=== PATIENT | male | born 1960 | race Caucasian/White ===

== ENCOUNTER 2019-12-14 08:07 | Emergency (ER) | payer MEDICARE, MEDICAID, SELFPAY ==
[2019-12-14] VITALS (9 sets, daily range): BP systolic 169–237; BP diastolic 93–115; PULSE 49–59; RESP 15–19; TEMP 36.3; O2SAT 97–100; BMI 27.1
--- NOTE | 2019-12-14 08:25 | PC.NURSE ---
EKG done at 0815 and shown to ER doctor
--- NOTE | 2019-12-14 08:44 | CT_ITS ---
WS: [id number] CT CHEST TECHNIQUE: Contrast enhanced CT of the chest with coronal and sagittal reformatted images. CLINICAL INFORMATION: dyspnea, exposed to fiberglass COMPARISON: None. DLP: 808.[address] scans at [facility] use at least one of these dose optimization techniques: automat ed exposure control; mA and/or kV adjustment per patient size (includes targeted exams where dose is matched to clinical indication); or iterative reconstruction. FINDINGS: Both lungs. Well aerated. No acute pulmonary infiltrates. Slight subsegmental atelectasis/fibrosis ri ght lower lobe. No focal pneumonia or pleural fluid. Thyroid gland is normal. No mediastinal or hilar lymphadenopathy. Normal caliber thoracic aorta. Prox imal main pulmonary arteries are normal. Adrenal glands are normal. Hypertrophic changes thoracic spi ne. Impression CT/CT chest w con* [id number] IMPRESSION: 1. Both lungs are well aerated. No acute pulmonary infiltrates. 2. Slight subsegmental atelectasis/fibrosis in the right lower lobe. 3. No focal pneumonia or pleural fluid. 4. No mediastinal or hilar lymphadenopathy. 5. No other significant findings.
--- NOTE | 2019-12-14 08:44 | ECG_ITS ---
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
--- NOTE | 2019-12-14 08:44 | XR_ITS ---
WS: [id number] CHEST XRAY TECHNIQUE: Portable chest. CLINICAL INFORMATION: chest pain, exposed to fiberglass COMPARISON: FINDINGS: Heart: Cardiomegaly. Tortuous thoracic aorta. Lungs: Mild chronic erythematous changes. Slight fibrosis right lower lobe. No acute pulmonary infilt rates. Bones: Normal visualized bony structures. XR/XR chest 1V portable [id number] IMPRESSION: No acute chest findings
--- NOTE | 2019-12-14 09:02 | W.ED.CHESTPA ---
HPI - Chest Pain General: Chief Complaint: Chest Pain Stated Complaint: HEADACHE,SOB ,CP Time Seen by Provider: 12/14/19 08:11 History of Present Illness: HPI narrative: This patient is a 58-year-old male who presents today with chest pain and shortness of breath. He also has burning in his eyes. He says that over the past 2 days he has been working in an attic of an 80-year-old house. He thinks he has been exposed to fiberglass. He was wearing a respirator but said it was leaky. He was not wearing any goggles. He started having burning in his eyes yesterday afternoon. He also started having some shortness of breath and chest discomfort late last night and said it kept him awake. He said he is having difficulty getting a deep breath. He denies history of cardiac disease. He knows that he has high blood pressure but has not ever been able to find a blood pressure medicine that did not cause side effects. He does not currently have a primary care doctor. He is a former smoker. He smoked tobacco for a few years but mainly has smoked cannabis. He quit that 2 months ago. He said he has a history of chronic pain in his neck and hips and also has a history of anxiety and insomnia. He said he smoked the marijuana to help with those but it did not really do anything for him. He also has a history of lymphoma that was treated a number of years ago. He is currently in remission he thinks. He does not follow up with anyone and does not have a primary care doctor. He said both parents have in the past few years of cancer as well. MD complaint: chest pain and chest heaviness Pertinent past history: other (Untreated hypertension) Onset (ago): day(s) (1) Timing of current episode: constant Prior episodes: No Onset: during rest Pain location: substernal Pain radiation: none Severity: moderate Quality: tightness and heaviness Relieving factors: nothing Exacerbating factors: inspiration and movement Context: other (Working in the attic of an 80-year-old house with fiberglass insulation) Associated symptoms: Reports dyspnea; Deny abdominal pain, fever(s), nausea or vomiting Treatment prior to arrival: none Review of Systems General: Reports: 10 or more systems reviewed and unremarkable except in HPI and below Const: Reports: malaise; Denies: fever(s), chills or fatigue Eyes: Denies: change in vision ENMT: Denies: odynophagia Card: Reports: chest pain, dyspnea on exertion and orthopnea; Denies: swelling of feet/ankles Resp: Reports: dyspnea and non-productive cough GI: Denies: abdominal pain, nausea or vomiting : Denies: flank pain Musc: Denies: neck pain or back pain Skin/Breast: Denies: rash Neuro: Denies: headache(s), numbness in extremities or weakness in extremities Psych: Reports: anxiety and sleeping less Chau/Lymph: Denies: easy bruising or easy bleeding PFS ED PFSH: Medical History (Updated 12/22/19 @ 00:00 by ) Anxiety Hypertension Lymphoma Physical Exam Const: COMMON NORMALS: patient oriented x3, no limitations and alert GENERAL APPEARANCE: cooperative HENMT: HEAD & SCALP: normal to inspection FACE & SINUS: normal facial exam Eye: GENERAL EYE: appearance normal, both eyes and all related structures Neck/C-Spine: COMMON NORMALS: supple, no meningeal signs and no JVD Chest: COMMONS NORMALS: normal inspection of the chest Resp: COMMON NORMALS: normal respiratory effort, No use of accessory muscles and clear to auscultation bilaterally AUSCULTATION: clear to auscultation bilaterally Cardio: COMMON NORMALS: no JVD, regular rate, regular rhythm and No murmurs present (Cardio) RATE: regular rate RHYTHM: regular rhythm GI: COMMON NORMALS: Normal to inspection, nondistended, normoactive bowel sounds present, Soft to palpation and non-tender INSPECTION: Yes normal to inspection AUSCULTATION: Yes normoactive bowel sounds PALPATION: Yes Soft to palpation Back/Pelvis: COMMON NORMALS: thoracic and lumbar spine normal to inspection Extremity: COMMON NORMALS: normal to inspection Neuro: COMMON NORMALS: patient oriented x3, moves all extremities, no focal motor deficits and no sensory deficits noted SENSORIUM/ORIENTATION: Yes alert MENINGEAL SIGNS: Yes no meningeal signs Psych: COMMON NORMALS: mental status grossly normal and cooperative MOOD & AFFECT: Yes depressed mood and Yes anxious Skin: COMMON NORMALS: no rashes or lesions noted and turgor normal GENERAL SKIN EXAM: no rashes or lesions noted and turgor normal Course ED course: Patient has a negative work-up. He had some exposure to old insulation in his home. Chest x-ray is clear. Labs are clear. We discussed his chronic pain in his neck and I suggest he try some topical Voltaren. We also discussed his elevated blood pressure and I encouraged him to establish with a primary care doctor and get back on blood pressure medications. We discussed the long-term effects of uncontrolled blood pressure. Vital Signs: Vital signs: Vital Signs Temperature 97.3 F L 12/14/19 08:09 Pulse Rate 53 L 12/14/19 12:10 Respiratory Rate 18 12/14/19 12:10 Blood Pressure 169/93 12/14/19 12:10 Pulse Oximetry 99 12/14/19 12:10 MDM - Chest Pain Lab Data: Labs: Lab Results 12/14/19 12/14/19 12/14/19 Range/Units 08:24 08:24 08:24 WBC 4.7 (4.0-10.0) 10^3/ uL RBC 4.33 (4.1-5.3) 10^6/u L Hgb 13.8 (11.7-16.6) g/dL Hct 42.1 (42.0-52.0) % MCV 97.2 H (80-94) fL MCH 31.9 (28.0-34.0) pg MCHC 32.8 (30.0-36.0) g/dL RDW 14.3 (12.1-15.1) % Plt Count 105 L (130-400) 10^3/c mm MPV 10.3 (7.4-10.4) fL Neut % (Auto) 69.7 % Lymph % (Auto) 21.3 % [place] % (Auto) 6.4 % Eos % (Auto) 0.9 % Baso % (Auto) 1.3 % Neut # (Auto) 3.28 (1.8-7.7) 10^3/u L Lymph # (Auto) 1.0 (0.8-4.8) 10^3/u L [place] # (Auto) 0.3 (0.2-0.9) 10^3/u L Eos # (Auto) 0.0 (0.0-0.8) 10^3/u L Baso # (Auto) 0.1 (0.0-0.1) 10^3/u L Nucleated RBC % (a uto) 0 % Nucleated RBCs # 0.0 /100WBC Sodium 140 (136-145) mmol/L Potassium 4.3 (3.5-5.1) mmol/L Chloride 102 (98-107) mmol/L Carbon Dioxide 27 (22-29) mmol/L Anion Gap 15.3 (5-19) BUN 15 (6-20) mg/dL Creatinine 0.9 (0.7-1.2) mg/dL GFR Calculation 87.0 L (90-130) mL/min Glucose 111 (65-115) mg/dL Calculated Osmolal ity 292 (285-295) mOsm/k g Calcium 9.4 (8.5-10.5) mg/dL Total Bilirubin 0.7 (0.15-1.2) mg/dL AST 39 (0-40) U/L ALT 46 H (0-41) U/L Alkaline Phosphata se 89 (40-130) IU/L Troponin T Baselin e 12 (0-15) ng/L Troponin T 120 Min [place] (0-15) ng/L Delta Troponin T (0-10) ABS# NT-Pro-B Natriuret Pep 100 (0-125) pg/mL Total Protein 7.0 (6.6-8.7) g/dL Albumin 4.7 (3.5-5.2) g/dL Globulin 2.3 (1.3-4.6) g/dL Lipase 91 H (13-60) U/L 12/13/ Range/Units 10:53 WBC (4.0-10.0) 10^3/ uL RBC (4.1-5.3) 10^6/u L Hgb (11.7-16.6) g/dL Hct (42.0-52.0) % MCV (80-94) fL MCH (28.0-34.0) pg MCHC (30.0-36.0) g/dL RDW (12.1-15.1) % Plt Count (130-400) 10^3/c mm MPV (7.4-10.4) fL Neut % (Auto) % Lymph % (Auto) % [place] % (Auto) % Eos % (Auto) % Baso % (Auto) % Neut # (Auto) (1.8-7.7) 10^3/u L Lymph # (Auto) (0.8-4.8) 10^3/u L [place] # (Auto) (0.2-0.9) 10^3/u L Eos # (Auto) (0.0-0.8) 10^3/u L Baso # (Auto) (0.0-0.1) 10^3/u L Nucleated RBC % (a uto) % Nucleated RBCs # /100WBC Sodium (136-145) mmol/L Potassium (3.5-5.1) mmol/L Chloride (98-107) mmol/L Carbon Dioxide (22-29) mmol/L Anion Gap (5-19) BUN (6-20) mg/dL Creatinine (0.7-1.2) mg/dL GFR Calculation (90-130) mL/min Glucose (65-115) mg/dL Calculated Osmolal ity (285-295) mOsm/k g Calcium (8.5-10.5) mg/dL Total Bilirubin (0.15-1.2) mg/dL AST (0-40) U/L ALT (0-41) U/L Alkaline Phosphata se (40-130) IU/L Troponin T Baselin e (0-15) ng/L Troponin T 120 Min [place] 12.12 (0-15) ng/L Delta Troponin T 0.12 (0-10) ABS# NT-Pro-B Natriuret Pep (0-125) pg/mL Total Protein (6.6-8.7) g/dL Albumin (3.5-5.2) g/dL Globulin (1.3-4.6) g/dL Lipase (13-60) U/L Discharge Plan Discharge Patient Disposition: Home Clinical Impression: Anxiety, Chest pain, Inhalation injury Hypertension Qualifiers: Hypertension type: unspecified Qualified Code(s): I10 - Essential (primary) hypertension Condition: Stable Prescriptions: New albuterol sulfate 90 mcg/actuation HFA aerosol inhaler 2 inh INHALATION Q4H PRN (Reason: shortness of breath or wheezing) Qty: 18 RF: 0 Voltaren 1 % gel 4 gm TOPICAL TID Qty: 100 RF: 0 Discharge Orders: Discharge Order (Routine); Ordered 12/14/19 Ordered By: Olivia Wolfe Referrals: Madonna Jaeger PA [Family Provider] - Discharge Diet: Usual diet Discharge Activity: Resume usual activity Patient Instructions: Chronic Hypertension (ED) Activity Restrictions/Additional Instructions: Please follow-up with primary care to get established on some blood pressure medications. prison, untreated hypertension is a major risk factor for serious health problems including stroke, heart attack, kidney failure. Use the inhaler as needed for your shortness of breath. Use Voltaren topical cream for your neck and shoulder pain. Return to the ER if new or worsening symptoms. Coding Level of Care Code ED District Extension Service Agent for Chg Fwd Exam Comprehensive
[2019-12-14] MEDS: aspirin 81 mg Chew Tablet 324 MG PO (09:08)
[2019-12-14] MEDS: morphine 4 mg/mL SDV 1 mL IVP (09:08)
[2019-12-14] MEDS: ondansetron 2 mg/ML SDV 2 mL 4 MG IVP (09:09)
[2019-12-14] MEDS: sodium chloride 0.9% 1,000 ML 999 ML IV (09:10)
[2019-12-14 09:13] LABS: Basophils # 0.1 10^3/uL (0.0-0.1); Basophils % 1.3 %; Eosinophils % 0.9 %; Hematocrit 42.1 % (42.0-52.0); Hemoglobin 13.8 g/dL (11.7-16.6); Lymphocytes % 21.3 %; Mean Corpuscular HGB Conc 32.8 g/dL (30.0-36.0); Mean Corpuscular Hemoglobin 31.9 pg (28.0-34.0); Mean Corpuscular Volume 97.2 fL (80-94); Mean Platelet Volume 10.3 fL (7.4-10.4); Monocytes # 0.3 10^3/uL (0.2-0.9); Monocytes % 6.4 %; Neutrophils # 3.28 10^3/uL (1.8-7.7); Neutrophils % 69.7 %; Nucleated Red Blood Cells % 0 %; Platelet Count 105 10^3/cmm (130-400); Red Blood Count 4.33 10^6/uL (4.1-5.3); Red Cell Distribution Width 14.3 % (12.1-15.1); White Blood Count 4.7 10^3/uL (4.0-10.0)
[2019-12-14] MEDS: iohexol 300 mg/mL 100 mL Btl IV (09:13)
[2019-12-14 09:25] LABS: Troponin(5th) Baseline 12 ng/L (0-15)
[2019-12-14 09:33] LABS: Alanine Aminotransferase 46 U/L (0-41); Albumin Level 4.7 g/dL (3.5-5.2); Alkaline Phosphatase 89 IU/L (40-130); Anion Gap 15.3 (5-19); Aspartate Amino Transferase 39 U/L (0-40); Blood Urea Nitrogen 15 mg/dL (6-20); Calcium 9.4 mg/dL (8.5-10.5); Carbon Dioxide 27 mmol/L (22-29); Chloride 102 mmol/L (98-107); Globulin 2.3 g/dL (1.3-4.6); Glucose 111 mg/dL (65-115); Lipase 91 U/L (13-60); NT Pro B Type Natriuretic Pept 100 pg/mL (0-125); Osmolality Calculated 292 mOsm/kg (285-295); Potassium 4.3 mmol/L (3.5-5.1); Sodium 140 mmol/L (136-145); Total Bilirubin 0.7 mg/dL (0.15-1.2)
[2019-12-14] MEDS: nitroglycerin 0.4 mg sublingual Tablet SUBLINGUAL (09:44)
[2019-12-14] MEDS: lidocaine 2% viscous 15 ML, aluminum-mag hydrox-simethicon 30 ML, sucralfate oral liq 1 GM PO (10:19)
[2019-12-14] MEDS: ipratropium-albuterol 3 mL Neb INHALATION (10:24)
[2019-12-14] MEDS: LORazepam 2 mg/mL INJ 1 mL 0.5 MG IVP (10:27)
--- NOTE | 2019-12-14 10:44 | ECG_ITS ---
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
[2019-12-14 11:20] LABS: Troponin 5 2HR 12.12 ng/L (0-15); Troponin 5 2HR Delta 0.12 ABS# (0-10)
[2019-12-14] MEDS: dexamethasone 4 mg/mL INJ 6 MG IVP (12:02)
--- NOTE | 2019-12-15 13:32 | DCPLANNER ---
restaurant floor manager had message to speak with patient about outpatient follow up. restaurant floor manager called patient, unable to speak with patient at this time, and unable to leave a voicemail for patient at this time.
== END 2019-12-14 12:13 | disposition home or self-care (01) ==
PROVIDERS: Emergency Provider Emergency Medicine; Family Provider Physician Assistant
DX: R07.9 Chest pain, unspecified (principal); F41.9 Anxiety disorder, unspecified; I10 Essential (primary) hypertension; T17.900A Unspecified foreign body in respiratory tract, part unspecified causing asphyxiation, initial encounter; X58.XXXA Exposure to other specified factors, initial encounter
CPT/HCPCS: 12345; 71045; 71260; 80053; 83690; 83880; 84484; 85025; 93005; 94640; 96361; 96374; 96375; 99283; 99284; J1100; J2060; J2270; J2405; J7030; Q9967

== ENCOUNTER 2020-08-07 08:38 | Observation (INO) | payer MEDICARE, MEDICAID, SELFPAY ==
[2020-08-07] VITALS (26 sets, daily range): BP systolic 127–242; BP diastolic 72–117; PULSE 40–59; RESP 12–19; TEMP 36.3–36.6; O2SAT 96–100; BMI 27.8
--- NOTE | 2020-08-07 08:47 | XR_ITS ---
WS: [id number] Portable AP upright chest, 08/07/2020 Clinical Data: cp Comparison: Portable chest, 12/14/2019. Findings: No nodules, masses or effusions are seen. The heart is normal. The pulmonary vascularity is not increased. No pneumonia or pneumothorax is seen. Monitor leads are on the chest wall. XR/XR chest 1V portable [id number] Impression: Negative chest.
--- NOTE | 2020-08-07 08:47 | ECG_ITS ---
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 Measurements Intervals [place] Rate: 50 P: 81 [place]: 136 QRS: -18 QRSD: 100 T: 149 QT: 433 QTc: 395 Interpretive Statements SINUS BRADYCARDIA MINIMAL VOLTAGE CRITERIA FOR LVH, CONSIDER NORMAL VARIANT [MEETS CRITERIA IN ONE OF: R(aVL), S(V1), R(V5), R(V5/V6)+S(V1)] POSSIBLE LATERAL MYOCARDIAL INFARCTION [30 ms Q WAVE IN I/aVL/V5/V6], OF INDETERMINATE AGE Compared to ECG 12/14/2019 10:57:16 Myocardial infarct finding now present Electronically Signed On 08-08-2020 7:04:07 CDT by Vickie Anthony M.D. [id number] f
--- NOTE | 2020-08-07 08:47 | CT_ITS ---
WS: [id number] CT HEAD TECHNIQUE: Noncontrast CT of the head obtained from the skullbase to the vertex. CLINICAL INFORMATION: dizzy COMPARISON: None. DLP: 1023.[address] scans at [facility] use at least one of these dose optimization techniques: automat ed exposure control; mA and/or kV adjustment per patient size (includes targeted exams where dose is matched to clinical indication); or iterative reconstruction. FINDINGS: No evidence of intracranial hemorrhage or mass effect. Ventricular system and basal cisterns are dailey nt. Mild parenchymal volume loss. No extra-axial fluid collections. No evidence of mass or mass effec t. Normal neal-white differentiation. Paranasal sinuses and mastoid air cells are well aerated. .Normal visualized soft tissues. CT/CT head wo con* [id number] IMPRESSION: 1. No evidence of intracranial hemorrhage or mass effect. 2. Normal neal-white differentiation. Mild parenchymal volume loss. 3. No acute intracranial findings.
--- NOTE | 2020-08-07 08:50 | ED_ITS ---
Documented by User: Mindy Rivera 08/07/20 13:57 HPI - Chest Pain General: Chief Complaint: Chest Pain Stated Complaint: chest pain, High BP Time Seen by Provider: 08/07/20 08:40 Source: patient Mode of arrival: ambulatory Limitations: no limitations History of Present Illness: HPI narrative: 59 yo male patient presents to ER with c/o chest pain since wednesday patient states this has been intermittent and has had some SOB. Pt denies radiation. Pt states last few days his blood pressure has been in the 240s woke up this am with headache neck pain and dizziness. Pt states he had a stress test a few months ago that was good. pt has history of HTN and took his daily meds today. Pt denies fever, cough abd pain. Associated symptoms: Reports dyspnea; Deny abdominal pain, diaphoresis, fever(s), nausea, palpitations, syncope or vomiting Review of Systems Const: Denies: fever(s), chills, body aches, change in appetite, change in weight, fatigue, malaise or diaphoresis Eyes: Denies: change in vision, blurry vision, blind spots, photophobia, eye discomfort, eye discharge, eye redness, floaters or seeing flashes ENMT: Denies: throat pain, uvular edema, enlarged tonsils, odynophagia, hoarseness, mouth pain, swelling of lips/tongue, oral sores, bleeding gums, dental pain, dry mouth, ear or mastoid pain, ear discharge, change in hearing, tinnitus, disequilibrium, nasal discharge, nasal congestion, post nasal drip or sinus pain Card: Reports: chest pain and lightheadedness; Denies: palpitations, irregular heart rhythm, edema, swelling of feet/ankles, syncope, pre-syncope, dyspnea on exertion, orthopnea, leg pain with exertion or acrocyanosis Resp: Reports: dyspnea; Denies: productive cough, non-productive cough, wheezing, stridor, pain on inspiration, change in phlegm color, hemoptysis or chest congestion GI: Denies: abdominal pain, nausea, vomiting, hematemesis, dysphagia, diarrhea, constipation, GI cramping, change in bowel habits or rectal pain : Denies: flank pain, dysuria, urinary frequency, urinary urgency, urinary hesitancy or hematuria Musc: Denies: neck pain, back pain, extremity pain, extremity swelling, joint pain, joint swelling, joint redness, joint warmth or deformity Skin/Breast: Denies: rash, pruritus, erythema, sores, new lesions, changes in skin color or dry skin Neuro: Reports: headache(s) and dizziness; Denies: numbness in extremities, weakness in extremities, sensory changes, lack of coordination, difficulty walking, frequent falls, vertigo, confusion, behavioral changes, Slurred speech present, difficulty communicating thoughts or seizure-like activity Psych: Denies: anxiety, depression, suicidal ideation or homicidal ideation Endo: Denies: polyuria, polydipsia, tired all the time, cold intolerance, excessive sweating, flushing, hot flashes or heat intolerance Chau/Lymph: Denies: easy bruising, easy bleeding, petechiae, purpura, enlarged lymph nodes or tender lymph nodes All/Imm: Denies: urticaria, throat swelling, tongue swelling, facial swelling, acute wheezing or itchy eyes PFSH ED PFSH: Medical History Anxiety Hypertension Lymphoma Physical Exam Const: COMMON NORMALS: no acute distress, patient oriented x3, healthy appearing, alert and well nourished GENERAL APPEARANCE: cooperative, comfortable, well kempt and well developed; not ill appearing ORIENTATION/CONSCIOUSNESS: Yes awake, Yes oriented to person, Yes oriented to place and Yes oriented to time HENMT: COMMON NORMALS: normocephalic, atraumatic, hearing grossly normal bilaterally, external ears normal, EAC's normal, TM's normal bilaterally, Normal external nose present, Normal nasal mucous membranes and turbinates present and moist oral mucous membranes HEAD & SCALP: normal to inspection, normocephalic and atraumatic FACE & SINUS: normal facial exam, sinuses nontender and face symmetric NOSE: Normal external nose present, Normal nares present, Normal nasal mucous membranes and turbinates present, No nasal discharge present and Abnormal external nose present EXTERNAL EAR: Yes external ears normal and Yes mastoids normal EXTERNAL AUDITORY CANAL: EAC's normal TYMPANIC MEMBRANE: TM's normal bilaterally MOUTH: Normal oral and palatal mucosa present, lip normal, tongue normal and Normal salivary glands and ducts present THROAT: no uvular edema Eye: COMMON NORMALS: Equal, round and reactive pupils present, EOMs intact bilaterally, conjunctivae normal, no scleral icterus and no papilledema GENERAL EYE: appearance normal, both eyes and all related structures EYELID: eyelids normal CONJUNCTIVA: Yes conjunctivae normal SCLERA: sclerae normal CORNEA: Yes corneas normal PUPIL: Yes Equal, round and reactive pupils present DIRECT OPHTHALMOSCOPY: Yes no papilledema Neck/C-Spine: COMMON NORMALS: full ROM, no lymphadenopathy, supple, no meningeal signs, no JVD and Thyroid normal GENERAL: Yes normal visual inspection and Yes trachea midline THYROID: Thyroid normal CERVICAL SPINE: Yes cervical ROM normal Lymph: LYMPHATIC: no lymphadenopathy noted and no lymphedema noted Chest: COMMONS NORMALS: normal inspection of the chest and normal palpation of entire chest wall Resp: COMMON NORMALS: normal respiratory effort, No retractions, No use of accessory muscles and clear to auscultation bilaterally EFFORT & INSPECTION: Yes able to speak in complete sentences and Yes symmetric chest movement AUSCULTATION: clear to auscultation bilaterally Cardio: COMMON NORMALS: no JVD, regular rate and regular rhythm RATE: regular rate RHYTHM: regular rhythm GI: COMMON NORMALS: Normal to inspection, nondistended, normoactive bowel sounds present, Soft to palpation, non-tender, No hepatosplenomegaly present, no masses and no bruits INSPECTION: Yes normal to inspection AUSCULTATION: Yes normoactive bowel sounds PALPATION: Yes Soft to palpation and Yes No hepatosplenomegaly present PERCUSSION: normal to percussion RECTAL EXAM: Yes deferred : COMMON NORMALS: Yes no CVA tenderness BLADDER/KIDNEY EXAM: Yes no CVA tenderness Back/Pelvis: COMMON NORMALS: no CVA tenderness, thoracic and lumbar spine normal to inspection, no thoracic nor lumbar tenderness, thoraco-lumbar ROM normal and straight leg raise negative bilaterally THORACIC SPINE/UPPER BACK: Yes normal to inspection LUMBAR SPINE/LOWER BACK: Yes normal to inspection Extremity: COMMON NORMALS: normal to inspection, full ROM and capillary refill normal GENERAL: Yes normal exam except as noted Neuro: COMMON NORMALS: patient oriented x3, CN's II-XII intact bilaterally, moves all extremities, no focal motor deficits, no sensory deficits noted, deep tendon reflexes 2+ bilaterally and gait normal SENSORIUM/ORIENTATION: Yes alert, Yes oriented to person, Yes oriented to place and Yes oriented to time MENINGEAL SIGNS: Yes no meningeal signs CRANIAL NERVES: Yes CN normal except as noted SPEECH: speech normal GAIT: Yes Normal gait present SENSORY EXAM: Yes extremities MOTOR EXAM: 5/5 motor strength present throughout Psych: COMMON NORMALS: mental status grossly normal, Normal thought process present, cooperative, normal affect, speech normal, activity/motor behavior normal, denies hallucinations, denies homicidal ideation and denies suicidal ideation APPEARANCE: Yes grossly normal and Yes well kempt ATTITUDE: Yes calm ACTIVITY/MOTOR BEHAVIOR: Yes appropriate eye contact SPEECH: Yes normal speech THOUGHT PROCESS: Normal thought process present THOUGHT CONTENT: Yes Normal thought content present ATTENTION/CONCENTRATION: Yes attention grossly intact MEMORY/COGNITION: Yes memory grossly intact INSIGHT: Good insight present (Psych) JUDGEMENT: Good judgement present (Psych) Skin: COMMON NORMALS: no rashes or lesions noted, no wounds, turgor normal, no jaundice, no petechiae and no mottling GENERAL SKIN EXAM: no rashes or lesions noted and turgor normal Course Vital Signs: Vital signs: Vital Signs Temperature 97.9 F 08/07/20 08:43 Pulse Rate 59 L 08/07/20 14:29 Respiratory Rate 18 08/07/20 14:29 Blood Pressure 138/87 08/07/20 14:29 Pulse Oximetry 98 08/07/20 14:29 MDM - Chest Pain MDM Narrative: Medical decision making narrative: Pts EKG does not reveal any st elevation or depression Delta trop is -2. This making cardiac ischemia unlikely. Howver depsite Morphine, patient continues to have intermittent chest pain. Pts blood pressure was in the 240s and was given Hydralazine 20 mg with little improvement pt given Morphine and clonidine with some initial response to this. Blood pressure is annie up to 220s hydralazine 20 mg repeated. Pt is not complaining of chest pain. Will give .5mg if dilaudid. Given patients continued chest pain I will plan on admission at this time. Care transitioned to Dr. Will at this time Age/Sex: 59 / MADM Date: 08/07/20Loc: ERRoom/Bed:Attending Dr: Ordering Provider/Ordering MD: Mindy Rivera NP Date of Service: 08/07/20 Procedure(s): XR chest 1V portable [id number] Accession Number(s): [id number] Report Number: [id number] WS: [id number] Portable AP upright chest, 08/07/2020 Clinical Data: cp Comparison: Portable chest, 12/14/2019. Findings: No nodules, masses or effusions are seen. The heart is normal. The pulmonary vascularity is not increased. No pneumonia or pneumothorax is seen. Monitor leads are on the chest wall. Ordering Provider/Ordering MD: Mindy Rivera NP Date of Service: 08/07/20 Procedure(s): CT head wo con* [id number] Accession Number(s): [id number] Report Number: [id number] WS: [id number] CT HEAD TECHNIQUE: Noncontrast CT of the head obtained from the skullbase to the vertex. CLINICAL INFORMATION: dizzy COMPARISON: None. DLP: 1023.[address] scans at [facility] use at least one of these dose optimization techniques: automated exposure control; mA and/or kV adjustment per patient size (includes targeted exams where dose is matched to clinical indication); or iterative reconstruction. FINDINGS: No evidence of intracranial hemorrhage or mass effect. Ventricular system and basal cisterns are patent. Mild parenchymal volume loss. No extra-axial fluid collections. No evidence of mass or mass effect. Normal neal-white differentiation. Paranasal sinuses and mastoid air cells are well aerated. .Normal visualized soft tissues. CT/CT head wo con* [id number] IMPRESSION: 1. No evidence of intracranial hemorrhage or mass effect. 2. Normal neal-white differentiation. Mild parenchymal volume loss. 3. No acute intracranial findings. Lab Data: Labs: Lab Results 08/07/20 08/07/20 08/07/20 Range/Units 08:57 08:57 08:57 WBC 6.5 (4.0-10.0) 10^3/ uL RBC 4.76 (4.1-5.3) 10^6/u L Hgb 15.5 (11.7-16.6) g/dL Hct 45.5 (42.0-52.0) % MCV 95.6 H (80-94) fL MCH 32.6 (28.0-34.0) pg MCHC 34.1 (30.0-36.0) g/dL RDW 14.6 (12.1-15.1) % Plt Count 87 L (130-400) 10^3/c mm MPV 11.4 H (7.4-10.4) fL Neut % (Auto) 74.8 % Lymph % (Auto) 16.1 % Winston % (Auto) 7.2 % Eos % (Auto) 0.5 % Baso % (Auto) 0.9 % Neut # (Auto) 4.90 (1.8-7.7) 10^3/u L Lymph # (Auto) 1.1 (0.8-4.8) 10^3/u L Winston # (Auto) 0.5 (0.2-0.9) 10^3/u L Eos # (Auto) 0.0 (0.0-0.8) 10^3/u L Baso # (Auto) 0.1 (0.0-0.1) 10^3/u L Nucleated RBC % (a uto) 0 % Nucleated RBCs # 0.0 /100WBC Sodium 138 (136-145) mmol/L Potassium 4.5 (3.5-5.1) mmol/L Chloride 101 (98-107) mmol/L Carbon Dioxide 27 (22-29) mmol/L Anion Gap 14.5 (5-19) BUN 14 (6-20) mg/dL Creatinine 0.9 (0.7-1.2) mg/dL GFR Calculation 86.7 L (90-130) mL/min Glucose 113 (65-115) mg/dL Calculated Osmolal ity 287 (285-295) mOsm/k g Calcium 9.5 (8.5-10.5) mg/dL Total Bilirubin 0.9 (0.15-1.2) mg/dL AST 36 (0-40) U/L ALT 40 (0-41) U/L Alkaline Phosphata se 94 (40-130) IU/L Troponin T Baselin e 14 (0-15) ng/L Troponin T 120 Min [place] (0-15) ng/L Delta Troponin T (0-10) ABS# Total Protein 7.0 (6.6-8.7) g/dL Albumin 4.8 (3.5-5.2) g/dL Globulin 2.2 (1.3-4.6) g/dL SARS-CoV-2 Ag (Rap id) (Negative) 06/30/21 06/30/21 Range/Units 11:09 12:02 WBC (4.0-10.0) 10^3/ uL RBC (4.1-5.3) 10^6/u L Hgb (11.7-16.6) g/dL Hct (42.0-52.0) % MCV (80-94) fL MCH (28.0-34.0) pg MCHC (30.0-36.0) g/dL RDW (12.1-15.1) % Plt Count (130-400) 10^3/c mm MPV (7.4-10.4) fL Neut % (Auto) % Lymph % (Auto) % Winston % (Auto) % Eos % (Auto) % Baso % (Auto) % Neut # (Auto) (1.8-7.7) 10^3/u L Lymph # (Auto) (0.8-4.8) 10^3/u L Winston # (Auto) (0.2-0.9) 10^3/u L Eos # (Auto) (0.0-0.8) 10^3/u L Baso # (Auto) (0.0-0.1) 10^3/u L Nucleated RBC % (a uto) % Nucleated RBCs # /100WBC Sodium (136-145) mmol/L Potassium (3.5-5.1) mmol/L Chloride (98-107) mmol/L Carbon Dioxide (22-29) mmol/L Anion Gap (5-19) BUN (6-20) mg/dL Creatinine (0.7-1.2) mg/dL GFR Calculation (90-130) mL/min Glucose (65-115) mg/dL Calculated Osmolal ity (285-295) mOsm/k g Calcium (8.5-10.5) mg/dL Total Bilirubin (0.15-1.2) mg/dL AST (0-40) U/L ALT (0-41) U/L Alkaline Phosphata se (40-130) IU/L Troponin T Baselin e (0-15) ng/L Troponin T 120 Min [place] 11.37 (0-15) ng/L Delta Troponin T -2.63 L (0-10) ABS# Total Protein (6.6-8.7) g/dL Albumin (3.5-5.2) g/dL Globulin (1.3-4.6) g/dL SARS-CoV-2 Ag (Rap id) Negative (Negative) Discharge Plan Discharge Patient Disposition: Placed in Observation Clinical Impression: Chest pain, Hypertension, Hypertensive urgency Condition: Stable Prescriptions: New clonidine HCl 0.1 mg tablet 0.1 mg PO TID PRN (Reason: hypertensive emergency) Qty: 14 RF: 0 No Action amlodipine 5 mg Tablet 5 mg PO DAILY@0600 RF: 0 ibuprofen 200 mg Tablet 200 - 400 mg PO Q4H PRN (Reason: Pain) RF: 0 Centrum Silver Men 300-600-300 mcg Tablet 1 tab PO DAILY@0600 RF: 0 Discharge Diet: Advance as tolerated Discharge Activity: Increase activity as tolerated Activity Restrictions/Additional Instructions: Please follow up with your PCP for possible Blood pressure medication adjustment as soon as possible Please keep a log of blood pressure readings until seen by PCP If Blood pressure (top number) reaches over 180 please take the medication prescribed If blood pressure does not respond to medication and remains elevated, please return to ER Coding Level of Care Code ED Supplier Development Manager for Chg Fwd Exam Comprehensive Documented by User: Lambert Owen MD 08/07/20 15:10 HPI - Chest Pain General: Chief Complaint: Chest Pain Stated Complaint: chest pain, High BP Time Seen by Provider: 08/07/20 08:40 [facility] ED PFSH: Medical History Anxiety Hypertension Lymphoma Course Vital Signs: Vital signs: Vital Signs Temperature 97.9 F 08/07/20 08:43 Pulse Rate 59 L 08/07/20 14:29 Respiratory Rate 18 08/07/20 14:29 Blood Pressure 138/87 08/07/20 14:29 Pulse Oximetry 98 08/07/20 14:29 MDM - Chest Pain MDM Narrative: Medical decision making narrative: 1400 I assumed care from the midlevel practitioner Jorge Alberto Rivera. Will admit the patient to the hospital due to chest pain.. I discussed case with the hospitalist. We are awaiting to find an available CSU or ICU bed for the patient. 1405: d/w dr. lama hospitalist. pt will need csu or icu bed for admit. no beds available right now. Nursing coremaker supervisor will try to arrange a bed for the patient. 1505: icu overflow bed became available. will put in orders. Lab Data: Labs: Lab Results 08/07/20 08/07/20 08/07/20 Range/Units 08:57 08:57 08:57 WBC 6.5 (4.0-10.0) 10^3/ uL RBC 4.76 (4.1-5.3) 10^6/u L Hgb 15.5 (11.7-16.6) g/dL Hct 45.5 (42.0-52.0) % MCV 95.6 H (80-94) fL MCH 32.6 (28.0-34.0) pg MCHC 34.1 (30.0-36.0) g/dL RDW 14.6 (12.1-15.1) % Plt Count 87 L (130-400) 10^3/c mm MPV 11.4 H (7.4-10.4) fL Neut % (Auto) 74.8 % Lymph % (Auto) 16.1 % Winston % (Auto) 7.2 % Eos % (Auto) 0.5 % Baso % (Auto) 0.9 % Neut # (Auto) 4.90 (1.8-7.7) 10^3/u L Lymph # (Auto) 1.1 (0.8-4.8) 10^3/u L Winston # (Auto) 0.5 (0.2-0.9) 10^3/u L Eos # (Auto) 0.0 (0.0-0.8) 10^3/u L Baso # (Auto) 0.1 (0.0-0.1) 10^3/u L Nucleated RBC % (a uto) 0 % Nucleated RBCs # 0.0 /100WBC Sodium 138 (136-145) mmol/L Potassium 4.5 (3.5-5.1) mmol/L Chloride 101 (98-107) mmol/L Carbon Dioxide 27 (22-29) mmol/L Anion Gap 14.5 (5-19) BUN 14 (6-20) mg/dL Creatinine 0.9 (0.7-1.2) mg/dL GFR Calculation 86.7 L (90-130) mL/min Glucose 113 (65-115) mg/dL Calculated Osmolal ity 287 (285-295) mOsm/k g Calcium 9.5 (8.5-10.5) mg/dL Total Bilirubin 0.9 (0.15-1.2) mg/dL AST 36 (0-40) U/L ALT 40 (0-41) U/L Alkaline Phosphata se 94 (40-130) IU/L Troponin T Baselin e 14 (0-15) ng/L Troponin T 120 Min [place] (0-15) ng/L Delta Troponin T (0-10) ABS# Total Protein 7.0 (6.6-8.7) g/dL Albumin 4.8 (3.5-5.2) g/dL Globulin 2.2 (1.3-4.6) g/dL SARS-CoV-2 Ag (Rap id) (Negative) 08/07/20 08/07/20 Range/Units 11:09 12:02 WBC (4.0-10.0) 10^3/ uL RBC (4.1-5.3) 10^6/u L Hgb (11.7-16.6) g/dL Hct (42.0-52.0) % MCV (80-94) fL MCH (28.0-34.0) pg MCHC (30.0-36.0) g/dL RDW (12.1-15.1) % Plt Count (130-400) 10^3/c mm MPV (7.4-10.4) fL Neut % (Auto) % Lymph % (Auto) % Winston % (Auto) % Eos % (Auto) % Baso % (Auto) % Neut # (Auto) (1.8-7.7) 10^3/u L Lymph # (Auto) (0.8-4.8) 10^3/u L Winston # (Auto) (0.2-0.9) 10^3/u L Eos # (Auto) (0.0-0.8) 10^3/u L Baso # (Auto) (0.0-0.1) 10^3/u L Nucleated RBC % (a uto) % Nucleated RBCs # /100WBC Sodium (136-145) mmol/L Potassium (3.5-5.1) mmol/L Chloride (98-107) mmol/L Carbon Dioxide (22-29) mmol/L Anion Gap (5-19) BUN (6-20) mg/dL Creatinine (0.7-1.2) mg/dL GFR Calculation (90-130) mL/min Glucose (65-115) mg/dL Calculated Osmolal ity (285-295) mOsm/k g Calcium (8.5-10.5) mg/dL Total Bilirubin (0.15-1.2) mg/dL AST (0-40) U/L ALT (0-41) U/L Alkaline Phosphata se (40-130) IU/L Troponin T Baselin e (0-15) ng/L Troponin T 120 Min [place] 11.37 (0-15) ng/L Delta Troponin T -2.63 L (0-10) ABS# Total Protein (6.6-8.7) g/dL Albumin (3.5-5.2) g/dL Globulin (1.3-4.6) g/dL SARS-CoV-2 Ag (Rap id) Negative (Negative) EKG Data^: EKG 1: Attestation: I personally reviewed and interpreted this EKG as follows: EKG interpretation date: 08/07/20 EKG interpretation time: 08:55 Prior EKG tracings: not available for review Interpretation: Sinus bradycardia with heart rate of 50, left axis, LVH, nonspecific ST-T changes, left anterior fascicular block, normal T wave, normal P wave, knee normal GA interval. Impression sinus bradycardia with left anterior fascicular block, LVH EKG 2: Attestation: I personally reviewed and interpreted this EKG as follows: EKG interpretation date: 08/07/20 EKG interpretation time: 11:10 Prior EKG tracings: available for review Interpretation: Sinus bradycardia with a heart rate of 44, unchanged from previous EKG except for rate. Left anterior fascicular block, normal ST segment. Normal T waves. Normal P waves. Normal GA interval. LVH Critical Care Time Critical Care Time: Critical Care Time: Yes Total Critical Care Time: 45 Attestation: IV hydralazine, see orders Discharge Plan Discharge Patient Disposition: Placed in Observation Clinical Impression: Chest pain, Hypertension, Hypertensive urgency Condition: Stable Prescriptions: New clonidine HCl 0.1 mg tablet 0.1 mg PO TID PRN (Reason: hypertensive emergency) Qty: 14 RF: 0 No Action amlodipine 5 mg Tablet 5 mg PO DAILY@0600 RF: 0 ibuprofen 200 mg Tablet 200 - 400 mg PO Q4H PRN (Reason: Pain) RF: 0 Centrum Silver Men 300-600-300 mcg Tablet 1 tab PO DAILY@0600 RF: 0 Discharge Diet: Advance as tolerated Discharge Activity: Increase activity as tolerated Activity Restrictions/Additional Instructions: Please follow up with your PCP for possible Blood pressure medication adjustment as soon as possible Please keep a log of blood pressure readings until seen by PCP If Blood pressure (top number) reaches over 180 please take the medication prescribed If blood pressure does not respond to medication and remains elevated, please return to ER Coding Level of Care Code ED Supplier Development Manager for Aishwarya Fwankita Exam Comprehensive
[2020-08-07] MEDS: hyDRALAzine 20 mg/mL INJ 1 mL 10 MG IVP (09:03)
[2020-08-07 09:14] LABS: Basophils # 0.1 10^3/uL (0.0-0.1); Basophils % 0.9 %; Eosinophils % 0.5 %; Hematocrit 45.5 % (42.0-52.0); Hemoglobin 15.5 g/dL (11.7-16.6); Lymphocytes # 1.1 10^3/uL (0.8-4.8); Lymphocytes % 16.1 %; Mean Corpuscular HGB Conc 34.1 g/dL (30.0-36.0); Mean Corpuscular Hemoglobin 32.6 pg (28.0-34.0); Mean Corpuscular Volume 95.6 fL (80-94); Mean Platelet Volume 11.4 fL (7.4-10.4); Monocytes # 0.5 10^3/uL (0.2-0.9); Monocytes % 7.2 %; Neutrophils % 74.8 %; Nucleated Red Blood Cells % 0 %; Platelet Count 87 10^3/cmm (130-400); Red Blood Count 4.76 10^6/uL (4.1-5.3); Red Cell Distribution Width 14.6 % (12.1-15.1); White Blood Count 6.5 10^3/uL (4.0-10.0)
[2020-08-07 09:46] LABS: Troponin(5th) Baseline 14 ng/L (0-15)
[2020-08-07 09:48] LABS: Alanine Aminotransferase 40 U/L (0-41); Albumin Level 4.8 g/dL (3.5-5.2); Alkaline Phosphatase 94 IU/L (40-130); Anion Gap 14.5 (5-19); Aspartate Amino Transferase 36 U/L (0-40); Blood Urea Nitrogen 14 mg/dL (6-20); Calcium 9.5 mg/dL (8.5-10.5); Carbon Dioxide 27 mmol/L (22-29); Chloride 101 mmol/L (98-107); Globulin 2.2 g/dL (1.3-4.6); Glomerular Filtration Rate 86.7 mL/min (90-130); Glucose 113 mg/dL (65-115); Osmolality Calculated 287 mOsm/kg (285-295); Potassium 4.5 mmol/L (3.5-5.1); Sodium 138 mmol/L (136-145); Total Bilirubin 0.9 mg/dL (0.15-1.2)
[2020-08-07] MEDS: morphine 4 mg/mL SDV 1 mL IVP (10:18)
--- NOTE | 2020-08-07 10:47 | ECG_ITS ---
[facility] Test Date: 2020-08-07 Pat Name: Jeet Isabel Department: Room: Gender: Male Line Driver: : 1960 Requested By: Mindy Rivera Order Number: [id number] Susan MD: Vickie Anthony M.D. Measurements Intervals [place] Rate: 44 P: 41 NM: 145 QRS: 8 QRSD: 99 T: 69 QT: 440 QTc: 378 Interpretive Statements SINUS BRADYCARDIA Compared to ECG 08/07/2020 08:51:55 Myocardial infarct finding no longer present Electronically Signed On 08-08-2020 7:20:34 CDT by Vickie Anthony M.D. [id number]
[2020-08-07 11:32] LABS: Troponin 5 2HR 11.37 ng/L (0-15)
[2020-08-07 11:33] LABS: Troponin 5 2HR Delta -2.63 ABS# (0-10)
[2020-08-07] MEDS: sodium chloride 0.9% 1,000 ML 999 ML IV (11:56)
[2020-08-07] MEDS: cloNIDine 0.1 mg Tablet PO (12:09)
[2020-08-07 12:48] LABS: SARS Covid-2 Antigen Negative (Negative)
[2020-08-07] MEDS: hyDRALAzine 20 mg/mL INJ 1 mL IVP (13:05)
[2020-08-07] MEDS: ondansetron 2 mg/ML SDV 2 mL 4 MG IVP ×2 (14:26→20:59)
[2020-08-07] MEDS: HYDROmorphone 1 mg/mL INJ 1 mL 0.5 MG IVP ×2 (14:26→18:36)
--- NOTE | 2020-08-07 14:47 | ECG_ITS ---
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 Measurements Intervals [place] Rate: 47 P: 34 HI: 136 QRS: 12 QRSD: 99 T: 73 QT: 471 QTc: 418 Interpretive Statements SINUS BRADYCARDIA LEFT VENTRICULAR HYPERTROPHY AND ST-T CHANGE [VOLTAGE CRITERIA PLUS ST/T ABNORMALITY] Compared to ECG 08/07/2020 11:04:31 Left ventricular hypertrophy now present ST (T wave) deviation now present Electronically Signed On 08-08-2020 7:15:15 CDT by Vickie Anthony M.D. [id number]
[2020-08-07 15:16] LABS: Troponin 5 6HR 12.77 ng/L (0-15)
[2020-08-07 15:18] LABS: Troponin 5 6HR Delta -1.23 ng/L (0-12)
--- NOTE | 2020-08-07 16:01 | CTR_ITS ---
PROCEDURE INFORMATION: Exam: CTA Chest With Contrast Exam date and time: 08/07/2020 4:01 PM Age: 59 years old Clinical indication: Sternal or substernal pain; Additional info: Elevated BP, chest pain, ? aortic dissection TECHNIQUE: Imaging protocol: Computed tomographic angiography of the chest with contrast. 3D rendering (Not supervised by radiologist): MIP and/or 3D reconstructed images were created by the technologist. Radiation optimization: All CT scans at this facility use at least one of these dose optimization techniques: automated exposure control; mA and/or kV adjustment per patient size (includes targeted exams where dose is matched to clinical indication); or iterative reconstruction. Contrast material: OMNI 350; Contrast volume: 77 ml; Contrast route: INTRAVENOUS (IV); COMPARISON: CT chest w con* [id number] 12/14/2019 9:07 AM RADIATION DOSE METRICS: Total DLP (mGy-cm): 638.84 FINDINGS: Pulmonary arteries: Normal. No pulmonary emboli. Aorta: 4.3 cm aneurysmal dilatation of the ascending thoracic aorta. No dissection. Lungs: Mild atelectasis in the lung bases. The lungs are otherwise clear. Pleural spaces: Unremarkable. No pneumothorax. No pleural effusion. Heart: Unremarkable. No cardiomegaly. No pericardial effusion. Lymph nodes: Prominent mediastinal and hilar lymph nodes are most likely reactive. Prominent paraceliac lymph nodes are most likely reactive. Spleen: Splenomegaly with calcified granuloma. Kidneys and ureters: Fluid density cyst in the left kidney, Hounsfield units less than 20. No follow-up imaging is recommended. Bones/joints: Unremarkable. No acute fracture. Soft tissues: Unremarkable. CT/CT angio chest PE protcl [id number] IMPRESSION: 1. No evidence for pulmonary embolus or other acute finding. 2. 4.3 cm aneurysmal dilatation of the ascending thoracic aorta. No dissection. 3. Splenomegaly. COMMENTS: Consistent with the [employer]'s Incidental Findings Committee white paper (J Am Jose Radiol 2018): Any incidental renal lesion less than 1 cm or classified as too small to characterize, or any incidental cystic renal lesion characterized as simple-appearing, is likely benign. No follow-up imaging is recommended for these lesions per consensus recommendations based on imaging criteria. Radiation Dose CTDIVOL = (mGy): DLP = 638.84 (mGy-cm)
--- NOTE | 2020-08-07 16:01 | USCV_ITS ---
IsabelJeet Age: 59 Gender: M : 1960 Exam Date: 08/07/2020 16:11 Ordering Phys: Bridger Holly MD Technologist: KYLEE Exam Location: [facility] [place] Indication: HTN BP: 133 / 68 HR: 86 Rhythm: Sinus Technical Quality: Adequate MEASUREMENTS (Male / Female) Normal Values 2D ECHO LV Diastolic Diameter PLAX 4.5 cm 4.2 - 5.9 / 3.9 - 5.3 cm LV Systolic Diameter PLAX 2.8 cm LV Chamber Size 3.8 cm IVS Diastolic Thickness 1.2 cm 0.6 - 1.0 / 0.6 - 0.9 cm IVS Systolic Thickness 1.1 cm LVPW Diastolic Thickness 1.2 cm 0.6 - 1.0 / 0.6 - 0.9 cm LVPW Systolic Thickness 1.2 cm RV Chamber Size 3.1 cm LVOT Diameter 2.0 cm LV Ejection Fraction 2D Teich 68.4 % LV Ejection Fraction MOD 2C 74.4 % LV Ejection Fraction 2C AL 76.0 % LA Diameter 3.5 cm LA Width 2.7 cm LA Height 4.8 cm RA Width 3.1 cm RA Height 4.8 cm Aorta at Sinotubular Diameter 3.2 cm M-MODE LV Diastolic Diameter MM 3.9 cm 4.2 - 5.9 / 3.9 - 5.3 cm LV Systolic Diameter MM 1.8 cm LV Ejection Fraction MM Teich 84.8 % IVS Diastolic Thickness MM 1.4 cm 0.6 - 1.0 / 0.6 - 0.9 cm IVS Systolic Thickness MM 1.6 cm LVPW Diastolic Thickness MM 0.9 cm 0.6 - 1.0 / 0.6 - 0.9 cm LVPW Systolic Thickness MM 1.6 cm Aortic Annulus Diameter 3.7 cm LA Ao Ratio MM 1.1 MV E Point Septal Separation 0.3 cm DOPPLER AV Peak Velocity 204.0 cm/s LVOT Peak Velocity 149.0 cm/s AV Area Cont Eq vti 2.5 cm squared AV Area Cont Eq pk 2.4 cm squared MV Area PHT 5.1 cm squared Mitral E to A Ratio 1.4 MV E' Velocity 93.0 cm/s Mitral E to LV E' Septal Ratio 10.3 TR Peak Velocity 229.9 cm/s TR Peak Gradient 21.1 mmHg TR Mean Velocity 130.2 cm/s TR Mean Gradient 8.0 mmHg TR Velocity Time Integral 46.1 cm TV Peak E Velocity 52.0 cm/s Right Atrial Pressure 3.0 mmHg Pulmonary Artery Systolic Pressu 24.1 mmHg PV Peak Velocity 77.0 cm/s RV Acceleration Time 0.2 s RV Ejection Time 0.3 s RV AcT/ET 0.6 FINDINGS Left Ventricle Normal left ventricular size. LV systolic function is normal with EF of 55-60%. No regional wall motion abnormalities. Mild LVH is seen. Normal diastolic filling pattern. Right Ventricle The right ventricle is normal in size and function. Right Atrium The right atrium is normal in size. Left Atrium The left atrium is normal in size. Mitral Valve Structurally normal mitral valve without significant stenosis or prolapse. There is mild mitral regurgitation. Aortic Valve Structurally normal aortic valve without significant sclerosis or stenosis. There is mild aortic regurgitation. Tricuspid Valve Structurally normal tricuspid valve without significant stenosis or regurgitation. Insufficient TR jet to calculate RVSP Pulmonic Valve Structurally normal pulmonic valve without significant stenosis. There is no pulmonic regurgitation. Pericardium Normal pericardium without effusion. Aorta Normal ascending aorta dimension. CONCLUSIONS LV systolic function is normal with EF of 55-60% Diatsolic function is normal Mild mitral regurgitation Mild aortic regurgitation No comparison studies are available Nader Vaughan MD (Electronically Signed) Final Date: 07 August 2020 18:00 S
[2020-08-07] MEDS: iohexol 350 mg/mL 100 mL Btl IV (16:33)
--- NOTE | 2020-08-07 16:39 | P.HP_ITS ---
Providers/Chief Complaint Chief Complaint: possible High BP History of Present Illness Jeet Isabel is a 59 year old male with past medical history of hypertension, difficult to control blood pressures only on amlodipine, does not follow-up with primary care provider, history of lymphoma present to the ER today with ongoing chest pain. Patient states he has been having chest pain for last couple of weeks on exertion for the last 3 days having chest pain at rest. Chest pain is usually on the left side radiating to shoulders and back without any nausea or vomiting, dizziness, palpitations but associated with difficulty in breathing. He states he has had a stress test many years ago and was reported normal at that time. Has a family history of CAD in his mother, is a non-smoker and said does not consume alcohol. He states usually at home his blood pressures are ranging from 220 systolic to 240 systolic. He states he is never seen his blood pressure lower than 200 systolic. In the ER is found to have a blood pressure 240 systolic and was given 30 mg of IV hydralazine, 0.1 mg of clonidine and morphine along with Dilaudid. Examination patient is comfortably in bed with systolic blood pressure of 138, heart rate 59, satting 98% on room air. Review of Systems General: Reports: 10 or more systems reviewed and unremarkable except in HPI and below Const: Denies: fever(s), chills, body aches, change in appetite, change in weight, malaise, night sweats, diaphoresis, change in sleep pattern, daytime sleepiness or snoring Eyes: Denies: change in vision, blurry vision, photophobia, eye discomfort or eye discharge ENMT: Denies: throat pain, enlarged tonsils, hoarseness, mouth pain, oral sores, dry mouth, tinnitus, nasal congestion or post nasal drip Card: Denies: chest pain, palpitations, irregular heart rhythm, edema, swelling of feet/ankles, lightheadedness, syncope, pre-syncope, dyspnea on exertion, orthopnea, leg pain with exertion or acrocyanosis Resp: Denies: dyspnea, productive cough, non-productive cough, wheezing, stridor, pain on inspiration, change in phlegm color, hemoptysis or chest congestion GI: Denies: abdominal pain, nausea, vomiting, hematemesis, coffee ground emesis, dysphagia, heartburn, diarrhea, constipation, bloating, GI cramping, change in bowel habits, pain on defecation, hematochezia or melena : Denies: flank pain, difficulty urinating, dysuria, urinary frequency, urinary urgency, urinary hesitancy, urinary dribbling, difficulty starting urin ation, change in urine stream, nocturia or hematuria Musc: Denies: neck pain, back pain, extremity pain, joint pain, joint swelling, joint redness, joint stiffness or limited range of motion Neuro: Denies: headache(s), numbness in extremities, weakness in extremities, sensory changes, lack of coordination, difficulty walking, frequent falls, dizziness, vertigo, confusion, Slurred speech present, difficulty communicating thoughts or seizure-like activity Psych: Denies: anxiety, depression, mood swings, panic attacks, hopelessness or irritability Endo: Denies: polyuria, polydipsia, tired all the time, cold intolerance, excessive sweating, flushing or heat intolerance Chau/Lymph: Denies: easy bruising or easy bleeding All/Imm: Denies: tongue swelling, facial swelling or acute wheezing Medications/Allergies Home Medications Medication Instructions Recorded Confirmed Last Taken Type amlodipine 5 mg PO DAILY@0608/07/20 08/07/20 08/07/20 History ibuprofen 200 - 400 mg PO Q4H PRN 08/07/20 08/07/20 08/07/20 History dwnkhibz-oyl-AP-lycopen-lutein 1 tab PO DAILY@0608/07/20 08/07/20 08/06/20 History [Centrum Silver Men] Allergies Allergy/AdvReac Type Severity Reaction Status Date / Time No Known Allergies Allergy Verified 12/14/19 08:13 PFSH Acute PFSH: Medical History Anxiety Hypertension Lymphoma Family History (Updated 08/07/20 @ 16:40 by Bridger Holly MD) Other CAD (coronary artery disease) Cancer Social History (Updated 08/07/20 @ 16:40 by Bridger Holly MD) Smoking and tobacco status: former smoker Alcohol intake: never Substance/Drug Use: never Lives independently: Yes Household members: family Housing: House Vitals/I&O/Wt Last Vital Signs Temp 97.9 F 08/07/20 08:43 Pulse 59 L 08/07/20 14:29 Resp 18 08/07/20 14:29 BP 138/87 08/07/20 14:29 Pulse Ox 98 08/07/20 14:29 08/07/20 08/07/20 08/07/20 06:59 14:59 22:59 Intake Total 1000 / 1000 Balance 1000 / 1000 Weight last 48 hrs Weight 90.718 kg Physical Exam Narrative: EXAM NARRATIVE: General: No acute distress, AO x3, well-nourished HEENT: PERRLA, pupils bilaterally equal and reactive Chest: Normal vesicular breath sounds, no added sounds, equal good air entry bilaterally CVS: S1-S2 regular, no murmurs, no tachycardia, no gallops, no rubs Abdomen: Soft, nontender, no organomegaly, bowel sounds present Neuro: No focal deficits, no facial deformity, AO x3, power 5/5 in all limbs Data : 08/07/20 08:57 08/07/20 08:57 A&P Assessment and plan (1) Chest pain: Status: Acute Qualifiers: Chest pain type: unspecified Qualified Code(s): R07.9 - Chest pain, unspecified (2) Hypertensive urgency: Status: Acute Additional A&P Information 59-year-old man with past medical history of uncontrolled hypertension who does not follow with a primary care provider only on amlodipine presented with ongoing chest pain found to be in hypertensive urgency: Hypertensive urgency: Blood pressure is better controlled for now. Target blood pressure around 170 systolic which would be 25% less than his presenting blood pressure 240 systolic. Start patient on amlodipine 10 mg oral daily, lisinopril 40 mg oral daily. Patient is bradycardic so we will avoid beta-man if needed can start patient on chlorthalidone as well. We will continue to monitor blood pressures. Chest pain: Could be secondary to hypertensive urgency. Cycle troponins. Baby aspirin. Check HbA1c, lipid panel. Stress test tomorrow morning. N.p.o. after midnight. Check CTA to rule out aortic dissection. Echocardiogram to be done. Check iron panel, TSH, urine drug screen, urinalysis. Full code. Cardiac diet, n.p.o. after midnight. Lovenox 40 mg subcu daily. Attestations Medical Necessity Statement*: Patient requires admission for less than 2 midnights under observation for hypertensive urgency, chest pain under evaluation. Time Spent in Patient Care: Greater than 35 minutes (>than 50% of time spent in counselling and/or direct pt care on unit) . Coding Level of Care Code Acute Letter Of Credit Document Examiner for Elisabethg Christopherd Diagnoses Chest pain R07.9 Chest pain type: unspecified Hypertensive urgency I16.0
--- NOTE | 2020-08-07 16:54 | ECG_ITS ---
[facility] Test Date: 2020-08-08 Pat Name: Jeet Isabel Department: Room: ICU10 Gender: Male [employer] Director: : 1960 Requested By: Bridger Holly Order Number: [id number] Susan MD: Yael Hernandez M.D. Interpretive Statements NAME OF STUDY: LEXISCAN SESTAMIBI STRESS TEST INDICATION: Unstable Angina PROCEDURE: At the baseline, the EKG revealed sinus bradycardia with a rate of [address]-T changes. The baseline blood pressure was 150/84 mm Hg with a heart rate of 56 beats/min. Lexiscan was infused over a period of 20 seconds. A total of 0.4 milligrams of Lexiscan was infused. The stress phase was continued for a total of 5 minutes. Heart rate at the end of the stress phase was 83 with a blood pressure 122/91. The EKG at the peak infusion revealed no significant changes. Sestamibi was injected 20 seconds after the Lexiscan infusion. Blood pressure at the end of the recovery phase was 159/81 with a heart rate of 74 per minute. CONCLUSION: 1. No significant EKG changes with the LexiScan infusion 2. No LexiScan induced chest pain or cardiac arrhythmia 3. Normal blood pressure and heart rate response 4. Sestamibi/sestamibi perfusion scan pending; see separate report. Electronically Signed On 08-09-2020 10:50:26 CDT by Yael Hernandez M.D. [id number]
[2020-08-07] MEDS: famotidine 20 mg/2 mL INJ IVP (16:55)
[2020-08-07 17:01] LABS: Thyroid Stimulating Hormone 3.38 uIU/mL (0.27-4.20)
[2020-08-07 17:03] LABS: D Dimer <= 0.27 ug/mIFEU (0-0.59)
[2020-08-07 17:13] LABS: Iron 75 ug/dL (59-158); Percent Saturation 23.9 % (20-50); Total Iron Binding Capacity 313 mcg/dl; Unsaturated Iron Binding 238 ug/dL (112-347)
[2020-08-07 17:36] LABS: NT Pro B Type Natriuretic Pept 154 pg/mL (0-125)
--- NOTE | 2020-08-07 20:21 | PC.NURSE ---
Unable to provide urine at this time.
--- NOTE | 2020-08-07 20:32 | ECG_ITS ---
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 Measurements Intervals [place] Rate: 51 P: 50 [place]: 145 QRS: 44 QRSD: 92 T: 64 QT: 452 QTc: 420 Interpretive Statements SINUS BRADYCARDIA POSSIBLE RIGHT VENTRICULAR CONDUCTION DELAY [RSR (QR) IN V1/V2] MINIMAL ST DEPRESSION [0.025+ mV ST DEPRESSION] Compared to ECG 08/07/2020 15:35:44 Left ventricular hypertrophy no longer present ST (T wave) deviation still present Electronically Signed On 08-08-2020 7:00:09 CDT by Vickie Anthony M.D. [id number]
[2020-08-07] MEDS: HYDROmorphone 1 mg/mL INJ 1 mL IVP (20:59)
[2020-08-07] MEDS: enoxaparin 40 mg/0.4 mL Syringe SUBCUT (23:27)
[2020-08-07] MEDS: morphine 4 mg/mL SDV 1 mL 2 MG IVP (23:27)
[2020-08-08] VITALS (12 sets, daily range): BP systolic 124–165; BP diastolic 67–99; PULSE 41–83; RESP 15–20; TEMP 36.8; O2SAT 96–100
[2020-08-08 02:28] LABS: Bilirubin Urine Neg (Negative); Blood Urine Neg (Negative); Glucose Urine UA Norm (Normal); Ketones Urine Negative (Negative); Leukocyte Esterase Urine Negative (Negative); Nitrate Urine Negative (Negative); Protein Urine Neg (Negative); RBC Urine 0-4 /hpf (0-2); Specific Gravity, Urine 1.005 (1.005-1.030); Squamous Epithelial Cell Urine 0-4 /hpf (0-5); Urine Appearance Clear (CLEAR); Urine Color Yellow (Yellow); Urobilinogen Urine Norm (Negative); WBC Urine 0-4 /hpf (0-5); pH Urine 7 (5-7)
[2020-08-08 02:29] LABS: Bacteria Urine TRACE /hpf
[2020-08-08] MEDS: famotidine 20 mg/2 mL INJ IVP (03:25)
[2020-08-08] MEDS: morphine 4 mg/mL SDV 1 mL 2 MG IVP ×3 (03:26→13:50)
--- NOTE | 2020-08-08 03:56 | PC.NURSE ---
Notified Dr. Martel that patient continues to have 10/10 left chest pain and headache. 1st dose of morphine given upon arrival to unit helped chest pain and headache but dose given 20 minutes ago has not helped chest pain or headache at all. No reports of shortness or breath and no EKG changes noted on cardiac rehab nurse.
[2020-08-08 05:09] LABS: Basophils # 0.1 10^3/uL (0.0-0.1); Basophils % 0.7 %; Eosinophils % 0.2 %; Hematocrit 41.7 % (42.0-52.0); Hemoglobin 13.6 g/dL (11.7-16.6); Lymphocytes # 1.5 10^3/uL (0.8-4.8); Lymphocytes % 18.6 %; Mean Corpuscular HGB Conc 32.6 g/dL (30.0-36.0); Mean Corpuscular Hemoglobin 32.1 pg (28.0-34.0); Mean Corpuscular Volume 98.3 fL (80-94); Mean Platelet Volume 10.9 fL (7.4-10.4); Monocytes # 0.5 10^3/uL (0.2-0.9); Monocytes % 6.6 %; Neutrophils % 73.4 %; Nucleated Red Blood Cells % 0 %; Platelet Count 88 10^3/cmm (130-400); Red Blood Count 4.24 10^6/uL (4.1-5.3); Red Cell Distribution Width 15.4 % (12.1-15.1); White Blood Count 8.2 10^3/uL (4.0-10.0)
[2020-08-08 05:22] LABS: Alanine Aminotransferase 30 U/L (0-41); Albumin Level 4.2 g/dL (3.5-5.2); Alkaline Phosphatase 79 IU/L (40-130); Anion Gap 14.9 (5-19); Aspartate Amino Transferase 26 U/L (0-40); Blood Urea Nitrogen 18 mg/dL (6-20); Calcium 8.8 mg/dL (8.5-10.5); Carbon Dioxide 26 mmol/L (22-29); Chloride 100 mmol/L (98-107); Globulin 2.2 g/dL (1.3-4.6); Glomerular Filtration Rate 76.7 mL/min (90-130); Glucose 102 mg/dL (65-115); Magnesium 1.9 mg/dL (1.7-2.3); Osmolality Calculated 286 mOsm/kg (285-295); Phosphorus 3.8 mg/dL (2.5-4.5); Potassium 3.9 mmol/L (3.5-5.1); Sodium 137 mmol/L (136-145); Total Bilirubin 0.9 mg/dL (0.15-1.2); Total Protein 6.4 g/dL (6.6-8.7)
[2020-08-08 05:27] LABS: Chol HDL Ratio 4.43 mg/dL (1.0-5.00); Cholesterol 124 mg/dL (0-200); HDL Cholesterol 28 mg/dL (60-100); LDL Cholesterol Calculated 72 mg/dL (50-129); Triglycerides 122 mg/dL (0-150); VLDL Cholestrol Calculation 24 mg/dL (0-30)
[2020-08-08] MEDS: amlodipine 10 mg Tablet PO (08:58)
[2020-08-08] MEDS: lisinopril 20 mg Tablet 40 MG PO (08:58)
--- NOTE | 2020-08-08 09:09 | PC.CHAP ---
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 [] Patient/Family/Request visit [] Outpatient visit [] Follow-up visit [] Physician referral [] Code/Alert [x] Routine visit [] Staff referral [] Actively dying [x] Patient sleeping [] Family support [] [] Out of room [] Palliative care [] [] Receiving care in room [] Pre-surgical visit [] Trauma [] Long length of stay [x] ICU visit [] Other: Relational/Emotional Strength [] Patient feels connected with others/family/visitors/staff [] Distress [] Loneliness/isolation [] Abandonment Spirituality of Patient [] Person of Tasneem [] Attends Anabaptist of their Tasneem [] Believes in Prayer [] Reads Bible or Anabaptism materials [] There are Spiritual issues to be addressed Electronic Component Processor Interventions [x] Prayer [] Active listening [] Non-anxious presence [] Spiritual/emotional support [] Crisis/trauma care [] Spiritual counseling [] Bereavement support [] Provided bereavement packet [] Provided Bible/devotional materials [] Provided toy/stuffed animal, coloring book to patient or family member [] Provided Communion [] Anointing/Rupert [] Salvation [x] Completed spiritual assessment [] Other: Impact on Illness or Injury [] Angry [] Fearful [] Anxious [] Often cries [] Exhaustion [] Unable to work [] Unable to attend samaritan [] Unable to walk/stand [] Unable to read [] Unable to drive [] Unable to eat/drink [] Unable to sleep [] Unable to be with family [] Patient intubated [] Other: Summary Time spent with patient
[2020-08-08 11:17] LABS: Estmated Average Glucose 91; Hemoglobin A1C 4.8 % (4.0-6.0)
[2020-08-08] MEDS: regadenoson 0.4 Mg/5 ml Syringe IVP (12:26)
[2020-08-08] MEDS: ondansetron 2 mg/ML SDV 2 mL 4 MG IVP (13:46)
--- NOTE | 2020-08-08 16:17 | PM.DCS ---
Discharge Providers Date of Admission: 08/07/20 15:11 Date of Discharge: August 08, 2020 Attending Provider at Admission: Bridger Holly MD Attending Provider at Discharge: Bridger Holly MD Diagnoses at Discharge Discharge Diagnosis (1) Chest pain: Status: Acute Qualifiers: Chest pain type: unspecified Qualified Code(s): R07.9 - Chest pain, unspecified (2) Hypertensive urgency: Status: Acute Reason for Visit Reason for Visit: possible High BP Hospital Course Hospital Course Jeet Isabel is a 59 year old male with past medical history of hypertension, difficult to control blood pressures only on amlodipine, does not follow-up with primary care provider, history of lymphoma present to the ER today with ongoing chest pain. Patient states he has been having chest pain for last couple of weeks on exertion for the last 3 days having chest pain at rest. Chest pain is usually on the left side radiating to shoulders and back without any nausea or vomiting, dizziness, palpitations but associated with difficulty in breathing. He states he has had a stress test many years ago and was reported normal at that time. Has a family history of CAD in his mother, is a non-smoker and said does not consume alcohol. He states usually at home his blood pressures are ranging from 220 systolic to 240 systolic. He states he is never seen his blood pressure lower than 200 systolic. In the ER is found to have a blood pressure 240 systolic and was given 30 mg of IV hydralazine, 0.1 mg of clonidine and morphine along with Dilaudid. Examination patient is comfortably in bed with systolic blood pressure of 138, heart rate 59, satting 98% on room air. Patient was admitted to the hospital for further monitoring his blood pressure. His antihypertensives were titrated to which he tolerated well. Patient did not have any episodes of chest pain during hospitalization. He underwent Lexiscan stress test which ruled out ischemia. He is been discharged in medically stable condition on amlodipine, lisinopril and aspirin. He is advised to follow-up with new PCP which has been set up through case management. Physical Exam Narrative: EXAM NARRATIVE: General: No acute distress, AO x3, well-nourished HEENT: PERRLA, pupils bilaterally equal and reactive Chest: Normal vesicular breath sounds, no added sounds, equal good air entry bilaterally CVS: S1-S2 regular, no murmurs, no tachycardia, no gallops, no rubs Abdomen: Soft, nontender, no organomegaly, bowel sounds present Neuro: No focal deficits, no facial deformity, AO x3, power 5/5 in all limbs Discharge Data Data Completed and Pending: Completed Studies During Hospitalization Category Date Time Status CT angio chest PE protcl 19883 Urge nt Cat Scan 08/07/20 16:[address] head wo con* 7 [id number] Urgent Cat Scan 08/07/20 08:47 Completed Sestamibi Stress Test Request Routi ne Exams 08/07/20 16:54 Draft XR chest 1V efrain ble [id number] Stat Exams 08/07/20 08:47 Completed NM ko perf SPECT r/s* [id number] Routin e Nuc Med 08/08/20 16:54 Completed CV. echo complete * [id number] Routine Ultrasound 08/07/20 16:01 Completed Pending at discharge Category Date Time Status Drug Screen, Urin e Stat Lab 08/08/20 09:59 Ordered Labs from last 24 hours 08/08/20 08/08/20 08/08/20 04:31 04:31 04:31 WBC 8.2 RBC 4.24 Hgb 13.6 Hct 41.7 L MCV 98.3 H MCH 32.1 MCHC 32.6 RDW 15.4 H Plt Count 88 L MPV 10.9 H Neut % (Auto) 73.4 Lymph % (Auto) 18.6 [place] % (Auto) 6.6 Eos % (Auto) 0.2 Baso % (Auto) 0.7 Neut # (Auto) 6.00 Lymph # (Auto) 1.5 [place] # (Auto) 0.5 Eos # (Auto) 0.0 Baso # (Auto) 0.1 Nucleated RBC % (a uto) 0 Nucleated RBCs # 0.0 D-Dimer Sodium 137 Potassium 3.9 Chloride 100 Carbon Dioxide 26 Anion Gap 14.9 BUN 18 Creatinine 1.0 GFR Calculation 76.7 L Glucose 102 Estimat Average Gl ucose 91 Hemoglobin A1c 4.8 Calculated Osmolal ity 286 Calcium 8.8 Phosphorus 3.8 Magnesium 1.9 Iron TIBC % Saturation Unsat Iron Binding Total Bilirubin 0.9 AST 26 ALT 30 Alkaline Phosphata se 79 NT-Pro-B Natriuret Pep Total Protein 6.4 L Albumin 4.2 Globulin 2.2 Triglycerides Cholesterol LDL Cholesterol, C alc Total VLDL Cholest elizabeth HDL Cholesterol Cholesterol/HDL Ra analy TSH Urine Color Urine Appearance Urine pH Ur Specific Gravit y Urine Protein Urine Glucose (UA) Urine Ketones Urine Blood Urine Nitrate Urine Bilirubin Urine Urobilinogen Ur Leukocyte Jackie ase Urine RBC Urine WBC Ur Squamous Epith Cells Amorphous Sediment Urine Bacteria 08/08/20 08/08/20 08/07/20 04:31 02:00 Unknown WBC RBC Hgb Hct MCV MCH MCHC RDW Plt Count MPV Neut % (Auto) Lymph % (Auto) [place] % (Auto) Eos % (Auto) Baso % (Auto) Neut # (Auto) Lymph # (Auto) [place] # (Auto) Eos # (Auto) Baso # (Auto) Nucleated RBC % (a uto) Nucleated RBCs # D-Dimer Sodium Potassium Chloride Carbon Dioxide Anion Gap BUN Creatinine GFR Calculation Glucose Estimat Average Gl ucose Hemoglobin A1c Calculated Osmolal ity Calcium Phosphorus Magnesium Iron 75 TIBC 313 % Saturation 23.9 Unsat Iron Binding 238 Total Bilirubin AST ALT Alkaline Phosphata se NT-Pro-B Natriuret Pep Total Protein Albumin Globulin Triglycerides 122 Cholesterol 124 LDL Cholesterol, C alc 72 Total VLDL Cholest elizabeth 24 HDL Cholesterol 28 L Cholesterol/HDL Ra analy 4.43 TSH 3.38 Urine Color Yellow Urine Appearance Clear Urine pH 7 Ur Specific Gravit y 1.005 Urine Protein Neg Urine Glucose (UA) Norm Urine Ketones Negative Urine Blood Neg Urine Nitrate Negative Urine Bilirubin Neg Urine Urobilinogen Norm Ur Leukocyte Jackie ase Negative Urine RBC 0-4 H Urine WBC 0-4 H Ur Squamous Epith Cells 0-4 H Amorphous Sediment Not Reportable Urine Bacteria Trace 08/07/20 08/07/20 16:54 16:40 WBC RBC Hgb Hct MCV MCH MCHC RDW Plt Count MPV Neut % (Auto) Lymph % (Auto) [place] % (Auto) Eos % (Auto) Baso % (Auto) Neut # (Auto) Lymph # (Auto) [place] # (Auto) Eos # (Auto) Baso # (Auto) Nucleated RBC % (a uto) Nucleated RBCs # D-Dimer <= 0.27 Sodium Potassium Chloride Carbon Dioxide Anion Gap BUN Creatinine GFR Calculation Glucose Estimat Average Gl ucose Hemoglobin A1c Calculated Osmolal ity Calcium Phosphorus Magnesium Iron TIBC % Saturation Unsat Iron Binding Total Bilirubin AST ALT Alkaline Phosphata se NT-Pro-B Natriuret Pep 154 H Total Protein Albumin Globulin Triglycerides Cholesterol LDL Cholesterol, C alc Total VLDL Cholest elizabeth HDL Cholesterol Cholesterol/HDL Ra analy TSH Urine Color Urine Appearance Urine pH Ur Specific Gravit y Urine Protein Urine Glucose (UA) Urine Ketones Urine Blood Urine Nitrate Urine Bilirubin Urine Urobilinogen Ur Leukocyte Jackie ase Urine RBC Urine WBC Ur Squamous Epith Cells Amorphous Sediment Urine Bacteria Addt'l Data from Hospital Stay: Laboratory Results WBC 8.2 10^3/uL (4.0- 10.0) 08/08/20 04:31 RBC 4.24 10^6/uL (4.1 -5.3) 08/08/20 04:31 Hgb 13.6 g/dL (11.7-1 6.6) 08/08/20 04:31 Hct 41.7 % (42.0-52.0 ) L 08/08/20 04:31 MCV 98.3 fL (80-94) H 08/08/20 04:31 MCH 32.1 pg (28.0-34. 0) 08/08/20 04:31 MCHC 32.6 g/dL (30.0-3 6.0) 08/08/20 04:31 RDW 15.4 % (12.1-15.1 ) H 08/08/20 04:31 Plt Count 88 10^3/cmm (130- 400) L 08/08/20 04:31 MPV 10.9 fL (7.4-10.4 ) H 08/08/20 04:31 Neut % (Auto) 73.4 % 08/08/20 04:31 Lymph % (Auto) 18.6 % 08/08/20 04:31 [place] % (Auto) 6.6 % 08/08/20 04:31 Eos % (Auto) 0.2 % 08/08/20 04:31 Baso % (Auto) 0.7 % 08/08/20 04:31 Neut # (Auto) 6.00 10^3/uL (1.8 -7.7) 08/08/20 04:31 Lymph # (Auto) 1.5 10^3/uL (0.8- 4.8) 08/08/20 04:31 [place] # (Auto) 0.5 10^3/uL (0.2- 0.9) 08/08/20 04:31 Eos # (Auto) 0.0 10^3/uL (0.0- 0.8) 08/08/20 04:31 Baso # (Auto) 0.1 10^3/uL (0.0- 0.1) 08/08/20 04:31 Nucleated RBC % (a uto) 0 % 08/08/20 04:31 Nucleated RBCs # 0.0 /100WBC 08/08/20 04:31 D-Dimer <= 0.27 ug/mIFEU (0-0.59) 08/07/20 16:40 Sodium 137 mmol/L (136-1 45) 08/08/20 04:31 Potassium 3.9 mmol/L (3.5-5 .1) 08/08/20 04:31 Chloride 100 mmol/L (98-10 7) 08/08/20 04:31 Carbon Dioxide 26 mmol/L (22-29) 08/08/20 04:31 Anion Gap 14.9 (5-19) 08/08/20 04:31 BUN 18 mg/dL (6-20) 08/08/20 04:31 Creatinine 1.0 mg/dL (0.7-1. 2) 08/08/20 04:31 GFR Calculation 76.7 mL/min (90-1 30) L 08/08/20 04:31 Glucose 102 mg/dL (65-115 ) 08/08/20 04:31 Estimat Average Gl ucose 91 08/08/20 04:31 Hemoglobin A1c 4.8 % (4.0-6.0) 08/08/20 04:31 Calculated Osmolal ity 286 mOsm/kg (285- 295) 08/08/20 04:31 Calcium 8.8 mg/dL (8.5-10 .5) 08/08/20 04:31 Phosphorus 3.8 mg/dL (2.5-4. 5) 08/08/20 04:31 Magnesium 1.9 mg/dL (1.7-2. 3) 08/08/20 04:31 Iron 75 ug/dL (59-158) 08/07/20 Unknown TIBC 313 mcg/dl 08/07/20 Unknown % Saturation 23.9 % (20-50) 08/07/20 Unknown Unsat Iron Binding 238 ug/dL (112-34 7) 08/07/20 Unknown Total Bilirubin 0.9 mg/dL (0.15-1 .2) 08/08/20 04:31 AST 26 U/L (0-40) 08/08/20 04:31 ALT 30 U/L (0-41) 08/08/20 04:31 Alkaline Phosphata se 79 IU/L (40-130) 08/08/20 04:31 Troponin T Baselin e 14 ng/L (0-15) 08/07/20 08:57 Troponin T 120 Min orin 11.37 ng/L (0-15) 08/07/20 11:09 Delta Troponin T -2.63 ABS# (0-10) L 08/07/20 11:09 Troponin T Hi Sens 6Hr 12.77 ng/L (0-15) 08/07/20 14:46 Troponin T Hi Sens 6Hr Delta -1.23 ng/L (0-12) L 08/07/20 14:46 NT-Pro-B Natriuret Pep 154 pg/mL (0-125) H 08/07/20 16:54 Total Protein 6.4 g/dL (6.6-8.7 ) L 08/08/20 04:31 Albumin 4.2 g/dL (3.5-5.2 ) 08/08/20 04:31 Globulin 2.2 g/dL (1.3-4.6 ) 08/08/20 04:31 Triglycerides 122 mg/dL (0-150) 08/08/20 04:31 Cholesterol 124 mg/dL (0-200) 08/08/20 04:31 LDL Cholesterol, C alc 72 mg/dL (50-129) 08/08/20 04:31 Total VLDL Cholest elizabeth 24 mg/dL (0-30) 08/08/20 04:31 HDL Cholesterol 28 mg/dL (60-100) L 08/08/20 04:31 Cholesterol/HDL Ra analy 4.43 mg/dL (1.0-5 .00) 08/08/20 04:31 TSH 3.38 uIU/mL (0.27 -4.20) 08/07/20 Unknown Urine Color Yellow (Yellow) 08/08/20 02:00 Urine Appearance Clear (CLEAR) 08/08/20 02:00 Urine pH 7 (5-7) 08/08/20 02:00 Ur Specific Gravit y 1.005 (1.005-1.0 30) 08/08/20 02:00 Urine Protein Neg (Negative) 08/08/20 02:00 Urine Glucose (UA) Norm (Normal) 08/08/20 02:00 Urine Ketones Negative (Negati ve) 08/08/20 02:00 Urine Blood Neg (Negative) 08/08/20 02:00 Urine Nitrate Negative (Negati ve) 08/08/20 02:00 Urine Bilirubin Neg (Negative) 08/08/20 02:00 Urine Urobilinogen Norm mg/dL (Negat ester) 08/08/20 02:00 Ur Leukocyte Jackie ase Negative (Negati ve) 08/08/20 02:00 Urine RBC 0-4 /hpf (0-2) H 08/08/20 02:00 Urine WBC 0-4 /hpf (0-5) H 08/08/20 02:00 Ur Squamous Epith Cells 0-4 /hpf (0-5) H 08/08/20 02:00 Amorphous Sediment Not Reportable 08/08/20 02:00 Urine Bacteria Trace /hpf (NONE) 08/08/20 02:00 SARS-CoV-2 Ag (Rap id) Negative (Negati ve) 08/07/20 12:02 Impressions Chest X-Ray 08/07/20 08:47 Impression: Negative chest. Head CT 08/07/20 08:47 IMPRESSION: 1. No evidence of intracranial hemorrhage or mass effect. 2. Normal neal-white differentiation. Mild parenchymal volume loss. 3. No acute intracranial findings. Chest CTA 08/07/20 16:01 IMPRESSION: 1. No evidence for pulmonary embolus or other acute finding. 2. 4.3 cm aneurysmal dilatation of the ascending thoracic aorta. No dissection. 3. Splenomegaly. COMMENTS: Consistent with the [employer]'s Incidental Findings Committee white paper (J Am Jose Radiol 2018): Any incidental renal lesion less than 1 cm or classified as too small to characterize, or any incidental cystic renal lesion characterized as simple-appearing, is likely benign. No follow-up imaging is recommended for these lesions per consensus recommendations based on imaging criteria. Radiation Dose CTDIVOL = (mGy): DLP = 638.84 (mGy-cm) Lexiscan stress test Peg 1 2021. IMPRESSIONS 1. Unremarkable myocardial perfusion imaging. 2. Normal LV ejection fraction of 59%. 3. LV wall motion analysis revealing no gross wall motion normalities. 4. Normal LV volume. No significant coronary ischemia, based on the above findings Vitals: Last Vital Signs Temp 98.2 F 08/08/20 12:00 Pulse 83 08/08/20 12:40 Resp 19 H 08/08/20 13:50 BP 144/88 08/08/20 12:40 Pulse Ox 97 08/08/20 12:00 Discharge Plan Discharge Patient Disposition: Home Condition: Stable Prescriptions: New lisinopril 20 mg Tablet 40 mg PO DAILY 30 Days Qty: 30 RF: 0 amlodipine 10 mg Tablet 10 mg PO DAILY 30 Days Qty: 30 RF: 0 aspirin [Adult Aspirin Regimen] 81 mg tablet,delayed release (DR/EC) 81 mg PO DAILY Qty: 30 RF: 0 Continued ibuprofen 200 mg Tablet 200 - 400 mg PO Q4H PRN (Reason: Pain) RF: 0 Centrum Silver Men 300-600-300 mcg Tablet 1 tab PO DAILY@0600 RF: 0 Discontinued amlodipine 5 mg Tablet 5 mg PO DAILY@0600 RF: 0 Discharge Orders: Discharge Order (Routine); Ordered 08/08/20 Ordered By: Bridger Holly Referrals: [facility] [Staff Physician] - Discharge Diet: Advance as tolerated Discharge Activity: Increase activity as tolerated Patient Instructions: Hypertension, Chest Pain (DC), Hypertensive Crisis (DC), Opioid Safety Activity Restrictions/Additional Instructions: Please follow-up with her primary care provider within next 1 week. Please check your blood pressure twice daily at home and maintain a blood pressure diary to follow-up with a primary care provider. Your antihypertensives were further adjusted at your next visit with a primary care provider. Discharge Attestations Time Spent in Discharge Care*: greater than 30 min Specific Discharge Activities: educating patient, discussing with pcp/other providers, discussing with outpatient case manager/social workers/dc planners, documenting/other paperwork and evaluating patient/reviewing data Status at Discharge: Cognitive status at discharge: cognitively intact, Behavioral status at discharge: cooperative, Functional status at discharge: independent ambulation Overall status at discharge: patient is back to baseline Quality Metrics Clinical Quality Measures During this hospital stay, did patient experience: None Coding Level of Care Code Acute Chg FW DC note Diagnoses Chest pain R07.9 Chest pain type: unspecified Hypertensive urgency I16.0
--- NOTE | 2020-08-08 16:54 | NMCV_ITS ---
NM ko perf SPECT r/s* [id number] Jeet Isabel Age: 59 Gender: M : 1960 Exam Date: 08/08/2020 16:54 Ordering Phys: Bridger Holly MD Technologist: CARLY Chong Exam Location: [facility] Indications: POSSIBLE HIGH BLOOD PRESSURE STRESS TEST Please see separate stress test report in [facility] for full findings IMAGE PROTOCOL Rest/Stress 1 Lexiscan Day Radiopharmaceutical Dose (mCi) Administration Site Administered by Rest: Tc-99m 10.6 IV CARLY Chong Sestamibi Stress:Tc-99m 32.6 IV CARLY Dill Sestamibi Rest: 08-Aug-2020 60 Discovery 630 Stress: 08-Aug-2020 30 Discovery 630 0.4mg Lexiscan. Supine position only as patient was unable to lay prone. SPECT RESULTS Technical Quality: Excellent Raw Data Analysis: Normal Image Corrections: No attenuation or motion correction applied Summed Stress Score: 0 Summed Rest Score: 0 Summed Difference Score: 0 PERFUSION FINDINGS Fairly uniform myocardial tracer uptake. No significant perfusion abnormalities were noted. FUNCTIONAL RESULTS (calculated via Gated SPECT) Stress Image LV EF (%): 59 Stress EDV (mL):184 TID: 0.95 Stress ESV (mL):75 FUNCTIONAL FINDINGS: Segmental wall motion analysis revealing no gross wall motion abnormalities IMPRESSIONS 1. Unremarkable myocardial perfusion imaging. 2. Normal LV ejection fraction of 59%. 3. LV wall motion analysis revealing no gross wall motion normalities. 4. Normal LV volume. No significant coronary ischemia, based on the above findings Dr Yael Hernandez MD [facility] (Electronically Signed) Final Date: 08 August 2020 16:05 S
== END 2020-08-08 16:00 | disposition home or self-care (01) ==
LOC: ER 15:22 → ICU 21:25
PROVIDERS: Registered Nurse; Admitting Provider Student in an Organized Health Care Education/Training Program; Emergency Provider Family Medicine; Visit Provider Student in an Organized Health Care Education/Training Program
DX: R07.9 Chest pain, unspecified (principal); I16.0 Hypertensive urgency; Z82.49 Family history of ischemic heart disease and other diseases of the circulatory system; I10 Essential (primary) hypertension; Z87.891 Personal history of nicotine dependence; R73.03 Prediabetes
CPT/HCPCS: 36415; 70450; 71045; 71275; 78452; 80053; 80061; 81001; 83036; 83540; 83550; 83735; 83880; 84100; 84443; 84484; 85025; 85378; 87426; 93005; 93017; 93306; 94664; 96372; 96374; 96375; 96376; 99291; 99292; A9500; G0378; J0360; J1170; J1650; J2270; J2405; J2785; J3490; J7030; Q9967

== ENCOUNTER → 2020-08-15 09:51 | Outpatient (BNVA) | payer MEDICARE, MEDICAID, SELFPAY | PROVIDERS: Visit Provider Nurse Practitioner Family | DX: I10 Essential (primary) hypertension (principal); I77.819 Aortic ectasia, unspecified site; F41.9 Anxiety disorder, unspecified | CPT/HCPCS: 80053; 80061; 84443; 85025 ==

== ENCOUNTER 2020-09-08 09:02 | Emergency (ER) | payer MEDICARE, MEDICAID, SELFPAY ==
--- NOTE | 2020-09-08 09:07 | XRR_ITS ---
PROCEDURE INFORMATION: Exam: XR Left Knee Exam date and time: 09/08/2020 9:07 AM Age: 59 years old Clinical indication: Pain; Knee; Left TECHNIQUE: Imaging protocol: XR Left knee. Views: 3 views. COMPARISON: No relevant prior studies available. FINDINGS: Bones/joints: A joint effusion is present with fluid in the suprapatellar bursa. No acute bony abnormality. Soft tissues: Normal. XR/XR knee LT 3V* [id number] IMPRESSION: Joint effusion. No acute bony abnormality.
[2020-09-08 09:37] VITALS: BP 174/88; PULSE 53; RESP 18; TEMP 36.2; O2SAT 98; BMI 27.7
--- NOTE | 2020-09-08 09:44 | W.ED.EXTPRO ---
HPI - Extremity Problem General: Chief complaint: Extremity Injury, Lower Stated complaint: LEFT KNEE PAIN Time Seen by Provider: 09/08/20 09:37 Source: patient Mode of arrival: ambulatory Limitations: no limitations History of Present Illness: HPI Narrative: 59-year-old male states that he has got a bad left knee has had chronic issues with states that he had increasing pain and swelling in that knee over the last 2 to 3 days. He does have a joint effusion and states he is having a difficult time walking due to the pain. Denies any fevers. Denies any warmth to touch. Denies any radiation of the pain. He rates his pain a 5 out of 10 currently. It is improved with rest. Associated symptoms: Deny chest pain, fever(s) or rash Review of Systems Const: Denies: fever(s), chills, body aches or change in appetite Eyes: Denies: blurry vision or eye discomfort ENMT: Denies: throat pain or dental pain Card: Denies: chest pain Resp: Denies: dyspnea GI: Denies: abdominal pain, nausea, vomiting or diarrhea : Denies: dysuria Musc: Reports: extremity pain Skin/Breast: Denies: rash Neuro: Denies: headache(s) Psych: Denies: depression Chau/Lymph: Denies: easy bruising All/Imm: Denies: urticaria PFSH ED PFSH: Medical History Anxiety Hypertension Hypertensive urgency Lymphoma Thoracic ascending aortic aneurysm Family History Other CAD (coronary artery disease) Cancer Social History Alcohol intake: never Lives independently: Yes Household members: family Housing: House Physical Exam Const: COMMON NORMALS: no acute distress, patient oriented x3 and healthy appearing HENMT: COMMON NORMALS: normocephalic and atraumatic HEAD & SCALP: normocephalic and atraumatic Eye: COMMON NORMALS: Equal, round and reactive pupils present and EOMs intact bilaterally PUPIL: Yes Equal, round and reactive pupils present Neck/C-Spine: COMMON NORMALS: full ROM and supple Chest: COMMONS NORMALS: normal inspection of the chest and normal palpation of entire chest wall Resp: COMMON NORMALS: normal respiratory effort, No retractions, No use of accessory muscles and clear to auscultation bilaterally AUSCULTATION: clear to auscultation bilaterally Cardio: COMMON NORMALS: regular rate, regular rhythm and No murmurs present (Cardio) RATE: regular rate RHYTHM: regular rhythm GI: COMMON NORMALS: Normal to inspection, nondistended, normoactive bowel sounds present, Soft to palpation, non-tender and no masses PALPATION: Yes Soft to palpation Extremity: NARRATIVE EXTREMITY EXAM: Swelling to left knee with some tenderness no warmth to touch or signs of septic joint Neuro: COMMON NORMALS: patient oriented x3, moves all extremities and no focal motor deficits Psych: COMMON NORMALS: mental status grossly normal, Normal thought process present and cooperative THOUGHT PROCESS: Normal thought process present Skin: COMMON NORMALS: no rashes or lesions noted and no wounds GENERAL SKIN EXAM: no rashes or lesions noted Course Vital Signs: Vital signs: Vital Signs Temperature 97.2 F L 09/08/20 09:37 Pulse Rate 53 L 09/08/20 09:37 Respiratory Rate 18 09/08/20 09:37 Blood Pressure 174/88 09/08/20 09:37 Pulse Oximetry 98 09/08/20 09:37 MDM - Extremity (Nontraumatic) MDM Narrative: Medical decision making narrative: Patient presents here with joint effusion left knee lateral pain likely from chronic arthritis and knee sprain. He has no signs of septic joint. His CRP and white count here are normal. Is no warmth to touch. He is to ice and use Naprosyn follow-up with orthopedics. He is return if worsening. He understands and agrees to plan. Lab Data: Labs: Lab Results 09/08/20 09/08/20 Range/Units 09:53 09:53 WBC 8.3 (4.0-10.0) 10^3/ uL RBC 4.10 (4.1-5.3) 10^6/u L Hgb 13.5 (11.7-16.6) g/dL Hct 39.5 L (42.0-52.0) % MCV 96.3 H (80-94) fL MCH 32.9 (28.0-34.0) pg MCHC 34.2 (30.0-36.0) g/dL RDW 14.6 (12.1-15.1) % Plt Count 83 L (130-400) 10^3/c mm MPV 10.3 (7.4-10.4) fL Neut % (Auto) 77.8 % Lymph % (Auto) 13.7 % [place] % (Auto) 7.0 % Eos % (Auto) 0.5 % Baso % (Auto) 0.6 % Neut # (Auto) 6.46 (1.8-7.7) 10^3/u L Lymph # (Auto) 1.1 (0.8-4.8) 10^3/u L [place] # (Auto) 0.6 (0.2-0.9) 10^3/u L Eos # (Auto) 0.0 (0.0-0.8) 10^3/u L Baso # (Auto) 0.1 (0.0-0.1) 10^3/u L Nucleated RBC % (a uto) 0 % Nucleated RBCs # 0.0 /100WBC C-Reactive Protein 10.8 H (0.0-4.9) mg/L Imaging Data^: Xray Ortho: Attestation: I personally reviewed and interpreted this imaging study as follows: My impression: No acute abnormality to left knee effusion noted Discharge Plan Discharge Patient Disposition: Home Clinical Impression: Effusion of knee joint, left Knee sprain Qualifiers: Encounter type: initial encounter Involved ligament of knee: unspecified ligament Laterality: left Qualified Code(s): S83.92XA - Sprain of unspecified site of left knee, initial encounter Condition: Stable Prescriptions: New hydrocodone-acetaminophen 5-325 mg tablet 1 tab PO Q6H PRN (Reason: pain) Qty: 14 RF: 0 Naprosyn 500 mg tablet 500 mg PO BID PRN (Reason: pain) Qty: 20 RF: 0 No Action furosemide 20 mg tablet 20 mg PO DAILY 30 Days Qty: 30 RF: 0 potassium chloride [Klor-Con M20] 20 mEq tablet,ER particles/crystals 20 meq PO DAILY 30 Days Qty: 30 RF: 0 amlodipine 5 mg tablet 5 mg PO DAILY Qty: 90 RF: 3 lisinopril 40 mg tablet 40 mg PO DAILY 30 Days Qty: 30 RF: 2 ibuprofen 200 mg Tablet 200 - 400 mg PO Q4H PRN (Reason: Pain) RF: 0 Centrum Silver Men 300-600-300 mcg Tablet 1 tab PO DAILY@0600 RF: 0 Adult Aspirin Regimen 81 mg tablet,delayed release (DR/EC) 81 mg PO DAILY Qty: 30 RF: 0 Discharge Orders: Discharge ED (Routine); Ordered 09/08/20 Ordered By: Brenda Ferguson Referrals: Ghassan Rothman MD [Physician] - 1-3 days Discharge Diet: Advance as tolerated Discharge Activity: Resume usual activity Patient Instructions: Knee Effusion (ED), Opioid Safety Coding Level of Care Code ED Parachute Repairer for Chg Fwd Exam Comprehensive
[2020-09-08 10:04] LABS: Basophils # 0.1 10^3/uL (0.0-0.1); Basophils % 0.6 %; Eosinophils % 0.5 %; Hematocrit 39.5 % (42.0-52.0); Hemoglobin 13.5 g/dL (11.7-16.6); Lymphocytes # 1.1 10^3/uL (0.8-4.8); Lymphocytes % 13.7 %; Mean Corpuscular HGB Conc 34.2 g/dL (30.0-36.0); Mean Corpuscular Hemoglobin 32.9 pg (28.0-34.0); Mean Corpuscular Volume 96.3 fL (80-94); Mean Platelet Volume 10.3 fL (7.4-10.4); Monocytes # 0.6 10^3/uL (0.2-0.9); Neutrophils # 6.46 10^3/uL (1.8-7.7); Neutrophils % 77.8 %; Nucleated Red Blood Cells % 0 %; Platelet Count 83 10^3/cmm (130-400); Red Cell Distribution Width 14.6 % (12.1-15.1); White Blood Count 8.3 10^3/uL (4.0-10.0)
[2020-09-08 10:23] LABS: C Reactive Protein 10.8 mg/L (0.0-4.9)
[2020-09-08 10:45] VITALS: BP 142/84; PULSE 52; RESP 14; O2SAT 98
--- NOTE | 2020-09-09 12:54 | DCPLANNER ---
kosher dietary service manager had message to schedule a follow up appointment for patient with ortho for a knee sprain. kosher dietary service manager called the ortho clinic, spoke with Silvia, gave clinic patients information. kosher dietary service manager was told that patients information would be printed and reviewed. Clinic will call patient with appointment information.
--- NOTE | 2020-09-10 12:34 | DCPLANNER ---
Patient has a follow up appointment scheduled for Wednesday, September 11, 2020 at 9:[address] Rothman at [facility]. Clinic will call patient with appointment information.
--- NOTE | 2020-09-26 12:28 | DCPLANNER ---
Patient had follow up appointment scheduled for 09.11.20 with ortho - patient did attend appointment.
== END 2020-09-08 10:46 | disposition home or self-care (01) ==
PROVIDERS: Emergency Provider Emergency Medicine
DX: S83.92XA Sprain of unspecified site of left knee, initial encounter (principal); M25.462 Effusion, left knee; Z79.82 Long term (current) use of aspirin; I10 Essential (primary) hypertension; Z85.72 Personal history of non-Hodgkin lymphomas; X58.XXXA Exposure to other specified factors, initial encounter
CPT/HCPCS: 73562; 85025; 86140; 99283

== ENCOUNTER → 2020-09-11 09:49 | Outpatient (BNVA) | payer MEDICARE, MEDICAID, SELFPAY | PROVIDERS: Referring Provider Emergency Medicine; Visit Provider Orthopaedic Surgery | DX: M25.462 Effusion, left knee (principal); S83.92XA Sprain of unspecified site of left knee, initial encounter; X58.XXXA Exposure to other specified factors, initial encounter | CPT/HCPCS: 80500; 87070; 89051 ==

== ENCOUNTER 2020-11-08 08:58 | Outpatient (CLI) | payer MEDICARE, MEDICAID, SELFPAY ==
--- NOTE | 2020-11-08 09:30 | USCV_ITS ---
Maame Jeet Age: 59 Gender: M : 1960 Exam Date: 11/08/2020 09:20 Ordering Phys: Dario Lea MD (Andy) ([email or web address]) Technologist: Antonina Fox [place] [facility] [place]ication: ENCOUNTER FOR SCREENING OF OTHER CARDIOVASCULAR DISORDERS HISTORY: History of thoracic aortic aneurysm. Diameter (cm) AP x Transverse x Length Velocity (cm/s) Waveform Prox Aorta: 2.96 x 3.13 x 86.30 Mid Aorta: 2.61 x 2.99 x 60.70 Distal Aorta: 1.78 x 1.87 x 112.30 Right Iliac Prox: 1.14 x 1.49 x 100.00 Left Iliac Prox: 1.14 x 1.29 x 124.60 Stent Prox Landing x x Aneurysmal Sac Max x x Lt Lat Sac Dim Rt Lat Sac Dim Stent Dist Landing x x Right Iliac Stent x x Left Iliac Stent x x Right Renal Art Left Renal Art FINDINGS: Comparison: none available. Ectatic abdominal aorta with evidence of atherosclerotic plaque noted. No evidence of abdominal aortic aneurysm. There is evidence of atherosclerotic plaque no significan stenosis in the right common iliac artery. There is evidence of atherosclerotic plaque no significan stenosis in the left common iliac artery. CONCLUSIONS Ectatic abdominal aorta with evidence of atherosclerotic plaque noted. No AAA. Dr. Mckenzie Corona DO (Electronically Signed) Final Date: 08 November 2020 09:30 S
== END 2020-11-08 08:59 | disposition home or self-care (01) ==
LOC: US 09:00
PROVIDERS: PCP Family Medicine; Visit Provider Thoracic Surgery (Cardiothoracic Vascular Surgery)
DX: Z13.6 Encounter for screening for cardiovascular disorders (principal); I77.811 Abdominal aortic ectasia
CPT/HCPCS: 76706

== ENCOUNTER → 2020-11-28 09:25 | Outpatient (BNVA) | payer MEDICARE, MEDICAID, SELFPAY | PROVIDERS: PCP Family Medicine; Visit Provider Family Medicine | DX: I10 Essential (primary) hypertension (principal) | CPT/HCPCS: 80053; 85025 ==

== ENCOUNTER → 2020-11-29 07:15 | Outpatient (BNVA) | payer MEDICARE, MEDICAID, SELFPAY | PROVIDERS: PCP Family Medicine; Visit Provider Family Medicine | DX: R73.9 Hyperglycemia, unspecified (principal) | CPT/HCPCS: 83036 ==

== ENCOUNTER 2020-12-25 07:15 | Emergency (ER) | payer MEDICARE, MEDICAID, SELFPAY ==
[2020-12-25 07:27] VITALS: BP 195/98; PULSE 55; RESP 18; TEMP 36.7; O2SAT 98; BMI 25.1
--- NOTE | 2020-12-25 07:46 | W.ED.EXTPRO ---
Documented by User: WILBER Ramsey 12/25/20 09:20 HPI - Extremity Problem General: Chief complaint: Extremity Problem,Nontraumatic Stated complaint: PINCHED NERVE Time Seen by Provider: 12/25/20 07:18 Source: patient Mode of arrival: ambulatory Limitations: no limitations History of Present Illness: HPI Narrative: Patient is a nice 60-year-old male who presents to ED today with a complaint of right sided neck pain and upper extremity pain as well as numbness and weakness to his right thumb and index digits. Patient tells me he has had discomfort in the neck and upper extremity for years. He did undergo some type of cervical surgical procedure in 2016 but is not sure on the specifics of this. He has also underwent what sounds like an ulnar nerve entrapment release to the right elbow. Patient states over the past 3 days pain has worsened to the point where he is dropping objects secondary to the numbness and weakness in the thumb/index finger. Patient states he does have an appointment with PCP tomorrow but states he could not wait secondary to discomfort. Pain and symptoms seem to worsen with specific movements to the neck. Pain seems to radiate from the right side of his neck into his shoulder/axillary and into lateral aspects of upper arm/forearm and into thumb/index fingers. MD Complaint: extremity pain, joint pain and other (neck pain) Onset (ago): day(s) Pain Consistency: constant Location: right and upper extremity Severity scale (1-10): 10 Quality: burning and sharp Radiation: distal Relieving factors: nothing Associated symptoms: Reports no associated symptoms; Deny chest pain or fever(s) Review of Systems Const: Denies: fever(s), chills, body aches, fatigue or malaise Card: Denies: chest pain Resp: Denies: dyspnea GI: Denies: abdominal pain Musc: Reports: neck pain, extremity pain (R UE), joint pain (R shoulder/elbow) and muscle weakness (thumb/index finger); Denies: back pain, extremity swelling, joint swelling, joint redness, joint warmth or joint stiffness Skin/Breast: Denies: new lesions or changes in skin color Neuro: Reports: weakness in extremities and sensory changes; Denies: headache(s), lack of coordination, difficulty walking, dizziness or seizure-like activity [facility] ED PFSH: Medical History Anxiety Hypertension Hypertensive urgency Lymphoma Thoracic ascending aortic aneurysm Surgical History History of neck surgery Family History Other CAD (coronary artery disease) Cancer Social History Smoking and tobacco status: current every day smoker Alcohol intake: never Lives independently: Yes Household members: family Housing: House Physical Exam Const: COMMON NORMALS: no acute distress, average body habitus, patient oriented x3, no limitations, healthy appearing, alert and well nourished GENERAL APPEARANCE: cooperative ORIENTATION/CONSCIOUSNESS: Yes awake, Yes oriented to person, Yes oriented to place and Yes oriented to time HENMT: COMMON NORMALS: normocephalic and atraumatic HEAD & SCALP: normocephalic and atraumatic Neck/C-Spine: COMMON NORMALS: full ROM and no meningeal signs GENERAL: Yes normal visual inspection and Yes other (previous surgical incision) CERVICAL SPINE: No step off deformity and Yes Paracervical muscle tenderness right OTHER: negative Spurling's Back/Pelvis: COMMON NORMALS: thoracic and lumbar spine normal to inspection, no thoracic nor lumbar tenderness and thoraco-lumbar ROM normal Extremity: COMMON NORMALS: normal to inspection and full ROM (reports pain with shoulder ROM) NARRATIVE EXTREMITY EXAM: R UE with normal brachial/radial pulses and normal cap refill; no swelling noted; extremity equal color/temp when compared to L; he reports decreased sensation to R thumb/index fingers Neuro: COMMON NORMALS: patient oriented x3 SENSORIUM/ORIENTATION: Yes alert, Yes oriented to person, Yes oriented to place and Yes oriented to time MENINGEAL SIGNS: Yes no meningeal signs Skin: COMMON NORMALS: no rashes or lesions noted GENERAL SKIN EXAM: no rashes or lesions noted TRAUMA: no lacerations or abrasions Course Vital Signs: Vital signs: Vital Signs Temperature 98.1 F 12/25/20 07:27 Pulse Rate 55 L 12/25/20 07:27 Respiratory Rate 18 12/25/20 08:55 Blood Pressure 195/98 12/25/20 07:27 Pulse Oximetry 95 12/25/20 08:55 MDM - Extremity (Nontraumatic) MDM Narrative: Medical decision making narrative: Patient states pain is improving with IM meds given here. Distribution of symptoms suspicious for C6 radiculopathy. He states he has a follow up appointment with PCP tomorrow. Recommend he speak to them regarding further evaluation testing with MRI/CT myelogram if indicated. Will treat with muscle relaxers/steroids. States he cannot take Naproxen/Ibuprofen. Return to ED precautions given. Discharge Plan Discharge Patient Disposition: Home Clinical Impression: Cervical radiculopathy at C6 Condition: Stable Prescriptions: New cyclobenzaprine 10 mg tablet 10 mg PO TID Qty: 14 RF: 0 prednisone 10 mg tablet 60 mg PO DAILY 5 Days Qty: 30 RF: 0 No Action lisinopril 20 mg tablet 20 mg PO .po q hs Qty: 30 RF: 0 buspirone 10 mg tablet 10 mg PO TID Qty: 90 RF: 0 amlodipine 10 mg tablet 10 mg PO DAILY Qty: 90 RF: 3 lisinopril 40 mg tablet 40 mg PO DAILY 90 Days Qty: 90 RF: 1 ibuprofen 200 mg Tablet 200 - 400 mg PO Q4H PRN (Reason: Pain) RF: 0 Adult Aspirin Regimen 81 mg tablet,delayed release (DR/EC) 81 mg PO DAILY Qty: 30 RF: 0 Discharge Orders: Discharge ED (Routine); Ordered 12/25/20 Ordered By: Mable Garcia Referrals: Celestina Wolf DO [Primary Care Provider] - Patient Instructions: Cervical Radiculopathy (ED) Activity Restrictions/Additional Instructions: As we discussed please follow-up with your primary care provider Dr. Wolf at your scheduled appointment tomorrow for further evaluation. Coding Level of Care Code ED [employer] Ramp Agent for Chg Fwd Exam Detailed Documented by User: Piero Love DO 12/25/20 15:15 HPI - Extremity Problem General: Chief complaint: Extremity Problem,Nontraumatic Stated complaint: PINCHED NERVE Time Seen by Provider: 12/25/20 07:18 PFSH ED PFSH: Medical History Anxiety Hypertension Hypertensive urgency Lymphoma Thoracic ascending aortic aneurysm Surgical History History of neck surgery Family History Other CAD (coronary artery disease) Cancer Social History Smoking and tobacco status: current every day smoker Alcohol intake: never Lives independently: Yes Household members: family Housing: House Course Vital Signs: Vital signs: Vital Signs Temperature 98.1 F 12/25/20 07:27 Pulse Rate 55 L 12/25/20 07:27 Respiratory Rate 18 12/25/20 08:55 Blood Pressure 195/98 12/25/20 07:27 Pulse Oximetry 95 12/25/20 08:55 MDM - Extremity (Nontraumatic) MDM Narrative: Medical decision making narrative: Chart reviewed and patient discussed with midlevel. Agree with assessment and plan. Discharge Plan Discharge Patient Disposition: Home Clinical Impression: Cervical radiculopathy at C6 Condition: Stable Prescriptions: New cyclobenzaprine 10 mg tablet 10 mg PO TID Qty: 14 RF: 0 prednisone 10 mg tablet 60 mg PO DAILY 5 Days Qty: 30 RF: 0 No Action lisinopril 20 mg tablet 20 mg PO .po q hs Qty: 30 RF: 0 buspirone 10 mg tablet 10 mg PO TID Qty: 90 RF: 0 amlodipine 10 mg tablet 10 mg PO DAILY Qty: 90 RF: 3 lisinopril 40 mg tablet 40 mg PO DAILY 90 Days Qty: 90 RF: 1 ibuprofen 200 mg Tablet 200 - 400 mg PO Q4H PRN (Reason: Pain) RF: 0 Adult Aspirin Regimen 81 mg tablet,delayed release (DR/EC) 81 mg PO DAILY Qty: 30 RF: 0 Discharge Orders: Discharge ED (Routine); Ordered 12/25/20 Ordered By: Mable Garcia Referrals: Celestina Wolf DO [Primary Care Provider] - Patient Instructions: Cervical Radiculopathy (ED) Activity Restrictions/Additional Instructions: As we discussed please follow-up with your primary care provider Dr. Wolf at your scheduled appointment tomorrow for further evaluation. Coding Level of Care Code ED Airport Ramp Agent for Chg Fwd Exam Detailed
[2020-12-25] MEDS: dexamethasone 10 mg/mL INJ 8 MG IM (08:05)
[2020-12-25] MEDS: ketorolac 60 mg/2 mL INJ IM (08:05)
[2020-12-25] MEDS: orphenadrine 30 mg/mL Inj 2 mL 60 MG IM (08:06)
[2020-12-25 08:55] VITALS: RESP 18; O2SAT 95
[2020-12-25] MEDS: morphine 4 mg/mL SDV 1 mL IM (08:55)
== END 2020-12-25 09:49 | disposition home or self-care (01) ==
PROVIDERS: Emergency Provider Physician Assistant; PCP Family Medicine
DX: M54.12 Radiculopathy, cervical region (principal); Z79.82 Long term (current) use of aspirin; I10 Essential (primary) hypertension; Z85.72 Personal history of non-Hodgkin lymphomas; F17.210 Nicotine dependence, cigarettes, uncomplicated
CPT/HCPCS: 96372; 99283; J1100; J1885; J2270; J2360

== ENCOUNTER 2020-12-26 09:19 | Outpatient (CLI) | payer MEDICARE, MEDICAID, SELFPAY ==
--- NOTE | 2020-12-26 09:23 | XR_ITS ---
WS: [id number] CERVICAL SPINE 3 VIEWS HISTORY: chronic neck pain COMPARISON: 09/01/2018 Mild straightening of the normal cervical lordosis. Less than 2 mm retrolisthesis of C4 and C5. Moder ate to advanced degenerative disc space narrowing most significant at C5-6 and C6-7. No fractures. No prevertebral soft tissue edema. There is mild LEFT curvature of the cervical spine and facet joint arthritis. Lateral masses are aligned. The odontoid tip is not visualized. XR/XR cervical spine 3V* [id number] IMPRESSION: 1. Moderate to severe cervical spondylosis. No significant degenerative change s are at C5-6 and C6-7. 2. No fracture.
== END 2020-12-26 09:20 | disposition home or self-care (01) ==
PROVIDERS: PCP Family Medicine; Visit Provider Family Medicine
DX: M47.812 Spondylosis without myelopathy or radiculopathy, cervical region (principal); G89.29 Other chronic pain
CPT/HCPCS: 72040

== ENCOUNTER 2021-01-21 10:11 | Outpatient (RCR) | payer MEDICARE, MEDICAID, SELFPAY | END 2021-02-07 23:59 | disposition home or self-care (01) | LOC: SPT 10:11 | PROVIDERS: PCP Family Medicine; Referring Provider Family Medicine; Visit Provider Family Medicine | DX: M54.12 Radiculopathy, cervical region (principal) | CPT/HCPCS: 97161 ==

== ENCOUNTER 2021-01-21 11:53 | Emergency (ER) | payer MEDICARE, MEDICAID, SELFPAY ==
[2021-01-21 12:31] VITALS: BP 197/105; PULSE 63; RESP 18; TEMP 37; O2SAT 98; BMI 27.1
[2021-01-21 13:37] VITALS: BP 187/101; PULSE 63; RESP 18; O2SAT 98
--- NOTE | 2021-01-21 14:25 | CT_ITS ---
WS: [id number] CT CERVICAL SPINE TECHNIQUE: Noncontrast CT of the cervical spine with coronal and sagittal reformatted images. CLINICAL INFORMATION: severe R neck/shoulder/arm pain COMPARISON: MRI 2019 DLP: 678.[address] scans at [facility] use at least one of these dose optimization techniques: automated e xposure control; mA and/or kV adjustment per patient size (includes targeted exams where dose is matc hed to clinical indication); or iterative reconstruction. FINDINGS: Straightening of the normal cervical lordosis. Moderate spondylitic changes. C2-C3: Normal. C3-C4: Severe left bony foraminal narrowing. Advanced left facet arthropathy. Mild right bony foramin al narrowing. Tiny central protrusion. Mild central canal stenosis. C4-C5: Shallow central disc protrusion with mild central canal stenosis. Moderate right and no signif icant left foraminal narrowing. C5-C6: Disc osteophyte complex with endplate ridging. Severe right and moderate left foraminal narrow ing. Mild central canal stenosis. Moderate facet arthropathy. C6-C7: Disc osteophyte complex endplate ridging. Mild central canal stenosis. Severe right and modera te left bony foraminal narrowing. C7-T1: Disc osteophyte complex with endplate ridging. Mild right and no significant left foraminal na rrowing. Mild central canal stenosis. Lung apices appear well aerated. Visualized posterior nasopharynx: Normal. Prevertebral soft tissues: Normal. CT/CT cervical spin wo con* [id number] IMPRESSION: 1. Straightening of the normal cervical lordosis with moderate spondylitic tosin nges. Spondylitic changes appear slightly progressed compared to 2019. 2. Severe foraminal narrowing left C3-4, right C5-6, and right C6-7. 3. Mild central canal stenosis due to small disc osteophyte protrusions at C4- C6. 4. Findings could be further evaluated with MRI on an elective basis.
--- NOTE | 2021-01-21 14:26 | W.ED.EXTPRO ---
HPI - Extremity Problem General: Chief complaint: Extremity Injury, Upper Stated complaint: CERVICAL RADICULOPATHY/PAIN IN BOTH ARMS Time Seen by Provider: 01/21/21 13:56 Source: patient Mode of arrival: ambulatory Limitations: no limitations History of Present Illness: HPI Narrative: Patient is a 60-year-old male who presents to ED today with a complaint of right upper extremity pain and loss of sensation. Patient was seen here approximately a month ago for similar symptoms. He has been treated with steroids, NSAIDs, muscle relaxers, and pain medications all without relief of symptoms. He did follow-up with his primary care provider following his last ED visit. Physical therapy was set up for patient but states he could not perform any of the exercises the therapist wanted him to secondary to severe pain. Patient states pain begins at the right side of his neck and radiates down his entire arm affecting the radial side of his fingers. He has not noticed strength decreasing but does report numbness. MD Complaint: extremity pain Onset (ago): week(s) Pain Consistency: constant Location: right and upper extremity Severity scale (1-10): >10 Relieving factors: nothing Exacerbating factors: range of motion Associated symptoms: Reports no associated symptoms; Deny chest pain, fever(s) or rash Review of Systems Const: Denies: fever(s), chills, body aches, fatigue or malaise Eyes: Denies: change in vision Card: Denies: chest pain Resp: Denies: dyspnea Musc: Reports: neck pain and extremity pain (R UE); Denies: back pain, extremity swelling, joint swelling, joint redness, joint warmth or joint stiffness Skin/Breast: Denies: rash Neuro: Reports: numbness in extremities (R UE), weakness in extremities (R UE) and sensory changes (R UE); Denies: headache(s) PFS ED PFSH: Medical History Anxiety Hypertension Hypertensive urgency Lymphoma Thoracic ascending aortic aneurysm Surgical History History of neck surgery Family History Other CAD (coronary artery disease) Cancer Social History (Updated 12/26/20 @ 08:11 by Madia Juarez) Smoking and tobacco status: former smoker Alcohol intake: never Lives independently: Yes Household members: family Housing: House Physical Exam Const: COMMON NORMALS: average body habitus, patient oriented x3, no limitations, alert and well nourished GENERAL APPEARANCE: cooperative and in distress (appears uncomfortable secondary to pain) HENMT: COMMON NORMALS: normocephalic and atraumatic HEAD & SCALP: normocephalic and atraumatic Neck/C-Spine: GENERAL: Yes normal visual inspection, No anterior neck swelling, No torticollis and No submandibular swelling CERVICAL SPINE: Yes pain with cervical ROM, No step off deformity, Yes Paracervical muscle tenderness right and No Paracervical spasm Resp: COMMON NORMALS: normal respiratory effort and clear to auscultation bilaterally AUSCULTATION: clear to auscultation bilaterally Cardio: COMMON NORMALS: regular rate and regular rhythm RATE: regular rate RHYTHM: regular rhythm Extremity: OTHER: R UE with normal brachial and radial pulses; cap refills normal Neuro: COMMON NORMALS: patient oriented x3, moves all extremities and no focal motor deficits SENSORIUM/ORIENTATION: Yes alert SENSORY EXAM: Yes other (sensory deficits to R UE when compared to L) MOTOR EXAM: 5/5 motor strength present throughout Skin: COMMON NORMALS: no rashes or lesions noted GENERAL SKIN EXAM: no rashes or lesions noted TRAUMA: no lacerations or abrasions Course Vital Signs: Vital signs: Vital Signs Temperature 98.6 F 01/21/21 12:31 Pulse Rate 63 01/21/21 13:37 Respiratory Rate 18 01/21/21 14:58 Blood Pressure 187/101 01/21/21 13:37 Pulse Oximetry 97 01/21/21 14:58 MDM - Extremity (Nontraumatic) MDM Narrative: Medical decision making narrative: At this time patient has failed conservative outpatient therapies. CT scan does show severe foraminal narrowing at right C5-C7 which would fit clinically with his symptoms. Discussed possibility of pain management-he said primary care also discussed this with him but that it was going to be several months before he could be seen. I think at this time the best course would be to refer to Dr. Loredo for further evaluation and possible treatment plans going forward as patient continues to be in significant discomfort. Return to ED precautions given. Imaging Data^: CT cervical: Radiologist's impression: [id number] [address] [address] Scan Report Signed Patient: Jeet Isabel Unit #: [id number] : 1960 Age/Sex: 60 / M ADM Date: 01/21/21 Loc: ER Room/Bed: Attending Dr: Ordering Provider/Ordering MD: aMble Garcia Date of Service: 01/21/21 Procedure(s): CT cervical spin wo con* [id number] Accession Number(s): [id number] Report Number: [id number] WS: [id number] CT CERVICAL SPINE TECHNIQUE: Noncontrast CT of the cervical spine with coronal and sagittal reformatted images. CLINICAL INFORMATION: severe R neck/shoulder/arm pain COMPARISON: MRI 2019 DLP: 678.[address] scans at [facility] use at least one of these dose optimization techniques: automated exposure control; mA and/or kV adjustment per patient size (includes targeted exams where dose is matched to clinical indication); or iterative reconstruction. FINDINGS: Straightening of the normal cervical lordosis. Moderate spondylitic changes. C2-C3: Normal. C3-C4: Severe left bony foraminal narrowing. Advanced left facet arthropathy. Mild right bony foraminal narrowing. Tiny central protrusion. Mild central canal stenosis. C4-C5: Shallow central disc protrusion with mild central canal stenosis. Moderate right and no significant left foraminal narrowing. C5-C6: Disc osteophyte complex with endplate ridging. Severe right and moderate left foraminal narrowing. Mild central canal stenosis. Moderate facet arthropathy. C6-C7: Disc osteophyte complex endplate ridging. Mild central canal stenosis. Severe right and moderate left bony foraminal narrowing. C7-T1: Disc osteophyte complex with endplate ridging. Mild right and no significant left foraminal narrowing. Mild central canal stenosis. Lung apices appear well aerated. Visualized posterior nasopharynx: Normal. Prevertebral soft tissues: Normal. CT/CT cervical spin wo con* [id number] IMPRESSION: 1. Straightening of the normal cervical lordosis with moderate spondylitic changes. Spondylitic changes appear slightly progressed compared to 2019. 2. Severe foraminal narrowing left C3-4, right C5-6, and right C6-7. 3. Mild central canal stenosis due to small disc osteophyte protrusions at C4-C6. 4. Findings could be further evaluated with MRI on an elective basis. Dictated By: Kirk Jimenez MD Signed By: Kirk Jimenez MD Signed Date/Time: 01/21/211514 DD/ 04 Discharge Plan Discharge Patient Disposition: Home Clinical Impression: Cervical radiculopathy Condition: Stable Prescriptions: New prednisone 10 mg tablet 60 mg PO DAILY 5 Days Qty: 30 RF: 0 methocarbamol 750 mg tablet 750 mg PO QID Qty: 30 RF: 0 hydrocodone-acetaminophen 5-325 mg tablet 1 tab PO Q4H PRN (Reason: pain) Qty: 15 RF: 0 Continued ibuprofen 200 mg Tablet 200 - 400 mg PO Q4H PRN (Reason: Pain) RF: 0 Discontinued gabapentin 300 mg capsule 300 mg PO TID Qty: 90 RF: 0 hydrocodone-acetaminophen 5-325 mg tablet 1 tab PO BID PRN (Reason: pain) 7 Days Qty: 14 RF: 0 cyclobenzaprine 10 mg tablet 10 mg PO TID Qty: 14 RF: 0 No Action lisinopril 20 mg tablet 20 mg PO .po q hs Qty: 90 RF: 0 lisinopril 40 mg tablet 40 mg PO DAILY 90 Days Qty: 90 RF: 1 Adult Aspirin Regimen 81 mg tablet,delayed release (DR/EC) 81 mg PO DAILY Qty: 30 RF: 0 Discharge Orders: Discharge ED (Routine); Ordered 01/21/21 Ordered By: Mable Garcia Referrals: Martin Loredo DO [Physician] - Celestina Wolf DO [Primary Care Provider] - Patient Instructions: Opioid Safety Activity Restrictions/Additional Instructions: [facility] is committed to fighting the nationwide opiate epidemic. We are providing ALL patients with information regarding opiate safety. If you received opiate pain medication during your stay or if you received a prescription for opiate pain medication-please review this handout. If not, you may disregard. Thank you. Coding Level of Care Code ED Towel Cabinet Repairer for Chg Fwd Exam Detailed
[2021-01-21] MEDS: ondansetron 2 mg/ML SDV 2 mL 4 MG IM (14:57)
[2021-01-21 14:58] VITALS: RESP 18; O2SAT 97
[2021-01-21] MEDS: HYDROmorphone 1 mg/mL INJ 1 mL SUBCUT (14:58)
[2021-01-21 15:55] VITALS: BP 179/89; PULSE 55; RESP 18; O2SAT 97
--- NOTE | 2021-01-23 09:50 | DCPLANNER ---
urban renewal manager had message to schedule a follow up appointment for patient with ortho. urban renewal manager called the ortho clinic, spoke with Damaris, gave clinic patients information. urban renewal manager was told that patients information would be printed and reviewed. Clinic will call clinic with appointment information.
--- NOTE | 2021-01-24 07:45 | DCPLANNER ---
Patient has a follow up appointment scheduled for , February 06, 2021 at 10:[address] Loredo at [facility]. Clinic will call patient with appointment information.
--- NOTE | 2021-02-06 15:06 | DCPLANNER ---
Patient had a follow up appointment scheduled with ortho - patient did attend appointment.
== END 2021-01-21 19:38 | disposition home or self-care (01) ==
PROVIDERS: Emergency Provider Physician Assistant; PCP Family Medicine
DX: M54.12 Radiculopathy, cervical region (principal); Z79.82 Long term (current) use of aspirin; I10 Essential (primary) hypertension; Z85.72 Personal history of non-Hodgkin lymphomas; Z87.891 Personal history of nicotine dependence
CPT/HCPCS: 72125; 96372; 97161; 99283; J1170; J2405

== ENCOUNTER → 2021-02-06 10:56 | Outpatient (BNVA) | payer MEDICARE, MEDICAID, SELFPAY | PROVIDERS: PCP Family Medicine; Referring Provider Physician Assistant; Visit Provider Orthopaedic Surgery | DX: M54.9 Dorsalgia, unspecified (principal); M54.2 Cervicalgia; M51.37 Other intervertebral disc degeneration, lumbosacral region; M25.78 Osteophyte, vertebrae; M47.893 Other spondylosis, cervicothoracic region | CPT/HCPCS: 72040; 72110 ==

== ENCOUNTER 2021-02-24 07:52 | Emergency (ER) | payer MEDICARE, MEDICAID, SELFPAY ==
--- NOTE | 2021-02-24 07:57 | XR_ITS ---
WS: [id number] Exam: XR foot RT min 3V* [id number] Date/Time of Exam: 02/24/2021 7:57 AM Reason For Exam: foot pain Findings: The foot was examined in multiple views and reveals no fractures or displacements of bone. No bony a nomalies are noted. The bony elements are in adequate alignment. The joint spaces are smooth and eq uidistant. XR/XR foot RT min 3V* [id number] IMPRESSION: Negative right foot.
--- NOTE | 2021-02-24 07:57 | ED_ITS ---
HPI - Extremity Injury (Lower) General: Chief Complaint: Extremity Problem,Nontraumatic Stated Complaint: R foot hurts severe,pain up to hip, cant stand on Time Seen by Provider: 02/24/21 07:57 History of Present Illness: HPI Narrative: 60-year-old male comes in complaining of right foot pain. He woke up with it yesterday morning. 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 He woke up yesterday morning with severe right lateral ankle pain. States the pain seems to radiate out of his hip around the back of his leg down to the lateral portion of the ankle. He cannot recall any specific i njury. complaint: ankle injury Onset (ago): day(s) (1) Injury: Left: ankle Place: home Relieving factors: nothing Exacerbating factors: weight bearing and palpation Associated symptoms: Deny inability to bear weight, numbness or swelling Other symptoms: none Review of Systems Const: Denies: fever(s), chills, body aches, change in appetite, fatigue or malaise ENMT: Denies: throat pain, ear or mastoid pain, nasal discharge or nasal congestion Card: Denies: chest pain, edema, dyspnea on exertion or orthopnea Resp: Denies: dyspnea, productive cough or non-productive cough GI: Denies: abdominal pain, nausea, vomiting, hematemesis, coffee ground emesis, diarrhea, constipation, bloating, hematochezia or melena : Denies: flank pain, dysuria, urinary frequency or urinary urgency Musc: Reports: extremity pain and joint pain Skin/Breast: Denies: rash or pruritus PFSH ED PFSH: Medical History Anxiety Hypertension Hypertensive urgency Lymphoma Thoracic ascending aortic aneurysm Surgical History History of neck surgery Family History Other CAD (coronary artery disease) Cancer Social History Alcohol intake: never Lives independently: Yes Household members: family Housing: House Physical Exam Const: COMMON NORMALS: no acute distress GENERAL APPEARANCE: cooperative and comfortable ORIENTATION/CONSCIOUSNESS: Yes awake, Yes oriented to person, Yes oriented to place and Yes oriented to time HENMT: COMMON NORMALS: normocephalic, atraumatic and hearing grossly normal bilaterally HEAD & SCALP: normocephalic and atraumatic Neck/C-Spine: COMMON NORMALS: no JVD Resp: COMMON NORMALS: normal respiratory effort, No retractions, No use of accessory muscles and clear to auscultation bilaterally AUSCULTATION: clear to auscultation bilaterally Cardio: COMMON NORMALS: no JVD, regular rate, regular rhythm and No murmurs present (Cardio) RATE: regular rate RHYTHM: regular rhythm Extremity: OTHER: Dorsum plantar flexion strength 5 of 5 into right ankle. Sensation normal. Ecchymosis no deformity no significant swelling of the ankle or foot. Significant discomfort with palpation along the lateral malleolus neurovascularly intact. Straight leg raising is negative deep tendon reflexes the patellar tendon on the right leg are +2/4 Neuro: SENSORIUM/ORIENTATION: Yes oriented to person, Yes oriented to place and Yes oriented to time Skin: COMMON NORMALS: no rashes or lesions noted GENERAL SKIN EXAM: no rashes or lesions noted Course Vital Signs: Vital signs: Vital Signs Temperature 98.4 F 02/24/21 07:59 Pulse Rate 60 02/24/21 07:59 Respiratory Rate 15 02/24/21 07:59 Blood Pressure 185/89 02/24/21 07:59 Pulse Oximetry 98 02/24/21 07:59 MDM - Extremity Injury (Lower) MDM Narrative: Medical decision making narrative: Start Lyrica and a prednisone taper. Use tizanidine rather than methocarbamol gave a short refill on hydrocodone encouraged to follow-up with Dr. Loredo for further pain medicatio n. Set him up for an outpatient MRI lumbar spine and follow-up with Dr. Loredo after that is completed. He is has a outpatient MRI of the neck scheduled already. Discharge Plan Discharge Patient Disposition: Home Clinical Impression: Radicular pain of left lower extremity, Ankle pain, left, Spondylisthesis Condition: Stable Prescriptions: New Lyrica 75 mg capsule 75 mg PO BID Qty: 60 RF: 0 prednisone 20 mg tablet 20 mg PO BID 7 Days Qty: 15 RF: 0 diclofenac sodium 75 mg tablet,delayed release (DR/EC) 75 mg PO Q12H PRN (Reason: pain) Qty: 20 RF: 0 tizanidine 4 mg capsule 4 mg PO Q6H PRN (Reason: muscle spasticity) Qty: 20 RF: 0 hydrocodone-acetaminophen 5-325 mg tablet 1 tab PO Q6H PRN (Reason: pain) Qty: 10 RF: 0 Discontinued hydrocodone-acetaminophen 5-325 mg tablet 1 tab PO Q8H PRN (Reason: pain) 10 Days Qty: 30 RF: 0 diclofenac sodium [Voltaren Arthritis Pain] 1 % gel 4 g topical QID Qty: 100 RF: 0 hydrocodone-acetaminophen 5-325 mg tablet 1 tab PO Q4H PRN (Reason: pain) Qty: 15 RF: 0 No Action lisinopril 40 mg tablet 40 mg PO DAILY 90 Days Qty: 90 RF: 1 ibuprofen 200 mg Tablet 200 - 400 mg PO Q4H PRN (Reason: Pain) RF: 0 Adult Aspirin Regimen 81 mg tablet,delayed release (DR/EC) 81 mg PO DAILY Qty: 30 RF: 0 methocarbamol 750 mg tablet 750 mg PO QID Qty: 30 RF: 0 Discharge Orders: Discharge ED (Routine); Ordered 02/24/21 Ordered By: Piero Love Referrals: Celestina Wolf DO [Primary Care Provider] - Discharge Diet: Usual diet Discharge Activity: Limit activity as instructed Patient Instructions: Opioid Safety Activity Restrictions/Additional Instructions: Case management make arrangements for you to have an MRI of your lumbar spine. After this is completed follow-up with Dr. Loredo. No bending or stooping. Do not lift or carry more than 10 pounds. Return to the ER if you have any difficulty emptying your bladder or have loss of control of your bowels. Coding Level of Care Code ED Residency Director for Chg Fwd Exam Detailed
[2021-02-24 07:59] VITALS: BP 185/89; PULSE 60; RESP 15; TEMP 36.9; O2SAT 98; BMI 27.1
--- NOTE | 2021-02-24 08:35 | XR_ITS ---
WS: [id number] Exam: XR ankle LT min 3V* [id number] Date/Time of Exam: 02/24/2021 8:35 AM Reason For Exam: ankle pain No acute fracture or dislocation. Deformity of the medial malleolus which may be secondary to previou s fracture. No obvious joint effusion. Calcaneal spurs. XR/XR ankle LT min 3V* [id number] IMPRESSION: 1. No acute ankle fracture.
--- NOTE | 2021-02-24 08:46 | PC.NURSE ---
Waiting for MRI and Conductive nerve damage test. Dr Hernandez is the physician
[2021-02-24 09:32] VITALS: BP 160/96; PULSE 65; RESP 19; O2SAT 97
== END 2021-02-24 09:32 | disposition home or self-care (01) ==
PROVIDERS: Emergency Provider Family Medicine; PCP Family Medicine
DX: M25.572 Pain in left ankle and joints of left foot (principal); M54.10 Radiculopathy, site unspecified; M43.10 Spondylolisthesis, site unspecified; Z79.82 Long term (current) use of aspirin; I10 Essential (primary) hypertension; Z85.72 Personal history of non-Hodgkin lymphomas
CPT/HCPCS: 73610; 73630; 99282

== ENCOUNTER → 2021-03-03 08:05 | Outpatient (BNVA) | payer MEDICARE, MEDICAID, SELFPAY | PROVIDERS: PCP Family Medicine; Referring Provider Orthopaedic Surgery; Visit Provider Specialist | DX: M48.02 Spinal stenosis, cervical region (principal) | CPT/HCPCS: 95909; 95910 ==

== ENCOUNTER 2021-03-18 08:56 | Outpatient (CLI) | payer MEDICARE, MEDICAID, SELFPAY ==
--- NOTE | 2021-03-18 09:06 | MR_ITS ---
WS: [id number] MRI CERVICAL SPINE NONCONTRAST AND CONTRAST TECHNIQUE: Sagittal T1, T2 and STIR imaging. Axial T2, gradient, and fiesta imaging. CLINICAL INFORMATION: M54.2 - Cervicalgia COMPARISON: CT January 21, 2021 and MRI October 28, 2018 FINDINGS: Straightening of the normal cervical lordosis. Cord signal is normal. No high-grade central canal ángela rowing. Mild central canal stenosis C4-C6. C2-C3: Normal. C3-C4: Advanced LEFT facet arthropathy. Severe LEFT bony foraminal narrowing. Spinal canal and RIGHT foramen are patent. C4-C5: Disc osteophyte complex with endplate ridging. Mild central canal stenosis. Slight contact of the cervical cord. Mild bilateral bony foraminal narrowing. Mild central canal stenosis. Mild facet a rthropathy. C5-C6: Disc osteophyte complex with endplate ridging. Moderate RIGHT and mild LEFT bony foraminal ángela rowing. Mild central canal stenosis. Slight contact of the cervical cord. Mild facet arthropathy. C6-C7: Disc osteophyte complex with endplate ridging. Mild central canal stenosis. Moderate RIGHT for aminal narrowing. Mild LEFT foraminal narrowing. Mild facet arthropathy. C7-T1: RIGHT pericentral disc osteophyte protrusion with slight contact of the RIGHT ventral cervical cord. Moderate RIGHT and mild LEFT foraminal narrowing. Mild central canal stenosis. Visualized brain stem structures: Normal. Prevertebral soft tissues: Normal. MR/MR cervical spine wo/w [id number] IMPRESSION: 1. Straightening of the normal cervical lordosis. Cord signal is normal. 2. Mild central canal stenosis C4-C5 C5-C6 and C6-C7 with slight contact of th e cervical cord more prominent C6-C7. 3. Shallow RIGHT pericentral disc osteophyte protrusion C7-T1 with mild centra l canal stenosis. 4. Advanced LEFT facet arthropathy C3-C4 with severe LEFT bony foraminal narro wing. 5. Moderate RIGHT C5-C6, RIGHT C6-C7 and RIGHT C7-T1 bony foraminal narrowing.
[2021-03-18] MEDS: gadobenate dimeglumine 20 mL vial IV (11:26)
== END 2021-03-18 08:57 | disposition home or self-care (01) ==
LOC: RAD 09:01
PROVIDERS: PCP Family Medicine; Visit Provider Orthopaedic Surgery
DX: G89.29 Other chronic pain (principal); M48.02 Spinal stenosis, cervical region; M25.78 Osteophyte, vertebrae; M47.812 Spondylosis without myelopathy or radiculopathy, cervical region
CPT/HCPCS: 72156

== ENCOUNTER → 2021-04-30 08:05 | Outpatient (BNVA) | payer MEDICARE, MEDICAID, SELFPAY | PROVIDERS: PCP Family Medicine; Referring Provider Orthopaedic Surgery; Visit Provider Specialist | DX: M54.12 Radiculopathy, cervical region (principal); M48.02 Spinal stenosis, cervical region; Z87.891 Personal history of nicotine dependence | CPT/HCPCS: 95861; 99202 ==

== ENCOUNTER 2021-05-01 12:55 | Outpatient (CLI) | payer MEDICARE, MEDICAID, SELFPAY ==
--- NOTE | 2021-05-01 13:06 | CT_ITS ---
WS: [id number] CT CHEST WITH INTRAVENOUS CONTRAST HISTORY: I71.2 - Thoracic aortic aneurysm, without rupture TECHNIQUE: Contiguous 5 mm axial imaging performed on the thorax. Coronal and sagittal reformats are submitted. All CT scans at [facility] use at least one of these dose optimization techniques: automated exposure control; mA and/or kV adjustment per patient size (includes targeted exams where dose is matched to clinical indication); or iterative reconstruction. CONTRAST: Omnipaque 300; 95 mL IV. DLP: 856.21 mGy.cm COMPARISON: 08/07/2020 Lungs and central airway: Lungs are clear. No pneumonia, nodule or mass. Mild hyperexpansion from emp hysema. Pleura: Normal. No pleural effusion. Heart and pericardium: Normal size heart with no pericardial effusion. Mediastinum and lynne: No mediastinal or hilar adenopathy. Vessels: Very minimal ectasia of the ascending thoracic aorta. Maximum diameter is 3.9 cm. There is a lso mild dilatation of the pulmonary artery 3.1 cm. No significant aneurysm. Mild atherosclerotic judy que. LEFT vertebral artery arises directly from the arch. Chest wall and lower neck: No soft tissue masses. Upper abdomen: Visualized liver is normal. Spleen is enlarged extending over length greater than 14 c m. No adrenal mass. Cyst in the posterior LEFT kidney measures 1.7 cm. There are additional low-atten uation too small to characterize cortical nodules within each kidney. Gallbladder is slightly contrac harvey. Osseous structures: Mild thoracic spondylosis. CT/CT chest w con* [id number] IMPRESSION: 1. No significant thoracic aortic aneurysm is identified. Maximum transverse d iameter of the ascending aorta is 3.9 cm. Normal size descending aorta. 2. Mildly prominent pulmonary artery 3.1 cm. 3. Splenomegaly. Similar to the prior study but incompletely visualized as onl y a portion of the abdomen is included. 4. No pneumonia or nodules.
[2021-05-01] MEDS: iohexol 300 mg/mL 100 mL Btl IV (15:16)
== END 2021-05-01 12:56 | disposition home or self-care (01) ==
PROVIDERS: PCP Family Medicine; Visit Provider Thoracic Surgery (Cardiothoracic Vascular Surgery)
DX: I71.2 Thoracic aortic aneurysm, without rupture (principal); R16.1 Splenomegaly, not elsewhere classified
CPT/HCPCS: 71260

== ENCOUNTER → 2021-05-08 10:05 | Outpatient (BNVA) | payer MEDICARE, MEDICAID, SELFPAY | PROVIDERS: PCP Family Medicine; Visit Provider Thoracic Surgery (Cardiothoracic Vascular Surgery) | DX: I71.2 Thoracic aortic aneurysm, without rupture (principal); F17.200 Nicotine dependence, unspecified, uncomplicated; I10 Essential (primary) hypertension | CPT/HCPCS: 99213 ==

== ENCOUNTER 2021-05-10 09:00 | Emergency (ER) | payer MEDICARE, MEDICAID, SELFPAY ==
[2021-05-10 09:11] VITALS: BP 224/128; PULSE 62; RESP 16; TEMP 36.6; O2SAT 98; BMI 28.7
[2021-05-10 09:14] VITALS: BP 169/101; PULSE 85; RESP 16; O2SAT 98
--- NOTE | 2021-05-10 09:27 | XRR_ITS ---
PROCEDURE INFORMATION: Exam: XR Right Ankle Exam date and time: 05/10/2021 9:38 AM Age: 60 years old Clinical indication: Pain; Ankle; Right; Additional info: Pain, swelling TECHNIQUE: Imaging protocol: XR Right ankle. Views: 3 or more views. COMPARISON: No relevant prior studies available. FINDINGS: Bones/joints: Negative for acute fracture. Small bone spur inferior calcaneus Soft tissues: Diffuse soft tissue edema lateral ankle consistent with sprain XR/XR ankle RT min 3V* [id number] IMPRESSION: 1. No acute bone abnormality. 2. Lateral ankle edema consistent with sprain
--- NOTE | 2021-05-10 09:27 | XRR_ITS ---
PROCEDURE INFORMATION: Exam: XR Left Knee Exam date and time: 05/10/2021 9:41 AM Age: 60 years old Clinical indication: Pain; Knee; Left; Additional info: Pain, swelling TECHNIQUE: Imaging protocol: XR Left knee. Views: 3 views. COMPARISON: No relevant prior studies available. FINDINGS: Bones/joints: Soft tissue effusion suprapatellar bursa Soft tissues: Normal. XR/XR knee LT 3V* [id number] IMPRESSION: No acute findings.
--- NOTE | 2021-05-10 09:27 | W.ED.EXTPRO ---
HPI - Extremity Problem General: Chief complaint: Extremity Injury, Lower Stated complaint: left knee/right ankle injuries Time Seen by Provider: 05/10/21 09:06 Source: patient Mode of arrival: ambulatory Limitations: no limitations History of Present Illness: Patient is a 60-year-old male who presents to ED today with a complaint of left-sided knee pain and swelling and right ankle pain and swelling. Patient states that the left knee has been swollen for several weeks. He states he did see orthopedics/Dr. Rothman who performed an arthrocentesis of the joint. Patient states pain was initially better but feels like the swelling has returned. He has been babying it and thus putting more pressure onto his right lower extremity and now states that his right ankle is swollen. He denies redness or warmth to the joints. No recent infections. No history of gout or septic arthritis. Complaint: joint swelling and joint pain Onset (ago): day(s) Pain Consistency: constant Location: left, right and lower extremity Radiation: none Relieving factors: nothing Exacerbating factors: range of motion, weight bearing and walking Associated symptoms: Reports no associated symptoms; Deny fever(s) Review of Systems Const: Denies: fever(s), chills, body aches, fatigue or malaise Musc: Reports: neck pain (chronic), joint pain (L knee, R ankle) and joint swelling (L knee, R ankle); Denies: extremity pain, extremity swelling, joint redness or joint warmth Neuro: Denies: numbness in extremities or sensory changes PFS ED PFSH: Medical History Anxiety Hypertension Hypertensive urgency Lymphoma Thoracic ascending aortic aneurysm Surgical History History of neck surgery Family History Other CAD (coronary artery disease) Cancer Social History Smoking and tobacco status: current every day smoker (MJ oil) Alcohol intake: never Lives independently: Yes Household members: family Housing: House Physical Exam Const: COMMON NORMALS: no acute distress, patient oriented x3, no limitations, alert and well nourished Extremity: COMMON NORMALS: capillary refill normal, no calf tenderness and no pedal edema GENERAL: Yes normal exam except as noted RIGHT LOWER EXTREMITY: Yes foot & digits (very mild swelling noted to ankle joint; no redness/warmth) Right ankle: Yes ROM (normal) and Yes neurovascular exam (normal) LEFT LOWER EXTREMITY: Yes knee joint (osteoarthritis, knee effusion present; no redness/warmth) Left knee: Yes ROM (slightly limited secondary to effusion), Yes neurovascular exam (normal) and Yes special tests (no joint laxity noted) Neuro: COMMON NORMALS: patient oriented x3 SENSORIUM/ORIENTATION: Yes alert Course Vital Signs: Vital signs: Vital Signs Temperature 97.8 F 05/10/21 09:11 Pulse Rate 85 05/10/21 09:14 Respiratory Rate 16 05/10/21 09:14 Blood Pressure 169/101 05/10/21 09:14 Pulse Oximetry 98 05/10/21 09:14 MDM - Extremity (Nontraumatic) Medical Decision Making XRs negative for fxs/dislocation. Arthritis/bone spurs noted. Fluid aspirate/culture from Dr. Rothman on the knee was negative. I have no concern for gout, septic arthritis, or other emergent process at this time. Recommend he follow up with Dr. Rothman. Will write for Voltaren gel and steroids he may use in the meantime to help with discomfort. Discharge Plan Discharge Patient Disposition: Home Clinical Impression: Knee effusion, left Ankle pain, right Qualifiers: Chronicity: acute Qualified Code(s): M25.571 - Pain in right ankle and joints of right foot Condition: Stable Prescriptions: New Voltaren Arthritis Pain 1 % gel 2 g topical TID Qty: 100 0RF Rx Instructions: apply to knee/ankle up to TID as needed Medrol (Maximo) 4 mg tablets,dose pack See Rx Instructions .ROUTE .COMPLEX Qty: 21 0RF Rx Instructions: orally per package directions No Action lisinopril 40 mg tablet 40 mg PO DAILY 90 Days Qty: 90 1RF tizanidine 4 mg capsule 4 mg PO Q6H PRN (Reason: muscle spasticity) Qty: 20 0RF Rx Instructions: do not exceed 3 doses per 24 hrs Lyrica 75 mg capsule 75 mg PO BID Qty: 60 0RF diclofenac sodium 75 mg tablet,delayed release (DR/EC) 75 mg PO Q12H PRN (Reason: pain) Qty: 20 0RF hydrocodone-acetaminophen 5-325 mg tablet 1 tab PO Q6H PRN (Reason: pain) Qty: 10 0RF Adult Aspirin Regimen 81 mg tablet,delayed release (DR/EC) 81 mg PO DAILY Qty: 30 0RF methocarbamol 750 mg tablet 750 mg PO QID Qty: 30 0RF Discharge Orders: Discharge ED (Routine); Ordered 05/10/21 Ordered By: Mable Garcia Referrals: Celestina Wolf DO [Primary Care Provider] - Coding Level of Care Code ED Lead Sql Developer for Elisabethg Marcos
[2021-05-10] MEDS: ketorolac 60 mg/2 mL INJ IM (10:29)
== END 2021-05-10 10:31 | disposition home or self-care (01) ==
PROVIDERS: Emergency Provider Physician Assistant; PCP Family Medicine
DX: M25.462 Effusion, left knee (principal); M25.571 Pain in right ankle and joints of right foot; F17.290 Nicotine dependence, other tobacco product, uncomplicated
CPT/HCPCS: 73562; 73610; 96372; 99283; J1885

== ENCOUNTER → 2021-05-13 12:52 | Outpatient (BNVA) | payer MEDICARE, MEDICAID, SELFPAY | PROVIDERS: PCP Family Medicine; Visit Provider Orthopaedic Surgery | DX: M25.462 Effusion, left knee (principal); F17.210 Nicotine dependence, cigarettes, uncomplicated | CPT/HCPCS: 36415; 73562; 80053; 85651; 86140; 86160; 86162; 86200; 86235; 86255; 86376; 86431; 99213 ==

== ENCOUNTER → 2021-05-22 09:16 | Outpatient (BNVA) | payer MEDICARE, MEDICAID, SELFPAY | PROVIDERS: PCP Family Medicine; Visit Provider Physician Assistant | DX: M47.22 Other spondylosis with radiculopathy, cervical region (principal); M50.30 Other cervical disc degeneration, unspecified cervical region; Z46.89 Encounter for fitting and adjustment of other specified devices; M48.02 Spinal stenosis, cervical region | CPT/HCPCS: 97760; 99214; 99999; L0174 ==

== ENCOUNTER 2021-05-22 13:46 | Outpatient (CLI) | payer MEDICARE, MEDICAID, SELFPAY | END 2021-05-22 13:47 | disposition home or self-care (01) | LOC: SPT 13:47 | PROVIDERS: PCP Family Medicine; Visit Provider Orthopaedic Surgery | DX: Z46.89 Encounter for fitting and adjustment of other specified devices (principal); M48.02 Spinal stenosis, cervical region | CPT/HCPCS: 97760; 99214; L0174 ==

== ENCOUNTER → 2021-05-26 09:42 | Outpatient (BNVA) | payer MEDICARE, MEDICAID, SELFPAY | PROVIDERS: PCP Family Medicine; Visit Provider Nurse Practitioner Family | DX: I16.9 Hypertensive crisis, unspecified (principal); R07.9 Chest pain, unspecified; M25.472 Effusion, left ankle; D69.6 Thrombocytopenia, unspecified | CPT/HCPCS: 73610; 80053; 84443; 84484; 85025 ==

== ENCOUNTER 2021-06-04 09:44 | Outpatient (CLI) | payer MEDICARE, MEDICAID, SELFPAY ==
[2021-06-04 11:34] LABS: Basophils % 0.3 %; Eosinophils % 0.2 %; Hemoglobin 13.4 g/dL (11.7-16.6); Lymphocytes # 1.4 10^3/uL (0.8-4.8); Lymphocytes % 15.7 %; Mean Corpuscular HGB Conc 32.7 g/dL (30.0-36.0); Mean Corpuscular Hemoglobin 30.9 pg (28.0-34.0); Mean Corpuscular Volume 94.7 fl (80-94); Mean Platelet Volume 11.1 fL (7.4-10.4); Monocytes # 0.5 10^3/uL (0.2-0.9); Monocytes % 5.8 %; Neutrophils # 6.89 10^3/uL (1.8-7.7); Neutrophils % 77.2 %; Nucleated Red Blood Cells % 0 %; Platelet Count 69 10^3/cmm (130-400); Red Blood Count 4.33 10^6/uL (4.1-5.3); Red Cell Distribution Width 14.3 % (12.1-15.1); White Blood Count 8.9 10^3/uL (4.0-10.0)
[2021-06-04 11:37] LABS: Erythrocyte Sedimentation Rate 4 mm/hr (0-10)
[2021-06-04 11:58] LABS: Slide Review Slide Review Perform
[2021-06-04 12:00] LABS: Alanine Aminotransferase 37 U/L (0-41); Albumin Level 4.2 g/dL (3.5-5.2); Alkaline Phosphatase 72 IU/L (40-130); Anion Gap 14.1 (5-19); Aspartate Amino Transferase 27 U/L (0-40); Blood Urea Nitrogen 20 mg/dL (6-20); Calcium 8.7 mg/dL (8.5-10.5); Carbon Dioxide 26 mmol/L (22-29); Chloride 102 mmol/L (98-107); Globulin 2.4 g/dL (1.3-4.6); Glomerular Filtration Rate 86.4 mL/min (90-130); Glucose 98 mg/dL (65-115); Lactate Dehydrogenase 154 U/L (135-225); Osmolality Calculated 289 mOsm/kg (285-295); Potassium 4.1 mmol/L (3.5-5.1); Sodium 138 mmol/L (136-145); Total Bilirubin 0.4 mg/dL (0.15-1.2); Total Protein 6.6 g/dL (6.6-8.7)
[2021-06-04 12:16] LABS: Vitamin B12 397 pg/mL (232-1245)
[2021-06-04 13:47] LABS: LAB Peripheral Smear Sent for Review
[2021-06-04 14:18] LABS: Hepatitis B Core AB, Total Non-Reactive (Nonreactive); Hepatitis B Surface AB 3.5 (11.5-1000); Hepatitis B Surface Antigen Non-Reactive (Nonreactive); Hepatitis C Virus Antibody Reactive (Nonreactive)
--- NOTE | 2021-06-05 11:07 | ONC CON_ITS ---
Dr. Heath New Patient Note Patient: Jeet Isabel Unit #: [id number]: 1960 Dicatated By: Aayush Heath M.D.Date of Visit: Jun 04, 2021 Onc MED New Patient/Consult Referring Physician: Dayan Huff Chief Complaint: Thrombocytopenia. History of Present Illness: This is a 60-year-old man with moderately severe thrombocytopenia. This patient has a history of lymphoma. I do not have those records available, but by his account he underwent treatment with 6 cycles of chemotherapy in 2011. He says he also took pills for 1 year. Thus far there has been no evidence of recurrence. He had a scheduled follow-up visit with Flor Ruiz on 05/26/2021. His CBC at that time showed normal hemoglobin at 14.3 g with hematocrit 44.2%. The red cell indices were borderline high. The white blood cell count was slightly elevated at 10,700 with the differential showing 84% neutrophils, 8% lymphocytes, and 5% monocytes. The platelet count was moderately decreased at 77,000. His comprehensive metabolic profile showed normal renal function with BUN 14 and creatinine 1.0 mg/dL. Bilirubin and liver enzymes were normal. His TSH was normal at 1.42 ???IU/mL. In reviewing his records in [facility], he had significant lymphocytosis in April 2011 with his CBC showing a total white count of 62,000 and an absolute lymphocyte count of 51,500. Hemoglobin was normal at 14.6 g and the platelet count at that time was normal at 161,000. Multiple subsequent blood counts begetting in May 2013 all showed borderline low to mildly or moderately decreased platelet count. Chest CT on 05/01/2021 reported no significant thoracic aortic aneurysm with a maximum transverse diameter of the ascending aorta measuring 3.9 cm and with normal sized ascending aorta. There is a mildly prominent pulmonary artery at 3.1 cm. The spleen was noted to be enlarged, extending over a length of greater than 14 cm. It was also reported on a prior CT angiogram of the chest on 08/07/2020. His main complaint is that he is having severe pain in his neck and shoulders, and he does have evidence of cervical radiculopathy by MRI. He has been seeing Dr. Loredo, and he is scheduled to have more surgery on 02 July. He is also recently developed acute onset of pain and swelling in his left knee and subsequently in his right ankle. He had an aspiration of the left knee joint by Dr. Rothman on 05/13/2021. It did appear to be an inflammatory effusion. He has had limited activity due to the pain. His ECOG score is 2. However, he does report having higher than normal energy. He says that normally he cannot stop moving. His appetite was down, but it is now improving. His weight is stable. He does not have fever or night sweats. He has not had sore mouth or throat. He does not complain of cough, and he has not been having shortness of breath or chest pain. He occasionally has nausea. He has no other GI or complaints. He has occasional headache. He has had dizziness when his blood pressure is high. He has having numbness in his right arm and hand. He has chronic anxiety. He was having easy bruising and he was also bleeding easily from minor cuts, but that did improve somewhat after he stopped taking aspirin. Past Medical History: He has a history of lymphoma. His other medical history includes anxiety, degenerative arthritis, degenerative disease of the spine, and hypertension. Past Surgical History: His surgical/procedural history includes carpal tunnel release bilaterally, excision of benign lesion from the back, nerve transposition on the right elbow, surgery for right groin hematoma, and cervical spine surgery following traumatic injury in 2016. Medications: Aspirin 1 Tablet (of 81 mg) Tablet, enteric coated Oral daily, Diclofenac Sodium 2 g (of 1 %) Gel (jelly) Topical t.i.d., Diclofenac Sodium 1 Tablet (of 75 mg) Tablet, enteric coated Oral q 12 hours PRN, Lisinopril 1 Tablet (of 40 mg) Oral daily, Lyrica 1 Capsule (of 75 mg) Oral b.i.d., Methocarbamol 1 Tablet (of 750 mg) Oral four times a day, methylPREDNISolone Tablet Oral, tiZANidine HCl 1 Tablet (of 4 mg) Oral q 6 hours PRN Allergies: Naproxen Social History: Mr. Isabel is single. He is retired. 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 He has a history of smoking 1 pack of cigarettes daily for about 20 years. He quit sometime in his early 30s. Recently he has been smoking THC oil for medicinal purposes. He currently does not drink alcohol. He had moderate alcohol use when he was younger. Family History: Father in his 70s of intestinal cancer . Mother in her 80s with breast cancer. Review Of Symptoms: Constitutional - He reports having higher than normal energy, but he does have limited activity due to his neck and shoulder pain. His appetite was down, but is now improving. His weight is stable. He has no fever or night sweats. ECOG score is 2, Eyes - No visual symptoms other than he recently got new glasses, ENMT - No hearing loss or tinnitus. No sinus congestion/drainage. No mouth sores. No sore throat or difficulty swallowing, Hematologic/Lymphatic - He had easy bruising and bleeding, but that has improved since he stopped aspirin, Respiratory - No shortness of breath. No cough. No pleuritic pain or hemoptysis, Cardiovascular - No angina pain. No palpitations, Gastrointestinal - He occasionally has nausea. No heartburn or acid reflux. No diarrhea or constipation. No blood in the stool or black stools, Genitourinary (M) - No dysuria or hematuria. No urinary frequency. No urgency or incontinence, Musculoskeletal - He is having severe pain in his neck and shoulders. He had recent pain and swelling in the left knee and in the left ankle, Integumentary - No skin rash or other skin changes, Neurologic - He occasionally has headache. He has had dizziness with high blood pressure. He has numbness in his right arm and hand, Psychiatric - He has chronic anxiety and he has insomnia. Vital Signs: Performed on Jun 04, 2021 10:23: 10, 10, 28.20, 2.12 sq.m, 71 in, 98 %, 49 /min (LOW), 18 /min, 190/85 mm(hg) (HIGH), 97.3 F (LOW), and 202.2 lbs (HIGH). Physical Examination: Constitutional - He looks pretty good generally, Eyes - Sclerae nonicteric. Conjunctivae clear, ENMT - No lesions noted in the oral cavity, Hematologic/Lymphatic - No cervical, clavicular, or axillary adenopathy, Respiratory - Lungs are clear with good air movement bilaterally, Cardiovascular - Heart rhythm is regular. There is no murmur, gallop, or rub noted, Abdomen - Soft. Liver is not enlarged. I am not able to palpate the spleen. There is no abdominal mass or ascites noted and there is no inguinal adenopathy, Extremities - There is slight swelling of the left knee and of the left ankle. There is otherwise no edema, Integumentary - No rashes. No suspicious skin lesions noted, Neurologic - No focal neurologic deficits noted. Problem List: 1. Moderately severe thrombocytopenia. Etiology is uncertain, but it is a fairly longstanding duration. There is CT evidence of enlarged spleen, and it may just be due to hypersplenism. 2. He has undergone treatment for a lymphoproliferative disorder, which also may be a contributing factor. 3. Hypertension. 4. Degenerative arthritis/degenerative disease of the spine. There is associated cervical radiculopathy. 5. Chronic anxiety. Problems Addressed with this Encounter and Plan: Patient with moderately severe thrombocytopenia. Etiology is uncertain, but it does appear to be a fairly longstanding duration, having developed following treatment for a lymphoproliferative disorder in 2011. There [address] evidence of splenomegaly, and a low platelet count may just be due to hypersplenism. At this point he will have additional laboratory studies to include CBC, comprehensive metabolic profile, LDH level, sed rate, B12 level, and a viral hepatitis profile. I will review the blood smear. He will have further evaluation as indicated. In the meantime, I will see if I get records regarding his lymphoproliferative disorder. If he is going to be having cervical spine surgery he may require platelet transfusion prophylactically. Signed By: Aayush Heath M.D. <<Signature on File>>
[2021-06-05 21:28] LABS: HEP C RNA Viral Load Quant 6.84 Log IU/mL (NOT DETECTED)
== END 2021-06-04 09:45 | disposition home or self-care (01) ==
LOC: ONCMED 09:47
PROVIDERS: Internal Medicine Medical Oncology; PCP Family Medicine; Visit Provider Internal Medicine Hematology & Oncology
DX: D69.6 Thrombocytopenia, unspecified (principal); R16.1 Splenomegaly, not elsewhere classified; D69.1 Qualitative platelet defects; I10 Essential (primary) hypertension; Z86.2 Personal history of diseases of the blood and blood-forming organs and certain disorders involving the immune mechanism; Z79.899 Other long term (current) drug therapy
CPT/HCPCS: 80053; 82607; 83615; 85025; 85651; 86705; 86706; 86709; 86803; 87340; 87522; 99205

== ENCOUNTER 2021-06-09 03:40 | Emergency (ER) | payer MEDICARE, MEDICAID, SELFPAY ==
[2021-06-09] VITALS (11 sets, daily range): BP systolic 143–178; BP diastolic 74–96; PULSE 59–80; RESP 17–27; TEMP 36.7; O2SAT 90–97; BMI 27.3
--- NOTE | 2021-06-09 03:49 | ECG_ITS ---
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 Measurements Intervals [place] Rate: 67 P: 67 CT: 129 QRS: 58 QRSD: 100 T: 73 QT: 363 QTc: 384 Interpretive Statements SINUS RHYTHM Compared to ECG 08/07/2020 20:52:12 Sinus bradycardia no longer present ST (T wave) deviation no longer present Electronically Signed On 06-10-2021 22:32:26 CDT by Nader Vaughan M.D. [email or web address] [email or web address] [email or web address]/store/[id number] f
--- NOTE | 2021-06-09 04:03 | ECG_ITS ---
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 Measurements Intervals [place] Rate: 68 P: 65 ID: [id number] QRS: 58 QRSD: 93 T: 75 QT: 362 QTc: 386 Interpretive Statements SINUS RHYTHM Compared to ECG 08/07/2020 20:52:12 Sinus bradycardia no longer present ST (T wave) deviation no longer present Electronically Signed On 06-09-2021 16:30:44 CDT by Chris Bailey M.D. [email or web address] View [id number] f
--- NOTE | 2021-06-09 04:03 | XRR_ITS ---
PROCEDURE INFORMATION: Exam: XR Chest Exam date and time: 06/09/2021 4:16 AM Age: 60 years old Clinical indication: Angina and dyspnea; Patient HX: SOB chest pain TECHNIQUE: Imaging protocol: XR of the chest. Views: 1 view. COMPARISON: CT chest w con* [id number] 05/01/2021 1:36 PM FINDINGS: Lungs: Unremarkable. No consolidation. Pleural spaces: Unremarkable. No pleural effusion. No pneumothorax. Heart/Mediastinum: Unremarkable. No cardiomegaly. Bones/joints: Unremarkable. XR/XR chest 1V portable [id number] IMPRESSION: No acute findings.
--- NOTE | 2021-06-09 04:11 | ED_ITS ---
Documented by User: Sonido Haji DO 06/09/21 06:31 HPI - Chest Pain General: Chief Complaint: Chest Pain Stated Complaint: Sinus Infection Time Seen by Provider: 06/09/21 03:56 Source: patient History of Present Illness: 60-year-old male who says he has been sick for 3 days or so. He has been coughing, feels that he has a sinus infection, has had stomach upset with nausea and some vomiting. He is coughing up yellow phlegm. He notes chest pain that started around midnight. It seems to have worsened at home. He does not have a prior history of coronary disease, or stenting. He states that he has been having fevers/chills. He has a sick son at home as well. MD complaint: chest pain Pertinent past history: other Onset (ago): hour(s) Timing of current episode: constant Onset: during rest Pain location: substernal Pain radiation: none Severity: moderate Quality: tightness and aching Relieving factors: nothing Exacerbating factors: exertion and inspiration Context: recent illness Associated symptoms: Reports abdominal pain (From coughing patient stated), dyspnea, fever(s), nausea and vomiting; Deny leg edema or syncope Review of Systems Const: Reports: fever(s), chills and body aches Eyes: Denies: change in vision ENMT: Reports: throat pain Card: Reports: chest pain; Denies: syncope Resp: Reports: dyspnea and productive cough GI: Reports: abdominal pain (From coughing patient stated), nausea and vomiting Musc: Reports: neck pain (Chronically) Neuro: Reports: headache(s) Psych: Reports: anxiety PFSH ED PFSH: Medical History (Updated 06/09/21 @ 07:30 by Piero Love DO) Anxiety COPD (chronic obstructive pulmonary disease) Hypertension Hypertensive urgency Lymphoma Thoracic ascending aortic aneurysm Surgical History History of neck surgery Family History Other CAD (coronary artery disease) Cancer Social History Smoking and tobacco status: current every day smoker Alcohol intake: never Lives independently: Yes Household members: family Housing: House Physical Exam Const: COMMON NORMALS: average body habitus EXAM LIMITATIONS: behavioral limitations GENERAL APPEARANCE: ill appearing (Mildly) HENMT: COMMON NORMALS: normocephalic, atraumatic and Normal external nose present HEAD & SCALP: normocephalic and atraumatic FACE & SINUS: normal facial exam and face symmetric; no Flattened naso-labial fold present and no edema NOSE: Normal external nose present and Normal nares present MOUTH: Normal oral and palatal mucosa present Eye: COMMON NORMALS: Equal, round and reactive pupils present and EOMs intact bilaterally PUPIL: Yes Equal, round and reactive pupils present Neck/C-Spine: COMMON NORMALS: no meningeal signs GENERAL: Yes normal visual inspection and Yes trachea midline Chest: COMMONS NORMALS: normal inspection of the chest CHEST: Yes Symmetrical chest wall rise Resp: EFFORT & INSPECTION: Yes tachypneic, Yes respiratory distress (Mild) and Yes uses accessory muscles AUSCULTATION: rhonchi Cardio: COMMON NORMALS: regular rate, regular rhythm and Peripheral pulses 2+ throughout RATE: regular rate RHYTHM: regular rhythm PERIPHERAL PULSES: Peripheral pulses 2+ throughout GI: COMMON NORMALS: Normal to inspection, nondistended, normoactive bowel sounds present, Soft to palpation and non-tender PALPATION: Yes Soft to palpation and Yes Tenderness to palpation present (GI) (Diffusely) Extremity: COMMON NORMALS: no pedal edema Neuro: MENINGEAL SIGNS: Yes no meningeal signs Psych: COMMON NORMALS: mental status grossly normal Skin: COMMON NORMALS: no rashes or lesions noted GENERAL SKIN EXAM: no rashes or lesions noted Course Vital Signs: Vital signs: Vital Signs Temperature 98.0 F 06/09/21 03:42 Pulse Rate 59 L 06/09/21 08:37 Respiratory Rate 24 H 06/09/21 08:37 Blood Pressure 178/91 06/09/21 08:37 Pulse Oximetry 96 06/09/21 08:37 MDM - Chest Pain Medical Decision Making Hypoxia without tachycardia appears to have mild bilateral infiltrates. White blood cell count is 12. Swabs for flu and COVID are negative. Sodium is 132. Sugar is 144. D-dimer is 0.61. First troponin is 17. 2 hours pending. EKG shows a sinus rhythm, normal axis, normal intervals, rate of 60. He is covered with Rocephin for now. Lab Data : 06/09/21 04:05 06/09/21 04:05 Radiology Impressions Chest X-Ray 06/09/21 04:03 IMPRESSION: No acute findings. Laboratory Results WBC 12.3 10^3/uL (4.0-10.0) H 06/09/21 04:05 RBC 4.64 10^6/uL (4.1-5.3) 06/09/21 04:05 Hgb 14.7 g/dL (11.7-16.6) 06/09/21 04:05 Hct 43.1 % (42.0-52.0) 06/09/21 04:05 MCV 92.9 fl (80-94) 06/09/21 04:05 MCH 31.7 pg (28.0-34.0) 06/09/21 04:05 MCHC 34.1 g/dL (30.0-36.0) 06/09/21 04:05 RDW 14.6 % (12.1-15.1) 06/09/21 04:05 Plt Count 58 10^3/cmm (130-400) L 06/09/21 04:05 MPV 10.5 fL (7.4-10.4) H 06/09/21 04:05 Neut % (Auto) 81.4 % 06/09/21 04:05 Lymph % (Auto) 8.3 % 06/09/21 04:05 [place] % (Auto) 9.3 % 06/09/21 04:05 Eos % (Auto) 0.1 % 06/09/21 04:05 Baso % (Auto) 0.3 % 06/09/21 04:05 Neut # (Auto) 10.02 10^3/uL (1.8-7.7) H 06/09/21 04:05 Lymph # (Auto) 1.0 10^3/uL (0.8-4.8) 06/09/21 04:05 [place] # (Auto) 1.1 10^3/uL (0.2-0.9) H 06/09/21 04:05 Eos # (Auto) 0.0 10^3/uL (0.0-0.8) 06/09/21 04:05 Baso # (Auto) 0.0 10^3/uL (0.0-0.1) 06/09/21 04:05 Nucleated RBC % (auto) 0 % 06/09/21 04:05 Nucleated RBCs # 0.0 /100WBC 06/09/21 04:05 PT 12.50 SECONDS (12.1-14.9) 06/09/21 04:05 INR 0.91 (0.8-1.2) 06/09/21 04:05 APTT 18.0 SECONDS (23.9-36.7) L 06/09/21 04:05 D-Dimer 0.61 ug/mIFEU (0-0.59) H 06/09/21 04:05 Sodium 132 mmol/L (136-145) L 06/09/21 04:05 Potassium 4.3 mmol/L (3.5-5.1) 06/09/21 04:05 Chloride 93 mmol/L (98-107) L 06/09/21 04:05 Carbon Dioxide 23 mmol/L (22-29) 06/09/21 04:05 Anion Gap 20.3 (5-19) H 06/09/21 04:05 BUN 20 mg/dL (6-20) 06/09/21 04:05 Creatinine 1.1 mg/dL (0.7-1.2) 06/09/21 04:05 GFR Calculation 68.5 mL/min (90-130) L 06/09/21 04:05 Glucose 144 mg/dL (65-115) H 06/09/21 04:05 Calculated Osmolality 279 mOsm/kg (285-295) L 06/09/21 04:05 Calcium 9.2 mg/dL (8.5-10.5) 06/09/21 04:05 Total Bilirubin 1.3 mg/dL (0.15-1.2) H 06/09/21 04:05 AST 36 U/L (0-40) 06/09/21 04:05 ALT 42 U/L (0-41) H 06/09/21 04:05 Alkaline Phosphatase 83 IU/L (40-130) 06/09/21 04:05 Creatine Kinase 154 U/L (39-308) 06/09/21 04:05 Troponin T Baseline 17 ng/L (0-15) H 06/09/21 04:05 Troponin T 120 Minute 16.09 ng/L (0-15) H 06/09/21 06:05 Delta Troponin T -0.91 ABS# (0-10) L 06/09/21 06:05 NT-Pro-B Natriuret Pep 317 pg/mL (0-125) H 06/09/21 04:05 Total Protein 7.1 g/dL (6.6-8.7) 06/09/21 04:05 Albumin 4.7 g/dL (3.5-5.2) 06/09/21 04:05 Globulin 2.4 g/dL (1.3-4.6) 06/09/21 04:05 Lipase 50 U/L (13-60) 06/09/21 04:05 Influenza Type A Ag Negative (Negative) 06/09/21 04:42 Influenza Type B Ag Negative (Negative) 06/09/21 04:42 SARS-CoV-2 Ag (Rapid) Negative (Negative) 06/09/21 04:42 Discharge Plan Discharge Patient Disposition: Home Clinical Impression: COPD exacerbation, Chronic neck pain, Essential hypertension, Spinal stenosis of cervical region, Lung injury due to vaping Condition: Stable Prescriptions: New doxycycline hyclate 100 mg capsule 100 mg PO BID 10 Days Qty: 20 0RF Medrol (Maximo) 4 mg tablets,dose pack See Rx Instructions .ROUTE .COMPLEX Qty: 21 0RF Rx Instructions: orally per package directions albuterol sulfate 90 mcg/actuation HFA aerosol inhaler 2 inh INHALATION Q4H PRN (Reason: shortness of breath or wheezing) Qty: 18 0RF Symbicort 160-4.5 mcg/actuation HFA aerosol inhaler 2 inh inhalation BID Qty: 10.2 0RF Lyrica 75 mg capsule 75 mg PO BID Qty: 60 0RF No Action Lyrica 75 mg capsule 75 mg PO BID Qty: 60 1RF lisinopril 40 mg tablet 40 mg PO DAILY 90 Days Qty: 90 1RF hydrocodone-acetaminophen 5-325 mg tablet 1 tab PO BID PRN (Reason: pain) 15 Days Qty: 30 0RF (DME) Maria A Walters See Rx Instructions .Route .MEDSUPPLY Qty: 1 0RF Rx Instructions: As directed DOS 07/03/2021 clonidine HCl 0.1 mg tablet 0.1 mg PO BID Qty: 60 0RF Rx Instructions: for blood pressure > 180/90 prednisone 10 mg tablets,dose pack See Rx Instructions PO PER PKG DIR Qty: 21 0RF Rx Instructions: PO PER PKG DIR tizanidine 4 mg capsule 4 mg PO Q6H PRN (Reason: muscle spasticity) Qty: 20 0RF Rx Instructions: do not exceed 3 doses per 24 hrs diclofenac sodium 75 mg tablet,delayed release (DR/EC) 75 mg PO Q12H PRN (Reason: pain) Qty: 20 0RF Adult Aspirin Regimen 81 mg tablet,delayed release (DR/EC) 81 mg PO DAILY Qty: 30 0RF methocarbamol 750 mg tablet 750 mg PO QID Qty: 30 0RF Voltaren Arthritis Pain 1 % gel 2 g topical TID Qty: 100 0RF Rx Instructions: apply to knee/ankle up to TID as needed Medrol (Maximo) 4 mg tablets,dose pack See Rx Instructions .ROUTE .COMPLEX Qty: 21 0RF Rx Instructions: orally per package directions Discharge Orders: Discharge ED (Routine); Ordered 06/09/21 Ordered By: Piero Love Other Ambulatory Orders: DME: Oxygen (DAILY) Location: None Selected Ordered By: Piero Love Referrals: Celestina Wolf DO [Primary Care Provider] - Patient Instructions: Opioid Safety Activity Restrictions/Additional Instructions: Start Lyrica 75 mg twice daily for your chronic neck pain. The Symbicort is for your breathing 2 puffs twice a day every day regardless of symptoms. The albuterol is for rescue from symptoms such as wheezing cough or shortness of breath only use as needed. Use oxygen continuously. Case management will call make arrangements for you to follow-up with the working second hand. Recommend avoiding any vaping. Follow-up with Dr. Wolf within the week. Sign Out Sign Out Data: Patient Sign Out occurred on 06/09/21 at 07:01. Patient's care was discussed, and care was transferred from to Piero Love DO. Coding Level of Care Code ED Vacation Planner for Chg Fwd Exam Comprehensive Documented by User: Piero Love DO 06/09/21 09:46 HPI - Chest Pain General: Chief Complaint: Chest Pain Stated Complaint: Sinus Infection Time Seen by Provider: 06/09/21 03:56 PFSH ED PFSH: Medical History (Updated 06/09/21 @ 07:30 by Piero Love DO) Anxiety COPD (chronic obstructive pulmonary disease) Hypertension Hypertensive urgency Lymphoma Thoracic ascending aortic aneurysm Surgical History History of neck surgery Family History Other CAD (coronary artery disease) Cancer Social History Smoking and tobacco status: current every day smoker Alcohol intake: never Lives independently: Yes Household members: family Housing: House Course Vital Signs: Vital signs: Vital Signs Temperature 98.0 F 06/09/21 03:42 Pulse Rate 59 L 06/09/21 08:37 Respiratory Rate 24 H 06/09/21 08:37 Blood Pressure 178/91 06/09/21 08:37 Pulse Oximetry 96 06/09/21 08:37 MDM - Chest Pain Medical Decision Making Hypoxia without tachycardia appears to have mild bilateral infiltrates. White blood cell count is 12. Swabs for flu and COVID are negative. Sodium is 132. Sugar is 144. D-dimer is 0.61. First troponin is 17. 2 hours pending. EKG shows a sinus rhythm, normal axis, normal intervals, rate of 60. He is covered with Rocephin for now. Care assumed at change of shift. Patient remains for the most part bradycardic. He does have increased oxygen requirement he has a history of COPD and recently he has been vaping some CBD oil for the last couple weeks the last several days had increasing shortness of breath is not having any chest pain. Age-adjusted his troponin normalizes and he has no tachycardia. I do not believe he has a PE suspect this is exacerbation of COPD combined with worsening due to his vaping. There is subtle infiltrates on the chest x-ray which is consistent with his increased productive cough. With oxygen supplementation he feels much better we will discharge him home with home O2 at 2 L/min prednisone taper and a 10-day course of doxycycline. In addition we will get him set him up for pulmonary function test referral to pulmonology start him on Symbicort to use 2 puffs twice daily and albuterol to use as needed. Patient to follow-up with his primary care doctor within the week. Medical Records I reviewed the patient's medical records. Lab Data I reviewed the patient's lab results. : 06/09/21 04:05 06/09/21 04:05 Radiology Impressions Chest X-Ray 06/09/21 04:03 IMPRESSION: No acute findings. Laboratory Results WBC 12.3 10^3/uL (4.0-10.0) H 06/09/21 04:05 RBC 4.64 10^6/uL (4.1-5.3) 06/09/21 04:05 Hgb 14.7 g/dL (11.7-16.6) 06/09/21 04:05 Hct 43.1 % (42.0-52.0) 06/09/21 04:05 MCV 92.9 fl (80-94) 06/09/21 04:05 MCH 31.7 pg (28.0-34.0) 06/09/21 04:05 MCHC 34.1 g/dL (30.0-36.0) 06/09/21 04:05 RDW 14.6 % (12.1-15.1) 06/09/21 04:05 Plt Count 58 10^3/cmm (130-400) L 06/09/21 04:05 MPV 10.5 fL (7.4-10.4) H 06/09/21 04:05 Neut % (Auto) 81.4 % 06/09/21 04:05 Lymph % (Auto) 8.3 % 06/09/21 04:05 [place] % (Auto) 9.3 % 06/09/21 04:05 Eos % (Auto) 0.1 % 06/09/21 04:05 Baso % (Auto) 0.3 % 06/09/21 04:05 Neut # (Auto) 10.02 10^3/uL (1.8-7.7) H 06/09/21 04:05 Lymph # (Auto) 1.0 10^3/uL (0.8-4.8) 06/09/21 04:05 [place] # (Auto) 1.1 10^3/uL (0.2-0.9) H 06/09/21 04:05 Eos # (Auto) 0.0 10^3/uL (0.0-0.8) 06/09/21 04:05 Baso # (Auto) 0.0 10^3/uL (0.0-0.1) 06/09/21 04:05 Nucleated RBC % (auto) 0 % 06/09/21 04:05 Nucleated RBCs # 0.0 /100WBC 06/09/21 04:05 PT 12.50 SECONDS (12.1-14.9) 06/09/21 04:05 INR 0.91 (0.8-1.2) 06/09/21 04:05 APTT 18.0 SECONDS (23.9-36.7) L 06/09/21 04:05 D-Dimer 0.61 ug/mIFEU (0-0.59) H 06/09/21 04:05 Sodium 132 mmol/L (136-145) L 06/09/21 04:05 Potassium 4.3 mmol/L (3.5-5.1) 06/09/21 04:05 Chloride 93 mmol/L (98-107) L 06/09/21 04:05 Carbon Dioxide 23 mmol/L (22-29) 06/09/21 04:05 Anion Gap 20.3 (5-19) H 06/09/21 04:05 BUN 20 mg/dL (6-20) 06/09/21 04:05 Creatinine 1.1 mg/dL (0.7-1.2) 06/09/21 04:05 GFR Calculation 68.5 mL/min (90-130) L 06/09/21 04:05 Glucose 144 mg/dL (65-115) H 06/09/21 04:05 Calculated Osmolality 279 mOsm/kg (285-295) L 06/09/21 04:05 Calcium 9.2 mg/dL (8.5-10.5) 06/09/21 04:05 Total Bilirubin 1.3 mg/dL (0.15-1.2) H 06/09/21 04:05 AST 36 U/L (0-40) 06/09/21 04:05 ALT 42 U/L (0-41) H 06/09/21 04:05 Alkaline Phosphatase 83 IU/L (40-130) 06/09/21 04:05 Creatine Kinase 154 U/L (39-308) 06/09/21 04:05 Troponin T Baseline 17 ng/L (0-15) H 06/09/21 04:05 Troponin T 120 Minute 16.09 ng/L (0-15) H 06/09/21 06:05 Delta Troponin T -0.91 ABS# (0-10) L 06/09/21 06:05 NT-Pro-B Natriuret Pep 317 pg/mL (0-125) H 06/09/21 04:05 Total Protein 7.1 g/dL (6.6-8.7) 06/09/21 04:05 Albumin 4.7 g/dL (3.5-5.2) 06/09/21 04:05 Globulin 2.4 g/dL (1.3-4.6) 06/09/21 04:05 Lipase 50 U/L (13-60) 06/09/21 04:05 Influenza Type A Ag Negative (Negative) 06/09/21 04:42 Influenza Type B Ag Negative (Negative) 06/09/21 04:42 SARS-CoV-2 Ag (Rapid) Negative (Negative) 06/09/21 04:42 Discharge Plan Discharge Patient Disposition: Home Clinical Impression: COPD exacerbation, Chronic neck pain, Essential hypertension, Spinal stenosis of cervical region, Lung injury due to vaping Condition: Stable Prescriptions: New doxycycline hyclate 100 mg capsule 100 mg PO BID 10 Days Qty: 20 0RF Medrol (Maximo) 4 mg tablets,dose pack See Rx Instructions .ROUTE .COMPLEX Qty: 21 0RF Rx Instructions: orally per package directions albuterol sulfate 90 mcg/actuation HFA aerosol inhaler 2 inh INHALATION Q4H PRN (Reason: shortness of breath or wheezing) Qty: 18 0RF Symbicort 160-4.5 mcg/actuation HFA aerosol inhaler 2 inh inhalation BID Qty: 10.2 0RF Lyrica 75 mg capsule 75 mg PO BID Qty: 60 0RF No Action Lyrica 75 mg capsule 75 mg PO BID Qty: 60 1RF lisinopril 40 mg tablet 40 mg PO DAILY 90 Days Qty: 90 1RF hydrocodone-acetaminophen 5-325 mg tablet 1 tab PO BID PRN (Reason: pain) 15 Days Qty: 30 0RF (DME) Maria A Walters See Rx Instructions .Route .MEDSUPPLY Qty: 1 0RF Rx Instructions: As directed DOS 07/03/2021 clonidine HCl 0.1 mg tablet 0.1 mg PO BID Qty: 60 0RF Rx Instructions: for blood pressure > 180/90 prednisone 10 mg tablets,dose pack See Rx Instructions PO PER PKG DIR Qty: 21 0RF Rx Instructions: PO PER PKG DIR tizanidine 4 mg capsule 4 mg PO Q6H PRN (Reason: muscle spasticity) Qty: 20 0RF Rx Instructions: do not exceed 3 doses per 24 hrs diclofenac sodium 75 mg tablet,delayed release (DR/EC) 75 mg PO Q12H PRN (Reason: pain) Qty: 20 0RF Adult Aspirin Regimen 81 mg tablet,delayed release (DR/EC) 81 mg PO DAILY Qty: 30 0RF methocarbamol 750 mg tablet 750 mg PO QID Qty: 30 0RF Voltaren Arthritis Pain 1 % gel 2 g topical TID Qty: 100 0RF Rx Instructions: apply to knee/ankle up to TID as needed Medrol (Maximo) 4 mg tablets,dose pack See Rx Instructions .ROUTE .COMPLEX Qty: 21 0RF Rx Instructions: orally per package directions Discharge Orders: Discharge ED (Routine); Ordered 06/09/21 Ordered By: Piero Love Other Ambulatory Orders: DME: Oxygen (DAILY) Location: None Selected Ordered By: Piero Love Referrals: Celestina Wolf DO [Primary Care Provider] - Patient Instructions: Opioid Safety Activity Restrictions/Additional Instructions: Start Lyrica 75 mg twice daily for your chronic neck pain. The Symbicort is for your breathing 2 puffs twice a day every day regardless of symptoms. The albuterol is for rescue from symptoms such as wheezing cough or shortness of breath only use as needed. Use oxygen continuously. Case management will call make arrangements for you to follow-up with the working second hand. Recommend avoid ing any vaping. Follow-up with Dr. Wolf within the week. Sign Out Sign Out Data: Patient Sign Out occurred on 06/09/21 at 07:01. Patient's care was discussed, and care was transferred from to Piero Love DO. Coding Level of Care Code ED Vacation Planner for Chg Fwd Exam Comprehensive
[2021-06-09 04:18] LABS: Basophils % 0.3 %; Eosinophils % 0.1 %; Hematocrit 43.1 % (42.0-52.0); Hemoglobin 14.7 g/dL (11.7-16.6); Lymphocytes % 8.3 %; Mean Corpuscular HGB Conc 34.1 g/dL (30.0-36.0); Mean Corpuscular Hemoglobin 31.7 pg (28.0-34.0); Mean Corpuscular Volume 92.9 fl (80-94); Mean Platelet Volume 10.5 fL (7.4-10.4); Monocytes # 1.1 10^3/uL (0.2-0.9); Monocytes % 9.3 %; Neutrophils # 10.02 10^3/uL (1.8-7.7); Neutrophils % 81.4 %; Nucleated Red Blood Cells % 0 %; Platelet Count 58 10^3/cmm (130-400); Red Blood Count 4.64 10^6/uL (4.1-5.3); Red Cell Distribution Width 14.6 % (12.1-15.1); White Blood Count 12.3 10^3/uL (4.0-10.0)
[2021-06-09] MEDS: ondansetron 2 mg/ML SDV 2 mL 4 MG IVP ×2 (04:27→05:54)
[2021-06-09] MEDS: aspirin 81 mg Chew Tablet 324 MG PO (04:27)
[2021-06-09] MEDS: sodium chloride 0.9% 1,000 ML 999 ML IV (04:28)
[2021-06-09] MEDS: morphine 4 mg/mL SDV 1 mL IVP (04:28)
[2021-06-09] MEDS: ipratropium-albuterol 3 mL Neb INHALATION (04:35)
[2021-06-09 04:42] LABS: Troponin(5th) Baseline 17 ng/L (0-15)
[2021-06-09 04:47] LABS: Alanine Aminotransferase 42 U/L (0-41); Albumin Level 4.7 g/dL (3.5-5.2); Alkaline Phosphatase 83 IU/L (40-130); Anion Gap 20.3 (5-19); Aspartate Amino Transferase 36 U/L (0-40); Blood Urea Nitrogen 20 mg/dL (6-20); Calcium 9.2 mg/dL (8.5-10.5); Carbon Dioxide 23 mmol/L (22-29); Chloride 93 mmol/L (98-107); Creatine Phosphokinase 154 U/L (39-308); Globulin 2.4 g/dL (1.3-4.6); Glomerular Filtration Rate 68.5 mL/min (90-130); Glucose 144 mg/dL (65-115); Lipase 50 U/L (13-60); NT Pro B Type Natriuretic Pept 317 pg/mL (0-125); Osmolality Calculated 279 mOsm/kg (285-295); Potassium 4.3 mmol/L (3.5-5.1); Sodium 132 mmol/L (136-145); Total Bilirubin 1.3 mg/dL (0.15-1.2); Total Protein 7.1 g/dL (6.6-8.7)
[2021-06-09 05:14] LABS: Influenza A by IFA Negative (Negative); Influenza B by IFA Negative (Negative); SARS Covid-2 Antigen Negative (Negative)
[2021-06-09 05:20] LABS: D Dimer 0.61 ug/mIFEU (0-0.59); INR 0.91 (0.8-1.2)
--- NOTE | 2021-06-09 06:03 | ECG_ITS ---
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 Measurements Intervals [place] Rate: 60 P: 42 [place]: 123 QRS: 63 QRSD: 94 T: 65 QT: 390 QTc: 390 Interpretive Statements SINUS RHYTHM Compared to ECG 08/07/2020 20:52:12 Sinus bradycardia no longer present ST (T wave) deviation no longer present Electronically Signed On 06-09-2021 16:35:47 CDT by Chris Bailey M.D. [email or web address] [email or web address]/store/[id number]
--- NOTE | 2021-06-09 06:08 | PC.NURSE ---
0550 Placed pt on RA with Sp02 96%. Dr Haji updated
[2021-06-09 06:28] LABS: Troponin 5 2HR 16.09 ng/L (0-15)
--- NOTE | 2021-06-09 06:34 | PC.NURSE ---
Pt placed back on O2 NC 2L for Sp02 88-90% on RA
[2021-06-09 06:37] LABS: Troponin 5 2HR Delta -0.91 ABS# (0-10)
[2021-06-09] MEDS: cefTRIAXone 1,000 MG in sodium chloride 0.9% (plus) 50 ML 100 MG IV (06:43)
--- NOTE | 2021-06-09 07:05 | PC.NURSE ---
PT resting in bed. PT states his pain is 10/10 when coughing.
--- NOTE | 2021-06-09 15:16 | DCPLANNER ---
Addendum entered by Elizabeth Retana 09/30/21 14:36: Patient had a follow up appointment scheduled with pulmonology - patient did attend appointment. Addendum entered by Elizabeth Retana 06/19/21 19:27: Patient has a follow u appointment scheduled for Wednesday, July 11, 2021 at 10:[address] Hector at [facility] pulmonology. Clinic will call patient with appointment information. Original Note: employee relations manager had message to schedule a follow up appointment for patient with [facility] for pulmonology. employee relations manager sent patients information to the front office staff at [facility]. Patients information will be printed and reviewed. Clinic will call patient with appointment information.
== END 2021-06-09 08:39 | disposition home or self-care (01) ==
PROVIDERS: Emergency Medicine; Emergency Provider Family Medicine; PCP Family Medicine
DX: J44.1 Chronic obstructive pulmonary disease with (acute) exacerbation (principal); U07.0 Vaping-related disorder; G89.29 Other chronic pain; M54.2 Cervicalgia; I10 Essential (primary) hypertension; M48.02 Spinal stenosis, cervical region; F17.200 Nicotine dependence, unspecified, uncomplicated
CPT/HCPCS: 36600; 71045; 80053; 82550; 82803; 83690; 83880; 84484; 85025; 85378; 85610; 85730; 87426; 87804; 93005; 94640; 96365; 96375; 96376; 99285; J0696; J2270; J2405; J2930; J7030

== ENCOUNTER → 2021-06-13 08:10 | Outpatient (BNVA) | payer MEDICARE, MEDICAID, SELFPAY | PROVIDERS: PCP Family Medicine; Visit Provider Internal Medicine | DX: M25.569 Pain in unspecified knee (principal); Z11.59 Encounter for screening for other viral diseases; M54.2 Cervicalgia; G89.29 Other chronic pain; I10 Essential (primary) hypertension; Z87.891 Personal history of nicotine dependence | CPT/HCPCS: 99203; 99204 ==

== ENCOUNTER 2021-06-30 10:14 | Outpatient (CLI) | payer MEDICARE, MEDICAID, SELFPAY ==
[2021-06-30 12:03] LABS: Alanine Aminotransferase 40 U/L (0-41); Albumin Level 4.4 g/dL (3.5-5.2); Alkaline Phosphatase 83 IU/L (40-130); Anion Gap 15.4 (5-19); Aspartate Amino Transferase 31 U/L (0-40); Blood Urea Nitrogen 17 mg/dL (6-20); Calcium 9.6 mg/dL (8.5-10.5); Carbon Dioxide 26 mmol/L (22-29); Chloride 100 mmol/L (98-107); Chol HDL Ratio 3.95 mg/dL (1.0-5.00); Cholesterol 166 mg/dL (0-200); Creatine Phosphokinase 78 U/L (39-308); Ferritin 985 ng/mL (30-400); Globulin 2.8 g/dL (1.3-4.6); Glomerular Filtration Rate 86.4 mL/min (90-130); Glucose 100 mg/dL (65-115); HDL Cholesterol 42 mg/dL (60-100); Iron 116 ug/dL (59-158); LDL Cholesterol Calculated 94 mg/dL (50-129); LDL HDL Ratio 2.24 RATIO (0.00-3.22); Osmolality Calculated 286 mOsm/kg (285-295); Phosphorus 3.2 mg/dL (2.5-4.5); Potassium 4.4 mmol/L (3.5-5.1); Sodium 137 mmol/L (136-145); Thyroid Stimulating Hormone 2.63 uIU/mL (0.27-4.20); Total Bilirubin 0.5 mg/dL (0.15-1.2); Total Protein 7.2 g/dL (6.6-8.7); Triglycerides 149 mg/dL (0-150); Uric Acid 8.5 mg/dL (3.4-7.0)
[2021-06-30 12:14] LABS: Calcium 9.7 mg/dL (8.5-10.5)
[2021-06-30 12:21] LABS: Parathyroid Hormone 31.9 pg/mL (15-65)
[2021-06-30 13:00] LABS: Hepatitis B Core AB, Total Non-Reactive (Nonreactive); Hepatitis B Surface Antigen Non-Reactive (Nonreactive)
[2021-06-30 13:37] LABS: Creatinine Urine, Random 61 mg/dL (39-259); Microalbum Creatinine Ratio Ur 16 mg/dL (0-20); Microalbumin Random Urine 1 ug/dL (0-20)
[2021-06-30 13:45] LABS: Erythrocyte Sedimentation Rate 14 mm/hr (0-10)
[2021-06-30 14:42] LABS: Hepatitis C Virus Antibody Reactive (Nonreactive)
== END 2021-06-30 10:15 | disposition home or self-care (01) ==
LOC: LAB 10:17
PROVIDERS: Internal Medicine; PCP Family Medicine; Visit Provider Family Medicine
DX: I10 Essential (primary) hypertension (principal); J44.9 Chronic obstructive pulmonary disease, unspecified; S93.402A Sprain of unspecified ligament of left ankle, initial encounter; M47.22 Other spondylosis with radiculopathy, cervical region; M25.569 Pain in unspecified knee; F41.9 Anxiety disorder, unspecified; F32.A Depression, unspecified
CPT/HCPCS: 80053; 80061; 82044; 82310; 82550; 82728; 83540; 83735; 83970; 84100; 84443; 84550; 85651; 86140; 86704; 86803; 87340; 87522

== ENCOUNTER → 2021-07-04 10:45 | Outpatient (BNVA) | payer MEDICARE, MEDICAID, SELFPAY | PROVIDERS: PCP Family Medicine; Visit Provider Internal Medicine | DX: Z53.9 Procedure and treatment not carried out, unspecified reason (principal) ==

== ENCOUNTER → 2021-07-11 09:57 | Outpatient (BNVA) | payer MEDICARE, MEDICAID, SELFPAY | PROVIDERS: PCP Family Medicine; Visit Provider Internal Medicine Critical Care Medicine | DX: Z09 Encounter for follow-up examination after completed treatment for conditions other than malignant neoplasm (principal); J43.9 Emphysema, unspecified; M54.2 Cervicalgia; Z87.891 Personal history of nicotine dependence | CPT/HCPCS: 99203 ==

== ENCOUNTER 2021-07-28 14:35 | Inpatient (IN) | payer MEDICARE, MEDICAID, SELFPAY ==
[2021-07-23 10:23] VITALS: BMI 27.3
--- NOTE | 2021-07-23 11:41 | ANES.PREANE2 ---
Pre-Anesthetic Assessment Height/Weight: Height 1.8 m Weight 88.904 kg Operation Date: 07/28/21 07:00 Proposed Procedures p ACDF C5/6,C6/7, C7/T1; decompression at C5/6 18251/[id number]/m47.22/m50.30(Not Applicable) - Martin Loredo, Familial anesthetic complications: none Was Beta Hansa taken within 24 hours: N/A Was Clonidine taken within 24 hours: Yes Social Tobacco (joão) and No alcohol Exam alert, oriented x 3, clear to auscultation bilaterally and regular rate & rhythm Airway Submandibular: within normal limits Cervical ROM: within normal limits Mallampati: Class II Dentition: chipped Pulmonary Chronic Obstructive Pulmonary Disease CV/HEM Hypertension Ascending Ao aneurysm CONCLUSIONS ?LV systolic function is normal with EF of 55-60% ?Diatsolic function is normal ?Mild mitral regurgitation ?Mild aortic regurgitation ?No comparison studies are available 07/29 1.? No significant thoracic aortic aneurysm is identified. Maximum transverse diameter of the ascending aorta is 3.9 cm. Normal size descending aorta. 2.? Mildly prominent pulmonary artery 3.1 cm. 3.? Splenomegaly. Similar to the prior study but incompletely visualized as only a portion of the abdomen is included. 4.? No pneumonia or nodules. ? Hepatic Hepatitis (C) Musc/skel Osteoarthritis/DJD Neuropsych Anxiety and Depression Anesthetic Plan ASA status: 3 Anesthesia: General Medications/Allergies Home Medications Medication Instructions Recorded Confirmed Last Taken Type lisinopril 40 mg tablet 40 mg PO DAILY 90 Days #90 tab 05/29/21 07/23/21 Unknown Rx pregabalin 75 mg capsule (Lyrica) 75 mg PO BID 07/08/21 07/23/21 Unknown History clonidine HCl 0.1 mg tablet 0.1 mg PO BID PRN tab 07/11/21 07/23/21 Unknown History Allergies Allergy/AdvReac Type Severity Reaction Status Date / Time naproxen AdvReac Mild night franco Verified 07/23/21 10:22 [facility] Anesthesia Medical History Anxiety COPD (chronic obstructive pulmonary disease) Hypertension Hypertensive urgency Lymphoma Thoracic ascending aortic aneurysm Surgical History History of neck surgery Family History Other CAD (coronary artery disease) Cancer Diabetes Hyperlipidemia Hypertension Denies family history of Rheumatoid arthritis Lupus Chronic kidney disease (CKD) Stroke Social History Smoking and tobacco status: former smoker Quit status (tobacco): has quit using tobacco Year quit tobacco: 1991 Former quit date comment: 1 ppd X 27 years Alcohol intake: former Lives independently: Yes Household members: family Housing: House History of recent travel: No Data Anesthesia Cardiac Studies: Echocardiogram 08/07/20 Sestamibi Stress Test (Cardiology) 08/07/20
[2021-07-28] VITALS (92 sets, daily range): BP systolic 91–199; BP diastolic 54–103; PULSE 47–88; RESP 9–24; TEMP 35.4–36.9; O2SAT 94–100
--- NOTE | 2021-07-28 | XR_ITS ---
WS: [id number] Exam: XR cervical spine 3V* [id number] Date/Time of Exam: 07/28/2021 12:00 AM Reason For Exam: cervical spondylosis, cervical disc degeneration Intraoperative AP and lateral images of the cervical spine are provided. There is operative fusion of the spine from C5 to T1 with anterior plate and screw fixation. There ar e disc spacers at C5-6, C6-7 and C7-T1. The fusion is in satisfactory alignment. An endotracheal tube is noted in the airway. XR/XR cervical spine 3V* [id number] IMPRESSION: 1. Anterior fusion of the cervical spine from C5 to T1 in satisfactory alignmen t.
--- NOTE | 2021-07-28 | SCC_ITS ---
Procedure done: 1. exploration of tracheostomy site 12 seconds of fluoroscopic guidance, for a cumulative dose of 1.49 mGy, was provided to Dr. Loredo by the radiology department. C-arm images of the cervical spine were saved for the patient's permanent record. [facility]
--- NOTE | 2021-07-28 06:36 | P.ANESUD_ITS ---
Pre-Anesthetic Update Pre-Anesthetic Assessment: Date of Surgery/Procedure: 07/28/21 Preop Nimisha gnosis: Cervical spondylosis with radiculopathy Proposed Procedure: Operation Date: 07/28/21 07:00 Proposed Procedures p ACDF C5/6,C6/7, C7/T1; decompression at C5/6 [id number]/[id number] x2/[id number]/96080/22640/m47.22/m50.30(Not Applicable) - Martin Loredo, DO Any changes to Pre-Anesthetic Assessment?: No Last Intake: Intake Last Liquid Date 07/27/21 Last Liquid Time 23:00 Last Solid Date 07/27/21 Last Solid Time 20:00 Vitals: Temperature 98.0 F 07/28/21 06:04 Temperature Source Temporal Artery S can 07/28/21 06:04 Pulse Rate 47 L 07/28/21 06:04 Respiratory Rate 18 07/28/21 06:04 Blood Pressure 199/91 07/28/21 06:04 Blood Pressure Jenna n 127 07/28/21 06:04 Pulse Oximetry 99 07/28/21 06:04 Oxygen Delivery Me thod 07/28/21 06:13 Exam: Pre-Anes Outpt Exam: alert, oriented x 3, clear to auscultation bilaterally and regular rate & rhythm Cardiac Studies: Echocardiogram 08/07/20 Sestamibi Stress Test (Cardiology) 08/07/20
--- NOTE | 2021-07-28 06:37 | ANES.PREANE2 ---
Pre-Anesthetic Assessment Height/Weight: Height 1.8 m Weight 88.904 kg Temp Pulse Resp BP Pulse Ox 98.0 F 47 L 18 199/91 99 07/28/21 06:04 07/28/21 06:04 07/28/21 06:04 07/28/21 06:04 07/28/21 06:04 Preop Diagnosis: Cervical spondylosis with radiculopathy Operation Date: 07/28/21 07:00 Proposed Procedures p ACDF C5/6,C6/7, C7/T1; decompression at C5/6 70185/07031 x2/23012m2/13146/21093/m47.22/m50.30(Not Applicable) - Martin Loredo, DO Familial anesthetic complications: none Was Beta Hansa taken within 24 hours: N/A Was Clonidine taken within 24 hours: N/A Last intake: Intake Last Liquid Date 07/27/21 Last Liquid Time 23:00 Last Solid Date 07/27/21 Last Solid Time 20:00 Social No alcohol and No tobacco Exam alert, oriented x 3, clear to auscultation bilaterally and regular rate & rhythm Airway Submandibular: within normal limits Cervical ROM: within normal limits Mallampati: Class II Dentition: chipped Comments: Comments: missing teeth Pulmonary Chronic Obstructive Pulmonary Disease CV/HEM Hypertension Thoracic aneurysm Hx of lymphoma, thrombocytopenia EKG 06/2021 SINUS RHYTHM Compared to ECG 08/07/2020 20:52:12 Sinus bradycardia no longer present ST (T wave) deviation no longer present Electronically Signed On 06-09-2021 16:35:47 CDT by Chris Bailey M.D. [email or web address] 07/2020 CONCLUSIONS ?LV systolic function is normal with EF of 55-60% ?Diatsolic function is normal ?Mild mitral regurgitation ?Mild aortic regurgitation ?No comparison studies are available Stress test 07/2020 CONCLUSION: 1. No significant EKG changes with the LexiScan infusion 2. No LexiScan induced chest pain or cardiac arrhythmia 3. Normal blood pressure and heart rate response 4. Sestamibi/sestamibi perfusion scan pending; see separate report. Hepatic None reported GI None reported Metabolic None reported Musc/skel Lower Back Pain and Osteoarthritis/DJD Spinal stenosis Neuropsych Anxiety and Depression Anesthetic Plan ASA status: 3 (60 year old former smoker with hx of marijuana use, COPD, HTN, anxiety, lymphoma, thoracic aneurysm ) Other: We discussed risk and benefits of general anesthesia including PONV, sore throat (sometimes severe), corneal abrasion, positioning and peripheral nerve injuries, life threatening allergic reaction, post operative ICU admission requiring prolonged intubation, aspiration, stroke, heart attack, , and rare incidences of recall. Patient consents to proceed with general anesthesia. GETA. Plan 2 PIV. Medications/Allergies Home Medications Medication Instructions Recorded Confirmed Last Taken Type lisinopril 40 mg tablet 40 mg PO DAILY 90 Days #90 tab 05/29/21 07/28/21 07/27/21 Rx pregabalin 75 mg capsule (Lyrica) 75 mg PO BID 07/08/21 07/28/21 07/27/21 History clonidine HCl 0.1 mg tablet 0.1 mg PO BID PRN tab 07/11/21 07/23/21 Unknown History glecaprevir 100 mg-pibrentasvir 40 3 tab PO DAILY #84 tab 07/25/21 07/28/21 Unknown Rx mg tablet (Mavyret) Allergies Allergy/AdvReac Type Severity Reaction Status Date / Time naproxen AdvReac Mild night franco Verified 07/23/21 10:22 [facility] Anesthesia Medical History Anxiety COPD (chronic obstructive pulmonary disease) Hypertension Hypertensive urgency Lymphoma Thoracic ascending aortic aneurysm Surgical History History of neck surgery Family History Other CAD (coronary artery disease) Cancer Diabetes Hyperlipidemia Hypertension Denies family history of Rheumatoid arthritis Lupus Chronic kidney disease (CKD) Stroke Social History Smoking and tobacco status: former smoker Quit status (tobacco): has quit using tobacco Year quit tobacco: 1991 Former quit date comment: 1 ppd X 27 years Alcohol intake: former Lives independently: Yes Household members: family Housing: House History of recent travel: No Data Anesthesia Cardiac Studies: Echocardiogram 08/07/20 Sestamibi Stress Test (Cardiology) 08/07/20
--- NOTE | 2021-07-28 06:53 | P.HP_ITS ---
Providers/Chief Complaint Primary Care Provider: Celestina Wolf DO Chief Complaint: cervical spondylosis, cervical disc degeneration History of Present Illness Jeet Isabel is a 60 year old male He has radicular symptoms going down his right worse than left arm/hand.? He states that his fingers feel .? reports? muscle spasms in his neck.. ?He is here today to review his nerve conduction study and MRI. He rates his pain a 10/10 at time of triage. States that it is constantly at a 10.? Reports equal neck and bilateral arm pain with right greater than left.? He is ambulating with crutches as he has pain in his left knee.? He reports progressive weakness in the right upper extremity.? Any use of the right arm makes it much worse.? Any movement of the neck causes sharp stingers down his right arm. Review of Systems General: Reports: 10 or more systems reviewed and unremarkable except in HPI and below Const: Denies: fever(s) or chills Eyes: Denies: change in vision ENMT: Denies: throat pain Card: Denies: chest pain or dyspnea on exertion Resp: Denies: dyspnea, productive cough or wheezing GI: Denies: abdominal pain, nausea or vomiting Musc: Reports: neck pain, extremity pain and limited range of motion Skin/Breast: Denies: changes in skin color or dry skin Neuro: Reports: numbness in extremities and weakness in extremities Psych: Denies: anxiety Chau/Lymph: Denies: easy bruising or easy bleeding Medications/Allergies Home Medications Medication Instructions Recorded Confirmed Last Taken Type lisinopril 40 mg tablet 40 mg PO DAILY 90 Days #90 tab 05/29/21 07/28/21 07/27/21 Rx pregabalin 75 mg capsule (Lyrica) 75 mg PO BID 07/08/21 07/28/21 07/27/21 History clonidine HCl 0.1 mg tablet 0.1 mg PO BID PRN tab 07/11/21 07/23/21 Unknown History glecaprevir 100 mg-pibrentasvir 40 3 tab PO DAILY #84 tab 07/25/21 07/28/21 Unknown Rx mg tablet (Mavyret) Allergies Allergy/AdvReac Type Severity Reaction Status Date / Time naproxen AdvReac Mild night franco Verified 07/23/21 10:22 PFSH Acute PFSH: Medical History Anxiety COPD (chronic obstructive pulmonary disease) Hypertension Hypertensive urgency Lymphoma Thoracic ascending aortic aneurysm Surgical History History of neck surgery Family History Other CAD (coronary artery disease) Cancer Diabetes Hyperlipidemia Hypertension Denies family history of Rheumatoid arthritis Lupus Chronic kidney disease (CKD) Stroke Social History Smoking and tobacco status: former smoker Quit status (tobacco): has quit using tobacco Year quit tobacco: 1991 Former quit date comment: 1 ppd X 27 years Alcohol intake: former Lives independently: Yes Household members: family Housing: House History of recent travel: No Vitals/I&O/Wt Last Vital Signs Temp 98.0 F 07/28/21 06:04 Pulse 47 L 07/28/21 06:04 Resp 18 07/28/21 06:04 BP 199/91 07/28/21 06:04 Pulse Ox 99 07/28/21 06:04 Physical Exam Narrative: CONSTITUTIONAL: The patient is a normal appearing [] in no apparent distress. GENERAL: Patient in no acute distress. CARDIAC: Regular rate and rhythm. CHEST: Normal inspiratory effort, normal respiratory rate. ABDOMEN: Soft and nontender. SKIN: Clear, warm and intact. NEURO?PSYCH: The patient is alert and oriented to person, place and time. Sensorv /SILT Motor StrengthShoulder abduction C5 5/5Wrist extension C6 5/5Elbow extension C7 5/5Hand Dental Hygienist C8 5/5Finger abduction T15/5 Radial/ Ulnar/ Median n intact LowerSensory (SILT)Motor StrengthHin flexion L2/3Ant/inner thigh 5/5Hip adduction L2/3 5/5Knee extension L4 Lat thigh, 5/5Toe dorsiflexion L5 5/5Ankle dorsiflexion L5/ C70Vpdjwid flexion S1 5/5 DTRBleeps 2+Triceps 2+Brachioradialis 2+Patellar 2+Achilles 2+ MUSCULOSKELETAL: [] UPPEREXTREMITIES: The patient had full active ROM in fingers, wrist, elbow, and shoulder. The patient demonstrated ability to fully flex/extend/abduct/adduct fingers, make ok sign, cross 2nd/3rd digits, extend 1st digit fully.. Radial pulse 2+, CR<2 seconds. LOWER EXTREMITIES: Pt has full, active ROM of toes, ankle, knee, and hip. Dorsalis pedis/posterior tibialis pulses 2+, CR<2 seconds. SPINE: Skin warm, dry, intact. A&P Assessment and plan (1) Cervical spondylosis with radiculopathy: ACDF today Status: Acute Attestations Medical Necessity Statement*: failed conservative tx Coding Level of Care Code Acute Educational Diagnostician for g Fwd Diagnoses Cervical spondylosis with radiculopathy M47.22
[2021-07-28] MEDS: scopolamine 1.5 Patch 1 PATCH TRANSDERMA (06:55)
[2021-07-28] MEDS: sodium chloride 0.9% 1,000 ML 30 ML IV (06:55)
[2021-07-28] MEDS: vancomycin 1,000 MG SDV 1000 MG XX (09:21)
--- NOTE | 2021-07-28 09:50 | P.OP_ITS ---
Operative Report Date of procedure: July 28, 2021 Pre-op diagnosis: Preop Diagnosis Cervical spondylosis with radiculopathy Post-op diagnosis: same Procedure done: 1. Anterior diskectomy C5/6 2. Anterior discectomy C6/7 3. anterior discetomy C7/T1 4. Insertion of cage C5/6 5. Insertion of Cage C6/7 6. Insertion of cage C7/T1 7. Instrumentation with anterior plate from C5-T1 8. Use of allograft Surgeon: Martin Loredo Baker Laboratory: Amari Villeda Baker Laboratory: The surgical garment inspector, Amari Villeda, PAC was needed for his expertise under the microscope. He was important and necessary throughout the procedure to complete in a safe and timely manner. He assisted with patient positioning prepping and draping tissue retraction suctioning of the operative field protection of the dural sac and tissue closure Estimated blood loss (mL): 50 Procedure: 1. Anterior diskectomy C5/6 2. Anterior discectomy C6/7 3. anterior discetomy C7/T1 4. Insertion of cage C5/6 5. Insertion of Cage C6/7 6. Insertion of cage C7/T1 7. Instrumentation with anterior plate from C5-T1 8. Use of allograft The patient was taken to the operating room, where he underwent general endotracheal anesthesia without complications. He was then positioned supine on the operating table, and all areas of impingement were well padded. The arms were carefully padded and tucked at his sides. A roll was placed between the shoulder blades.. An x-ray was done to determine the appropriate level for the skin incision. The entire neck was then sterilely prepped and draped in the u sual fashion. Neuromonitoring was attached prior to prepping. A transverse skin incision was made and carried down to the platysma muscle. This was then split in line with its fibers. Blunt dissection was carried down medial to the carotid sheath and lateral to the trachea and esophagus until the anterior cervical spine was visualized. A needle was placed into a disc and an x-ray was done to determine its location. The longus colli muscles were then elevated bilaterally with the electrocautery unit. Self-retaining retractors were placed deep to the longus colli muscle. Attention was brought to the C5/6 level that was confirmed on x-ray. A caspar pin was placed into the C5 vertebrae and the C6 vertebrae. The disk space was then distracted. The microscope was then brought in. A radical anterior discectomies were performed at C5/6. This included complete removal of the anterior annulus, nucleus, and posterior annulus. The posterior longitudinal ligament was removed as were the posterior osteophytes. Foraminotomies were then accomplished bilaterally. This was done using a high speed sharmila, kerrison rongeurs and curretes Once all of this was accomplished, the curved currette was used to check for any residual compression. The central canal was wide open as were the foramen. A high-speed bur was used to remove the cartilaginous endplates above and below the interspace. Bleeding cancellous bone was exposed. The disc space were measured and appropriate size cage were placed sterilely onto the field. Allograft graft was packed into the cages. The cage was then placed and there was good juxtaposition against the bleeding decorticated surfaces and good distraction of each interspace. Attention was brought to the next interspace. The [place] pins were removed. Bone wax was used to prevent any bleeding from occurring at the pin sites. Attention was brought to the C6/7 level that was confirmed on x-ray. A caspar pin was placed into the C6 vertebrae and the C7 vertebrae. The disk space was then distracted. The microscope was then brought in. A radical anterior discectomies were performed at C6/7. This included complete removal of the anterior annulus, nucleus, and posterior annulus. The posterior longitudinal ligament was removed as were the posterior osteophytes. Foraminotomies were then accomplished bilaterally. This was done using a high speed sharmila, kerrison rongeurs and curretes Once all of this was accomplished, the curved currette was used to check for any residual compression. The central canal was wide open as were the foramen. A high-speed bur was used to remove the cartilaginous endplates above and below the interspace. Bleeding cancellous bone was exposed. The disc space were measured and appropriate size cage were placed sterilely onto the field. Allograft graft was packed into the cages. The cage was then placed and there was good juxtaposition against the bleeding decorticated surfaces and good distraction of each interspace. Attention was brought to the next interspace. The Trenton pins were removed. Bone wax was used to prevent any bleeding from occurring at the pin sites. Attention was brought to the C7/T1 level that was confirmed on x-ray. A caspar pin was placed into the C7 vertebrae and the T1 vertebrae. The disk space was then distracted. The microscope was then brought in. A radical anterior discectomies were performed at C7/T1. This included complete removal of the anterior annulus, nucleus, and posterior annulus. The posterior longitudinal ligament was removed as were the posterior osteophytes. Foraminotomies were then accomplished bilaterally. This was done using a high speed sharmila, kerrison rongeurs and curretes Once all of this was accomplished, the curved currette was used to check for any residual compression. The central canal was wide open as were the foramen. A high-speed bur was used to remove the cartilaginous endplates above and below the interspace. Bleeding cancellous bone was exposed. The disc space were measured and appropriate size cage were placed sterilely onto the field. Allograft graft was packed into the cages. The cage was then placed and there was good juxtaposition against the bleeding decorticated surfaces and good distraction of each interspace. Attention was brought to the next interspace. The Trenton pins were removed. Bone wax was used to prevent any bleeding from occurring at the pin sites. The appropriate size anterior cervical locking plate was chosen and bent into gentle lordosis. Two screws were then placed into each of the vertebral bodies at []. There was excellent purchase. A final x-ray was done confirming good position of the hardware and Cages. The locking screws were then applied, also with excellent purchase. Following a final copious irrigation, there was good hemostasis and no dural leaks. The carotid pulse was strong. The wounds were then closed in layers using 2-0 Vicryl suture for the platysma muscle, 2-0 Vicryl suture for the s ubcutaneous tissue, and 4-0 monocryl suture in a subcuticular skin closure. Glue was placed followed by application of a sterile dressing. The drain was hooked to bulb suction. A soft collar was applied. The patient was then carefully returned to the supine position on his hospital bed where he was reversed and extubated and taken to the recovery room having tolerated the procedure well.
--- NOTE | 2021-07-28 10:02 | SUR.PHASEI ---
patient awake but drowsy, on room air. patient states no pain at this time.
[2021-07-28] MEDS: fentaNYL 50 mcg/mL INJ 2mL IVP ×2 (10:35→12:58)
--- NOTE | 2021-07-28 13:40 | ANE.PACU2 ---
Inpatient post-anesthesia follow up: Airway intact: Yes Vital signs: Temperature 97.6 F Pulse Rate 50 Respiratory Rate 16 Blood Pressure 162/74 Pulse Oximetry 94 Oxygen Delivery Me thod Room Air Oxygen Flow Rate 6 Fraction of Inspir ed Oxygen Hydration adequate: Yes Nausea and vomiting: No Pain level: 3 Mental status: Baseline
[2021-07-28] MEDS: ketorolac 30 mg/mL INJ IVP (14:19)
[2021-07-28] MEDS: morphine 4 mg/mL SDV 1 mL 2 MG IVP (15:17)
[2021-07-28] MEDS: LORazepam 2 mg/mL INJ 1 mL 0.5 MG IVP (15:18)
--- NOTE | 2021-07-28 16:36 | PC.NURSE ---
Patient arrived to floor from PACU, patient was c/o difficulty breaking, examined patients throat during initial assessment. Patients BP elevated with low HR. Oxygen saturations WNL. Sat patient up in bed then moved to chair as patient kept trying to take off his collar and holding his breathe. Called physician for anxiety medication, received order and given. Patients high anxiety remained high. This nurse, charge nurse, nurse distribution operation supervisor and another floor nurse all attempted to calm patient down and breath slow and steady through nose. Patient refused and continued shaking head and pulling at collar. Applied couple liters of oxygen for patient comfort while saturations remained WNL, this did not assist in calming patient. Patient then pulled out his IV and tried to jump over his chair in his room with catheter, hemavac, IV line and collar in place. After which patients breathing changed and this nurse then attempted to recheck throat at which time this nurse noticed a change and was swelling shut. Called Rapid response at that time and then followed by Ora Sotelo.
--- NOTE | 2021-07-28 16:49 | PM.ACPR ---
Procedure/Consent Consent: Additional Consent Information: Emergency procedure Procedure Narrative: Brief history: Earlier, RICARDO WILLIAM was called for the patient. The patient had undergone cervical spinal procedure earlier today. From the history, the patient became agitated and cyanotic and anesthesia team was called for intubation. The patient had failed intubation attempts multiple times and in the process he had lost his calls and ACLS protocol was initiated. When I responded, multiple physicians, nursing staff were attempting resuscitation. Given the multiple failed intubation attempts, the decision was made to perform cricothyroidotomy. Description of the procedure: The CPR was ongoing. There was a transverse incision in the anterior neck. There was significant edema surrounding the cervical incision. My plan was to perform a vertical incision followed by access of the cricothyroid membrane. Then I was going to insert the bougie into the trachea followed by insertion of the 6 eyes endotracheal tube. However, after the initial vertical incision below the transverse incision, it became apparent that the cricothyroid membrane could not be palpated. This was likely due to the previous surgery through the similar area. At that point, I had extended the vertical incision downwards in an attempt to expose along the length of the trachea to perform a tracheostomy. The trachea was accessed with a needle and air was aspirated. A guidewire was inserted and appropriate dilation was performed by the William Rhino single multipurpose dilator. At this point, unfortunately it appeared that we did not have any tracheostomy tube in the room. While waiting for the tracheostomy tube to be brought in the room, the anesthesia team was able to intubate him endotracheally. During the procedure, there was minimal blood loss likely due to the absence of good circulation. After the endotracheal tube was inserted, the vertical wound was sutured by Dr. Love. And the plan was to take the patient to the OR for further exploration to look for any vascular injuries.
[2021-07-28 16:56] LABS: ABG PCO2 42.6 mmHg (35-45); Arterial Blood Gas Hematocrit 28.2 % (42-52); Blood Gas Allen Test Pos; Blood Gas Operator Identificat MONRO; Blood Gas Sample Type Arterial; HCO3 ABG 12.2 mmol/L (22-26)
--- NOTE | 2021-07-28 16:56 | P.PCN_ITS ---
Procedure/Consent Consent: Additional Consent Information: Emergency procedure Procedure Narrative: Name of the Procedure: Right femoral Central venous catheter placement. Indication: Cardiogenic shock. Post resuscitation after cardiac arrest. Requirement for frequent blood work and IV access for vasopressor. Anesthesiia: Lidocaine 1%, 5 ml Description of the procedure: The right femoral artery was palpated. The site was prepared using sterile technique.The skin and subcuteneous tissue was anesthetized using lidocaine. The introducer needle was advanced approximately a centimeter medial to the right femoral artery pulsation till flash back was noted. Dark, non pulsatile blood noted. Using seldinger technique the CVC was put in.Blood return was noted in all ports. Catheter was secured with suture and covered with transparent d ressing. Complications: None
[2021-07-28 16:59] LABS: Alveolar-Arterial Oxygen Gradi 43.8 mmHg (5-10); Arterial Blood Gas Hematocrit 32.4 % (42-52); Base Excess ABG -17.5 mmol/L (-2.0-2.0); Blood Gas Allen Test Pos; Blood Gas Operator Identificat MONRO; Blood Gas Sample Site Brachial, left; Blood Gas Sample Type Arterial; Carboxyhemoglobin 0.6 %THgb (0.4-20.1); HCO3 ABG 15.9 mmol/L (22-26); HGB O2 Sat 98.3 % (95-100); Ionized Calcium Level - ABG 1.6 mmol/L (1.1-1.4); Methemoglobin 0.5 % (0.4-1.5); Oxygen Device AMBU; Oxygen Saturation ABG 99.4; Potassium Level - ABG 4.1 mmol/L (3.5-5.0); Total Hemoglobin 10.6 g/dL (14-18)
[2021-07-28 17:00] LABS: ABG PCO2 82.7 mmHg (35-45); ABG PH Result 6.89 (7.35-7.45)
[2021-07-28 17:04] LABS: Blood Gas Sample Site Brachial, left; Blood Gas Tidal Volume 0.63; Oxygen Device VENT
[2021-07-28 17:08] LABS: Basophils # 0.1 10^3/uL (0.0-0.1); Basophils % 0.4 %; Hematocrit 34.6 % (42.0-52.0); Hemoglobin 10.1 g/dL (11.7-16.6); Lymphocytes # 1.2 10^3/uL (0.8-4.8); Mean Corpuscular HGB Conc 29.2 g/dL (30.0-36.0); Mean Corpuscular Hemoglobin 31.7 pg (28.0-34.0); Mean Corpuscular Volume 108.5 fl (80-94); Mean Platelet Volume 12.6 fL (7.4-10.4); Monocytes # 0.6 10^3/uL (0.2-0.9); Monocytes % 3.8 %; Neutrophils # 14.53 10^3/uL (1.8-7.7); Neutrophils % 86.6 %; Nucleated Red Blood Cells % 0.2 %; Platelet Count 68 10^3/cmm (130-400); Red Blood Count 3.19 10^6/uL (4.1-5.3); Red Cell Distribution Width 17.3 % (12.1-15.1); White Blood Count 16.8 10^3/uL (4.0-10.0)
[2021-07-28 17:10] LABS: ABG PH Result 7.07 (7.35-7.45)
--- NOTE | 2021-07-28 17:21 | PC.NURSE ---
WE REMOVED THE IO FROM THE LEFT AND RIGHT TIBIAS.
[2021-07-28 17:23] LABS: INR 1.15 (0.8-1.2)
[2021-07-28 17:26] LABS: Troponin(5th) Baseline 24 ng/L (0-15)
[2021-07-28 17:30] LABS: Lactic Sepsis W/Reflex 13.8 mmol/L (0.5-2.2)
[2021-07-28 17:36] LABS: NT Pro B Type Natriuretic Pept 335 pg/mL (0-125); Procalcitonin 0.15 ng/mL (0-0.5); Thyroid Stimulating Hormone 4.36 uIU/mL (0.27-4.20)
[2021-07-28 17:48] LABS: Alanine Aminotransferase 37 U/L (0-41); Albumin Level 3.3 g/dL (3.5-5.2); Alkaline Phosphatase 82 IU/L (40-130); Anion Gap 31.7 (5-19); Aspartate Amino Transferase 45 U/L (0-40); Blood Urea Nitrogen 12 mg/dL (6-20); C Reactive Protein 3.3 mg/L (0.0-4.9); Calcium 9.3 mg/dL (8.5-10.5); Carbon Dioxide 13 mmol/L (22-29); Chloride 100 mmol/L (98-107); Chol HDL Ratio 4.09 mg/dL (1.0-5.00); Cholesterol 90 mg/dL (0-200); Globulin 1.8 g/dL (1.3-4.6); Glomerular Filtration Rate 47.9 mL/min (90-130); Glucose 372 mg/dL (65-115); HDL Cholesterol 22 mg/dL (60-100); LDL Cholesterol Calculated 49 mg/dL (50-129); LDL HDL Ratio 2.23 RATIO (0.00-3.22); Magnesium 2.3 mg/dL (1.7-2.3); Osmolality Calculated 307 mOsm/kg (285-295); Potassium 3.7 mmol/L (3.5-5.1); Sodium 141 mmol/L (136-145); Total Bilirubin 0.4 mg/dL (0.15-1.2); Total Protein 5.1 g/dL (6.6-8.7); Triglycerides 97 mg/dL (0-150)
--- NOTE | 2021-07-28 17:49 | PC.CHAP ---
Pastoral Care Encounter/Spiritual Assessment Type of Contact [] Declined erecting engineer visit [] Patient/Family/Request visit [] Outpatient visit [] Follow-up visit [] Physician referral [x] Code/Alert [] Routine visit [] Staff referral [] Actively dying [] Patient sleeping [x] Family support [] [] Out of room [] Palliative care [] [] Receiving care in room [] Pre-surgical visit [] Trauma [] Long length of stay [] ICU visit [] Other: Relational/Emotional Strength [] Patient feels connected with others/family/visitors/staff [] Distress [] Loneliness/isolation [] Abandonment Spirituality of Patient [] Person of Tasneem [] Attends Yazidi of their Tasneem [] Believes in Prayer [] Reads Bible or Zoroastrian materials [] There are Spiritual issues to be addressed [facility] Interventions [x] Prayer [x] Active listening [x] Non-anxious presence [x] Spiritual/emotional support [] Crisis/trauma care [] Spiritual counseling [] Bereavement support [] Provided bereavement packet [] Provided Bible/devotional materials [] Provided toy/stuffed animal, coloring book to patient or family member [] Provided Communion [] Anointing/[place] [] Salvation [] Completed spiritual assessment [] Other: Impact on Illness or Injury [] Angry [] Fearful [] Anxious [] Often cries [] Exhaustion [] Unable to work [] Unable to attend baptism [] Unable to walk/stand [] Unable to read [] Unable to drive [] Unable to eat/drink [] Unable to sleep [] Unable to be with family [] Patient intubated [] Other: Summary [facility]anger met family outside of [place], informed them the patient was in [place] and a doctor would speak with them as soon as possible. Time spent with patient 90 min
[2021-07-28 17:52] LABS: Phosphorus 9.6 mg/dL (2.5-4.5)
--- NOTE | 2021-07-28 17:57 | P.ANESASSM_ITS ---
Pre-Anesthetic Assessment Height/Weight: Height 1.8 m Weight 88.904 kg Temp Pulse Resp BP Pulse Ox 98.4 F 61 20 H 154/67 100 07/28/21 16:00 07/28/21 16:00 07/28/21 16:00 07/28/21 16:00 07/28/21 16:00 Preop Diagnosis: Cervical spondylosis with radiculopathy Operation Date: 07/28/21 07:00 Proposed Procedures p ACDF C5/6,C6/7, C7/T1; decompression at C5/6 [id number]/m47.22/m50.30(Not Applicable) - Martin Loredo DO Operation Date: 07/28/21 16:20 Proposed Procedures p Incision and Drainage(Not Applicable) - Martin Loredo, Last intake: Intake Last Liquid Date 07/27/21 Last Liquid Time 23:00 Last Solid Date 07/27/21 Last Solid Time 20:00 Anesthetic Plan ASA status: 5E Other Pertinent Information Called to assist with patient on the floor. On arrival to room I was asked to intubate the patient by the hospitalist. The patient on my arrival was non responsive and being mask ventilated with oral airway in place by respiratory therapist. Patient head, neck, tongue swelling readily apparent. Using 3.5 Mac blade I had a grade 4 view with notably swollen oropharyngeal tissue from base of tongue and posterior pharynx. Video laryngoscope called for. Second look, same view. Mask ventilated with OPA. LMA size 4 smoothly inserted, unable to ventilate with high airway resistance and no color change on qualitative ETCO2 detection. Pulse lost, CPR initiated. LMA removed. Mask ventilated with oral airway, but increasingly difficult. 3rd attempt with bougie and DL unsuccessful. Mask ventilated. Glidescope arrived, grade 4 view with glidescope. Mask ventilated with oral airway, cricothyrotomy initiated by manufacturing intern. Blind nasal airway attempted simultaneous to cricothyrotomy procedure with 7.5 ETT through each nare successively without change in ETCO2 detection. After opening of anterior cervical soft tissue, glidescope attempted again with grade 2a view. Notable soft tissue swelling of arytenoid and epiglottic tissue with very anterior and leftward deviated glottic opening. ETT inserted, positive color change on ETCO2 detector. Patient hand ventilated by RT. ROSC. Suspected air infiltrating soft tissue from attempted cricothyrotomy. ETT advanced to 27 at the teeth. Pressors and bicarb by hospitalist throughout code. Taken to OR emergently. VSS throughout. Arterial line inserted. CVL by Doctor Hector. Medications/Allergies Home Medications Medication Instructions Recorded Confirmed Last Taken Type lisinopril 40 mg tablet 40 mg PO DAILY 90 Days #90 tab 05/29/21 07/28/21 Rx pregabalin 75 mg capsule (Lyrica) 75 mg PO BID 07/08/21 07/28/21 07/27/21 History clonidine HCl 0.1 mg tablet 0.1 mg PO BID PRN tab 07/11/21 07/23/21 Unknown History glecaprevir 100 mg-pibrentasvir 40 3 tab PO DAILY #84 tab 07/25/21 07/28/21 Unknown Rx mg tablet (Mavyret) Allergies Allergy/AdvReac Type Severity Reaction Status Date / Time naproxen AdvReac Mild night franco Verified 07/23/21 10:22 Current Medications Generic Name Dose Route Start Last Admin Trade Name Freq PRN Reason Stop Dose Admin Lactated Ringer's 1,000 mls @ 90 mls/hr 07/28/21 09:45 07/28/21 14:54 Lactated Ringers IV Not Given .[id number] SUDHIR Cefazolin Sodium 2,000 mg/ 50 mls @ 100 mls/hr 07/28/21 15:00 07/28/21 15:19 Sodium Chloride IV 07/29/21 07:29 100 mls/hr Q8H SUDHIR Administration Ketorolac Tromethamine 30 mg 07/28/21 09:41 07/28/21 14:19 Ketorolac 30 Mg/Ml Inj IVP 30 mg Q6H PRN Administration BREAKTHROUGH PAIN Lorazepam 0.5 mg 07/28/21 15:08 07/28/21 15:18 Lorazepam 2 Mg/Ml Inj 1 Ml IVP 0.5 mg Q4H PRN Administration ANXIETY Morphine Sulfate 2 mg 07/28/21 09:41 07/28/21 15:17 Morphine 4 Mg/Ml Sdv 1 Ml IVP 2 mg Q1H PRN Administration SEVERE PAIN PFSH Anesthesia Medical History Anxiety COPD (chronic obstructive pulmonary disease) Hypertension Hypertensive urgency Lymphoma Thoracic ascending aortic aneurysm Surgical History History of neck surgery Family History Other CAD (coronary artery disease) Cancer Diabetes Hyperlipidemia Hypertension Denies family history of Rheumatoid arthritis Lupus Chronic kidney disease (CKD) Stroke Social History Smoking and tobacco status: former smoker Quit status (tobacco): has quit using tobacco Year quit tobacco: 1991 Former quit date comment: 1 ppd X 27 years Alcohol intake: former Lives independently: Yes Household members: family Housing: House History of recent travel: No Data Anesthesia : 07/28/21 16:48 07/28/21 16:48 Short CBC 07/28/21 Range/Units 16:48 WBC 16.8 H (4.0-10.0) 10^3/uL Hgb 10.1 L (11.7-16.6) g/dL Hct 34.6 L (42.0-52.0) % MCV 108.5 H (80-94) fl Plt Count 68 L (130-400) 10^3/cmm Neut % (Auto) 86.6 % Neut # (Auto) 14.53 H (1.8-7.7) 10^3/uL BMP 07/28/21 16:48 Sodium 141 Potassium 3.7 Chloride 100 Carbon Dioxide 13 L BUN 12 Creatinine 1.5 H Glucose 372 H Calcium 9.3 Cardiac Enzymes 07/28/21 07/28/21 Range/Units 16:48 16:48 Troponin T Baseline 24 H (0-15) ng/L NT-Pro-B Natriuret Pep 335 H (0-125) pg/mL Liver Function 07/28/21 Range/Units 16:48 Total Bilirubin 0.4 (0.15-1.2) mg/dL AST 45 H (0-40) U/L ALT 37 (0-41) U/L Alkaline Phosphatase 82 (40-130) IU/L Albumin 3.3 L (3.5-5.2) g/dL Coags 07/28/21 07/28/21 16:48 16:48 PT 15.00 H INR 1.15 C-Reactive Protein 3.3 ABG 07/28/21 07/28/21 16:21 16:41 Specimen Type Arterial Arterial Sample Site Brachial, left Brachial, left ABG pH 6.89 L* 7.07 L* ABG pCO2 82.7 H* 42.6 ABG pO2 279.0 H 333.0 H ABG HCO3 15.9 L 12.2 L ABG O2 Saturation 99.4 ABG Base Excess -17.5 L -17.0 L A-a O2 Gradient 43.8 H O2 Delivery Device Ambu Vent O2 Liters/Min 15.0 FiO2 100.0 100.0 Tidal Volume 0.63 Cardiac Studies: Echocardiogram 08/07/20 Sestamibi Stress Test (Cardiology) 08/07/20
--- NOTE | 2021-07-28 18:00 | XRR_ITS ---
PROCEDURE INFORMATION: Exam: XR Chest Exam date and time: 07/28/2021 6:28 PM Age: 60 years old Clinical indication: Device placement; Ett placement (vent status); Additional info: Intubation TECHNIQUE: Imaging protocol: Radiologic exam of the chest. Views: 1 view. COMPARISON: CR (CHEST, ) 06/09/2021 4:16 AM FINDINGS: Tubes, catheters and devices: Endotracheal tube is in place with its tip approximately 1.5 cm above the maximo. Lungs: Visualized portions of the lungs are clear. Pleural spaces: Unremarkable. No pleural effusion. No pneumothorax. Heart/Mediastinum: Heart is within normal limits of size. There is widening of the superior mediastinum of uncertain significance. Bones/joints: There apparently new postsurgical changes of spinal fusion anterior cervical spine. Soft tissues: There is soft tissue swelling in the right supraclavicular region. Please correlate with clinical findings. XR/XR chest 1V portable [id number] IMPRESSION: 1. No acute pulmonary infiltrate. 2. Low position of endotracheal tube 1.5 cm above the maximo. 3. New postsurgical changes in the cervical spine. 4. Supraclavicular swelling. 5. Widening of the superior mediastinum of uncertain significance.
--- NOTE | 2021-07-28 18:00 | PC.NURSE ---
Rapid response called overhead. This RN responded. Upon arrival to room, patient found to be sitting up in recliner chair with multiple staff at bedside. Patient's face discolored and turning blue. Eyes open and blinking. Patient immediately transferred to bed via multiple staff assist. Patient discoloration continued. Pulse checked. No pulse. Compressions started immediately. Code called overhead. Multiple staff in to assist. Multiple physicians in to assist. Multiple attempts to obtain an airway. Bilateral IO started in each leg. NS bolus X 2. Multiple rounds of epi administered. Bicarb administered. CBG obtained. No prior labs available from primary nurse present in EMR. Dr. Edwards arrived to code. Family contacted. Additional 16 G IV started in Left A/C. Left IO infiltrated. Leg firm. Fluids stopped immediately and IV line moved to other peripheral site. Multiple long delays in CPR due to attempts to obtain an airway. CSF did not remain above 80 or even 60%. ROSC eventually obtained briefly. Loss of pulse again. CPR resumed. Additional rounds of CPR and epi administered. ROSC eventually obtained again. Patient transferred STAT to the OR. Dr. Edwards with patient in OR. Vasopressin delivered via this RN from pharmacy to OR and handed off to OR nurse. Patient out of surgery now and has been admitted into ICU 8. Intubated. De-brief occurred with nurse Arian and nurse resident Inocente. Dr. Rizo states his plan is to utilize targeted temperature management. Cooling blanket in place. Patients pupils dilated and fixed bilaterally. Some non-purposeful rhythmic biting of ET tube is noted. DAVID Don primary nurse for this patient.
--- NOTE | 2021-07-28 18:00 | PC.NURSE ---
Arrived from OR, Breathed over vent and bitting at ET tube, no pupil or coreneal response. sedation started, Dr. Villegas at bedside
--- NOTE | 2021-07-28 18:30 | PC.NURSE ---
Dr. Villegas at bedside, gave v.o. to hold bicarb drip, start TTM
--- NOTE | 2021-07-28 18:40 | ECG_ITS ---
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 Measurements Intervals [place] Rate: 80 P: 51 DC: 136 QRS: 20 QRSD: 93 T: 56 QT: 370 QTc: 429 Interpretive Statements SINUS RHYTHM Compared to ECG 06/09/2021 06:12:54 No significant changes Electronically Signed On 07-28-2021 21:28:24 CDT by Vickie Anthony M.D. [id number]
[2021-07-28 18:44] LABS: Reflex Lactate Order REFLEX LACTIC ORDERD
--- NOTE | 2021-07-28 18:54 | PM.HP ---
Providers/Chief Complaint Admitting Physician: Martin Loredo DO Primary Care Provider: Celestina Wolf DO Chief Complaint: cervical spondylosis, cervical disc degeneration History of Present Illness Jeet Isabel is a 60 year old male with a past medical history of hepatitis C, currently on treatment, COPD, chronic thrombocytopenia, history of lymphoma, neck pain, cervical spondylosis, hypertension, anxiety and depression, history of thoracic ascending aortic aneurysm who presented to [facility] for anterior discectomy, by Dr. Loredo. According to nursing staff patient when when patient arrived on the floors, he was complaining of difficulty breathing, he was saturating in the high 90s on 2 L, normotensive, responsive no lip or tongue swelling. According to nursing staff, he was complaining about difficulty breathing down in postop recovery, and their assessment he was maintaining his airway, saturating high 90s on 2 L. When nursing staff rechecked on him roughly 5 minutes later, this was roughly at 1548 patient was nonresponsive, blue in the face, not respirating, so rapid response was called. I and Dr. Martel arrived on the scene for the rapid response, patient was blue in the face, cyanotic, nonresponsive, had a pulse, had a blood pressure, O2 sats were difficult to read, he just had neck surgery, was in a cervical collar. Oral airway was obtained by respiratory therapy, was being bagged, but no chest rise. Immediately there was concern for airway compromise anesthesia was called, Dr. Dela Cruz was called in addition ER provider Dr. Russell also arrived on the scene. Immediately there was preparation for oral airway, as there were attempts on getting an oral airway, at roughly 1553 patient did not have a detectable pulse, no blood pressure, pulseless electrical activity of the heart, nonresponsive, did not follow commands. RICARDO THOMAS was called, CPR was started, this was roughly at 1553, further rhythms were, rhythm noted to be asystole, patient received a total of 9 mg of epi, 3 Amp of bicarb, calcium chloride 500 mg for concerns for peaked T waves and hyperkalemia no baseline blood values were obtained preoperatively, started on Levophed drip, doses as high as 40 mg he had a detectable pulse, and blood pressure, pulse detected at 1616, ROSC at 1616, blood pressure 80s over 60, junctional rhythm to atrial fibrillation, no shockable rhythm. In terms of his airway, multiple attempts were made by ER provider, Dr. Dela Cruz to attempt oral airway this was too difficult. Dr. Hector for pulmonary also arrived on the scene, he immediately there was efforts made to perform a cricoidectomy, which was unsuccessful, eventually patient had a tracheostomy tube placed by anesthesia team, at 1610. Patient had bilateral intraosseous IV placements. At 1616, patient had a detectable pulse, rhythm was junctional to atrial fibrillation, blood pressures were 80s over 60s, no shockable rhythm, no pupillary reflexes, no corneal reflex, did not withdraw from pain, was being bagged by respiratory therapy, had a successful oral airway, had equal breath sounds bilaterally did have open vertical incision which was being sutured up by ER provider from cricoidectomy. -Patient was immediately taken to the operating room for reexploration -In the operating room, Dr. Hector was able to put in a right femoral line, anesthesia team placed an art line -Patient was intubated, -I spoke to Dr. Loredo, there was no deep surgical site exploration, there was anterior bleeding from area of cricoid ectomy, which was stopped, and waiting on official surgical report, but no significant signs of bleeding were initially found -Patient was brought back to the ICU, currently on Levophed, vasopressin, -He is intubated, sedated on Versed, fentanyl -He is on intubation for mechanical ventilation, 60% FiO2, tidal volume 550, respiratory rate 16 -On my examination, he does not withdraw from pain, bilateral pupillary reflexes are not present, has no corneal reflex, -He does have twitching, which I am concerned might be seizures -He is hypothermic, temperature 32 ?C -He has a right femoral line in place, left art line in place -Equal breath sounds bilaterally currently rhythm is sinus tachycardia -Abdomen soft, nondistended, decreased bowel sounds -Left lower extremity, DP PT pulses are palpable, however the calf, anterior callahan is very tight, and enlarged, concerns for infiltration of Levophed -I am quite concerned for his left lower extremity, concern for Levophed infiltration he does have a DP PT pulse, but his left lower extremity is looking cool, and dusky, and a high as high risk of compartment syndrome, fasciotomy, and amputation sepsis, infection -Currently based upon my assessment patient's prognosis is poor, likelihood of neurologic recovery is fairly unlikely, has poor prognostic indicators, evidence of seizures, evidence of severe neurologic injury, does not have any corneal reflex, no pupillary effects, does have a cough reflex at some point I thought he was biting down on the ET tube but now it seems more like a seizure -I then had 2 family meetings -All family members were present, including 2 sons, oldest son, and 1 sister -I discussed patient's surgery, loss of airway, resulting in cardiac arrest eventual obtaining an airway after roughly 22 minutes, and cardiac arrest for with return of spontaneous circulation for roughly 21 minutes -What I feel likely happened was possible vocal cord spasm, but it is still on my differential is possible surgical bleeding, possible airway edema, he does have a history of COPD, etiology yet to be further evaluated and determined however we have his airway secured, he does need ENT which will have tomorrow, will consult based on patient's clinical progress -In terms of his left lower extremity, I was honest with family members, I highly think that the Levophed has infiltrated, he does have a DP PT pulses, but that left lower extremity looks dark and dusky, he has a high risk of compartment syndrome, high risk of fasciotomy, high risk of sepsis, high risk of infection, likely resulting in amputation however we will continue to monitor for now -We are starting targeted temperature management, active cooling monitor for malignant arrhythmias, bleeding, coagulopathy -He is having active seizures in my opinion, given his twitching, biting on the ET tube, he is on Versed I have ordered a CT of his brain which will be done when he is more stable, EEG ordered -I am worried about significant neurologic injury, as he does not have coronary reflexes, no pupillary reflex, does not withdraw from pain, does have a cough reflex, and as he is received roughly 21 minutes of CPR and did not have an airway for roughly 22 minutes his likelihood of having meaningful recovery is very unlikely -In terms of cardiovascular status, will monitor for arrhythmias, monitor his troponins, will order cardiac echo -In terms of his renal function he has a high risk of acute renal failure, monitor urine output monitor creatinine -High risk of shock liver, monitor liver function -High risk of coagulopathy -In terms of his ventilation, his O2 requirements have decreased, I think in terms of his oxygenation and ventilation he is improving -In terms of his acid-base status he has lactic acidosis which we are actively correcting -I advised family that the biggest concern for me at this time is his concern for poor neurologic recovery given his loss of coronary reflex, pupillary reflex, does not withdraw from pain, evidence of seizures this is all indicators of very poor neurologic recovery, very unlikely that he would neurologically recover -After discussing all options, family would like to continue all interventions, okay with dialysis, want him to remain a full code, they want to give him time and see how he does -Discussed risks and benefits he voices any, all questions answered, agreed to proceed -All family members were present, all in agreement Review of Systems General: Reports: ROS unobtainable due to endotracheal tube Medications/Allergies Home Medications Medication Instructions Recorded Confirmed Last Taken Type lisinopril 40 mg tablet 40 mg PO DAILY 90 Days #90 tab 05/29/21 07/28/21 07/27/21 Rx pregabalin 75 mg capsule (Lyrica) 75 mg PO BID 07/08/21 07/28/21 07/27/21 History clonidine HCl 0.1 mg tablet 0.1 mg PO BID PRN tab 07/11/21 07/23/21 Unknown History glecaprevir 100 mg-pibrentasvir 40 3 tab PO DAILY #84 tab 07/25/21 07/28/21 Unknown Rx mg tablet (Mavyret) Allergies Allergy/AdvReac Type Severity Reaction Status Date / Time naproxen AdvReac Mild night franco Verified 07/23/21 10:22 PFSH Acute PFSH: Medical History Anxiety COPD (chronic obstructive pulmonary disease) Hypertension Hypertensive urgency Lymphoma Thoracic ascending aortic aneurysm Surgical History History of neck surgery Family History Other CAD (coronary artery disease) Cancer Diabetes Hyperlipidemia Hypertension Denies family history of Rheumatoid arthritis Lupus Chronic kidney disease (CKD) Stroke Social History Smoking and tobacco status: former smoker Quit status (tobacco): has quit using tobacco Year quit tobacco: 1991 Former quit date comment: 1 ppd X 27 years Alcohol intake: former Lives independently: Yes Household members: family Housing: House History of recent travel: No Vitals/I&O/Wt Last Vital Signs Temp 98.4 F 07/28/21 16:00 Pulse 81 07/28/21 18:05 Resp 16 07/28/21 17:37 BP 146/87 07/28/21 18:05 Pulse Ox 100 07/28/21 18:05 07/28/21 07/28/21 07/28/21 06:59 14:59 22:59 Intake Total 1050 / 1050 50 / 1100 Output Total 350 / 350 Balance 700 / 700 50 / 750 Physical Exam Narrative: Intubated, sedated Pupillary reflexes not present, no corneal reflex, he is biting on ET tube, has twitching diffusely, evidence of seizures Does not withdraw from pain, Babinski downward going Endotracheal tube in place Right femoral line in place Left art line in place Wooten catheter in place Const: COMMON NORMALS: no acute distress HENMT: COMMON NORMALS: normocephalic HEAD & SCALP: normocephalic Resp: COMMON NORMALS: normal respiratory effort, No retractions, No use of accessory muscles and clear to auscultation bilaterally AUSCULTATION: clear to auscultation bilaterally Cardio: COMMON NORMALS: regular rate, regular rhythm, S1 normal heart sound present and S2 normal heart sound present RATE: regular rate RHYTHM: regular rhythm HEART SOUNDS: S1 normal heart sound present and S2 normal heart sound present GI: COMMON NORMALS: Normal to inspection, nondistended, normoactive bowel sounds present, Soft to palpation and non-tender Extremity: COMMON NORMALS: no pedal edema NARRATIVE EXTREMITY EXAM: Bilateral DP PT pulses palpable Left lower extremity, at the level of the calf and below, cool, dusky in appearance, with tightness of left calf muscle Urinary Catheter Management: Wooten: Cath Placed During This Visit: yes Urinary Catheter Date of Insertion: 07/28/21 Urinary Catheter Time of Insertion: 07:15 Data : 07/28/21 16:48 07/28/21 16:48 A&P Assessment and plan (1) Cardiac arrest: Status: Acute (2) Acute respiratory failure with hypoxia: Status: Acute (3) Anoxic brain injury: Status: Acute (4) Seizures: Status: Acute Plan Cardiac arrest with return of spontaneous circulation Acute hypoxic respiratory failure, loss of airway, etiology unclear possibly vocal cord spasm versus airway edema versus postoperative bleeding Concerns for anoxic brain injury Acute kidney injury Non-ST elevation PR Seizures Plan Admit to ICU Start targeted temperature management -Call MD for any fever -BMP, mag, Phos, PTT, INR, ABG every 4 hours COOLING PHASE cool to 36degrees celsius time of ttm 6:30pm -check train of for every hour -call MD if shivering STAT --call MD with blood work every 4 hours, BLOD SUGAR HOURLY -ANGEL md map<70 ARRHYTMIAS -HYPOXEMIA O2 SAT <90% -UNCONTROLLED BREATHING -START REWARMING AT 7:00AM -0.2 CELSIUS FOR TARGET IF 37 DEGREES -CALL md IF TEMP>37DEGREES -Currently on Levophed, vasopressin, right femoral line in place, maintain map around 65 -Currently intubated, sedated minimize tidal volume, minimize FiO2, will have to call ENT tomorrow -Versed, fentanyl, Nimbex for sedation -I think he is at having active seizures, currently on Versed, obtain EEG, CT of the head, neurochecks, seizure precautions -Cardiac echo, monitor for malignant arrhythmias -Monitor urine output, monitor acute renal failure, family is okay with dialysis if needed -Monitor for shock liver -Concerns for anoxic brain injury, check pupillary reflexes, corneal reflexes, neurochecks, EEG, CT of the head, will discuss with neurology tomorrow after rewarming, -Left lower extremity, monitor pulses DP PT pulses, Doppler pulses, monitor for acute limb ischemia, monitor for compartment syndrome, high risk of amputation -Prognosis poor, status is critical -Full code -SCDs for DVT prophylaxis, anticoagulation currently on hold due to concern for bleeding after cricoid ectomy Attestations Medical Necessity Statement*: Patient requires hospitalization, inpatient, greater than 2 midnights, for cardiac arrest, anoxic brain injury, acute respiratory failure, seizures, loss of airway Critical Care Time: Critical care time spent over 2 hours Coding Level of Care Code Acute [employer] 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
--- NOTE | 2021-07-28 19:00 | PC.NURSE ---
Received report. Pt. is laying in bed with ventilator in place. Pt. has gauze in bilateral nares to collect blood that is accumulating/draining from nares. These gauzes require being changed hourly due to being saturated with blood. Pt. right leg is cool to touch more so than left leg. However cap refill is within 3 seconds and has strong pulses. Pt. has dressing to neck medially and to right side of neck with drain present draining bloody fluid. Lower neck up to jaw has significant swelling present with mild bruising present. Will outline bruising to allow staff to identify if bruising is getting worse. Dr. Villegas at bedside discussing plan with nursing staff.
--- NOTE | 2021-07-28 19:15 | P.ANESPOST_ITS ---
Inpatient post-anesthesia follow up: Vital signs: Temperature 98.4 F Pulse Rate 81 Respiratory Rate 16 Blood Pressure 146/87 Pulse Oximetry 100 Oxygen Delivery Me thod Room Air,Nasal Can nula Oxygen Flow Rate 2 Fraction of Inspir ed Oxygen 60 Additional Comments: Taken to ICU on full monitors, hand ventilated 100% FiO2. VSS throughout. On arrival hypertensive, additional narcotic and midazolam administered in ICU. Handoff report given to PLANT PATHOLOGIST including fluids in/out, medications administered, and operative course and neurologic examination. Report accepted.
--- NOTE | 2021-07-28 19:16 | PM.MISC ---
Miscellaneous Note Note: On arrival to OR arterial line and CVL started. Pupils noted to be b/l symmetric, non responsive to light, and approximately 6 mm
[2021-07-28] MEDS: magnesium sulfate premix 2 GM/50 ML PIGGYBACK IV (19:25)
[2021-07-28 19:36] LABS: Ionized Calcium 1.1 mmol/L (1.1-1.4)
[2021-07-28 19:47] LABS: Troponin 5 2HR 286.1 ng/L (0-15); Troponin 5 2HR Delta 262.1 ABS# (0-10)
--- NOTE | 2021-07-28 19:51 | USCV_ITS ---
Jeet Isabel Age: 60 Gender: M : 1960 Exam Date: 07/28/2021 21:31 Ordering Phys: Anjum Villegas MD Technologist: PRABHJOT [place] [facility] [place]: Cardiac arrest BP: 146 / 87 HR: 75 Rhythm: Sinus Technical Quality: Adequate MEASUREMENTS (Male / Female) Normal Values 2D ECHO LV Diastolic Diameter PLAX 3.9 cm 4.2 - 5.9 / 3.9 - 5.3 cm LV Systolic Diameter PLAX 2.2 cm IVS Diastolic Thickness 2.1 cm 0.6 - 1.0 / 0.6 - 0.9 cm IVS Systolic Thickness 1.9 cm LVPW Diastolic Thickness 1.9 cm 0.6 - 1.0 / 0.6 - 0.9 cm LVPW Systolic Thickness 2.3 cm LVOT Diameter 2.0 cm LV Ejection Fraction 2D Teich 74.0 % LV Ejection Fraction MOD 2C 74.6 % LV Ejection Fraction 2C AL 78.8 % LA Diameter 2.4 cm LA Width 2.1 cm LA Height 4.6 cm RA Width 2.7 cm RA Height 4.9 cm Aorta at Sinotubular Diameter 2.8 cm IVC Diameter 2.0 cm M-MODE Aortic Annulus Diameter 3.4 cm LA Ao Ratio MM 0.7 MV E Point Septal Separation 0.3 cm DOPPLER AV Peak Velocity 147.0 cm/s LVOT Peak Velocity 84.0 cm/s AV Area Cont Eq vti 2.0 cm squared AV Area Cont Eq pk 1.8 cm squared MV Peak Velocity 80.0 cm/s MV Area PHT 2.6 cm squared Mitral E to A Ratio 1.2 MV E' Velocity 28.0 cm/s Mitral E to MV E' Ratio 6.2 Mitral E to LV E' Lateral Ratio 7.7 Mitral E to LV E' Septal Ratio 5.2 TR Peak Velocity 237.3 cm/s TR Peak Gradient 22.5 mmHg TV Peak E Velocity 35.0 cm/s Right Atrial Pressure 5.0 mmHg Pulmonary Artery Systolic Pressu 27.5 mmHg PV Peak Velocity 119.0 cm/s RV Acceleration Time 0.1 s RV Ejection Time 0.2 s RV AcT/ET 0.5 FINDINGS Left Ventricle Normal left ventricular cavity size. Normal left ventricular systolic function. Left ventricular ejection fraction is estimated at 60 %. No diagnostic regional wall motion abnormalities. Right Ventricle Normal right ventricular size and systolic function. Right ventricular systolic pressure 27.5 mmHg. Right Atrium Normal right atrial size. Left Atrium Normal left atrial size. Mitral Valve Structurally normal mitral valve. Aortic Valve No aortic valve stenosis. Mild aortic valve regurgitation. Tricuspid Valve Structurally normal tricuspid valve. Mild tricuspid valve regurgitation. Pulmonic Valve Pulmonic valve not well visualized. Trace pulmonary valve regurgitation. Pericardium No pericardial effusion. Aorta Normal size aortic root and proximal ascending aorta. IVC Normal inferior vena cava. CONCLUSIONS 1. Normal left ventricular cavity size. Normal left ventricular systolic function. Left ventricular ejection fraction is estimated at 60 %. No diagnostic regional wall motion abnormalities. 2. Normal right ventricular size and systolic function. 3. Mild aortic valve regurgitation. 4. Mild tricuspid valve regurgitation. Vickie Anthony MD (Electronically Signed) Final Date: 29 July 2021 17:03 S
[2021-07-28 20:04] LABS: HIV 1 & 2 Antibody Non-Reactive (Non-Reactiv); HIV 1 & 2 Antigen Non-Reactive (Non-Reactiv)
[2021-07-28 20:08] LABS: Basophils # 0.1 10^3/uL (0.0-0.1); Basophils % 0.3 %; Hematocrit 33.5 % (42.0-52.0); Hemoglobin 11.3 g/dL (11.7-16.6); Lymphocytes # 0.6 10^3/uL (0.8-4.8); Lymphocytes % 2.4 %; Mean Corpuscular HGB Conc 33.7 g/dL (30.0-36.0); Mean Corpuscular Hemoglobin 32.7 pg (28.0-34.0); Mean Corpuscular Volume 96.8 fl (80-94); Mean Platelet Volume 12.8 fL (7.4-10.4); Monocytes # 2.2 10^3/uL (0.2-0.9); Monocytes % 8.3 %; Neutrophils # 23.76 10^3/uL (1.8-7.7); Nucleated Red Blood Cells % 0.1 %; Platelet Count 112 10^3/cmm (130-400); Red Blood Count 3.46 10^6/uL (4.1-5.3); Red Cell Distribution Width 17.3 % (12.1-15.1)
[2021-07-28] MEDS: ipratropium-albuterol 3 mL Neb INHALATION ×2 (20:09→23:12)
[2021-07-28] MEDS: budesonide 0.5 mg/2 mL Neb INHALATION (20:09)
--- NOTE | 2021-07-28 20:10 | PC.NURSE ---
Pt. placed on cooling blanket for goal temperature of 36 degress celcius. Pt. current temperature is 36.7 celcius.
[2021-07-28 20:19] LABS: Anion Gap 29.8 (5-19); Blood Urea Nitrogen 15 mg/dL (6-20); Calcium 8.7 mg/dL (8.5-10.5); Carbon Dioxide 15 mmol/L (22-29); Chloride 99 mmol/L (98-107); Glomerular Filtration Rate 51.9 mL/min (90-130); Glucose 431 mg/dL (65-115); Magnesium 1.9 mg/dL (1.7-2.3); Osmolality Calculated 307 mOsm/kg (285-295); Phosphorus 7.4 mg/dL (2.5-4.5); Potassium 4.8 mmol/L (3.5-5.1); Sodium 139 mmol/L (136-145)
[2021-07-28] MEDS: propofol 1,000 MG/100 ML INJ 5.33 MG IV (20:28)
--- NOTE | 2021-07-28 20:30 | PC.NURSE ---
Spoke with Dr. Morillo night hospitalist and patient care and situation. Dr. Morillo now wants me to stop propofol and not to start nimbex drip. I stated that Dr. Villegas wants the paralytic to run. Dr. Morillo insists that he does not want this started even though we are attemting to cool patient. I then spoke to Dr. Villegas and he stated he wants the nimbex running to prevent/treat shivvering. Dr. Morillo then stated that he does not want the nimbex started and that he will talk to Dr. Villegas. Will continue with Dr. Cisneros orders at this time since he is the hospitalist business solutions director. counter supervisor and charge nurse aware.
[2021-07-28 20:32] LABS: Lactic Acid level (Lactate) 7.6 mmol/L (0.5-2.2)
[2021-07-28 20:34] LABS: ABG PCO2 37.6 mmHg (35-45); Arterial Blood Gas Hematocrit 34.5 % (42-52); Base Excess ABG -7.4 mmol/L (-2.0-2.0); Blood Gas Allen Test Pos; Blood Gas Sample Site Radial, right; Blood Gas Sample Type Arterial; Blood Gas Tidal Volume 0.55; HCO3 ABG 18.5 mmol/L (22-26); Oxygen Device VENT
[2021-07-28 20:38] LABS: INR 1.09 (0.8-1.2)
[2021-07-28 20:39] LABS: Partial Thromboplastin Time 26.8 SECONDS (23.9-36.7)
[2021-07-28] MEDS: piperacillin-tazobactam 3.375 GM in sodium chloride 0.9% (plus) 50 ML IV (21:39)
[2021-07-28] MEDS: insulin lispro 100 unit/1 mL SUBCUT (21:40)
[2021-07-28] MEDS: insulin glargine 100 units/1 mL 15 UNIT SUBCUT (21:51)
[2021-07-28 22:29] LABS: Basophils # 0.1 10^3/uL (0.0-0.1); Basophils % 0.3 %; Hematocrit 33.5 % (42.0-52.0); Lymphocytes # 0.7 10^3/uL (0.8-4.8); Lymphocytes % 3.4 %; Mean Corpuscular HGB Conc 32.8 g/dL (30.0-36.0); Mean Corpuscular Hemoglobin 32.3 pg (28.0-34.0); Mean Corpuscular Volume 98.2 fl (80-94); Mean Platelet Volume 12.3 fL (7.4-10.4); Monocytes # 2.2 10^3/uL (0.2-0.9); Monocytes % 10.3 %; Neutrophils # 17.93 10^3/uL (1.8-7.7); Neutrophils % 85.1 %; Nucleated Red Blood Cells % 0.1 %; Platelet Count 103 10^3/cmm (130-400); Red Blood Count 3.41 10^6/uL (4.1-5.3); Red Cell Distribution Width 17.5 % (12.1-15.1); White Blood Count 21.1 10^3/uL (4.0-10.0)
[2021-07-28 22:42] LABS: INR 1.11 (0.8-1.2)
[2021-07-28 22:43] LABS: Partial Thromboplastin Time 26.4 SECONDS (23.9-36.7)
[2021-07-28 22:46] LABS: Anion Gap 24.5 (5-19); Blood Urea Nitrogen 18 mg/dL (6-20); Calcium 8.5 mg/dL (8.5-10.5); Carbon Dioxide 21 mmol/L (22-29); Chloride 98 mmol/L (98-107); Glomerular Filtration Rate 38.8 mL/min (90-130); Glucose 456 mg/dL (65-115); Magnesium 2.5 mg/dL (1.7-2.3); Osmolality Calculated 310 mOsm/kg (285-295); Phosphorus 6.3 mg/dL (2.5-4.5); Potassium 4.5 mmol/L (3.5-5.1); Sodium 139 mmol/L (136-145)
[2021-07-28 22:50] LABS: Troponin 5 6HR 1146 ng/L (0-15); Troponin 5 6HR Delta 1122 ng/L (0-12)
[2021-07-28] MEDS: sodium chloride 0.9% (100 ml) 100 ML 10 ML (22:57)
--- NOTE | 2021-07-28 22:57 | PC.NURSE ---
Transfusion of platelets started. See vitals on worklist for blood transfusion vitals
[2021-07-28 23:19] LABS: ABG PCO2 32.5 mmHg (35-45); ABG PH Result 7.36 (7.35-7.45); Arterial Blood Gas Hematocrit 32.7 % (42-52); Base Excess ABG -6.4 mmol/L (-2.0-2.0); Blood Gas Allen Test Pos; Blood Gas Sample Site Radial, left; Blood Gas Sample Type Arterial; Blood Gas Tidal Volume 0.55; HCO3 ABG 18.2 mmol/L (22-26); Oxygen Device VENT
--- NOTE | 2021-07-28 23:20 | USCV_ITS ---
Jeet Isabel Age: 60 Gender: M : 1960 Exam Date: 07/29/2021 01:29 Ordering Phys: Candelario Morillo MD Technologist: PRABHJOT Exam Location: [facility] [place] Indication: Patient on ventilator in ICU8. cardiac arrest following elective cervical spine surgery. HISTORY: Patient on ventilator in ICU8. cardiac arrest following elective cervical spine surgery. PROCEDURES: Venous duplex imaging was performed in bilateral lower extremities. FINDINGS: Normal 2-D Doppler and augmentation and compressibility throughout the lower extremity venous structures. Additional imaging through the proximal calf veins also reveals no thrombus. Limited evaluation of the greater saphenous vein is patent with no thrombus.. CONCLUSIONS No DVT bilateral lower extremities. Dr. Mckenzie Corona DO (Electronically Signed) Final Date: 29 July 2021 07:38 S
[2021-07-29] VITALS (300 sets, daily range): BP systolic 89–135; BP diastolic 53–78; PULSE 57–84; RESP 16–17; TEMP 2.4–36.4; O2SAT 93–100
[2021-07-29 00:06] LABS: Cortisol Random 15.51 ug/dL (2.47-19.5); Hepatitis A Antibody IgM Non-Reactive (Nonreactive); Hepatitis B Core IgM Non-Reactive (Nonreactive); Hepatitis B Surface Antigen Non-Reactive (Nonreactive); Hepatitis C Virus Antibody Reactive (Nonreactive)
[2021-07-29 00:12] LABS: Estmated Average Glucose 91; Hemoglobin A1C 4.8 % (4.0-6.0)
[2021-07-29 02:33] LABS: Ionized Calcium 1.1 mmol/L (1.1-1.4)
[2021-07-29 02:35] LABS: ABG PCO2 34.2 mmHg (35-45); ABG PH Result 7.35 (7.35-7.45); Base Excess ABG -5.9 mmol/L (-2.0-2.0); Blood Gas Allen Test Pos; Blood Gas Sample Site Radial, left; Blood Gas Sample Type Arterial; Blood Gas Tidal Volume 0.55; HCO3 ABG 18.9 mmol/L (22-26); Oxygen Device VENT
[2021-07-29 03:43] LABS: Basophils % 0.2 %; Hematocrit 30.4 % (42.0-52.0); Hemoglobin 9.8 g/dL (11.7-16.6); Lymphocytes # 0.7 10^3/uL (0.8-4.8); Lymphocytes % 3.2 %; Mean Corpuscular HGB Conc 32.2 g/dL (30.0-36.0); Mean Corpuscular Hemoglobin 32.3 pg (28.0-34.0); Mean Corpuscular Volume 100.3 fl (80-94); Mean Platelet Volume 12.3 fL (7.4-10.4); Monocytes # 2.1 10^3/uL (0.2-0.9); Monocytes % 10.4 %; Neutrophils # 17.44 10^3/uL (1.8-7.7); Neutrophils % 85.2 %; Nucleated Red Blood Cells % 0.1 %; Platelet Count 104 10^3/cmm (130-400); Red Blood Count 3.03 10^6/uL (4.1-5.3); Red Cell Distribution Width 17.7 % (12.1-15.1); White Blood Count 20.5 10^3/uL (4.0-10.0)
[2021-07-29] MEDS: ipratropium-albuterol 3 mL Neb INHALATION ×5 (03:45→19:40)
--- NOTE | 2021-07-29 03:45 | PC.NURSE ---
Pt. begining to shake minimally throughout. Difficult to determine if shivering or seizure like activity. Called and informed Dr. Morillo. No new orders at this time.
[2021-07-29 03:55] LABS: INR 1.18 (0.8-1.2)
[2021-07-29 03:56] LABS: Partial Thromboplastin Time 27.7 SECONDS (23.9-36.7)
[2021-07-29 04:07] LABS: Anion Gap 22.1 (5-19); Blood Urea Nitrogen 21 mg/dL (6-20); Calcium 8.7 mg/dL (8.5-10.5); Carbon Dioxide 22 mmol/L (22-29); Chloride 101 mmol/L (98-107); Glomerular Filtration Rate 34.4 mL/min (90-130); Glucose 342 mg/dL (65-115); Magnesium 2.4 mg/dL (1.7-2.3); Osmolality Calculated 309 mOsm/kg (285-295); Phosphorus 4.9 mg/dL (2.5-4.5); Potassium 4.1 mmol/L (3.5-5.1); Sodium 141 mmol/L (136-145)
[2021-07-29] MEDS: piperacillin-tazobactam 3.375 GM in sodium chloride 0.9% (plus) 50 ML IV ×3 (04:07→21:16)
[2021-07-29 05:56] LABS: Glucose Point of Care 443 mg/dL (70-110)
[2021-07-29 05:56] LABS: Glucose Point of Care 296 mg/dL (70-110)
[2021-07-29 05:56] LABS: Glucose Point of Care 395 mg/dL (70-110)
[2021-07-29 05:56] LABS: Glucose Point of Care 400 mg/dL (70-110)
[2021-07-29 05:56] LABS: Glucose Point of Care 322 mg/dL (70-110)
[2021-07-29 05:56] LABS: Glucose Point of Care 275 mg/dL (70-110)
[2021-07-29 05:56] LABS: Glucose Point of Care 449 mg/dL (70-110)
[2021-07-29 05:56] LABS: Glucose Point of Care 507 mg/dL (70-110)
[2021-07-29 05:56] LABS: Glucose Point of Care 354 mg/dL (70-110)
[2021-07-29 05:56] LABS: Glucose Point of Care 215 mg/dL (70-110)
[2021-07-29 06:32] LABS: Ionized Calcium 1.1 mmol/L (1.1-1.4)
[2021-07-29 06:45] LABS: ABG PCO2 35.2 mmHg (35-45); ABG PH Result 7.38 (7.35-7.45); Arterial Blood Gas Hematocrit 28.7 % (42-52); Base Excess ABG -3.7 mmol/L (-2.0-2.0); Blood Gas Sample Site Radial, left; Blood Gas Sample Type Arterial; Blood Gas Tidal Volume 0.55; HCO3 ABG 20.9 mmol/L (22-26); Oxygen Device VENT
[2021-07-29 06:54] LABS: Anion Gap 20.1 (5-19); Blood Urea Nitrogen 24 mg/dL (6-20); Calcium 8.4 mg/dL (8.5-10.5); Carbon Dioxide 22 mmol/L (22-29); Chloride 103 mmol/L (98-107); Glomerular Filtration Rate 30.8 mL/min (90-130); Glucose 261 mg/dL (65-115); Magnesium 2.2 mg/dL (1.7-2.3); Osmolality Calculated 305 mOsm/kg (285-295); Phosphorus 4.2 mg/dL (2.5-4.5); Potassium 4.1 mmol/L (3.5-5.1); Sodium 141 mmol/L (136-145)
[2021-07-29 07:03] LABS: INR 1.16 (0.8-1.2)
[2021-07-29 07:04] LABS: Partial Thromboplastin Time 26.5 SECONDS (23.9-36.7)
[2021-07-29] MEDS: budesonide 0.5 mg/2 mL Neb INHALATION ×2 (07:39→19:40)
--- NOTE | 2021-07-29 07:50 | PM.OP ---
Operative Report Date of procedure: July 28, 2021 Pre-op diagnosis: Preop Diagnosis tracheostomy incisional bleeding Preop Diagnosis Post-op diagnosis: same Procedure done: 1. exploration of tracheostomy site Surgeon: Martin Loredo Sterile Proc Tech: Amari Villeda Sterile Proc Tech: The nursing surgical services director, Amari Villeda, OSCAR was needed for his expertise in surgery.. He was important and necessary throughout the procedure to complete in a safe and timely manner. He assisted with patient positioning prepping and draping tissue retraction suctioning of the operative field protection of critica structures and tissue closure Estimated blood loss (mL): 50 Procedure: 1. exploration of tracheostomy site Patient was taken back to the operating room. Patient was coding and had a tracheostomy attempt done. However no tracheostomy was placed. Patient had bleeding from the tracheostomy incision. ENT was called however he was sick and I told him I would take him back to stop bleeding. At this point patient was brought back to room prepped and draped normal sterile fashion. Trach incision was opened up and skin edges were coagulated with the Bovie. Clot was used to dissect down to the trachea. There was some arterial bleeding from the musculature. I used bipolar to coagulate the bleeders. Use Surgiflo to help coagulate any other bleeding. Wound was irrigated all visible bleeding and stopped. And wound was closed in layered fashion with Vicryl and nylon suture. Sterile dressings were applied patient was transferred to the ICU.
--- NOTE | 2021-07-29 07:57 | PM.PN ---
Subjective Subjective: POD 1 Patient intubated in the ICU. Vitals/I&O/Wt Last Vital Signs Temp 96.1 F L 07/29/21 06:00 Pulse 62 07/29/21 07:43 Resp 16 07/29/21 07:43 BP 91/53 07/29/21 06:05 Pulse Ox 100 07/29/21 07:43 07/28/21 07/29/21 07/29/21 22:59 06:59 14:59 Intake Total 51.51 / 1101.51 266.292 / 1367.802 Output Total 250 / 600 Balance 51.51 / 751.51 16.292 / 767.802 Physical Exam Narrative: Patient intubated. Extremities are warm pulses palpable both arms and lower extremities. Moderate swelling about the neck incision with bloody discharge from the attempted trach site drain with minimal output was discontinued. ACDF incision appears dry with evidence of ecchymosis around the incisional site. Urinary Catheter Management: Wooten: Cath Placed During This Visit: yes Urinary Catheter Date of Insertion: 07/28/21 Urinary Catheter Time of Insertion: 07:15 Data : 07/29/21 02:29 07/29/21 06:23 Micro: Microbiology 07/28/21 18:46 Blood Culture - Preliminary Blood SPECIMEN COLLECTED 07/28/21 18:46 Blood Culture - Preliminary Blood SPECIMEN COLLECTED A&P Assessment and plan (1) Anoxic brain injury: DC hemovac drain. Defer to Medical Team for Medical management. Dressing Changed at ACDF site. Status: Acute (2) Status post cervical spinal fusion: Status: Acute Plan Patient intubated. Drain from attempted trach site was discontinued. Dressings were changed. Continue to follow. Defer to medical team for medical management. Attestations Medical Necessity Statement*: defer to medical team Coding Level of Care Code Acute Tie Knitter Helper for Aishwarya Rodríguez Diagnoses Anoxic brain injury G93.1 Status post cervical spinal fusion Z98.1
[2021-07-29 08:21] LABS: Glucose Point of Care 237 mg/dL (70-110)
[2021-07-29] MEDS: insulin lispro 100 unit/1 mL SUBCUT ×4 (08:22→21:44)
--- NOTE | 2021-07-29 09:12 | CT_ITS ---
WS: [id number] CT NECK TECHNIQUE: Noncontrast CT of the neck with coronal and sagittal reformatted images. CLINICAL INFORMATION: swelling during intunbation, neck swelling, attempted cricot COMPARISON: None. DLP: 500.[address] scans at [facility] use at least one of these dose optimization techniques: automated e xposure control; mA and/or kV adjustment per patient size (includes targeted exams where dose is matc hed to clinical indication); or iterative reconstruction. FINDINGS: Straightening of the normal cervical lordosis. Postoperative changes ACDF C5-T1 with interbody fusion grafts. Hardware appears in good position. Spinal canal appears patent. Diffuse subcutaneous edema involving the neck soft tissues. Diffuse soft tissue edema and fluid in th e posterior nasopharynx. Moderate pharyngeal and supraglottic edema. Subglottic airway is patent. End otracheal tube extends into the thoracic trachea off the [id number]. Retropharyngeal/prevertebral hematoma extending from C4 to T4 into the upper posterior mediastinum. T his extends off the [id number]. This measures approximately 2-2.5cm maximum AP dimension. Lung api mamta are well aerated. Scattered small locules of air within the neck soft tissues compatible with exp ected postoperative changes. Small amount of hematoma extends along the RIGHT upper mediastinum media lly with a small amount of pneumomediastinum. This is likely related to recent resuscitation efforts. Diffuse pansinusitis. CT/CT neck wo con [id number] IMPRESSION: 1. Recent postoperative changes ACDF C5-T1. Hardware appears in good position. Spinal canal is patent. No evidence of epidural hematoma. 2. Retropharyngeal/prevertebral hematoma extending from approximately C4-T4 of f the field of view inferiorly. This extends into the posterior mediastinum on the upper chest imaging. Hematoma measures approximately 2-2.5cm in maximum AP dimension. 3. Diffuse pharyngeal and supraglottic edema with narrowing of the glottis. En dotracheal tube in place. Subglottic airway is patent. Endotracheal tube extend s off the [id number]-ul-[id number] but appears at the maximo on the mobile sales consultant imaging. This ap pears slightly directed to the RIGHT mainstem bronchus. This can be followed up with chest radiograph 4. Diffuse fluid and edema in the posterior nasopharynx from recent intubation . Diffuse pansinusitis. 5. Diffuse edema in the soft tissues of the head and neck. 6. Visualized upper lungs are well aerated. Notified Bassem Chawla MD at 07/29/2021 12:02 PM.
[2021-07-29 10:27] LABS: Basophils % 0.2 %; Hematocrit 27.7 % (42.0-52.0); Hemoglobin 9.4 g/dL (11.7-16.6); Lymphocytes % 4.7 %; Mean Corpuscular Hemoglobin 32.2 pg (28.0-34.0); Monocytes # 1.6 10^3/uL (0.2-0.9); Monocytes % 7.7 %; Neutrophils % 86.8 %; Nucleated Red Blood Cells % 0 %; Platelet Count 94 10^3/cmm (130-400); Red Blood Count 2.92 10^6/uL (4.1-5.3); Red Cell Distribution Width 17.3 % (12.1-15.1); White Blood Count 20.6 10^3/uL (4.0-10.0)
[2021-07-29 10:27] LABS: ABG PCO2 34.3 mmHg (35-45); Arterial Blood Gas Hematocrit 32.6 % (42-52); Blood Gas Operator Identificat CAK; Blood Gas Sample Type Arterial; Blood Gas Tidal Volume 0.55; HCO3 ABG 21.2 mmol/L (22-26); Oxygen Device VENT; PO2 ABG 89.6 mmHg (80.0-100.0)
[2021-07-29 10:29] LABS: Ionized Calcium 1.2 mmol/L (1.1-1.4)
[2021-07-29 10:43] LABS: INR 1.12 (0.8-1.2); Mean Corpuscular HGB Conc 33.9 g/dL (30.0-36.0); Mean Corpuscular Volume 94.9 fl (80-94)
[2021-07-29 10:51] LABS: Creatine Phosphokinase 536 U/L (39-308)
[2021-07-29 11:08] LABS: Blood Urea Nitrogen 27 mg/dL (6-20); Calcium 8.3 mg/dL (8.5-10.5); Carbon Dioxide 22 mmol/L (22-29); Chloride 102 mmol/L (98-107); Glomerular Filtration Rate 30.8 mL/min (90-130); Glucose 186 mg/dL (65-115); Magnesium 2.2 mg/dL (1.7-2.3); Osmolality Calculated 302 mOsm/kg (285-295); Phosphorus 4.2 mg/dL (2.5-4.5); Sodium 141 mmol/L (136-145)
[2021-07-29 11:31] LABS: Glucose Point of Care 185 mg/dL (70-110)
[2021-07-29 12:36] LABS: Glucose Point of Care 171 mg/dL (70-110)
[2021-07-29 14:12] LABS: Basophils % 0.1 %; Hematocrit 27.8 % (42.0-52.0); Lymphocytes % 5.2 %; Mean Corpuscular HGB Conc 32.4 g/dL (30.0-36.0); Mean Corpuscular Hemoglobin 31.5 pg (28.0-34.0); Mean Corpuscular Volume 97.2 fl (80-94); Mean Platelet Volume 11.2 fL (7.4-10.4); Monocytes # 1.5 10^3/uL (0.2-0.9); Neutrophils # 16.03 10^3/uL (1.8-7.7); Neutrophils % 86.2 %; Nucleated Red Blood Cells % 0 %; Platelet Count 85 10^3/cmm (130-400); Red Blood Count 2.86 10^6/uL (4.1-5.3); Red Cell Distribution Width 17.5 % (12.1-15.1); White Blood Count 18.6 10^3/uL (4.0-10.0)
[2021-07-29 14:18] LABS: Ionized Calcium 1.2 mmol/L (1.1-1.4)
--- NOTE | 2021-07-29 14:35 | P.CONIM_ITS ---
Providers/Reason For Consult Consulting Physician/Specialty*: Dr. Mathew Dinh MD Otolaryngology, Head & Neck Surgery Reason for Consult*: Airway obstruction Requesting Physician: Jake Hagen Attending Physician: Martin Loredo DO Primary Care Provider: Celestina Wolf DO History of Present Illness History of Present Illness Jeet Isabel is a 60 year old male who underwent anterior cervical spinal fusion yesterday. The patient did well post op initially, but subsequently developed rapid onset of airway obstruction. The patient was intubated with some difficulty, but also had an unsuccessful attempt at cricothyroidotomy during his airway emergency. The patient is now sedated and intubated. I was consulted to evaluate the patient's airway. Review of Systems General: Reports: ROS unobtainable due to endotracheal tube Medications/Allergies Home Medications Medication Instructions Recorded Confirmed Last Taken Type lisinopril 40 mg tablet 40 mg PO DAILY 90 Days #90 tab 05/29/21 07/28/21 07/27/21 Rx pregabalin 75 mg capsule (Lyrica) 75 mg PO BID 07/08/21 07/28/21 07/27/21 History clonidine HCl 0.1 mg tablet 0.1 mg PO BID PRN tab 07/11/21 07/23/21 Unknown History glecaprevir 100 mg-pibrentasvir 40 3 tab PO DAILY #84 tab 07/25/21 07/28/21 Unknown Rx mg tablet (Mavyret) Allergies Allergy/AdvReac Type Severity Reaction Status Date / Time naproxen AdvReac Mild night franco Verified 07/23/21 10:22 Current Medications Generic Name Dose Route Start Last Admin Trade Name Freq PRN Reason Stop Dose Admin Albuterol/Ipratropium 3 ml 07/28/21 20:00 07/29/21 11:21 Ipratropium-Albuterol 3 Ml Neb INHALATION 3 ml Q4H.RESPIRATORY SUDHIR Administration Budesonide 0.5 mg 07/28/21 20:00 07/29/21 07:39 Budesonide 0.5 Mg/2 Ml Neb INHALATION 0.5 mg BID.RESPIRATORY SUDHIR Administration Docusate Sodium 100 mg 07/28/21 18:00 07/29/21 09:48 Docusate Sodium 100 Mg Capsule PO Not Given BID SUDHIR Midazolam HCl 100 mg/ Sodium 100 mls @ 0 mls/hr 07/28/21 16:00 07/29/21 12:22 Chloride IV 3 mg/hr .Q0M SUDHIR 3 mls/hr Administration Protocol Per Protocol Fentanyl 2,500 mcg/ Sodium 250 mls @ 0 mls/hr 07/28/21 16:00 07/29/21 12:23 Chloride IV 100 mcg/hr .Q0M SUDHIR 10 mls/hr Administration Protocol Per Protocol Norepinephrine Bitartrate 4 mg 254 mls @ 0 mls/hr 07/28/21 16:00 07/29/21 11:41 / Dextrose IV 2 mcg/min .Q0M SUDHIR 7.62 mls/hr Titration Protocol Per Protocol Propofol 1,000 mg in 100 mls @ 0 mls/hr 07/28/21 20:30 07/28/21 20:45 Diprivan IV 0 mcg/kg/min .Q0M SUDHIR 0 mls/hr Titration Protocol Per Protocol Piperacillin Sod/Tazobactam 50 mls @ 12.5 mls/hr 07/28/21 20:45 07/29/21 12:37 Sod 3.375 gm/ Sodium Chloride IV 12.5 mls/hr Q8H SUDHIR Administration Protocol Levetiracetam 500 mg/ Sodium 105 mls @ 420 mls/hr 07/29/21 10:30 07/29/21 11:41 Chloride IV Infused Q12H SUDHIR Infusion Insulin Human Lispro 0 unit 07/29/21 08:00 07/29/21 12:38 Insulin Lispro 100 Unit/1 Ml SUBCUT 6 unit WM&BEDTIME SUDHIR Administration Protocol Lorazepam 0.5 mg 07/28/21 15:08 07/28/21 15:18 Lorazepam 2 Mg/Ml Inj 1 Ml IVP 0.5 mg Q4H PRN Administration ANXIETY Pantoprazole Sodium 40 mg 07/28/21 16:45 07/28/21 18:12 Pantoprazole 40 Mg Sdv IVP Not Given Q24H SUDHIR PFSH Acute PFSH: Medical History Anxiety COPD (chronic obstructive pulmonary disease) Hypertension Hypertensive urgency Lymphoma Thoracic ascending aortic aneurysm Surgical History History of neck surgery Family History Other CAD (coronary artery disease) Cancer Diabetes Hyperlipidemia Hypertension Denies family history of Rheumatoid arthritis Lupus Chronic kidney disease (CKD) Stroke Social History Smoking and tobacco status: former smoker Quit status (tobacco): has quit using tobacco Year quit tobacco: 1991 Former quit date comment: 1 ppd X 27 years Alcohol intake: former Lives independently: Yes Household members: family Housing: House History of recent travel: No Vitals/I&O/Wt Last Vital Signs Temp 95.2 F L 07/29/21 13:10 Pulse 64 07/29/21 13:30 Resp 16 07/29/21 13:10 BP 114/61 07/29/21 13:30 Pulse Ox 99 07/29/21 13:30 07/28/21 07/29/21 07/29/21 22:59 06:59 14:59 Intake Total 51.51 / 1101.51 266.292 / 1367.802 429.229 / 429.229 Output Total 250 / 600 Balance 51.51 / 751.51 16.292 / 767.802 429.229 / 429.229 Physical Exam Const: EXAM LIMITATIONS: altered mental status ORIENTATION/CONSCIOUSNESS: Yes patient obtunded HENMT: HEAD & SCALP: other (Intact wounds; Swelling and ecchymosis of the neck present bilaterally.) FACE & SINUS: other (Significant facial swelling.) MOUTH: other (There is swelling of the tongue.) Neck/C-Spine: GENERAL: Yes anterior neck swelling (With ecchymosis.) Urinary Catheter Management: Wooten: Cath Placed During This Visit: yes Urinary Catheter Date of Insertion: 07/28/21 Urinary Catheter Time of Insertion: 07:15 Data : 07/29/21 14:00 07/29/21 10:20 Micro: Microbiology 07/28/21 18:46 Blood Culture - Preliminary Blood SPECIMEN COLLECTED 07/28/21 18:46 Blood Culture - Preliminary Blood SPECIMEN COLLECTED CT neck: I personally reviewed and interpreted this imaging study as follows: Attestation for Other Data: I personally reviewed and interpreted the following: (Neck CT scan.) Other data: Procedure: an attempt at fiberoptic laryngoscopy was made, but the patient's nose and nasopharynx were filled with blood preventing adequate visualizations. A&P Assessment and plan (1) Acute respiratory failure with hypoxia: Impression: 60 yo wm with sudden onset post op airway obstruction: the diff erential diagnosis is wide and includes acute post op edema of the tongue from anaphylaxis or CHIARA inhibitor use, and/or prevertebral hematoma Plan: - The patient's airway is currently stable and his clinical status is in flux: I will defer additional recommendations concerning his airway until requested by his inpatient team - Thank you for the opportunity to participate in Mr. Isabel's care. Status: Acute Consult Attestations Medical Necessity Statement: I was consulted to assess the patient's airway. Coding Level of Care Code Acute Oriental Medicine Practitioner for Aishwarya Rodríguez Diagnoses Acute respiratory failure with hypoxia J96.01
[2021-07-29 14:48] LABS: Blood Urea Nitrogen 30 mg/dL (6-20); Calcium 8.4 mg/dL (8.5-10.5); Carbon Dioxide 23 mmol/L (22-29); Chloride 102 mmol/L (98-107); Glomerular Filtration Rate 27.8 mL/min (90-130); Glucose 137 mg/dL (65-115); Magnesium 2.2 mg/dL (1.7-2.3); Osmolality Calculated 298 mOsm/kg (285-295); Phosphorus 4.7 mg/dL (2.5-4.5); Sodium 140 mmol/L (136-145)
--- NOTE | 2021-07-29 14:48 | PC.NURSE ---
NUrse has noted that the swelling to the patient's neck, especially the right side, has increased. Bruising has expanded as well. HGB levels have dropped form 9.4 to 9 over the last 4 hours. Nurse has alerted Dr melendez to this. Earlier nurse took a picture of the patient's face /neck on hospital voalte phone for later comparison. Nurse took another picture after swelling has increased and sent pictures to Dr melendez via [employer] messenger.
[2021-07-29 14:59] LABS: ABG PCO2 35.5 mmHg (35-45); ABG PH Result 7.39 (7.35-7.45); Arterial Blood Gas Hematocrit 29.2 % (42-52); Base Excess ABG -2.9 mmol/L (-2.0-2.0); Blood Gas Operator Identificat CAK; Blood Gas Sample Site ALINE; Blood Gas Sample Type Arterial; Blood Gas Tidal Volume 0.55; HCO3 ABG 21.6 mmol/L (22-26); Oxygen Device VENT
[2021-07-29 15:00] LABS: Glucose Point of Care 124 mg/dL (70-110)
--- NOTE | 2021-07-29 15:58 | PC.NURSE ---
Addendum entered by Mary Krishnamutrhy RN 07/29/21 16:04: Addendum 1549 not 1547 Original Note: Addendum to times charted on vitals at 1600 and 1547 as this nurse did not have precise time of those charted and charted quickly to provide documentation in chart of taken vitals. Was later able to review time of FILM SORTER called and determined it was called before the charted time under this nurse.
[2021-07-29 16:05] LABS: INR 1.05 (0.8-1.2)
--- NOTE | 2021-07-29 16:19 | ECG_ITS ---
[facility] Test Date: 2021-07-29 Pat Name: Jeet Isabel Department: Room: [facility] Gender: Male House Cleaner: : 1960 Requested By: Bassem Chawla Order Number: [id number] Reading MD: Yael Hernandez M.D. Measurements Intervals [place] Rate: 63 P: 6 NC: 124 QRS: 54 QRSD: 95 T: 70 QT: 472 QTc: 485 Interpretive Statements SINUS RHYTHM PROLONGED QT INTERVAL Compared to ECG 07/28/2021 18:05:01 Prolonged QT interval now present Electronically Signed On 07-29-2021 22:37:59 CDT by Yael Hernandez M.D. [id number]
[2021-07-29] MEDS: pantoprazole 40 mg SDV IVP (18:00)
[2021-07-29 18:01] LABS: Glucose Point of Care 171 mg/dL (70-110)
--- NOTE | 2021-07-29 18:24 | PC.NURSE ---
SHift Summary: Patient taken for a head and neck CT, results in chart. Run of vtach today, EKG taken, results in chart. Patient's facial swelling has worsened, more so on the right side of the face. Bruising has also spread. Dr Chawla provided with photos for comparison of progress. Family meeting was held with this nurse, Dr corrales, Dr Loredo, Dr Chawla, and agronomy research manager cherise. Cooling measures in place until beginning or next AM shift, Temperature goal of 35 degrees which has been met throughout the day via cooling blanket/pad.
[2021-07-29 18:44] LABS: ABG PCO2 33.6 mmHg (35-45); ABG PH Result 7.43 (7.35-7.45); Arterial Blood Gas Hematocrit 29.5 % (42-52); Base Excess ABG -1.4 mmol/L (-2.0-2.0); Blood Gas Operator Identificat CAK; Blood Gas Sample Site ALINE; Blood Gas Sample Type Arterial; Blood Gas Tidal Volume 0.55; HCO3 ABG 22.4 mmol/L (22-26); Oxygen Device VENT; PO2 ABG 74.7 mmHg (80.0-100.0)
[2021-07-29 18:46] LABS: Ionized Calcium 1.1 mmol/L (1.1-1.4)
[2021-07-29 19:04] LABS: Anion Gap 18.8 (5-19); Blood Urea Nitrogen 33 mg/dL (6-20); Calcium 8.2 mg/dL (8.5-10.5); Carbon Dioxide 22 mmol/L (22-29); Chloride 103 mmol/L (98-107); Glomerular Filtration Rate 27.8 mL/min (90-130); Glucose 153 mg/dL (65-115); Osmolality Calculated 300 mOsm/kg (285-295); Phosphorus 4.7 mg/dL (2.5-4.5); Potassium 3.8 mmol/L (3.5-5.1); Sodium 140 mmol/L (136-145)
[2021-07-29 19:05] LABS: Basophils % 0.1 %; Hematocrit 24.8 % (42.0-52.0); Hemoglobin 8.4 g/dL (11.7-16.6); Lymphocytes % 5.7 %; Mean Corpuscular HGB Conc 33.9 g/dL (30.0-36.0); Mean Corpuscular Hemoglobin 31.9 pg (28.0-34.0); Mean Corpuscular Volume 94.3 fl (80-94); Mean Platelet Volume 12.3 fL (7.4-10.4); Monocytes # 1.1 10^3/uL (0.2-0.9); Monocytes % 6.3 %; Neutrophils # 15.94 10^3/uL (1.8-7.7); Neutrophils % 87.4 %; Nucleated Red Blood Cells % 0 %; Platelet Count 81 10^3/cmm (130-400); Red Blood Count 2.63 10^6/uL (4.1-5.3); Red Cell Distribution Width 17.4 % (12.1-15.1); White Blood Count 18.2 10^3/uL (4.0-10.0)
[2021-07-29 19:07] LABS: INR 1.09 (0.8-1.2)
[2021-07-29 19:08] LABS: Partial Thromboplastin Time 25.9 SECONDS (23.9-36.7)
--- NOTE | 2021-07-29 19:15 | PC.NURSE ---
Pt. laying in bed with cooling blanket in place. Pt. has dressing to medial neck covering surgical site. bruising and swelling around site.
--- NOTE | 2021-07-29 19:51 | CT_ITS ---
WS: [id number] CT HEAD TECHNIQUE: Noncontrast CT of the head obtained from the skullbase to the vertex. CLINICAL INFORMATION: anoxic brain injury COMPARISON: July 29, 2021 DLP: 991.[address] scans at [facility] use at least one of these dose optimization techniques: automated e xposure control; mA and/or kV adjustment per patient size (includes targeted exams where dose is matc hed to clinical indication); or iterative reconstruction. FINDINGS: Diffuse loss of the normal neal-white differentiation. Moderate diffuse cerebral edema. Slight efface ment of the overlying sulci and gyri. Basilar cisterns and 4th ventricle remain patent. Low-attenuati on change compatible with anoxic injury and ischemia involving the caudate and lentiform nuclei bilat erally. Mild narrowing of the lateral ventricles. No midline shift. No acute hemorrhage. Low-attenuat ion change in the LEFT greater than RIGHT parasagittal occipital lobes likely watershed infarct Mastoid air cells are well aerated. Diffuse pansinusitis involving the paranasal sinuses with air-flu id levels. Fluid in the posterior nasopharynx. CT/CT head wo con* [id number] IMPRESSION: 1. Evidence of diffuse anoxic injury with loss of the normal neal-white differ entiation and moderate diffuse edema. Mild effacement of the overlying gyri and sulci. 2. Low-attenuation ischemic change involving the caudate and lentiform nuclear bilaterally compatible with anoxic injury. 3. Mild narrowing of the lateral ventricles. No hydrocephalus. 4. Basilar cisterns and 4th ventricle remain patent. 5. Diffuse pansinusitis. 6. Slight low attenuation change in the LEFT greater than RIGHT parasagittal o ccipital lobes likely watershed ischemic in etiology. Notified Dr. Chawla at 07/29/2021 11:48 AM.
--- NOTE | 2021-07-29 21:03 | P.PN_ITS ---
Subjective Subjective: This morning noted to be intermittently opening his eyes, no other purposeful movements noted, although is continuing under sedation, cooling. We discussed his condition, assessment so far and additional plans with his son and brother at bedside during first visit, then again with other family members including his during family meeting in the afternoon. Discussed CT findings including loss of normal neal-white differentiation, brain edema, effacement of gyri and sulci. Suspected ischemic infarcts in basal ganglia, as well as left and right occipital lobes. Discussed mild narrowing of lateral ventricles, no suggestion of herniation at this time. Discussed findings on CT, including significant diffuse edema, pharyngeal, supraglottic, presence of retropharyngeal/prevertebral hematoma, diffuse edema of soft tissues of neck. Vitals/I&O/Wt Last Vital Signs Temp 96 F L 07/29/21 19:30 Pulse 68 07/29/21 19:38 Resp 16 07/29/21 19:40 BP 99/58 07/29/21 19:30 Pulse Ox 97 07/29/21 19:40 07/29/21 07/29/21 07/29/21 06:59 14:59 22:59 Intake Total 266.292 / 1367.802 429.229 / 429.229 Output Total 250 / 600 100 / 100 Balance 16.292 / 767.802 429.229 / 429.229 -100 / 329.229 Physical Exam Narrative: Family accompanying him at bedside. Const: GENERAL APPEARANCE: patient mechanically ventilated OTHER: Intubated. With sedation. HENMT: COMMON NORMALS: normocephalic, EAC's normal, Normal external nose present and moist oral mucous membranes HEAD & SCALP: normocephalic NOSE: Normal external nose present EXTERNAL AUDITORY CANAL: EAC's normal OTHER: Intermittently spontaneously opening eyes. Eye: OTHER: Symmetric pupils Neck/C-Spine: OTHER: Circumferential neck swelling, ecchymosis laterally to R shoulder Chest: CHEST: Yes Symmetrical chest wall rise Resp: COMMON NORMALS: clear to auscultation bilaterally AUSCULTATION: clear to auscultation bilaterally Cardio: COMMON NORMALS: regular rate, regular rhythm and No murmurs present (Cardio) RATE: regular rate RHYTHM: regular rhythm GI: COMMON NORMALS: Normal to inspection, nondistended, normoactive bowel sounds present and Soft to palpation PALPATION: Yes Soft to palpation Extremity: COMMON NORMALS: no pedal edema OTHER: Extremities somewhat cool to touch. Minimally dusky appearance of left lower extremity, but no significant cyanosis. LLE slightly larger diameter than RLE. Skin: RASHES: no rashes Urinary Catheter Management: Wooten: Cath Placed During This Visit: yes Urinary Catheter Date of Insertion: 07/28/21 Urinary Catheter Time of Insertion: 07:15 Data : 07/29/21 18:41 07/29/21 18:41 Micro: Microbiology 07/28/21 18:46 Blood Culture - Preliminary Blood NEGATIVE TO DATE 07/28/21 18:46 Blood Culture - Preliminary Blood NEGATIVE TO DATE A&P Assessment and plan (1) Anoxic brain injury: At this time continue supportive measures, continue cooling. Nimbex if needed for shivering. Continue sedation. Discontinue cooling tomorrow morning. Allow temperature to return to normal, avoid fevers. Additional assessment after at least 72 hours following syncopal event. Continue pressors as needed to maintain blood pressure. Discussed assessments as well as condition so far. Discussed additional assessment and results including CT head, including CT head results providing no t encouraging results, however, still pending completion of hypothermia, clinical reassessment, would not wait prognostication on CT alone. Discussed additionally possibility of seizure. We are empirically covering with Keppra at this time. EEG has been requested when available. Repeat CT head tomorrow. Status: Acute (2) Cardiac arrest: Discussed in addition to respiratory causes consideration of cardiac findings, including troponin elevation, although this appears may be more likely postcode. He does appear to have had a stress test in 2020. Echocardiogram has been pending. Currently returning with normal ejection fraction, no RWMA. Did have 12 beats of nonsustained VT. Electrolytes have been checked and are good. Continue to support blood pressure. Telemetry monitoring. Additionally discussed kidney injury, some worsening renal function. He does have some urine output, continue to monitor. Continue to support blood pressure. Hold lisinopril. With significant pharyngeal and supraglottic edema. Hold CHIARA inhibitor. Noted retropharyngeal or prevertebral hematoma, continue airway protection at this time until edema subsiding, pending further reassessment, subsequently depending on how he is doing consideration of tracheostomy. Status: Acute (3) Acute respiratory failure with hypoxia: Continue airway support at this time. For now he is also on empiric antibiotics, with noted leukocytosis, afebrile, but certainly potential exists for possibility of aspiration with multiple intubation attempts, cardiac arrest. Oxygenation has been good. For now continue empiric antibiotic. Status: Acute (4) Seizures: Did have some shivering earlier yesterday reported, seizures could not be definitively completed until EEG. Started empirically for now on Keppra. Continues on propofol. As above. Status: Acute (5) DEENA (acute kidney injury): Support blood pressure. Monitor VY. Monitor for hyperkalemia. Monitor for acidosis. Status: Acute Plan Left lower extremity dusky appearance: Discussed also condition monitoring of left lower extremity. This prescription nursing staff verified extravasation was reported but in the right lower extremity. Left lower extremity appears somewhat larger than right. No DVT noted on ultrasound. Continue neurovascular checks. Pulses have been present with bedside Doppler. Check CK, trend. Monitor condition. 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 Hepatitis C Attestations Medical Necessity Statement*: Continue admission for life support measures after cardiopulmonary arrest, reassessment of neurological status, anoxic brain injury extent, shelter monitor, reassessment of renal function, neurovascular monitoring of left lower extremity. Critical Care Time: The high probability of a clinically significant, sudden or life threatening deterioration of the patient's system(s) required my full and direct attention, intervention and personal management. The critical care time is as shown. This time is in addition to time spent performing any reported procedures but includes the following: x Data and vital sign review and interpretation x Patient assessment, examination and intervention x Documentation x Medication orders and management Critical Care Time (min): 65 Coding Level of Care Code Acute Chicle Grinder Feeder for Aishwarya Rodríguez Diagnoses Cardiac arrest I46.9 Acute respiratory failure with hypoxia J96.01 Anoxic brain injury G93.1 Seizures R56.9 DEENA (acute kidney injury) N17.9
[2021-07-29 21:30] LABS: Glucose Point of Care 180 mg/dL (70-110)
[2021-07-29] MEDS: insulin glargine 100 units/1 mL 20 UNIT SUBCUT (21:44)
[2021-07-29 22:32] LABS: ABG PCO2 33.3 mmHg (35-45); ABG PH Result 7.42 (7.35-7.45); Arterial Blood Gas Hematocrit 28.8 % (42-52); Base Excess ABG -2.6 mmol/L (-2.0-2.0); Blood Gas Operator Identificat JB; Blood Gas Sample Site Not specified; Blood Gas Sample Type Arterial; HCO3 ABG 21.4 mmol/L (22-26); PO2 ABG 63.7 mmHg (80.0-100.0)
[2021-07-29 22:33] LABS: Blood Gas Tidal Volume 0.55; Oxygen Device VENT
[2021-07-29 23:37] LABS: Basophils % 0.1 %; Hematocrit 24.8 % (42.0-52.0); Hemoglobin 8.4 g/dL (11.7-16.6); Lymphocytes % 4.9 %; Mean Corpuscular HGB Conc 33.9 g/dL (30.0-36.0); Mean Corpuscular Hemoglobin 32.3 pg (28.0-34.0); Mean Corpuscular Volume 95.4 fl (80-94); Mean Platelet Volume 12.1 fL (7.4-10.4); Monocytes # 1.3 10^3/uL (0.2-0.9); Monocytes % 6.2 %; Neutrophils # 18.47 10^3/uL (1.8-7.7); Neutrophils % 88.3 %; Nucleated Red Blood Cells % 0 %; Platelet Count 78 10^3/cmm (130-400); Red Cell Distribution Width 17.7 % (12.1-15.1); White Blood Count 20.9 10^3/uL (4.0-10.0)
[2021-07-29 23:51] LABS: INR 1.08 (0.8-1.2)
[2021-07-29 23:56] LABS: Anion Gap 19.9 (5-19); Blood Urea Nitrogen 36 mg/dL (6-20); Calcium 8.4 mg/dL (8.5-10.5); Carbon Dioxide 22 mmol/L (22-29); Chloride 102 mmol/L (98-107); Glomerular Filtration Rate 25.4 mL/min (90-130); Glucose 157 mg/dL (65-115); Magnesium 2.1 mg/dL (1.7-2.3); Osmolality Calculated 302 mOsm/kg (285-295); Phosphorus 5.3 mg/dL (2.5-4.5); Potassium 3.9 mmol/L (3.5-5.1); Sodium 140 mmol/L (136-145)
[2021-07-30] VITALS (252 sets, daily range): BP systolic 91–128; BP diastolic 43–74; PULSE 68–100; RESP 16; TEMP 34.2–37.5; O2SAT 95–100
[2021-07-30] MEDS: ipratropium-albuterol 3 mL Neb INHALATION ×7 (00:22→23:39)
[2021-07-30 00:50] LABS: Ionized Calcium 1.1 mmol/L (1.1-1.4)
[2021-07-30 02:38] LABS: Ionized Calcium 1.1 mmol/L (1.1-1.4)
[2021-07-30 02:41] LABS: ABG PCO2 32.5 mmHg (35-45); ABG PH Result 7.42 (7.35-7.45); Arterial Blood Gas Hematocrit 24.5 % (42-52); Base Excess ABG -2.9 mmol/L (-2.0-2.0); Blood Gas Operator Identificat JB; Blood Gas Sample Site Not specified; Blood Gas Sample Type Arterial; HCO3 ABG 21.1 mmol/L (22-26); Oxygen Device VENT; PO2 ABG 71.7 mmHg (80.0-100.0)
[2021-07-30 03:05] LABS: Basophils # 0.1 10^3/uL (0.0-0.1); Basophils % 0.3 %; Hemoglobin 8.1 g/dL (11.7-16.6); Mean Corpuscular HGB Conc 33.8 g/dL (30.0-36.0); Mean Corpuscular Hemoglobin 31.9 pg (28.0-34.0); Mean Corpuscular Volume 94.5 fl (80-94); Mean Platelet Volume 12.6 fL (7.4-10.4); Monocytes # 1.2 10^3/uL (0.2-0.9); Monocytes % 6.1 %; Neutrophils # 17.02 10^3/uL (1.8-7.7); Neutrophils % 87.9 %; Nucleated Red Blood Cells % 0 %; Platelet Count 78 10^3/cmm (130-400); Red Blood Count 2.54 10^6/uL (4.1-5.3); Red Cell Distribution Width 17.5 % (12.1-15.1); White Blood Count 19.4 10^3/uL (4.0-10.0)
[2021-07-30 03:23] LABS: INR 1.07 (0.8-1.2)
[2021-07-30 03:24] LABS: Partial Thromboplastin Time 30.3 SECONDS (23.9-36.7)
[2021-07-30 03:28] LABS: Anion Gap 21.9 (5-19); Blood Urea Nitrogen 38 mg/dL (6-20); Calcium 8.6 mg/dL (8.5-10.5); Carbon Dioxide 21 mmol/L (22-29); Chloride 101 mmol/L (98-107); Glomerular Filtration Rate 25.4 mL/min (90-130); Glucose 163 mg/dL (65-115); Magnesium 2.3 mg/dL (1.7-2.3); Osmolality Calculated 303 mOsm/kg (285-295); Phosphorus 5.2 mg/dL (2.5-4.5); Potassium 3.9 mmol/L (3.5-5.1); Sodium 140 mmol/L (136-145)
[2021-07-30] MEDS: piperacillin-tazobactam 3.375 GM in sodium chloride 0.9% (plus) 50 ML IV ×3 (04:36→21:29)
[2021-07-30 05:31] LABS: Glucose Point of Care 176 mg/dL (70-110)
[2021-07-30 05:31] LABS: Glucose Point of Care 174 mg/dL (70-110)
[2021-07-30 05:31] LABS: Glucose Point of Care 166 mg/dL (70-110)
--- NOTE | 2021-07-30 06:00 | XR_ITS ---
WS: [id number] Exam: XR chest 1V portable [id number] Date/Time of Exam: 07/30/2021 6:00 AM Reason For Exam: Hypoxia Comparison 07/28/2021. The lungs are clear and well ventilated. An endotracheal tube is been repositioned and now ends about 5 cm above the maximo in good position. There appears to be widening of the superior mediastinum. No pleural effusions. Bony structures are intact. There is hardware in the lower cervical spine. XR/XR chest 1V portable [id number] IMPRESSION: 1. Widening of the superior mediastinum unchanged. 2. The lungs are generally clear and well ventilated. No infiltrates. 3. ET tube in satisfactory position ending about 5 cm above the maximo.
[2021-07-30 06:38] LABS: Ionized Calcium 1.1 mmol/L (1.1-1.4)
[2021-07-30 06:43] LABS: Blood Gas Operator Identificat JB; Blood Gas Sample Site Not specified; Blood Gas Sample Type Arterial; Oxygen Device VENT
[2021-07-30 06:51] LABS: ABG PCO2 30.8 mmHg (35-45); ABG PH Result 7.43 (7.35-7.45); Base Excess ABG -3.5 mmol/L (-2.0-2.0); HCO3 ABG 20.3 mmol/L (22-26); PO2 ABG 97.4 mmHg (80.0-100.0)
[2021-07-30 06:54] LABS: Basophils % 0.2 %; Hematocrit 22.9 % (42.0-52.0); Hemoglobin 7.8 g/dL (11.7-16.6); Lymphocytes # 0.9 10^3/uL (0.8-4.8); Mean Corpuscular HGB Conc 34.1 g/dL (30.0-36.0); Mean Corpuscular Hemoglobin 32.1 pg (28.0-34.0); Mean Corpuscular Volume 94.2 fl (80-94); Mean Platelet Volume 10.9 fL (7.4-10.4); Monocytes # 1.2 10^3/uL (0.2-0.9); Monocytes % 6.6 %; Neutrophils # 15.55 10^3/uL (1.8-7.7); Neutrophils % 87.7 %; Nucleated Red Blood Cells % 0 %; Platelet Count 79 10^3/cmm (130-400); Red Blood Count 2.43 10^6/uL (4.1-5.3); Red Cell Distribution Width 17.6 % (12.1-15.1); White Blood Count 17.7 10^3/uL (4.0-10.0)
[2021-07-30 07:19] LABS: Anion Gap 20.9 (5-19); Blood Urea Nitrogen 40 mg/dL (6-20); Calcium 8.2 mg/dL (8.5-10.5); Carbon Dioxide 21 mmol/L (22-29); Chloride 102 mmol/L (98-107); Glomerular Filtration Rate 23.3 mL/min (90-130); Glucose 148 mg/dL (65-115); Magnesium 2.1 mg/dL (1.7-2.3); Osmolality Calculated 303 mOsm/kg (285-295); Phosphorus 4.8 mg/dL (2.5-4.5); Potassium 3.9 mmol/L (3.5-5.1); Sodium 140 mmol/L (136-145)
[2021-07-30 07:21] LABS: INR 1.05 (0.8-1.2)
[2021-07-30 07:23] LABS: Partial Thromboplastin Time 29.5 SECONDS (23.9-36.7)
[2021-07-30] MEDS: insulin lispro 100 unit/1 mL SUBCUT (07:31)
[2021-07-30] MEDS: budesonide 0.5 mg/2 mL Neb INHALATION ×2 (07:36→19:37)
[2021-07-30 10:12] LABS: Anion Gap 19.9 (5-19); Blood Urea Nitrogen 42 mg/dL (6-20); Calcium 8.2 mg/dL (8.5-10.5); Carbon Dioxide 23 mmol/L (22-29); Chloride 102 mmol/L (98-107); Glomerular Filtration Rate 21.5 mL/min (90-130); Glucose 136 mg/dL (65-115); Osmolality Calculated 305 mOsm/kg (285-295); Potassium 3.9 mmol/L (3.5-5.1); Sodium 141 mmol/L (136-145)
[2021-07-30 10:16] LABS: Glucose Point of Care 115 mg/dL (70-110)
--- NOTE | 2021-07-30 10:43 | P.PN_ITS ---
Subjective Subjective: Pt Intubated. Vitals/I&O/Wt Last Vital Signs Temp 96 F L 07/30/21 10:00 Pulse 86 07/30/21 10:10 Resp 16 07/30/21 10:00 BP 109/56 07/30/21 10:10 Pulse Ox 100 07/30/21 10:10 07/29/21 07/30/21 07/30/21 22:59 06:59 14:59 Intake Total 50 / 479.229 227 / 706.229 223.863 / 223.863 Output Total 100 / 100 300 / 400 Balance -50 / 379.229 -73 / 306.229 223.863 / 223.863 Physical Exam Narrative: Cervical Incisions c/d Urinary Catheter Management: Wooten: Cath Placed During This Visit: yes Urinary Catheter Date of Insertion: 07/28/21 Urinary Catheter Time of Insertion: 07:15 Data : 07/30/21 06:30 07/30/21 09:07 Micro: Microbiology 07/28/21 18:46 Blood Culture - Preliminary Blood NEGATIVE TO DATE 07/28/21 18:46 Blood Culture - Preliminary Blood NEGATIVE TO DATE A&P Assessment and plan (1) Status post cervical spinal fusion: Continue dressings changes prn. Defer to [facility] Team Status: Acute (2) Anoxic brain injury: Status: Acute Attestations Medical Necessity Statement*: defer to medical team Coding Level of Care Code Acute Geospatial Information Technologist for Aishwarya Rodríguez Diagnoses Status post cervical spinal fusion Z98.1 Anoxic brain injury G93.1
--- NOTE | 2021-07-30 12:24 | PM.PN ---
Subjective Subjective: Intubated, sedated. Vitals/I&O/Wt Last Vital Signs Temp 94.8 F L 07/30/21 11:35 Pulse 78 07/30/21 12:00 Resp 16 07/30/21 12:00 BP 120/68 07/30/21 11:35 Pulse Ox 100 07/30/21 12:00 07/29/21 07/30/21 07/30/21 22:59 06:59 14:59 Intake Total 50 / 479.229 227 / 706.229 223.863 / 223.863 Output Total 100 / 100 300 / 400 Balance -50 / 379.229 -73 / 306.229 223.863 / 223.863 Physical Exam Const: GENERAL APPEARANCE: patient mechanically ventilated OTHER: Intubated. With sedation. HENMT: COMMON NORMALS: normocephalic, EAC's normal, Normal external nose present and moist oral mucous membranes HEAD & SCALP: normocephalic NOSE: Normal external nose present EXTERNAL AUDITORY CANAL: EAC's normal OTHER: Intermittently spontaneously opening eyes. Eye: OTHER: Pupils equal Neck/C-Spine: OTHER: Circumferential neck swelling, ecchymosis laterally to R shoulder Chest: CHEST: Yes Symmetrical chest wall rise Resp: COMMON NORMALS: clear to auscultation bilaterally AUSCULTATION: clear to auscultation bilaterally Cardio: COMMON NORMALS: regular rate, regular rhythm and No murmurs present (Cardio) RATE: regular rate RHYTHM: regular rhythm GI: COMMON NORMALS: Normal to inspection, nondistended, normoactive bowel sounds present and Soft to palpation PALPATION: Yes Soft to palpation Extremity: COMMON NORMALS: no pedal edema OTHER: Palpable DP pulses BL feet. LLE still slightly > RLE at callahan/calf Skin: RASHES: no rashes Urinary Catheter Management: Wooten: Cath Placed During This Visit: yes Urinary Catheter Date of Insertion: 07/28/21 Urinary Catheter Time of Insertion: 07:15 Data : 07/30/21 06:30 07/30/21 09:07 Micro: Microbiology 07/28/21 18:46 Blood Culture - Preliminary Blood NEGATIVE TO DATE 07/28/21 18:46 Blood Culture - Preliminary Blood NEGATIVE TO DATE A&P Assessment and plan (1) Anoxic brain injury: Start Coumadin today, bring back to normal body temperature. Avoid fever. Subsequently weaned down sedation, monitor mental status. Reassess again also tomorrow. CT of the head consideration today or tomorrow, but discussed with family unless if something concerning going on, CT head sooner. Continue pressors as needed to maintain blood pressure. He is weaning off pressor. Status: Acute (2) Cardiac arrest: Cardiopulmonary arrest, suspected respiratory arrest before cardiac arrest, although was lost pulse fairly quickly. So far no recurrence of VT. Monitor on telemetry. Discussed with his son additional considerations apart from the ones discussed already. Speaking with anesthesiology physician today who was present at the code, he was noted to have quite a bit of swelling periorally, lips, tongue noted protruding from the mouth, with fairly rapid onset. Discussed additional consideration of possibility of anaphylactic response. Consideration of angioedema. Discussed would consider not restarting lisinopril going forward, although discussed also requested for C4 level, C1 esterase inhibitor functional assay. Consider also allergy panel with follow up. Continue airway support currently with neck swelling, going down slightly, with ET and nasal intubation attempts, cricothyroidotomy attempt, postoperative swelling, retropharyngeal/prevertebral hematoma. Probably less likely cardiac cause, though with troponin elevation, although this appears may be more likely postcode. He does appear to have had a stress test in 2020. Echocardiogram with normal ejection fraction, without diagnostic RWMA. Did have 12 beats of nonsustained VT. Electrolytes have been checked and are good. Continue to support blood pressure. Telemetry monitoring. Additionally discussed kidney injury, some worsening renal function. He does have some urine output, continue to monitor. Continue to support blood pressure. Hold lisinopril. Appreciate nephrology consultation. With significant pharyngeal and supraglottic edema. Hold CHIARA inhibitor. Noted retropharyngeal or prevertebral hematoma, continue airway protection at this time until edema subsiding, pending further reassessment, subsequently depending on how he is doing consideration of tracheostomy. With leukocytosis, continue empiric antibiotics, with possibility of aspiration pneumonia. Status: Acute (3) Seizures: Did have some shivering earlier yesterday reported, seizures could not be definitively completed until EEG. Started empirically for now on Keppra. Continues on propofol. As above. Status: Acute (4) DEENA (acute kidney injury): He is making Slightly more urine today. Similar oliguric. Appreciate additional consultation with nephrology. Support blood pressure. Blood pressure has been improving, he has been weaning down and off pressor. Monitor VY. Monitor for hyperkalemia. Monitor for acidosis. Status: Acute (5) Acute respiratory failure with hypoxia: Continue airway support at this time. For now he is also on empiric antibiotics, with noted leukocytosis, afebrile, but certainly potential exists for possibility of aspiration with multiple intubation attempts, cardiac arrest. Oxygenation has been good. For now continue empiric antibiotic. Status: Acute (6) Neck swelling: Slightly coming down. Oropharyngeal edema slightly coming down. Swelling likely to gradually go down, however, needs continued airway support at this time. Consideration of tracheostomy will likely be needed. Status: Acute (7) Bicytopenia: Not on heparin products. Some blood loss likely, will reassess blood count. We will additionally request peripheral smear. Does have some splenomegaly history. Coagulation studies have been okay. Possibly also component of dilution in positive balance. Recheck blood count. Status: Acute Plan Left lower extremity dusky appearance: Improving/resolving. Palpable BL DP pulses. Discussed also condition monitoring of left lower extremity. No DVT noted on ultrasound. Continue neurovascular checks. Follow-up CK. 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 Hepatitis C Attestations Medical Necessity Statement*: Continue admission for discontinuation of cooling, reassessment of neurologic function and recovery with suspected anoxic brain injury, EDENA, bicytopenia. Critical Care Time: The high probability of a clinically significant, sudden or life threatening deterioration of the patient's hemodynamic, neurologic, system(s) required my full and direct attention, intervention and personal management. The critical care time is as shown. This time is in addition to time spent performing any reported procedures but includes the following: x Data and vital sign review and interpretation x Patient assessment, examination and intervention x Documentation x Medication orders and management Critical Care Time (min): 55 Coding Level of Care Code Acute Executive Consultant for [facility] Fwd Exam Comprehensive Diagnoses Anoxic brain injury G93.1 Cardiac arrest I46.9 Acute respiratory failure with hypoxia J96.01 Seizures R56.9 DEENA (acute kidney injury) N17.9 Neck swelling R22.1 Bicytopenia D75.89
[2021-07-30 13:41] LABS: LAB Peripheral Smear Sent for Review
[2021-07-30 14:07] LABS: Creatine Phosphokinase 672 U/L (39-308)
--- NOTE | 2021-07-30 14:15 | PM.CONSULT ---
Providers/Reason For Consult Consulting Physician/Specialty*: Nephrology Reason for Consult*: DEENA Attending Physician: Martin Loredo DO Primary Care Provider: Celestina Wolf DO History of Present Illness History of Present Illness Thank for consultation, today had the pleasure reviewing this very unfortunate 60-year-old gentleman Mr. Isabel. He came in on 07/28 with numbness and tingling in his right arm worse than his left hand. He had a diagnosis of cervical spondylosis with radiculopathy. He underwent spinal surgery that morning. The procedure was essentially uncomplicated, please refer to the operative report by Dr. Loredo. That afternoon a code was called. Unfortunately there are multiple failed attempts at intubation, with an attempted cricothyroidotomy, and ultimately successful endotracheal intubation. He had required quite an extensive CPR. At times he was asystolic, however, ultimately he did regain a spontaneous rhythm. He was subsequently taken back to the operating room for reexploration of the neck. There was some bleeding noted from the musculature which was cauterized. He is now critically sick in the ICU. Hypothermia protocol was initiated and now we are in the stages of rewarming. He was on and off vasopressor agents, and at this time does not require vasopressor support. At this time he is not responding neurologically, CT scan of the head also demonstrates diffuse anoxic brain injury. From my own perspective, preoperatively his serum creatinine was 1.4 mg/dL which likely represents his baseline. Yesterday serum creatinine increased to 2 and today is up to 3 mg/dL. Urine output was initially poor, starting to improve. 300 mL overnight, so 450 mL today. No available renal imaging at this time. No exposure to potentially nephrotoxic substances were obvious. Medications/Allergies Home Medications Medication Instructions Recorded Confirmed Last Taken Type lisinopril 40 mg tablet 40 mg PO DAILY 90 Days #90 tab 05/29/21 07/28/21 07/27/21 Rx pregabalin 75 mg capsule (Lyrica) 75 mg PO BID 07/08/21 07/28/21 07/27/21 History clonidine HCl 0.1 mg tablet 0.1 mg PO BID PRN tab 07/11/21 07/23/21 Unknown History glecaprevir 100 mg-pibrentasvir 40 3 tab PO DAILY #84 tab 07/25/21 07/28/21 Unknown Rx mg tablet (Mavyret) Allergies Allergy/AdvReac Type Severity Reaction Status Date / Time naproxen AdvReac Mild night franco Verified 07/23/21 10:22 Current Medications Generic Name Dose Route Start Last Admin Trade Name Vonq PRN Reason Stop Dose Admin Albuterol/Ipratropium 3 ml 07/28/21 20:00 07/30/21 11:59 Ipratropium-Albuterol 3 Ml Neb INHALATION 3 ml Q4H.RESPIRATORY SUDHIR Administration Budesonide 0.5 mg 07/28/21 20:00 07/30/21 07:36 Budesonide 0.5 Mg/2 Ml Neb INHALATION 0.5 mg BID.RESPIRATORY SUDHIR Administration Docusate Sodium 100 mg 07/28/21 18:00 07/30/21 08:09 Docusate Sodium 100 Mg Capsule PO Not Given BID SUDHIR Midazolam HCl 100 mg/ Sodium 100 mls @ 0 mls/hr 07/28/21 16:00 07/29/21 12:22 Chloride IV 3 mg/hr .Q0M SUDHIR 3 mls/hr Administration Protocol Per Protocol Fentanyl 2,500 mcg/ Sodium 250 mls @ 0 mls/hr 07/28/21 16:00 07/30/21 06:05 Chloride IV 100 mcg/hr .Q0M SUDHIR 10 mls/hr Administration Protocol Per Protocol Norepinephrine Bitartrate 4 mg 254 mls @ 0 mls/hr 07/28/21 16:00 07/30/21 10:30 / Dextrose IV 0 mcg/min .Q0M SUDHIR 0 mls/hr Titration Protocol Per Protocol Propofol 1,000 mg in 100 mls @ 0 mls/hr 07/28/21 20:30 07/28/21 20:45 Diprivan IV 0 mcg/kg/min .Q0M SUDHIR 0 mls/hr Titration Protocol Per Protocol Piperacillin Sod/Tazobactam 50 mls @ 12.5 mls/hr 07/28/21 20:45 07/30/21 12:42 Sod 3.375 gm/ Sodium Chloride IV 12.5 mls/hr Q8H SUDHIR Administration Protocol Levetiracetam 500 mg/ Sodium 105 mls @ 420 mls/hr 07/30/21 11:00 07/30/21 11:31 Chloride IV 420 mls/hr Q12H SUDHIR Administration Insulin Glargine 20 unit 07/29/21 21:00 07/29/21 21:44 Insulin Glargine 100 Units/1 Ml SUBCUT 20 unit BEDTIME SUDHIR Administration Insulin Human Lispro 0 unit 07/29/21 08:00 07/30/21 12:37 Insulin Lispro 100 Unit/1 Ml SUBCUT Not Given WM&BEDTIME SUDHIR Protocol Lorazepam 0.5 mg 07/28/21 15:08 07/28/21 15:18 Lorazepam 2 Mg/Ml Inj 1 Ml IVP 0.5 mg Q4H PRN Administration ANXIETY Pantoprazole Sodium 40 mg 07/28/21 16:45 07/29/21 18:00 Pantoprazole 40 Mg Sdv IVP 40 mg Q24H SUDHIR Administration PFSH Acute PFSH: Medical History Anxiety COPD (chronic obstructive pulmonary disease) Hypertension Hypertensive urgency Lymphoma Thoracic ascending aortic aneurysm Surgical History History of neck surgery Family History Other CAD (coronary artery disease) Cancer Diabetes Hyperlipidemia Hypertension Denies family history of Rheumatoid arthritis Lupus Chronic kidney disease (CKD) Stroke Social History Smoking and tobacco status: former smoker Quit status (tobacco): has quit using tobacco Year quit tobacco: 1991 Former quit date comment: 1 ppd X 27 years Alcohol intake: former Lives independently: Yes Household members: family Housing: House History of recent travel: No Vitals/I&O/Wt Last Vital Signs Temp 95 F L 07/30/21 13:00 Pulse 96 07/30/21 13:00 Resp 16 07/30/21 13:00 BP 96/59 07/30/21 13:00 Pulse Ox 99 07/30/21 13:00 07/29/21 07/30/21 07/30/21 22:59 06:59 14:59 Intake Total 50 / 479.229 227 / 706.229 223.863 / 223.863 Output Total 100 / 100 300 / 400 150 / 150 Balance -50 / 379.229 -73 / 306.229 73.863 / 73.863 Physical Exam Narrative: Constitutional: Sedated and vented HEENT: Wet mucosa, no jvp, non icteric Lungs: Bilaterally clear without discernible wheeze, rales in all lung zones CVS: S1 S2, no murmurs Abdo: Soft, BS ok Ext 4: Minimal edema, peripheral perfusion with no cyanosis Urinary Catheter Management: Wooten: Cath Placed During This Visit: yes Urinary Catheter Date of Insertion: 07/28/21 Urinary Catheter Time of Insertion: 07:15 Data : 07/30/21 06:30 07/30/21 09:07 Micro: Microbiology 07/28/21 18:46 Blood Culture - Preliminary Blood NEGATIVE TO DATE 07/28/21 18:46 Blood Culture - Preliminary Blood NEGATIVE TO DATE A&P Assessment and plan (1) DEENA (acute kidney injury): Status: Acute Plan 1. Oliguric acute kidney injury Consistent with ischemic ATN sustained at the time of the cardiorespiratory arrest. Basic work-up is mostly complete, will get renal sonogram as well as fractional excretion of sodium. Vasopressors as needed to maintain MAP greater than 65 No need for additional IV hydration at this time Defer any diuretics at this time No indication for renal replacement therapy at this time Strict Is and Os Dose medication for GFR less than 15 2. Vent dependent respiratory failure Status post cardiorespiratory arrest Currently on hypothermia protocol, currently undergoing rewarming Management per ICU and medical team CT scan demonstrates loss of differentiation of neal/white matter consistent with anoxic brain injury 3. Chemistry Well-balanced 4. Hemodynamics Levophed available if needed to support MAP greater than 65. Thank you for consultation, as always a pleasure to follow these patients with you Mohamud Hanson MD Nephrology [phone] Patient seen and examined via telemedicine, with the assistance of the bedside RN > 25 min spent in evaluation and mgmt of patient Coding Level of Care Code Acute Laborer Powerhouse for Aishwarya Rodríguez Diagnoses DEENA (acute kidney injury) N17.9
[2021-07-30 14:16] LABS: Lymphocytes # 0.8 10^3/uL (0.8-4.8); Neutrophils % 87.1 %; Nucleated Red Blood Cells % 0 %
--- NOTE | 2021-07-30 14:18 | US_ITS ---
WS: [id number] RENAL ULTRASOUND HISTORY: renal failure COMPARISON: None available. TECHNIQUE: 2-D and color Doppler imaging of the kidney submitted. Right kidney: 11.8 cm x 3.4 cm x 5.1 cm. Normal size kidney with no hydronephrosis. Simple cortical cyst from the lower pole measures 2.5 x 2. 1 x 2.7 cm. No solid mass. Left kidney: 11.2 cm x 4.5 cm x 4.1 cm. Normal size kidney with no hydronephrosis. Cortical cyst upper pole measures 1.6 x 1.8 x 1.8 cm. Aorta: Normal. Urinary Bladder: Nondistended urinary bladder. There is a Wooten catheter present. US/US renal BI* [id number] IMPRESSION: 1. No hydronephrosis or solid mass. 2. Simple bilateral renal cysts.
[2021-07-30 14:19] LABS: Basophils % 0.2 %; Hematocrit 21.1 % (42.0-52.0); Hemoglobin 7.2 g/dL (11.7-16.6); Lymphocytes % 5.2 %; Mean Corpuscular HGB Conc 34.1 g/dL (30.0-36.0); Mean Corpuscular Volume 93.8 fl (80-94); Mean Platelet Volume 11.8 fL (7.4-10.4); Monocytes # 1.1 10^3/uL (0.2-0.9); Monocytes % 7.2 %; Neutrophils # 13.17 10^3/uL (1.8-7.7); Platelet Count 63 10^3/cmm (130-400); Red Blood Count 2.25 10^6/uL (4.1-5.3); Red Cell Distribution Width 17.7 % (12.1-15.1); White Blood Count 15.1 10^3/uL (4.0-10.0)
[2021-07-30 14:43] LABS: Anion Gap 18.9 (5-19); Blood Urea Nitrogen 42 mg/dL (6-20); Calcium 8.1 mg/dL (8.5-10.5); Carbon Dioxide 21 mmol/L (22-29); Chloride 102 mmol/L (98-107); Glomerular Filtration Rate 23.3 mL/min (90-130); Glucose 117 mg/dL (65-115); Osmolality Calculated 298 mOsm/kg (285-295); Potassium 3.9 mmol/L (3.5-5.1); Sodium 138 mmol/L (136-145)
[2021-07-30 14:58] LABS: Bilirubin Urine Neg (Negative); Blood Urine 3+ (Negative); Glucose Urine UA Norm (Normal); Ketones Urine Negative (Negative); Leukocyte Esterase Urine Negative (Negative); Nitrate Urine Negative (Negative); Protein Urine Neg (Negative); Urine Appearance Clear (CLEAR); Urine Color Yellow (Yellow); Urobilinogen Urine Norm (Negative); pH Urine 5 (5-7)
[2021-07-30 14:59] LABS: Add Urine Microscopic? YES
[2021-07-30 15:06] LABS: Uric Acid Crystals Urine 2 /hpf
--- NOTE | 2021-07-30 15:07 | XR_ITS ---
WS: [id number] Exam: XR chest 1V portable [id number] Date/Time of Exam: 07/30/2021 3:35 PM Reason For Exam: NG tube placement verification Comparison with previous exam performed on the same day at 4:26 AM. An NG tube has been placed. The side-port of the tube is probably near the gastroesophageal junction. The tube should be advanced another 8 to 10 cm for optimal position. The heart is enlarged. There is increased density in the retrocardiac region on the left that may represent left lower lobe consolid ation. No pneumothorax. Widening of the mediastinum unchanged. ET tube remains in good position endin g about 5 cm above the maximo. XR/XR chest 1V portable [id number] IMPRESSION: 1. NG tube in place with the side-port of the tube probably near the GE junctio n. The tube should be advanced another 8 to 10 cm for optimal position. 2. Increased density in the left retrocardiac region that may represent left lo wer lobe consolidation. 3. ET tube remaining in satisfactory position. No other change since prior stud y.
[2021-07-30 15:08] LABS: Add Urine Culture? No
[2021-07-30 15:12] LABS: Squamous Epithelial Cell Urine 0-4 /hpf (0-5)
[2021-07-30 15:15] LABS: Urine Random Sodium 28 mmol/L
--- NOTE | 2021-07-30 15:26 | PC.NURSE ---
Patient's HGB level from labs pulled at 1356 on 07/30/2021 is 7.2. This has trended down over the last [address] melendez and received an order for 1 unit of leukocyte reduced RBCs. Nurse alerted blood bank to new orders. Consent for blood already in chart.
[2021-07-30 15:28] LABS: Creatinine Urine, Random 160 mg/dL (39-259)
[2021-07-30] MEDS: pantoprazole 40 mg SDV IVP (16:15)
--- NOTE | 2021-07-30 17:05 | XRR_ITS ---
PROCEDURE INFORMATION: Exam: XR Chest Exam date and time: 07/30/2021 5:28 PM Age: 60 years old Clinical indication: Device placement; Ng tube; Additional info: Ng tube placement verification, followup after reposition TECHNIQUE: Imaging protocol: Radiologic exam of the chest. Views: 1 view. COMPARISON: CR XR chest 1V portable [id number] 07/30/2021 3:29 PM XR/XR chest 1V portable [id number] IMPRESSION: The nasogastric tube has been advanced and the tip is in the mid stomach. The ETT is stable in position. The cardiopulmonary findings are unchanged.
[2021-07-30] MEDS: sodium chloride 0.9% (100 ml) 100 ML IV (17:40)
--- NOTE | 2021-07-30 18:23 | PC.NURSE ---
Per radiologists reading of the Xray for NG tube placement, it was reccomended to advance another 8-10 CM. Nurse advanced NG tube another 9 CM. Ordered another Xray for verification
--- NOTE | 2021-07-30 18:24 | PC.NURSE ---
Shift Summary: Overall, uneventful shift. Patient's temperature was increased slowly throughout the day with close monitoring of electrolytes. Swelling in face is noticeably decreased and oozing from cric incision has stopped. Total urine output today has been 275mL. Vent setting remains the same. Levophed was turned off at 1030am and hasnt been needed since. After patient reached 97.5 degrees, NUrse started to decreased sedation (see Mar). 1 unit of blood has been started and is still running at the time of this note. Patient's son Narciso has been updated By Dr melendez. Dr hernandez with nephrology has consulted.
[2021-07-30 21:16] LABS: Glucose Point of Care 123 mg/dL (70-110)
[2021-07-30 21:16] LABS: Glucose Point of Care 109 mg/dL (70-110)
[2021-07-30 21:16] LABS: Glucose Point of Care 118 mg/dL (70-110)
[2021-07-30 21:17] LABS: Glucose Point of Care 116 mg/dL (70-110)
[2021-07-30 21:44] LABS: Glucose Point of Care 113 mg/dL (70-110)
[2021-07-30] MEDS: insulin glargine 100 units/1 mL 20 UNIT SUBCUT (21:44)
[2021-07-30 22:53] LABS: Anion Gap 16.3 (5-19); Blood Urea Nitrogen 45 mg/dL (6-20); Calcium 8.6 mg/dL (8.5-10.5); Carbon Dioxide 26 mmol/L (22-29); Chloride 104 mmol/L (98-107); Glomerular Filtration Rate 24.3 mL/min (90-130); Glucose 119 mg/dL (65-115); Osmolality Calculated 307 mOsm/kg (285-295); Potassium 4.3 mmol/L (3.5-5.1); Sodium 142 mmol/L (136-145)
[2021-07-30 23:02] LABS: HEP C RNA Viral Load Quant 7.37 Log IU/mL (NOT DETECTED)
[2021-07-30] MEDS: artificial tears Op Oint 3.5 gm 1 APPLIC EYE-BOTH (23:14)
[2021-07-31] VITALS (95 sets, daily range): BP systolic 88–168; BP diastolic 41–90; PULSE 67–103; RESP 16–22; TEMP 36.5–39.4; O2SAT 88–100
[2021-07-31 00:39] LABS: Glucose Point of Care 113 mg/dL (70-110)
--- NOTE | 2021-07-31 02:07 | PC.NURSE ---
Dr. Morillo at bedside. Updated on patient's status. Reported Levophed drip has been restarted and currently running at 14 mcg/min, Fentanyl and versed drips are off in preparation for EEG in am. Observed patient's slight movements, discussed shivering vs. myoclonus. Orders to continue to monitor.
[2021-07-31 02:31] LABS: Basophils % 0.2 %; Hematocrit 25.5 % (42.0-52.0); Hemoglobin 8.1 g/dL (11.7-16.6); Lymphocytes # 1.2 10^3/uL (0.8-4.8); Lymphocytes % 5.7 %; Mean Corpuscular HGB Conc 31.8 g/dL (30.0-36.0); Mean Corpuscular Hemoglobin 31.5 pg (28.0-34.0); Mean Corpuscular Volume 99.2 fl (80-94); Mean Platelet Volume 11.5 fL (7.4-10.4); Monocytes # 1.3 10^3/uL (0.2-0.9); Monocytes % 6.2 %; Neutrophils # 18.66 10^3/uL (1.8-7.7); Neutrophils % 87.2 %; Nucleated Red Blood Cells % 0.1 %; Platelet Count 76 10^3/cmm (130-400); Red Blood Count 2.57 10^6/uL (4.1-5.3); White Blood Count 21.4 10^3/uL (4.0-10.0)
[2021-07-31 02:52] LABS: Alanine Aminotransferase 16 U/L (0-41); Albumin Level 3.2 g/dL (3.5-5.2); Alkaline Phosphatase 75 IU/L (40-130); Anion Gap 16.2 (5-19); Aspartate Amino Transferase 97 U/L (0-40); Blood Urea Nitrogen 47 mg/dL (6-20); Calcium 8.4 mg/dL (8.5-10.5); Carbon Dioxide 26 mmol/L (22-29); Chloride 105 mmol/L (98-107); Globulin 2.2 g/dL (1.3-4.6); Glomerular Filtration Rate 25.4 mL/min (90-130); Glucose 149 mg/dL (65-115); Osmolality Calculated 311 mOsm/kg (285-295); Potassium 4.2 mmol/L (3.5-5.1); Sodium 143 mmol/L (136-145); Total Bilirubin 0.6 mg/dL (0.15-1.2); Total Protein 5.4 g/dL (6.6-8.7)
[2021-07-31 03:06] LABS: Vitamin B12 508 pg/mL (232-1245)
[2021-07-31 03:07] LABS: Folate Level 9.2 ng/mL (4.5-32.2)
[2021-07-31] MEDS: ipratropium-albuterol 3 mL Neb INHALATION ×5 (03:44→20:01)
[2021-07-31] MEDS: piperacillin-tazobactam 3.375 GM in sodium chloride 0.9% (plus) 50 ML IV ×3 (03:59→20:38)
[2021-07-31 04:38] LABS: Glucose Point of Care 159 mg/dL (70-110)
[2021-07-31 04:38] LABS: Glucose Point of Care 110 mg/dL (70-110)
--- NOTE | 2021-07-31 05:28 | PC.NURSE ---
Reported UOP to Dr. Morillo. Patient on temperature regulation blanket for the duration of shift, set on auto control at 98.6 degrees Fahrenheit.
[2021-07-31 06:47] LABS: Glucose Point of Care 89 mg/dL (70-110)
--- NOTE | 2021-07-31 07:10 | PC.NURSE ---
Bedside report completed with Ana Sebastian Rn.
--- NOTE | 2021-07-31 07:38 | PC.SOCIAL ---
IMM Update IMM not updated; patient remains intubated and in critical condition.
[2021-07-31] MEDS: budesonide 0.5 mg/2 mL Neb INHALATION ×2 (08:00→20:01)
--- NOTE | 2021-07-31 08:00 | PC.NURSE ---
assessment: Pupils sluggishly react to light, to 2 then right back to 3mm while light still shinning in eyes. No respond to threat. No response to painful stimuli: sternal rub and nail bed pinch. Blood clots noted bilat nostrils. Pt shivering and/or seizure active, Cooling blanket still in place. turned off.
--- NOTE | 2021-07-31 08:53 | P.PN_ITS ---
Subjective Subjective: Pt intubated. Nurse present. Vitals/I&O/Wt Last Vital Signs Temp 98.6 F 07/31/21 06:00 Pulse 89 07/31/21 08:00 Resp 21 H 07/31/21 07:45 BP 111/51 07/31/21 06:45 Pulse Ox 100 07/31/21 07:45 07/30/21 07/31/21 07/31/21 22:59 06:59 14:59 Intake Total 607.267 / 936.130 441.874 / 1378.004 Output Total 125 / 275 200 / 475 Balance 482.267 / 661.130 241.874 / 903.004 Weight last 48 hrs Weight 222 lb 5 oz Physical Exam Narrative: Cervical Incision c/d. BLE: warm with good cap refill. Mild Swelling Left tibial Region Urinary Catheter Management: Wooten: Cath Placed During This Visit: yes Urinary Catheter Date of Insertion: 07/28/21 Urinary Catheter Time of Insertion: 07:15 Data : 07/31/21 02:20 07/31/21 02:20 A&P Assessment and plan (1) Status post cervical spinal fusion: Drsg change to cervical region prn. Status: Acute Attestations Medical Necessity Statement*: defer to medical team Coding Level of Care Code Acute Cross [employer] Track [employer] Coach for Chg Fwd Diagnoses Status post cervical spinal fusion Z98.1
--- NOTE | 2021-07-31 09:00 | PC.NURSE ---
Dr Chawla , at bedside, notified of normotensive, cooling blanket has been off and pt is shivering which will affect EEG. . Ok'd to have cooling blanket removed at this time. Cooling blanket removed.
--- NOTE | 2021-07-31 09:48 | PM.PN ---
Subjective Subjective: Mr. Isabel remains critically sick in the intensive care unit. Overnight he did drop his pressures acutely and required transient increase in Levophed. Per RN, neurological evaluation appreciated, sluggish pupils, poorly reactive this morning. Underwent rewarming, pending repeat CT scan of the head today. Urine output still marginal, made 450 mL over the last 24 hours. Vitals/I&O/Wt Last Vital Signs Temp 98.6 F 07/31/21 06:00 Pulse 89 07/31/21 08:00 Resp 19 H 07/31/21 09:30 BP 111/51 07/31/21 06:45 Pulse Ox 100 07/31/21 09:30 07/30/21 07/31/21 07/31/21 22:59 06:59 14:59 Intake Total 607.267 / 936.130 441.874 / 1378.004 Output Total 125 / 275 200 / 475 Balance 482.267 / 661.130 241.874 / 903.004 Weight last 48 hrs Weight 100.839 kg Physical Exam Narrative: Constitutional: Sedated and vented HEENT: Wet mucosa, no jvp, non icteric Lungs: Bilaterally clear without discernible wheeze, rales in all lung zones CVS: S1 S2, no murmurs Abdo: Soft, BS ok Ext 4: Minimal edema, peripheral perfusion with no cyanosis Urinary Catheter Management: Wooten: Cath Placed During This Visit: yes Urinary Catheter Date of Insertion: 07/28/21 Urinary Catheter Time of Insertion: 07:15 Data : 07/31/21 02:20 07/31/21 02:20 A&P Assessment and plan (1) DEENA (acute kidney injury): Status: Acute Plan 1. Oliguric acute kidney injury Consistent with ischemic ATN sustained at the time of the cardiorespiratory arrest. Creatinine came down a little today Vasopressors as needed to maintain MAP greater than 65 No need for additional IV hydration at this time Defer any diuretics at this poonam No indication for renal replacement therapy at this time Strict Is and Os 2. Vent dependent respiratory failure Status post cardiorespiratory arrest Status post hypothermia protocol, rewarmed Management per ICU and medical team CT scan demonstrates loss of differentiation of neal/white matter consistent with anoxic brain injury, for repeat CT today Sedation vacation etc 3. Chemistry Well-balanced 4. Hemodynamics Levophed available if needed to support MAP greater than 65. Thank you for consultation, as always a pleasure to follow these patients with you Mohamud Hanson MD Nephrology [phone] Patient seen and examined via telemedicine, with the assistance of the bedside RN > 25 min spent in evaluation and mgmt of patient Attestations Medical Necessity Statement*: eval for DEENA Coding Level of Care Code Acute [employer] Front Desk Attendant for Chg Fwd Diagnoses DEENA (acute kidney injury) N17.9
[2021-07-31] MEDS: docusate sodium 100 mg Capsule PO ×2 (10:01→18:20)
[2021-07-31 10:27] LABS: Glucose Point of Care 92 mg/dL (70-110)
[2021-07-31] MEDS: acetaminophen 325 mg Tablet 650 MG PO ×3 (11:44→23:48)
[2021-07-31 11:48] LABS: Glucose Point of Care 92 mg/dL (70-110)
--- NOTE | 2021-07-31 13:01 | CT_ITS ---
WS: [id number] CT HEAD TECHNIQUE: Noncontrast CT of the head obtained from the skullbase to the vertex. CLINICAL INFORMATION: follow up COMPARISON: July 29, 2021 DLP: 1064.[address] scans at [facility] use at least one of these dose optimization techniques: automated e xposure control; mA and/or kV adjustment per patient size (includes targeted exams where dose is matc hed to clinical indication); or iterative reconstruction. FINDINGS: Again seen is diffuse loss of neal-white differentiation similar to the prior examination but progres sed today. Low-attenuation change involving the caudate and lentiform nucleus is similar in appearanc e with slightly progressed edema. Suggestion of increased intracranial pressure compared to previous with narrowing of the lateral ventricles. Narrowing of the 3rd ventricle. Basal cisterns remain dailey nt. 4th ventricle remains patent. No tonsillar herniation. New patchy areas of low-attenuation involv ing the cortex more prominent in the LEFT frontal lobe and LEFT greater than RIGHT parasagittal occip ital lobes which was previously described. Fluid and increased attenuation secretions within the paranasal sinuses with air-fluid levels. Soft t issue edema involving the LEFT greater than RIGHT facial soft tissues and parietal calvarium likely d ue to positioning. CT/CT head wo con* [id number] IMPRESSION: 1. Progressed findings of diffuse anoxic brain injury as described above. 2. Diffuse loss of neal-white differentiation progressed compared to previous with evidence of increased intracranial pressure. Progressed narrowing of the l ateral ventricles and 3rd ventricle. 3. Basilar cisterns and 4th ventricle remain patent. No tonsillar herniation. 4. New patchy areas of low-attenuation change involving the cortex more promin ent in the LEFT frontal lobe and LEFT greater than RIGHT parasagittal occipital lobes compatible with hypoperfusion and anoxic brain injury. 5. Increased edema involving the basal ganglia and lentiform nucleus areas of anoxic brain injury/ischemia.
--- NOTE | 2021-07-31 13:03 | P.PN_ITS ---
Subjective Subjective: Sedation shocked off late last night. So far has not exhibited purposeful movements. Not withdrawing to pain. Appears to be overbreathing the ventilator intermittently. No gag reflex. Minute if any pupillary reflex. No corneal reflex. Vitals/I&O/Wt Last Vital Signs Temp 102.2 F H 07/31/21 12:15 Pulse 96 07/31/21 12:15 Resp 17 07/31/21 12:15 BP 122/55 07/31/21 12:15 Pulse Ox 97 07/31/21 12:15 07/30/21 07/31/21 07/31/21 22:59 06:59 14:59 Intake Total 607.267 / 936.130 441.874 / 1378.004 304.282 / 304.282 Output Total 125 / 275 200 / 475 Balance 482.267 / 661.130 241.874 / 903.004 304.282 / 304.282 Weight last 48 hrs Weight 100.839 kg Physical Exam Const: GENERAL APPEARANCE: patient mechanically ventilated HENMT: COMMON NORMALS: normocephalic, EAC's normal, Normal external nose present and moist oral mucous membranes HEAD & SCALP: normocephalic NOSE: Normal external nose present EXTERNAL AUDITORY CANAL: EAC's normal Eye: OTHER: Pupils equal, minute if any papillary response Neck/C-Spine: OTHER: Circumferential neck swelling with mild decrease ecchymosis laterally to R proximal shoulder Chest: CHEST: Yes Symmetrical chest wall rise Resp: COMMON NORMALS: clear to auscultation bilaterally AUSCULTATION: clear to auscultation bilaterally Cardio: COMMON NORMALS: regular rate, regular rhythm and No murmurs present (Cardio) RATE: regular rate RHYTHM: regular rhythm GI: COMMON NORMALS: Soft to palpation PALPATION: Yes Soft to palpation Extremity: COMMON NORMALS: no pedal edema OTHER: Palpable DP pulses BL feet. LLE still slightly > RLE at callahan/calf Neuro: MOTOR EXAM: Other motor observations present (No rigidity.) OTHER: Not yet seen to have purposeful movements. Does appear to intermittently overbreathing the vent. Not withdrawing to pain. No gag reflex elicited. Minute if any pupillary response to light. No menace reflex. No corneal reflex elicited. Skin: RASHES: no rashes Urinary Catheter Management: Wooten: Cath Placed During This Visit: yes Urinary Catheter Date of Insertion: 07/28/21 Urinary Catheter Time of Insertion: 07:15 Data : 07/31/21 02:20 07/31/21 02:20 A&P Assessment and plan (1) Anoxic brain injury: Was started on rewarming yesterday. Weaned off sedation. So far DEENA, but improv ing kidney function. Not yet seen to have purposeful movements. Does appear to intermittently overbreathing the vent. Not withdrawing to pain. No gag reflex elicited. Minute if any pupillary response to light. No menace reflex. No corneal reflex elicited. Continue off sedation. He is this afternoon spiking fevers. Requested blood culture, endotracheal aspirate culture. Broaden antibiotics with vancomycin. Likelihood of central fevers. Tylenol. Surface cooling to alleviate fever. EEG. Repeat CT head. Was resumed on pressor overnight. Continue pressors as needed to maintain blood pressure. Status: Acute (2) Seizures: Possibly seizure has been considered as well. Empirically on Keppra. EEG today. Status: Acute (3) Pneumonia: Pneumonia with possible aspiration. He is having fevers, bodies may be central as well. Still, collect blood culture, collect endotracheal aspirate culture. Broaden antibiotic with vancomycin. On chest x-ray noted increased density in the left retrocardiac region with possible left lower lobe consolidation. Status: Acute (4) Cardiac arrest: Continue reassessment of neurologic condition following cardiac arrest as above. Continue airway and ventilatory support. Further discussions of goals of care depending on condition and neurologic rec overy. Noted episode of nonsustained VT. Continue to monitor on telemetry. Status: Acute (5) DEENA (acute kidney injury): Improving. Creatinine down to 2.6. Likely prerenal, ATN. Continue support blood pressure. Lisinopril on hold. Status: Acute (6) Acute respiratory failure with hypoxia: Continue management of pneumonia as above. Status: Acute (7) Neck swelling: Slightly coming down. Oropharyngeal edema slightly coming down. C4 complement level normal. Pending C1 esterase inhibitor functional assay. Consideration of possibility of anaphylactic reaction. Postprocedural swelling. Retr opharyngeal/prevertebral hematoma. Swelling likely to gradually go down, however, needs continued airway support at this time. Consideration of tracheostomy will likely be needed. Status: Acute (8) Bicytopenia: With good response to RBC transfusion on 07/30. Hemoglobin up to 8.1. Platelets with slight improvement to 76,000. Not on heparin products. Some blood loss likely, will reassess blood count. Leukocytosis with absolute neutrophilia and toxic granulation on peripheral smear. Microcytic anemia. Absolute monocytosis. Thrombocytopenia. No blasts or equivalent cells were identified. Does have some splenomegaly history. Coagulation studies have been okay. Possibly also component of dilution in positive balance. Follow-up blood count. Status: Acute Plan Left lower extremity dusky appearance: Improving/resolving. Palpable BL DP pulses. Discussed also condition monitoring of left lower extremity. No DVT noted on ultrasound. Continue neurovascular checks. Follow-up CK. Nasopharyngeal blood clots: Some clots in the nasopharynx noted after intubation attempts. Precluded bronchoscopy. Today with some brownish slow oozing. Not on anticoagulation. Monitor amount/for recurrence. Empiric antibiotics coverage, broadening with vancomycin. 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 Hepatitis C: HCV RNA 23,200,000. 7.37 IUs/mL. Attestations Medical Necessity Statement*: Continue admission for reassessment of neurologic recovery following cardiopulmonary arrest, hemodynamic and respirat ory support, investigation and empiric treatment of pneumonia, fever. Critical Care Time: The high probability of a clinically significant, sudden o r life threatening deterioration of the patient's hemodynamic, neurologic, respiratory, infectious disease system(s) required my full and direct attention, intervention and personal management. The critical care time is as shown. This time is in addition to time spent performing any reported procedures but includes the following: x Data and vital sign review and interpretation x Patient assessment, examination and intervention x Documentation x Medication orders and management Critical Care Time (min): 60 Coding Level of Care Code Acute Da[employer] Color Mixer for [facility] Fwd Exam Comprehensive Diagnoses Anoxic brain injury G93.1 Cardiac arrest I46.9 Seizures R56.9 DEENA (acute kidney injury) N17.9 Acute respiratory failure with hypoxia J96.01 Neck swelling R22.1 Bicytopenia D75.89 Pneumonia J18.9
[2021-07-31] MEDS: vancomycin 1,000 MG in sodium chloride 0.9% 250 ML 250 MG IV (13:52)
--- NOTE | 2021-07-31 13:57 | PC.NURSE ---
Dr Chawla notified of family discussed Ct and to go ahead with CT w/o contrast. Pt febrile. Acetaminophen admin per OG , temp increased to 102.2 One time order for Acetaminophen received and to restart the cooling blanket.
--- NOTE | 2021-07-31 14:23 | CT_ITS ---
WS: [id number] CT NECK TECHNIQUE: Noncontrast CT of the neck with coronal and sagittal reformatted images. CLINICAL INFORMATION: RT SIDE NECK SWELLING COMPARISON: July 29, 2021 DLP: 524.[address] scans at [facility] use at least one of these dose optimization techniques: automated e xposure control; mA and/or kV adjustment per patient size (includes targeted exams where dose is matc hed to clinical indication); or iterative reconstruction. FINDINGS: Endotracheal tube appears in good position with tip above the maximo. Enteric tube with tip extending off the [id number]. Fluid in the posterior nasopharynx from intubation. Diffuse anasarca within t he neck soft tissues similar to the prior examination. No superficial fluid collections. Previously d escribed retropharyngeal/prevertebral increased attenuation hematoma appears slightly improved compar ed to previous. This again extends to the thoracic inlet and posterior mediastinum This measures appr oximately 2.0 cm in maximum dimension. Airway remains patent. Partially visualized hematoma in the RI GHT upper mediastinum appears improved. New increased LEFT greater than RIGHT pleural effusions partially visualized with compressive atelect asis. This is developed since the prior examination. Cervical fusion appears stable. No high-grade central canal stenosis. Spinal canal appears patent. CT/CT neck wo con [id number] IMPRESSION: 1. Endotracheal tube tip above the maximo. Enteric tube tip below the diaphrag m. 2. New partially visualized LEFT greater than RIGHT pleural effusions with com pressive atelectasis in the upper lungs 3. Previously described retropharyngeal/prevertebral hematoma appears slightly improved compared to previous. This is stable to slightly improved at the thor acic inlet extending into the mediastinum. Today this measures 2.0 cm in maximu m AP dimension. 4. Diffuse anasarca in the neck soft tissues is similar to the prior examinati on. No drainable fluid collections. 5. Stable cervical fusion. 6. Fluid with inspissated secretions in the paranasal sinuses. 7. No other significant changes.
--- NOTE | 2021-07-31 14:40 | PC.NURSE ---
Pt back from CT. Rectal temp 102.9. Cooling blanket restarted. ICe bags applied to bilat axilla and groin. Fan in room on. Heel and elbow foam protectors removed. Acetaminophen admin per OG. Will continue to monitor. Family at bedside updated.
[2021-07-31] MEDS: pantoprazole 40 mg SDV IVP (15:48)
[2021-07-31 16:03] LABS: Glucose Point of Care 141 mg/dL (70-110)
--- NOTE | 2021-07-31 17:30 | PC.NURSE ---
Pt's temp down to 98.4 rectally. Cooling blanket turned off. Fan turned off. Heel and elbow protectors reapplied. Will continue to monitor.
[2021-07-31 17:42] LABS: Glucose Point of Care 106 mg/dL (70-110)
[2021-07-31 18:30] LABS: Glucose Point of Care 122 mg/dL (70-110)
--- NOTE | 2021-07-31 18:48 | PM.MISC ---
Miscellaneous Note Purpose of Documentation: EEG Note: ORDERING PHYSICIAN: Dr. Chawla. REASON FOR STUDY: Anoxic encephalopathy. The patient was on hypothermia protocol and rewarming started yesterday. Sedation reportedly discontinued last night. STUDY: This was a 21 channel digital electroencephalogram performed using the 10-20 international system of electrode placement. This study was performed at the bedside in ICU. FINDINGS: The background was flat with assorted artifact. There was low voltage slow activity posteriorly associated with what appears to be an IV artifact so its not clearly of cerebral origin, especially as this activity was periodic and had the regularity of electrical artifact. Movement artifact was seen associated with pain procedures including nailbed pressure, brow pressure, although the painting technician did not see gross motor movement associated with these maneuvers and the movement artifact would have been consistent with lead movement. No EEG activity was generated by pain procedures. IMPRESSION: Abnormal EEG because of profoundly flat background. There was possibly low voltage slowing in the posterior leads, although the regularity of this activity was suspicious for ICU artifact (IV pump, etc.). There was no epileptiform activity. There was no sign of subclinical seizures. Duration of EE minutes
--- NOTE | 2021-07-31 19:03 | PC.NURSE ---
Shift report: Pt remains intubated and of sedation. Pt continues to not respond to painful stimuli. His eyes do not respond to threat. No gag reflex. No extremity movement noted. Pt temp has been labile, 97.7 to 102.9 rectally. The cooling blanket has been used for several hours this shift. His neck looks more swollen, but his tongue is back in his mouth. He has had brownish red thick drainage from bilat nostrils. Levophed decreased to 4mcg/min. Both peripheral IVs, Central line in right groin and left art line patent. He has had EEG, awaiting results. He has had a neck and head CT this afternoon. Neck CT said no change in edema. Anuria noted, only 5ml of urine this sift. NO bowel movement. Family has been at bedside, off and on , today. Family has been updated on tests and ongoing care. All questions answered. Bedside report completed with Lizbeth Sebastian RN.
[2021-07-31] MEDS: insulin glargine 100 units/1 mL 20 UNIT SUBCUT (20:39)
[2021-07-31 20:40] LABS: Glucose Point of Care 116 mg/dL (70-110)
[2021-07-31 23:22] LABS: Glucose Point of Care 105 mg/dL (70-110)
[2021-07-31] MEDS: artificial tears Op Oint 3.5 gm 1 APPLIC EYE-BOTH (23:48)
[2021-08-01] VITALS (111 sets, daily range): BP systolic 135–200; BP diastolic 58–124; PULSE 66–90; RESP 15–25; TEMP 36.6–37.9; O2SAT 95–100
[2021-08-01] MEDS: ipratropium-albuterol 3 mL Neb INHALATION ×6 (00:01→19:34)
--- NOTE | 2021-08-01 00:27 | PC.NURSE ---
Dr. Morillo at bedside. Reviewed vital signs. Reported elevated blood pressure. Orders to continue to monitor.
[2021-08-01 01:05] LABS: Glucose Point of Care 109 mg/dL (70-110)
--- NOTE | 2021-08-01 01:36 | PC.NURSE ---
2300 Patient's temperature elevated. Dr. Morillo notified. Cooling blanket resumed. Tylenol given per order.
--- NOTE | 2021-08-01 02:01 | PC.NURSE ---
MRSA nasal swab delayed d/t nose bleed. Collected as soon as bleeding subsided.
--- NOTE | 2021-08-01 02:34 | PC.NURSE ---
It was reported by day shift nurse that patient had 5 ml of urine over shift. UOP closely monitored throughout the night and when only a few mls had drained over several hours, a bladder scan was obtained. The bladder scan amount was >[address] Morillo was notified and ordered Wooten to be replaced. This order was followed and 1300 ml of dark yellow urine was drained. Will continue to closely monitor UOP.
[2021-08-01 03:39] LABS: Glucose Point of Care 128 mg/dL (70-110)
[2021-08-01] MEDS: piperacillin-tazobactam 3.375 GM in sodium chloride 0.9% (plus) 50 ML IV ×3 (04:35→20:24)
[2021-08-01 04:38] LABS: Glucose Point of Care 123 mg/dL (70-110)
[2021-08-01 05:46] LABS: Basophils % 0.1 %; Hematocrit 21.7 % (42.0-52.0); Hemoglobin 6.7 g/dL (11.7-16.6); Lymphocytes % 9.3 %; Mean Corpuscular HGB Conc 30.9 g/dL (30.0-36.0); Mean Corpuscular Hemoglobin 31.3 pg (28.0-34.0); Mean Corpuscular Volume 101.4 fl (80-94); Mean Platelet Volume 11.9 fL (7.4-10.4); Monocytes # 0.6 10^3/uL (0.2-0.9); Monocytes % 5.8 %; Neutrophils # 8.89 10^3/uL (1.8-7.7); Neutrophils % 84.1 %; Nucleated Red Blood Cells % 0.2 %; Platelet Count 60 10^3/cmm (130-400); Red Blood Count 2.14 10^6/uL (4.1-5.3); Red Cell Distribution Width 18.6 % (12.1-15.1); White Blood Count 10.6 10^3/uL (4.0-10.0)
[2021-08-01 06:10] LABS: Alanine Aminotransferase 15 U/L (0-41); Albumin Level 3.1 g/dL (3.5-5.2); Alkaline Phosphatase 83 IU/L (40-130); Aspartate Amino Transferase 122 U/L (0-40); Blood Urea Nitrogen 70 mg/dL (6-20); Calcium 8.4 mg/dL (8.5-10.5); Carbon Dioxide 23 mmol/L (22-29); Chloride 107 mmol/L (98-107); Globulin 2.5 g/dL (1.3-4.6); Glomerular Filtration Rate 21.5 mL/min (90-130); Glucose 100 mg/dL (65-115); Osmolality Calculated 319 mOsm/kg (285-295); Sodium 144 mmol/L (136-145); Total Bilirubin 0.8 mg/dL (0.15-1.2); Total Protein 5.6 g/dL (6.6-8.7)
[2021-08-01 06:18] LABS: Creatine Phosphokinase 1195 U/L (39-308)
--- NOTE | 2021-08-01 06:50 | PC.NURSE ---
Bedside report completed with Lizbeth Sebastian RN.
--- NOTE | 2021-08-01 07:12 | PM.PN ---
Subjective Subjective: remains intubated Vitals/I&O/Wt Last Vital Signs Temp 98.5 F 08/01/21 06:00 Pulse 75 08/01/21 06:00 Resp 19 H 08/01/21 06:26 BP 143/77 08/01/21 06:00 Pulse Ox 98 08/01/21 06:26 07/31/21 08/01/21 08/01/21 22:59 06:59 14:59 Intake Total 513.043 / 962.325 155 / 1117.325 Output Total 1600 / 1605 Balance 508.043 / 957.325 -1445 / -487.675 Weight last 48 hrs Weight 231 lb Weight 222 lb 5 oz Physical Exam Narrative: intubated Urinary Catheter Management: Wooten: Cath Placed During This Visit: yes Reason for Continuing Indwelling Catheter: Accurate Measurement of Urinary Output in Critically Ill Patients Urinary Catheter Date of Insertion: 08/01/21 Urinary Catheter Time of Insertion: 02:20 Data : 08/01/21 04:30 08/01/21 04:30 Micro: Microbiology 07/31/21 16:16 Blood Culture - Preliminary Blood SPECIMEN COLLECTED 07/31/21 15:30 Blood Culture - Preliminary Blood SPECIMEN COLLECTED A&P Assessment and plan (1) Encounter for postoperative care: continue to follow Status: Acute Attestations Medical Necessity Statement*: per hospitalist service Coding Level of Care Code Acute Marble Installer for Aishwarya Rodríguez Diagnoses Encounter for postoperative care Z48.89
[2021-08-01] MEDS: budesonide 0.5 mg/2 mL Neb INHALATION ×2 (07:31→19:34)
--- NOTE | 2021-08-01 10:00 | PM.PN ---
Subjective Subjective: Events of the last 24 hours noted, he remains critically sick in the ICU. Creatinine 3, urine output is reasonable at 1605. Poor neurological response still. Both CT scan and EEG is appreciated. Vitals/I&O/Wt Last Vital Signs Temp 98.5 F 08/01/21 06:00 Pulse 82 08/01/21 07:15 Resp 20 H 08/01/21 09:38 BP 143/77 08/01/21 06:00 Pulse Ox 100 08/01/21 09:38 07/31/21 08/01/21 08/01/21 22:59 06:59 14:59 Intake Total 513.043 / 962.325 155 / 1117.325 Output Total 1600 / 1605 Balance 508.043 / 957.325 -1445 / -487.675 Weight last 48 hrs Weight 104.78 kg Weight 100.839 kg Physical Exam Narrative: Constitutional: Sedated and vented HEENT: Wet mucosa, no jvp, non icteric Lungs: Bilaterally clear without discernible wheeze, rales in all lung zones CVS: S1 S2, no murmurs Abdo: Soft, BS ok Ext 4: Minimal edema, peripheral perfusion with no cyanosis Urinary Catheter Management: Wooten: Cath Placed During This Visit: yes Reason for Continuing Indwelling Catheter: Accurate Measurement of Urinary Output in Critically Ill Patients Urinary Catheter Date of Insertion: 08/01/21 Urinary Catheter Time of Insertion: 02:20 Data : 08/01/21 04:30 08/01/21 04:30 Micro: Microbiology 07/31/21 16:16 Blood Culture - Preliminary Blood SPECIMEN COLLECTED 07/31/21 15:30 Blood Culture - Preliminary Blood SPECIMEN COLLECTED A&P Assessment and plan (1) DEENA (acute kidney injury): Status: Acute Plan 1. Acute kidney injury Consistent with ischemic ATN sustained at the time of the cardiorespiratory arrest. Creatinine hovering in high 2/3 range Vasopressors as needed to maintain MAP greater than 65 No need for additional IV hydration at this time Defer any diuretics at this poonam No indication for renal replacement therapy at this time Strict Is and Os 2. Vent dependent respiratory failure Status post cardiorespiratory arrest Status post hypothermia protocol, rewarmed Management per ICU and medical team CT scan demonstrates loss of differentiation of neal/white matter consistent with anoxic brain injury, with similar findings on repeat imaging, EEG appreciated Sedation off 3. Chemistry Well-balanced 4. Hemodynamics Levophed available if needed to support MAP greater than 65. Thank you for consultation, as always a pleasure to follow these patients with you Mohamud Hanson MD Nephrology [phone] Patient seen and examined via telemedicine, with the assistance of the bedside RN > 25 min spent in evaluation and mgmt of patient Attestations Medical Necessity Statement*: eval for DEENA Coding Level of Care Code Acute Reactor Fueling Supervisor for g Fwd Diagnoses DEENA (acute kidney injury) N17.9
--- NOTE | 2021-08-01 10:37 | PC.CHAP ---
Pastoral Care Encounter/Spiritual Assessment Type of Contact [] Declined machine iii coremaker visit [] Patient/Family/Request visit [] Outpatient visit [] Follow-up visit [] Physician referral [] Code/Alert [x] Routine visit [] Staff referral [] Actively dying [x] Patient sleeping [] Family support [] [] Out of room [] Palliative care [] [] Receiving care in room [] Pre-surgical visit [] Trauma [] Long length of stay [x] ICU visit [x] Other: vent Relational/Emotional Strength [] Patient feels connected with others/family/visitors/staff [] Distress [] Loneliness/isolation [] Abandonment Spirituality of Patient [] Person of Tasneem [] Attends Gnosticism of their Tasneem [] Believes in Prayer [] Reads Bible or Mormonism materials [] There are Spiritual issues to be addressed Computational Theory Scientist Interventions [x] Prayer [] Active listening [] Non-anxious presence [] Spiritual/emotional support [] Crisis/trauma care [] Spiritual counseling [] Bereavement support [] Provided bereavement packet [] Provided Bible/devotional materials [] Provided toy/stuffed animal, coloring book to patient or family member [] Provided Communion [] Anointing/[place] [] Salvation [x] Completed spiritual assessment [] Other: Impact on Illness or Injury [] Angry [] Fearful [] Anxious [] Often cries [] Exhaustion [] Unable to work [] Unable to attend bahai [] Unable to walk/stand [] Unable to read [] Unable to drive [] Unable to eat/drink [] Unable to sleep [] Unable to be with family [] Patient intubated [] Other: Summary Time spent with patient
[2021-08-01] MEDS: docusate sodium 100 mg Capsule PO ×2 (10:48→18:36)
[2021-08-01] MEDS: sodium chloride 0.9% (100 ml) 100 ML (13:16)
[2021-08-01 13:33] LABS: Glucose Point of Care 125 mg/dL (70-110)
[2021-08-01 13:33] LABS: Glucose Point of Care 125 mg/dL (70-110)
[2021-08-01 13:34] LABS: Glucose Point of Care 121 mg/dL (70-110)
[2021-08-01] MEDS: vancomycin 1,000 MG in sodium chloride 0.9% 250 ML 250 MG IV (13:50)
--- NOTE | 2021-08-01 14:10 | PC.NURSE ---
Pt normotensive. Shivering noted. Cooling blanket turned off at this time.
--- NOTE | 2021-08-01 16:05 | PC.NURSE ---
TAR vital signs: see vital sing asessment for VS>
--- NOTE | 2021-08-01 16:24 | P.PN_ITS ---
Subjective Subjective: No longer hypothermic as of about 1800 on 07/30 and off sedation since about midnight 07/30-07/31. This morning on reassessment I did not observe any return of purposeful movements, and none so far have been reported. Overbreathing the vent but intermittently and with irregular breathing. Intermittent shivers. not withdrawing to pain. Cannot elicit numbness or pupillary light reflex, no corneal reflex, no gag reflex. Meeting with his family today, we discussed results of the CT scan with pro gressive findings suggestive of diffuse ischemic/anoxic brain injury, additional CVA noted more prominent in the left frontal lobe in addition to left greater than right parasagittal occipital lobes, basal ganglia. Findings again noted of brain edema following ischemic/anoxic injury with some progression, without so far signs of herniation. We discussed also the EEG findings with no seizures but profoundly flat background, lack of response to pain. We discussed unfortunately the findings so far are indicative of profound ischemic/anoxic brain injury with poor prognosis for recovery. Currently family would like to continue life support and to take additional time to discuss further regarding goals of care among family. So we are going to continue reassessments with additional time from discontinuation of sedation with consideration of renal insufficiency, allowing further time for decreased renal clearance of sedatives. They would like to revisit again tomorrow. Vitals/I&O/Wt Last Vital Signs Temp 98.6 F 08/01/21 14:00 Pulse 73 08/01/21 15:15 Resp 24 H 08/01/21 15:13 BP 174/94 08/01/21 15:15 Pulse Ox 100 08/01/21 15:15 08/01/21 08/01/21 08/01/21 06:59 14:59 22:59 Intake Total 155 / 1117.325 50 / 50 Output Total 1600 / 1605 Balance -1445 / -487.675 50 / 50 Weight last 48 hrs Weight 104.78 kg Weight 100.839 kg Physical Exam Narrative: Family with him by the bedside. Const: GENERAL APPEARANCE: patient mechanically ventilated OTHER: Intubated. Off sedation. HENMT: COMMON NORMALS: normocephalic, EAC's normal, Normal external nose present and moist oral mucous membranes HEAD & SCALP: normocephalic NOSE: Normal external nose present EXTERNAL AUDITORY CANAL: EAC's normal OTHER: Some oozing of prior liquefied clot from nares, L>R Eye: OTHER: Pupils equal, no menace response, no pupillary response, no corneal reflex. Neck/C-Spine: OTHER: Circumferential neck swelling with mild decrease. Ecchymosis laterally to R p roximal shoulder Chest: CHEST: Yes Symmetrical chest wall rise Resp: COMMON NORMALS: clear to auscultation bilaterally AUSCULTATION: clear to auscultation bilaterally Cardio: COMMON NORMALS: regular rate, regular rhythm and No murmurs present (Cardio) RATE: regular rate RHYTHM: regular rhythm GI: COMMON NORMALS: Soft to palpation PALPATION: Yes Soft to palpation Extremity: COMMON NORMALS: no pedal edema OTHER: Palpable DP pulses BL feet. LLE still slightly > RLE at callahan/calf Neuro: MOTOR EXAM: Other motor observations present (No rigidity.) OTHER: Not yet seen to have purposeful movements. Does appear to intermittently overbreathing the vent. Not withdrawing to pain. No gag reflex elicited. No pupillary response to light. No menace reflex. No corneal reflex elicited. Skin: RASHES: no rashes Urinary Catheter Management: Wooten: Cath Placed During This Visit: yes Reason for Continuing Indwelling Catheter: Accurate Measurement of Urinary Output in Critically Ill Patients Urinary Catheter Date of Insertion: 08/01/21 Urinary Catheter Time of Insertion: 02:20 Data : 08/01/21 04:30 08/01/21 04:30 Micro: Microbiology 08/01/21 02:00 MRSA Culture - Final Nose 07/31/21 15:30 Blood Culture - Preliminary Blood NEGATIVE TO DATE 07/31/21 15:20 Gram Stain - Final Sputum - Endotracheal Tube Aspirate 07/31/21 16:16 Blood Culture - Preliminary Blood SPECIMEN COLLECTED A&P Assessment and plan (1) Anoxic brain injury: So far clinical, imaging and EEG indicators unfortunately predicting poor l ikelihood of recovery. On family discussion desire is to give additional time before reassessment to account for decreased renal clearance of sedatives with diminished renal function. Tomorrow night will be 72 hours since normothermia and discontinuation of sedation. We will be revisiting them with updates and answer questions along the way. If longer supportive care would be determined to be the goal before further reassessment, would also consider if he would be candidate for LTAC. Continue off sedation. Tylenol as needed and has been needing some cueing for spiking fevers. Follow- up blood culture, endotracheal aspirate culture. Leukocytosis today improved down to 10.6. Broaden antibiotics with vancomycin. Likelihood of central fevers. Tylenol. Surface cooling to alleviate fever. Weaned off pressor, today hypotensive, permissive hypertension, with excess caution in treating so as not to compromise cerebral perfusion. Possible autonomic instability. Pressors if needed to maintain blood pressure. Status: Acute (2) Seizures: No seizures on EEG. Status: Acute (3) Pneumonia: Pneumonia with possible aspiration. He is having fevers, bodies may be central as well. Follow-upcollect blood culture, collect endotracheal aspirate culture. Broaden antibiotic with vancomycin. MRSA PCR negative. For now continue. On chest x-ray noted increased density in the left retrocardiac region with possible left lower lobe consolidation. Status: Acute (4) Cardiac arrest: Continue reassessment of neurologic condition following cardiac arrest as above. Continue airway and ventilatory support. Further discussions of goals of care depending on condition and neurologic recovery. Noted episode of nonsustained VT. Continue to monitor on telemetry. Status: Acute (5) DEENA (acute kidney injury): Some fluctuation in creatinine today after 3. Likely prerenal, ATN. Continue support blood pressure. Lisinopril on hold. Now weaned off pressor. Status: Acute (6) Acute respiratory failure with hypoxia: Continue management of pneumonia as above. Status: Acute (7) Neck swelling: Slightly coming down. Oropharyngeal edema slightly coming down. C4 complement level normal. Pending C1 esterase inhibitor functional assay. Consideration of possibility of anaphylactic reaction. Postprocedural swelling. Retropharyngeal/prevertebral hematoma. Swelling likely to gradually go down, however, needs continued airway support at this time. Consideration of tracheostomy will likely be needed. Status: Acute (8) Bicytopenia: Additional RBC transfusion. With good response to RBC transfusion on 07/30. Leukocytosis with absolute neutrophilia and toxic granulation on peripheral smear. Microcytic anemia. Absolute monocytosis. Thrombocytopenia. No blasts or equivalent cells were identified. Does have some splenomegaly history. Coagulation studies have been okay. Follow-up blood count. Status: Acute Plan Left lower extremity dusky appearance: Resolved. Palpable BL DP pulses. Discussed also condition monitoring of left lower extremity. No DVT noted on ultrasound. Continue neurovascular checks. Follow-up CK with increase up to 1195. Requested recheck. Nasopharyngeal blood clots: Some clots in the nasopharynx noted after intubation attempts. Precluded bronchoscopy. Today with some brownish slow oozing. Not on anticoagulation. Monitor amount/for recurrence. Empiric antibiotics coverage, broadening with vancomycin. 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 Hepatitis C: HCV RNA 23,200,000. 7.37 IUs/mL. Attestations Medical Necessity Statement*: Continue admission for reassessment of neurologic recovery following cardiopulmonary arrest, hemodynamic and respiratory support, treatment of fevers. Treatment of pneumonia. Critical Care Time: The high probability of a clinically significant, sudden or life threatening deterioration of the patient's hemodynamic, neurologic, respiratory, infectious disease?system(s) required my full and direct attention, intervention and personal management. The critical care time is as shown. This time is in addition to time spent performing any reported procedures but includes the following: x Data and vital sign review and interpretation x Patient assessment, examination and intervention x Documentation x Medication orders and management Critical Care Time (min): 55 Coding Level of Care Code Acute Manager Emergency for [employer] Fwd Diagnoses Anoxic brain injury G93.1 Seizures R56.9 Pneumonia J18.9 Cardiac arrest I46.9 DEENA (acute kidney injury) N17.9 Acute respiratory failure with hypoxia J96.01 Neck swelling R22.1 Bicytopenia D75.89
[2021-08-01] MEDS: pantoprazole 40 mg SDV IVP (17:30)
[2021-08-01 17:33] LABS: Functional C1 Estrase Inhibito 92 %
--- NOTE | 2021-08-01 18:00 | PC.NURSE ---
Pt febrile again. Temp 100.2 F. Cooling blanket back on set for 98.6.
[2021-08-01 18:50] LABS: Glucose Point of Care 123 mg/dL (70-110)
[2021-08-01 18:50] LABS: Glucose Point of Care 117 mg/dL (70-110)
[2021-08-01 18:50] LABS: Glucose Point of Care 118 mg/dL (70-110)
--- NOTE | 2021-08-01 19:33 | PC.NURSE ---
Shift summary: Pt remains intubated. No changes in neuro status: no response to corneal reflex, threat, painful stimuli ( nail bed pinch) or gag reflex. No extremity movement noted all shift. Pt breathing over vent. Irregular breathing pattern noted. Pt remains hypertensive, Per Dr not to treat/call Dr until BP cuff SBP 200-220,, 1 unit of PRBCs admin todya. Family very attentive. Family meeting with Dr Chawla today. Urine out put of 1350 noted. No change in neck incision, Neck still edematous and purple. Bedside report completed with Lizbeth Sebastian RN.
[2021-08-01] MEDS: insulin glargine 100 units/1 mL 20 UNIT SUBCUT (20:30)
[2021-08-01 20:32] LABS: Glucose Point of Care 116 mg/dL (70-110)
[2021-08-01 22:24] LABS: Glucose Point of Care 122 mg/dL (70-110)
[2021-08-02] VITALS (111 sets, daily range): BP systolic 170–207; BP diastolic 84–102; PULSE 58–75; RESP 18–22; TEMP 36.6–37.4; O2SAT 95–100
[2021-08-02 00:09] LABS: Glucose Point of Care 123 mg/dL (70-110)
[2021-08-02] MEDS: ipratropium-albuterol 3 mL Neb INHALATION ×5 (00:17→19:25)
--- NOTE | 2021-08-02 00:28 | PC.NURSE ---
It was reported by day shift nurse that the doctors are aware of hypertension. Orders not to report blood pressure until systolic cuff pressure is greater than 200. Clarified this with Dr. Morillo and reported current cuff BP of 185/94. Order confirmed. Will monitor blood pressure closely and report systolic cuff pressure greater than 200.
[2021-08-02] MEDS: sodium chloride 0.9% 500 ML XX (03:20)
[2021-08-02 03:59] LABS: Basophils % 0.2 %; Hemoglobin 8.2 g/dL (11.7-16.6); Lymphocytes # 0.7 10^3/uL (0.8-4.8); Lymphocytes % 7.1 %; Mean Corpuscular HGB Conc 32.8 g/dL (30.0-36.0); Mean Corpuscular Hemoglobin 31.2 pg (28.0-34.0); Mean Corpuscular Volume 95.1 fl (80-94); Mean Platelet Volume 11.8 fL (7.4-10.4); Monocytes # 0.5 10^3/uL (0.2-0.9); Monocytes % 5.3 %; Neutrophils # 8.72 10^3/uL (1.8-7.7); Neutrophils % 86.7 %; Nucleated Red Blood Cells % 0 %; Platelet Count 61 10^3/cmm (130-400); Red Blood Count 2.63 10^6/uL (4.1-5.3); Red Cell Distribution Width 18.3 % (12.1-15.1); White Blood Count 10.1 10^3/uL (4.0-10.0)
[2021-08-02 04:24] LABS: Alanine Aminotransferase 19 U/L (0-41); Albumin Level 3.3 g/dL (3.5-5.2); Alkaline Phosphatase 79 IU/L (40-130); Anion Gap 16.1 (5-19); Aspartate Amino Transferase 110 U/L (0-40); Blood Urea Nitrogen 73 mg/dL (6-20); Calcium 9.1 mg/dL (8.5-10.5); Carbon Dioxide 23 mmol/L (22-29); Chloride 112 mmol/L (98-107); Globulin 2.6 g/dL (1.3-4.6); Glomerular Filtration Rate 30.8 mL/min (90-130); Glucose 112 mg/dL (65-115); Osmolality Calculated 326 mOsm/kg (285-295); Potassium 4.1 mmol/L (3.5-5.1); Sodium 147 mmol/L (136-145); Total Bilirubin 0.8 mg/dL (0.15-1.2); Total Protein 5.9 g/dL (6.6-8.7)
[2021-08-02] MEDS: piperacillin-tazobactam 3.375 GM in sodium chloride 0.9% (plus) 50 ML IV ×3 (04:24→21:43)
[2021-08-02 04:25] LABS: Creatine Phosphokinase 1095 U/L (39-308)
[2021-08-02 04:25] LABS: Glucose Point of Care 131 mg/dL (70-110)
[2021-08-02 05:58] LABS: Glucose Point of Care 122 mg/dL (70-110)
--- NOTE | 2021-08-02 07:24 | PC.NURSE ---
Report Received from shift engineer nurse Andrew
--- NOTE | 2021-08-02 07:31 | PC.SOCIAL ---
IMM Update pg 2 of IMM not updated. Patient is intubated and family is discussing goals of care.
[2021-08-02] MEDS: budesonide 0.5 mg/2 mL Neb INHALATION ×2 (07:42→19:25)
--- NOTE | 2021-08-02 08:03 | P.PN_ITS ---
Subjective Subjective: Events of the last 24 hours noted. He remains critically sick in the ICU. He remains off vasopressor agents, blood pressure is fluctuant and labile. No neurological recovery at this time. Good urine output. No extremity edema. Vitals/I&O/Wt Last Vital Signs Temp 98.3 F 08/02/21 06:00 Pulse 70 08/02/21 07:57 Resp 22 H 08/02/21 07:19 BP 195/95 08/02/21 06:00 Pulse Ox 98 08/02/21 07:19 08/01/21 08/02/21 08/02/21 22:59 06:59 14:59 Intake Total 790 / 975 155 / 1130 Output Total 1950 / 1950 750 / 2700 Balance -1160 / -975 -595 / -1570 Weight last 48 hrs Weight 101.86 kg Weight 104.78 kg Physical Exam Narrative: Constitutional: Sedated and vented HEENT: Wet mucosa, no jvp, non icteric Lungs: Bilaterally clear without discernible wheeze, rales in all lung zones CVS: S1 S2, no murmurs Abdo: Soft, BS ok Ext 4: Minimal edema, peripheral perfusion with no cyanosis Urinary Catheter Management: Wooten: Cath Placed During This Visit: yes Reason for Continuing Indwelling Catheter: Accurate Measurement of Urinary Output in Critically Ill Patients Urinary Catheter Date of Insertion: 08/01/21 Urinary Catheter Time of Insertion: 02:20 Data : 08/02/21 03:05 08/02/21 03:05 Micro: Microbiology 07/31/21 16:16 Blood Culture - Preliminary Blood NEGATIVE TO DATE 08/01/21 02:00 MRSA Culture - Final Nose 07/31/21 15:30 Blood Culture - Preliminary Blood NEGATIVE TO DATE 07/31/21 15:20 Gram Stain - Final Sputum - Endotracheal Tube Aspirate A&P Assessment and plan (1) DEENA (acute kidney injury): Status: Acute Plan 1. Acute kidney injury Consistent with ischemic ATN sustained at the time of the cardiorespiratory arrest. Creatinine improving Vasopressors as needed to maintain MAP greater than 65 No need for additional IV hydration at this time Defer any diuretics at this poonam No indication for renal replacement therapy at this time Strict Is and Os 2. Vent dependent respiratory failure Status post cardiorespiratory arrest Status post hypothermia protocol, rewarmed Management per ICU and medical team CT scan demonstrates loss of differentiation of neal/white matter consistent with anoxic brain injury, with similar findings on repeat imaging, EEG appreciated Sedation off 3. Chemistry Sodium creeping up. Will give some gentle ivf with D5w 4. Hemodynamics Levophed available if needed to support MAP greater than 65. Thank you for consultation, as always a pleasure to follow these patients with you D/w multiple team members Mohamud Hanson MD Nephrology [phone] Patient seen and examined via telemedicine, with the assistance of the bedside RN > 25 min spent in evaluation and mgmt of patient Attestations 2 Medical Necessity Statement*: eval for renal failure Coding Level of Care Code Acute Inspector Material Disposition for [facility] Fwd Diagnoses DEENA (acute kidney injury) N17.9
--- NOTE | 2021-08-02 08:16 | P.PN_ITS ---
Subjective Subjective: Patient remains in ICU. He remains intubated Vitals/I&O/Wt Last Vital Signs Temp 98.3 F 08/02/21 06:00 Pulse 70 08/02/21 07:57 Resp 22 H 08/02/21 07:19 BP 195/95 08/02/21 06:00 Pulse Ox 98 08/02/21 07:19 08/01/21 08/02/21 08/02/21 22:59 06:59 14:59 Intake Total 790 / 975 155 / 1130 Output Total 1950 / 1950 750 / 2700 Balance -1160 / -975 -595 / -1570 Weight last 48 hrs Weight 224 lb 9 oz Weight 231 lb Physical Exam Narrative: Cervical wounds clean dry and intact Urinary Catheter Management: Wooten: Cath Placed During This Visit: yes Reason for Continuing Indwelling Catheter: Accurate Measurement of Urinary Output in Critically Ill Patients Urinary Catheter Date of Insertion: 08/01/21 Urinary Catheter Time of Insertion: 02:20 Data : 08/02/21 03:05 08/02/21 03:05 Micro: Microbiology 07/31/21 16:16 Blood Culture - Preliminary Blood NEGATIVE TO DATE 08/01/21 02:00 MRSA Culture - Final Nose 07/31/21 15:30 Blood Culture - Preliminary Blood NEGATIVE TO DATE 07/31/21 15:20 Gram Stain - Final Sputum - Endotracheal Tube Aspirate A&P Assessment and plan (1) Encounter for postoperative care: Notes and imaging studies reviewed. At this point family is deciding the next course of action. Status: Acute Attestations Medical Necessity Statement*: Intubated in ICU Coding Level of Care Code Acute Street Car Mechanic for Aishwarya Rodríguez Diagnoses Encounter for postoperative care Z48.89
[2021-08-02 08:23] LABS: Glucose Point of Care 112 mg/dL (70-110)
--- NOTE | 2021-08-02 08:33 | PC.NURSE ---
Upon morning assessment, patient noted to have decorticate posturing with trap pinch.
[2021-08-02] MEDS: dextrose 5% 1,000 ML 60 ML IV ×2 (08:48→23:57)
[2021-08-02 11:47] LABS: Glucose Point of Care 128 mg/dL (70-110)
[2021-08-02 14:15] LABS: Vancomycin Trough 9.6 ug/mL (10-15)
--- NOTE | 2021-08-02 15:51 | PC.NURSE ---
NUrse observed patient to have a decreased heart rate (15-20 BPM) compared to yesterday, a higher blood pressure ocmpared to yesterday, and patient has developed a bloody nose. Nurse alerted Dr melendez and received orders to stop the D5W and draw a sodium level.
[2021-08-02] MEDS: vancomycin 1,000 MG in sodium chloride 0.9% 250 ML 250 MG IV (15:57)
[2021-08-02 16:08] LABS: Sodium 148 mmol/L (136-145)
[2021-08-02] MEDS: pantoprazole 40 mg SDV IVP (16:24)
[2021-08-02 16:27] LABS: Glucose Point of Care 129 mg/dL (70-110)
[2021-08-02 16:27] LABS: Glucose Point of Care 128 mg/dL (70-110)
[2021-08-02 16:27] LABS: Glucose Point of Care 126 mg/dL (70-110)
--- NOTE | 2021-08-02 17:11 | PM.PN ---
Subjective Subjective: This morning no change. Later revisited again and we spoke with family at bedside regarding findings so far, with family giving us further consideration of goals of care. Currently they would like to be sure that with reduced renal function there will be no residual sedatives. With fentanyl, propofol with major clearance being renal, considering 7 half-lives for 99% clearance (although likely shorter given improving renal function), will give about 5 days more. They understand that any 99% clearance likely is not needed, but would like to take that time to see if there are changes in his condition, as well as further allow additional family members to come to town. Touched on option of LTAC. The overall consensus is that he would not have wanted to be on continuous life support if he were not able to return to being able to enjoy his favorite activities. This evening we also spoke with his son prompted seeing some mild gradual changes in heart rate and rhythm, mild gradual downtrending heart rate to 60s, giving consideration of possibility of progression admission of brain edema due to diffuse cerebral injury, and goals of care in case of continued brain swelling progressive to life-threatening extent, risk of herniation, considering goals of care for such a situation. Similarly whether CPR is to be started in case of a recurrent cardiac arrest. He is going to discuss further with family and let us know. Vitals/I&O/Wt Last Vital Signs Temp 98.8 F 08/02/21 16:45 Pulse 66 08/02/21 16:45 Resp 20 H 08/02/21 15:12 BP 183/90 08/02/21 16:45 Pulse Ox 97 08/02/21 16:45 08/02/21 08/02/21 08/02/21 06:59 14:59 22:59 Intake Total 155 / 1130 50 / 50 492 / 542 Output Total 750 / 2700 875 / 875 Balance -595 / -1570 -825 / -825 492 / -333 Weight last 48 hrs Weight 101.86 kg Weight 104.78 kg Physical Exam Narrative: Family at bedside during second visit. Const: GENERAL APPEARANCE: patient mechanically ventilated OTHER: Intubated. Off sedation. HENMT: COMMON NORMALS: normocephalic, EAC's normal, Normal external nose present and moist oral mucous membranes HEAD & SCALP: normocephalic NOSE: Normal external nose present EXTERNAL AUDITORY CANAL: EAC's normal Eye: OTHER: Pupils equal, no menace response, no pupillary response, no corneal reflex. Neck/C-Spine: OTHER: Circumferential neck swelling with mild decrease. Ecchymosis laterally to R proximal shoulder Chest: CHEST: Yes Symmetrical chest wall rise Resp: COMMON NORMALS: clear to auscultation bilaterally AUSCULTATION: clear to auscultation bilaterally Cardio: COMMON NORMALS: regular rate, regular rhythm and No murmurs present (Cardio) RATE: regular rate RHYTHM: regular rhythm GI: COMMON NORMALS: Soft to palpation PALPATION: Yes Soft to palpation Extremity: COMMON NORMALS: no pedal edema OTHER: Feet warm, appearing perfused. LLE still slightly > RLE at callahan/calf Neuro: MOTOR EXAM: Other motor observations present (No rigidity.) OTHER: Not yet seen to have purposeful movements. Does appear to intermittently overbreathing the vent. Not withdrawing to pain. No gag reflex elicited. No pupillary response to light. No menace reflex. No corneal reflex elicited. Skin: RASHES: no rashes Urinary Catheter Management: Wooten: Cath Placed During This Visit: yes Reason for Continuing Indwelling Catheter: Accurate Measurement of Urinary Output in Critically Ill Patients Urinary Catheter Date of Insertion: 08/01/21 Urinary Catheter Time of Insertion: 02:20 Data : 08/02/21 03:05 08/02/21 15:40 Micro: Microbiology 07/31/21 15:20 Gram Stain - Final Sputum - Endotracheal Tube Aspirate Sputum Culture - Preliminary Yeast species 07/31/21 16:16 Blood Culture - Preliminary Blood NEGATIVE TO DATE 08/01/21 02:00 MRSA Culture - Final Nose 07/31/21 15:30 Blood Culture - Preliminary Blood NEGATIVE TO DATE A&P Assessment and plan (1) Anoxic brain injury: So far without improvement. At this time continue life support with time trial until , allowing additional time for reassessment and additional family members to come to town. So far clinical, imaging and EEG indicators unfortunately predicting poor likelihood of recovery. Continue off sedation. Tylenol as needed and has been needing some cueing for spiking fevers. Follow-up blood culture, endotracheal aspirate culture. So far without bacterial growth. Few yeast species in sputum culture. Leukocytosis has improved. Continue broadened antibiotics with vancomycin. Likelihood of central fevers. Tylenol. Surface cooling to alleviate fever. Weaned off pressor, today hypotensive, permissive hypertension, with excess caution in treating so as not to compromise cerebral perfusion. Possible autonomic instability. Pressors if needed to maintain blood pressure. Status: Acute (2) Seizures: No seizures on EEG. Status: Acute (3) Pneumonia: Pneumonia with possible aspiration. He is having fevers, bodies may be central as well. Follow-upcollect blood culture, collect endotracheal aspirate culture. Broaden antibiotic with vancomycin. MRSA PCR negative. For now continue. On chest x-ray noted increased density in the left retrocardiac region with possible left lower lobe consolidation. Status: Acute (4) Cardiac arrest: Continue reassessment of neurologic condition following cardiac arrest as above. Continue airway and ventilatory support. Further discussions of goals of care depending on condition and neurologic recovery. Noted episode of nonsustained VT. Continue to monitor on telemetry. Status: Acute (5) DEENA (acute kidney injury): Gradually improving. Now robust urine output. Hypernatremia. Likely prerenal, ATN. Continue support blood pressure. Lisinopril on hold. Off pressor. Status: Acute (6) Acute respiratory failure with hypoxia: Continue management of pneumonia as above. Status: Acute (7) Neck swelling: Slightly coming down. Oropharyngeal edema slightly coming down. C4 complement level normal. Pending C1 esterase inhibitor functional assay. Consideration of possibility of anaphylactic reaction. Postprocedural swelling. Retropharyngeal/prevertebral hematoma. Swelling likely to gradually go down, however, needs continued airway support at this time. Consideration of tracheostomy will likely be needed. Status: Acute (8) Bicytopenia: Additional RBC transfusion. With good response to RBC transfusion on 07/30. Leukocytosis with absolute neutrophilia and toxic granulation on peripheral smear. Microcytic anemia. Absolute monocytosis. Thrombocytopenia. No blasts or equivalent cells were identified. Does have some splenomegaly history. Coagulation studies have been okay. Follow-up blood count. Status: Acute Plan Hyponatremia: Sodium 147, was started cautiously on low rate D5W Left lower extremity dusky appearance: Resolved. Palpable BL DP pulses. Discussed also condition monitoring of left lower extremity. No DVT noted on ultrasound. Continue neurovascular checks. Follow-up CK 1095. Nasopharyngeal blood clots: Clots, small bleed from nasopharynx. Check DIC panel. Noted after intubation attempts. Precluded laryngoscopy. Not on anticoagulation. Monitor amount/for recurrence. Empiric antibiotics coverage, broadening with vancomycin. 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 Hepatitis C: HCV RNA 23,200,000. 7.37 IUs/mL. Attestations Medical Necessity Statement*: Continue admission for reassessment of neurologic recovery following cardiopulmonary arrest, hemodynamic and respiratory support, treatment of fevers. Critical Care Time: The high probability of a clinically significant, sudden or life threatening deterioration of the patient's neurologic, electrolyte, hematologic system(s) required my full and direct attention, intervention and personal management. The critical care time is as shown. This time is in addition to time spent performing any reported procedures but includes the following: x Data and vital sign review and interpretation x Patient assessment, examination and intervention x Documentation x Medication orders and management Critical Care Time (min): 60 Coding Level of Care Code Acute Healthcare Marketer for [facility] Fwd Diagnoses Anoxic brain injury G93.1 Seizures R56.9 Pneumonia J18.9 Cardiac arrest I46.9 DEENA (acute kidney injury) N17.9 Acute respiratory failure with hypoxia J96.01 Neck swelling R22.1 Bicytopenia D75.89
--- NOTE | 2021-08-02 17:19 | PC.NURSE ---
Dr melendez notified of new sodium level of 148. Restarted D5 per Dr melendez orders.
[2021-08-02 18:51] LABS: INR 1.04 (0.8-1.2)
[2021-08-02 18:52] LABS: Fibrinogen 610 mg/dL (174-498); Partial Thromboplastin Time 30.1 SECONDS (23.9-36.7)
[2021-08-02 19:01] LABS: D Dimer 3.84 ug/mIFEU (0-0.59)
[2021-08-02 19:12] LABS: Glucose Point of Care 141 mg/dL (70-110)
--- NOTE | 2021-08-02 19:55 | PC.NURSE ---
SHift SUmmary: Overall, uneventful shift. Patient rested in bed throughout the day. Was frequently repositioned. Decorticate posturing noted. Patient remains unresponsive. Irregular abdominal breathing pattern frequently observed.
[2021-08-02] MEDS: insulin glargine 100 units/1 mL 20 UNIT SUBCUT (22:09)
[2021-08-02 22:13] LABS: Glucose Point of Care 128 mg/dL (70-110)
[2021-08-03] VITALS (111 sets, daily range): BP systolic 157–188; BP diastolic 77–112; PULSE 51–66; RESP 18–24; TEMP 36.1–37.7; O2SAT 92–100; BMI 30.8
[2021-08-03] MEDS: ipratropium-albuterol 3 mL Neb INHALATION ×7 (00:16→23:45)
[2021-08-03] MEDS: piperacillin-tazobactam 3.375 GM in sodium chloride 0.9% (plus) 50 ML IV ×3 (04:00→21:39)
[2021-08-03 04:47] LABS: Glucose Point of Care 135 mg/dL (70-110)
[2021-08-03 05:57] LABS: Basophils % 0.3 %; Hematocrit 25.3 % (42.0-52.0); Hemoglobin 8.4 g/dL (11.7-16.6); Lymphocytes # 0.8 10^3/uL (0.8-4.8); Lymphocytes % 7.7 %; Mean Corpuscular HGB Conc 33.2 g/dL (30.0-36.0); Mean Corpuscular Hemoglobin 31.5 pg (28.0-34.0); Mean Corpuscular Volume 94.8 fl (80-94); Mean Platelet Volume 11.7 fL (7.4-10.4); Monocytes # 0.5 10^3/uL (0.2-0.9); Monocytes % 4.6 %; Neutrophils # 8.71 10^3/uL (1.8-7.7); Neutrophils % 86.7 %; Nucleated Red Blood Cells % 0 %; Platelet Count 62 10^3/cmm (130-400); Red Blood Count 2.67 10^6/uL (4.1-5.3); Red Cell Distribution Width 17.7 % (12.1-15.1)
[2021-08-03 06:23] LABS: Alanine Aminotransferase 21 U/L (0-41); Albumin Level 3.4 g/dL (3.5-5.2); Alkaline Phosphatase 74 IU/L (40-130); Aspartate Amino Transferase 94 U/L (0-40); Blood Urea Nitrogen 65 mg/dL (6-20); Calcium 9.1 mg/dL (8.5-10.5); Carbon Dioxide 20 mmol/L (22-29); Chloride 116 mmol/L (98-107); Globulin 2.3 g/dL (1.3-4.6); Glomerular Filtration Rate 44.5 mL/min (90-130); Glucose 123 mg/dL (65-115); Osmolality Calculated 328 mOsm/kg (285-295); Sodium 149 mmol/L (136-145); Total Protein 5.7 g/dL (6.6-8.7)
[2021-08-03 06:52] LABS: Glucose Point of Care 128 mg/dL (70-110)
--- NOTE | 2021-08-03 07:29 | PC.NURSE ---
Shift Summary Patient remains unresponsive and intubated at this time. Irregular breathing pattern observed. IVF are infusing per protocol please see MAR for infusion rate. Surgical incision noted to right medial neck covered with dressing-see wound assessment. Neck remains edematous and purple. Pupils unreactive to light. Decorticate posturing of the lower legs noted. Wooten catheter drained 1200 mls of urine overnight. Turned and repositioned patient with help from staff throughout the night. Family remained at bedside throughout shift.
[2021-08-03] MEDS: budesonide 0.5 mg/2 mL Neb INHALATION ×2 (08:09→20:01)
[2021-08-03 08:23] LABS: Glucose Point of Care 131 mg/dL (70-110)
--- NOTE | 2021-08-03 08:34 | PM.PN ---
Subjective Subjective: chart reviewed -pt is not responsive Medications: Reviewed: Yes Medication Review Details: Current Medications Acetaminophen (Acetaminophen 325 Mg Tablet) 650 mg PO Q4H PRN PRN Reason: Mild Pain or fever >101.5 Last Admin: 07/31/21 23:48 Dose: 650 mg Documented by: Al Hydrox/Mg Hydrox/Simethicone (Gadc-Xpd-Phbipymqm-Rush 30 Ml Udc) 30 ml PO Q4H PRN PRN Reason: INDIGESTION Albuterol/Ipratropium (Ipratropium-Albuterol 3 Ml Neb) 3 ml INHALATION Q4H.RESPIRATORY SUDHIR Last Admin: 08/03/21 08:09 Dose: 3 ml Documented by: Artificial Tears (Artificial Tears Op Oint 3.5 Gm) 1 applic EYE-BOTH PRN PRN PRN Reason: DRY EYE(S) Last Admin: 07/31/21 23:48 Dose: 1 applic Documented by: Budesonide (Budesonide 0.5 Mg/2 Ml Neb) 0.5 mg INHALATION BID.RESPIRATORY SUDHIR Last Admin: 08/03/21 08:09 Dose: 0.5 mg Documented by: Dextrose (Dextrose 50% Syringe 50 Ml) 25 ml IVP ONCE PRN; Protocol PRN Reason: hypoglycemia protocol Dextrose (Dextrose 50% Syringe 50 Ml) 50 ml IVP PRN PRN; Protocol PRN Reason: hypoglycemia protocol Docusate Sodium (Docusate Sodium 100 Mg Capsule) 100 mg PO BID SUDHIR Last Admin: 08/02/21 17:18 Dose: Not Given Documented by: Glucagon (Glucagon 1 Mg/Ml Inj 1 Ml) 1 mg IM ONCE PRN; Protocol PRN Reason: Adult Acute Hypoglycemia Prot. Norepinephrine Bitartrate 4 mg (/ Dextrose) 254 mls @ 0 mls/hr IV .Q0M SUDHIR; Protocol Last Titration: 07/31/21 19:30 Dose: 0 mcg/min, 0 mls/hr Documented by: Vasopressin 100 unit/ Sodium (Chloride) 100 mls @ 0 mls/hr IV .Q0M SUDHIR; Protocol Piperacillin Sod/Tazobactam (Sod 3.375 gm/ Sodium Chloride) 50 mls @ 12.5 mls/hr IV Q8H SUDHIR; Protocol Last Admin: 08/03/21 04:00 Dose: 12.5 mls/hr Documented by: Dextrose (D5w) 500 mls @ 100 mls/hr IV ONCE PRN; Protocol PRN Reason: Adult Acute Hypoglycemia Prot Levetiracetam 500 mg/ Sodium (Chloride) 105 mls @ 420 mls/hr IV Q12H [facility] Last Infusion: 08/03/21 00:08 Dose: Infused Documented by: Vancomycin HCl 1,000 mg/ (Sodium Chloride) 250 mls @ 250 mls/hr IV Q24H [facility] Last Infusion: 08/02/21 17:18 Dose: Infused Documented by: Sodium Chloride (Sodium Chloride 0.9%) 500 mls @ 0 mls/hr XX .Q0M SUDHIR Last Admin: 08/02/21 03:20 Dose: 3 mls/hr Documented by: Dextrose (D5w) 1,000 mls @ 60 mls/hr IV .[id number] [facility] Last Admin: 08/02/21 23:57 Dose: 60 mls/hr Documented by: Insulin Glargine (Insulin Glargine 100 Units/1 Ml) 20 unit SUBCUT BEDTIME [facility] Last Admin: 08/02/21 22:09 Dose: 20 unit Documented by: Insulin Human Lispro (Insulin Lispro 100 Unit/1 Ml) 0 unit SUBCUT WM&BEDTIME [facility]; Protocol Last Admin: 08/02/21 21:59 Dose: Not Given Documented by: Magnesium Hydroxide (Magnesium Hydroxide 30 Ml Udc) 30 ml PO Q4H PRN PRN Reason: Constipation/indigestion Ondansetron HCl (Ondansetron 2 Mg/Ml Sdv 2 Ml) 4 mg IVP Q6H PRN PRN Reason: NAUSEA AND VOMITING Pantoprazole Sodium (Pantoprazole 40 Mg Sdv) 40 mg IVP Q24H [facility] Last Admin: 08/02/21 16:24 Dose: 40 mg Documented by: Vitals/I&O/Wt Last Vital Signs Temp 99.8 F H 08/03/21 06:30 Pulse 55 L 08/03/21 08:11 Resp 18 08/03/21 08:11 BP 177/100 08/03/21 06:30 Pulse Ox 96 08/03/21 08:11 08/02/21 08/03/21 08/03/21 22:59 06:59 14:59 Intake Total 822 / 872 585 / 1457 Output Total 1200 / 2075 Balance 822 / -3 -615 / -618 Weight last 48 hrs Weight 100.244 kg Weight 101.86 kg Physical Exam Narrative: intubated, ng tube, not responsive BP elevated heent- nc/at neck supple lungs clear heart reg abd soft, + bs ext no edema Urinary Catheter Management: Wooten: Cath Placed During This Visit: yes Reason for Continuing Indwelling Catheter: Accurate Measurement of Urinary Output in Critically Ill Patients Urinary Catheter Date of Insertion: 08/01/21 Urinary Catheter Time of Insertion: 02:20 Data : 08/03/21 05:03 08/03/21 05:03 Micro: Microbiology 07/28/21 18:46 Blood Culture - Final Blood NO GROWTH AFTER 5 DAYS 07/28/21 18:46 Blood Culture - Final Blood NO GROWTH AFTER 5 DAYS 07/31/21 15:20 Gram Stain - Final Sputum - Endotracheal Tube Aspirate Sputum Culture - Preliminary Yeast species A&P Assessment and plan (1) DEENA (acute kidney injury): 60 yr old man w/ anoxic brain injury, pna, htn, seizures, cardiac arrest. 1. DEENA-- aTN - cr improving 2. hypernatremia - would stop d5w. use free water and would give feeds 3. htn 4. anoxic brain injury 5. VDRF 6. check vanco trough keep under 19 seen and examined w/ rN- telehealth visit time spent 30 minutes Status: Acute Attestations Medical Necessity Statement*: anoxic brain injury -per medicine Time Spent in Patient Care: 16 - 35 minutes (>than 50% of time spent in counselling and/or direct pt care on unit). Coding Level of Care Code Acute Bevel Operator for [facility] Rod[facility] Diagnoses DEENA (acute kidney injury) N17.9
--- NOTE | 2021-08-03 08:44 | PM.PN ---
Subjective Subjective: remains intubated Vitals/I&O/Wt Last Vital Signs Temp 99.8 F H 08/03/21 06:30 Pulse 55 L 08/03/21 08:11 Resp 18 08/03/21 08:11 BP 177/100 08/03/21 06:30 Pulse Ox 96 08/03/21 08:11 08/02/21 08/03/21 08/03/21 22:59 06:59 14:59 Intake Total 822 / 872 585 / 1457 Output Total 1200 / 2075 Balance 822 / -3 -615 / -618 Weight last 48 hrs Weight 221 lb Weight 224 lb 9 oz Physical Exam Urinary Catheter Management: Wooten: Cath Placed During This Visit: yes Reason for Continuing Indwelling Catheter: Accurate Measurement of Urinary Output in Critically Ill Patients Urinary Catheter Date of Insertion: 08/01/21 Urinary Catheter Time of Insertion: 02:20 Data : 08/03/21 05:03 08/03/21 05:03 Micro: Microbiology 07/28/21 18:46 Blood Culture - Final Blood NO GROWTH AFTER 5 DAYS 07/28/21 18:46 Blood Culture - Final Blood NO GROWTH AFTER 5 DAYS 07/31/21 15:20 Gram Stain - Final Sputum - Endotracheal Tube Aspirate Sputum Culture - Preliminary Yeast species A&P Assessment and plan (1) Encounter for postoperative care: no changes from yesterday notes reviewed Status: Acute Attestations Medical Necessity Statement*: intubated Coding Level of Care Code Acute Risk Control Field Representative for Aish[facility] Fwankita Diagnoses Encounter for postoperative care Z48.89
--- NOTE | 2021-08-03 11:14 | CTR_ITS ---
PROCEDURE INFORMATION: Exam: CT Head Without Contrast Exam date and time: 08/03/2021 2:05 PM Age: 60 years old Clinical indication: Altered mental status/memory loss; Additional info: TECHNIQUE: Imaging protocol: Computed tomography of the head without contrast. Radiation optimization: All CT scans at this facility use at least one of these dose optimization techniques: automated exposure control; mA and/or kV adjustment per patient size (includes targeted exams where dose is matched to clinical indication); or iterative reconstruction. COMPARISON: CT head wo con* [id number] 07/31/2021 2:26 PM RADIATION DOSE METRICS: Total DLP (mGy-cm): 705.18 FINDINGS: Brain: Bilateral symmetric caudate and lentiform nuclear infarctions redemonstrated. Extensive loss of bilateral cerebral neal-white matter differentiation consistent with global hypoxic/anoxic injury redemonstrated. No intracranial hemorrhage. Ventricles: No hydrocephalus or specific evidence of increased intracranial pressure. Paranasal sinuses: Near complete opacification of the left maxillary sinus as visualized. A cyst/polyp is present in the right maxillary sinus. Moderate right maxillary sinus posterior mucosal thickening. Extensive bilateral ethmoid air cell opacification. Dependent fluid/mucous with mucosal thickening bilateral sphenoid sinuses. Near complete opacification bilateral frontal sinuses. Mastoid air cells: Visualized mastoid air cells are well aerated. Bones/joints: No acute abnormality. No acute fracture. Soft tissues: Unremarkable. Vasculature: Atherosclerotic calcifications are present involving the carotid artery siphons bilaterally and the left vertebral artery. CT/CT head wo con* [id number] Follow up IMPRESSION: 1. Bilateral symmetric caudate and lentiform nuclear infarctions redemonstrated. 2. Extensive loss of bilateral cerebral neal-white matter differentiation consistent with global hypoxic/anoxic injury redemonstrated. 3. Paranasal sinus disease as above.
[2021-08-03 12:07] LABS: Glucose Point of Care 130 mg/dL (70-110)
[2021-08-03 12:36] LABS: Urine Creatinine 77 mg/dL (39-259); Urine Random Chloride 25 mmol/L; Urine Random Sodium 51 mmol/L
--- NOTE | 2021-08-03 13:26 | PM.PN ---
Subjective Subjective: No additional changes on reassessment. Unresponsive without purposeful movements. Intermittent decorticate posturing reported. No Vitals/I&O/Wt Last Vital Signs Temp 97.2 F L 08/03/21 12:15 Pulse 57 L 08/03/21 12:15 Resp 20 H 08/03/21 12:15 BP 173/78 08/03/21 12:15 Pulse Ox 98 08/03/21 12:15 08/02/21 08/03/21 08/03/21 22:59 06:59 14:59 Intake Total 822 / 872 585 / 1457 653 / 653 Output Total 1200 / 2075 500 / 500 Balance 822 / -3 -615 / -618 153 / 153 Weight last 48 hrs Weight 100.244 kg Weight 101.86 kg Physical Exam Const: GENERAL APPEARANCE: patient mechanically ventilated OTHER: Intubated. Off sedation. HENMT: COMMON NORMALS: normocephalic, EAC's normal, Normal external nose present and moist oral mucous membranes HEAD & SCALP: normocephalic NOSE: Normal external nose present EXTERNAL AUDITORY CANAL: EAC's normal OTHER: Drainage of clear nasopharyngeal secretions, no halo sign. Glucose 20. Eye: OTHER: Pupils equal, no menace response, no pupillary response, no corneal reflex. Neck/C-Spine: OTHER: Circumferential neck swelling with mild decrease. Ecchymosis laterally to R proximal shoulder Chest: CHEST: Yes Symmetrical chest wall rise Resp: COMMON NORMALS: clear to auscultation bilaterally AUSCULTATION: clear to auscultation bilaterally OTHER: Irregular resporations. Cardio: COMMON NORMALS: regular rate, regular rhythm and No murmurs present (Cardio) RATE: regular rate RHYTHM: regular rhythm GI: COMMON NORMALS: Soft to palpation PALPATION: Yes Soft to palpation Extremity: COMMON NORMALS: no pedal edema OTHER: Feet warm, perfused. LLE still slightly > RLE at callahan/calf Neuro: MOTOR EXAM: Other motor observations present (No rigidity.) OTHER: Not yet seen to have purposeful movements. Not withdrawing to pain. No gag reflex elicited. No pupillary response to light. No menace reflex. No corneal reflexes. Skin: RASHES: no rashes Urinary Catheter Management: Wooten: Cath Placed During This Visit: yes Reason for Continuing Indwelling Catheter: Accurate Measurement of Urinary Output in Critically Ill Patients Urinary Catheter Date of Insertion: 08/01/21 Urinary Catheter Time of Insertion: 02:20 Data : 08/03/21 05:03 08/03/21 05:03 Micro: Microbiology 07/31/21 15:20 Gram Stain - Final Sputum - Endotracheal Tube Aspirate Sputum Culture - Preliminary Yeast species 07/28/21 18:46 Blood Culture - Final Blood NO GROWTH AFTER 5 DAYS 07/28/21 18:46 Blood Culture - Final Blood NO GROWTH AFTER 5 DAYS A&P Assessment and plan (1) Anoxic brain injury: Without noted mental return of higher brain functions. Irregular respirations. Intermittently reported decorticate posturing. Noted some slow progression to mild sinus bradycardia. As per discussion yesterday consideration of possibility of continued cerebral edema. Follow-up CT head requested. Discussed yesterday consideration of also risk of progressive edema, herniation with his son. He is going to further discuss with family. Similarly we also discussed consideration of whether to pursue CPR in case of cardiac arrest, which he also states will discuss with rest of the family, and they will let us know. As per discussion on 08/02, they understand prognosis is poor. Family would like to give time trial until , allowing additional time for reassessment and additional family members to come to town. So far clinical reassessments, imaging and EEG indicators unfortunately predicted poor likelihood of recovery. Continue off sedation. Tylenol as needed and has been needing some cueing for spiking fevers. Follow-up blood culture, endotracheal aspirate culture. So far without bacterial growth. Few yeast species in sputum culture. Leukocytosis has improved. Continue broadened antibiotics with vancomycin. Likelihood of central fevers. Tylenol. Surface cooling to alleviate fever. Weaned off pressor, today hypotensive, permissive hypertension, with excess caution in treating so as not to compromise cerebral perfusion. Possible autonomic instability. Pressors if needed to maintain blood pressure. Status: Acute (2) Sinus bradycardia: Possibly autonomic dysregulation, however, discussed consideration of possible progressive cerebral edema. Reassessment CT of the head requested. Mild sinus bradycardia. Appears to also be closer to his more usual heart rate on prior encounters. Status: Acute (3) Hypernatremia: Up to 149. Urine output has been robust, possibly after DEENA, which has been improving. Less likely central DI, but consideration, although amount of urine output not suggestive. Requested urine osmolality. Discussed with nephrology. Stopped D5W. He is started on tube feeds with water flushes 200 mL every 6 hours. Status: Acute (4) Pneumonia: Pneumonia with possible aspiration. He is having fevers, likely central, however, continue empiric antibiotics with coverage for pneumonia. Follow-up blood culture, endotracheal aspirate culture. In case of further yeast growth, consider addition of additional antifungal coverage. On chest x-ray noted increased density in the left retrocardiac region with possible left lower lobe consolidation. On minimal FiO2 and PEEP. Status: Acute (5) Cardiac arrest: Continue reassessment of neurologic condition following cardiac arrest as above. Continue airway and ventilatory support. Further discussions of goals of care depending on condition and neurologic recovery. Noted episode of nonsustained VT. Continue telemetry. Status: Acute (6) DEENA (acute kidney injury): Gradually improving. Now robust urine output. Hypernatremia. Likely prerenal, ATN. Continue support blood pressure. Lisinopril on hold. Off pressor. Status: Acute (7) Acute respiratory failure with hypoxia: Continue management of pneumonia as above. Status: Acute (8) Neck swelling: Slightly decreased. Oropharyngeal edema slightly coming down. Consideration of possibility of anaphylactic reaction. Postprocedural swelling. Retropharyngeal/prevertebral hematoma. With severe oropharyngeal swelling, angioedema was considered as well, no history of hereditary angioedema in the family. Acquired angioedema was also a consideration, C4 and C1 esterase functional assay are normal. Would not resume lisinopril. Likely to gradually go down, however, needs continued airway support at this time. Consideration of tracheostomy will likely be needed in case proceeding with longer-term life support. Status: Acute (9) Bicytopenia: Additional RBC transfusion. With good response to RBC transfusion on 07/30. Leukocytosis with absolute neutrophilia and toxic granulation on peripheral smear. Microcytic anemia. Absolute monocytosis. Thrombocytopenia. No blasts or equivalent cells were identified. Does have some splenomegaly history. Coagulation studies have been okay. Follow-up blood count. Status: Acute (10) Seizures: No seizures on EEG. Status: Acute Plan Troponin level elevated: Postcardiac arrest and resuscitation. Echocardiogram with normal ejection fraction, no R WMA. Left lower extremity dusky appearance: Resolved. Palpable BL DP pulses. Discussed also condition monitoring of left lower extremity. No DVT noted on ultrasound. Continue neurovascular checks. Follow-up CK was 1095. Nasopharyngeal blood clots: Clots, small bleed from nasopharynx. After multiple intubation attempts, attempted nasotracheal intubation. Not in DIC. Today clear secretions, negative for halo test. Glucose 20. 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 Hepatitis C: HCV RNA 23,200,000. 7.37 IUs/mL. Attestations Medical Necessity Statement*: Continue admission for timed trial for reassessment of neurologic condition following cardiopulmonary arrest, hemodynamic and respiratory support. Critical Care Time: The high probability of a clinically significant, sudden or life threatening deterioration of the patient's neurologic, endocrine, renal, infectious disease system(s) required my full and direct attention, intervention and personal management. The critical care time is as shown. This time is in addition to time spent performing any reported procedures but includes the following: x Data and vital sign review and interpretation x Patient assessment, examination and intervention x Documentation x Medication orders and management Critical Care Time (min): 60 Coding Level of Care Code Acute [employer] for [facility] Fwd Exam Comprehensive Diagnoses Anoxic brain injury G93.1 Seizures R56.9 Pneumonia J18.9 Cardiac arrest I46.9 DEENA (acute kidney injury) N17.9 Acute respiratory failure with hypoxia J96.01 Neck swelling R22.1 Bicytopenia D75.89 Sinus bradycardia R00.1 Hypernatremia E87.0
--- NOTE | 2021-08-03 14:25 | PC.NUTR ---
Consult for TF goals for Jevity 1.2 received. Recommend Jevity 1.2 beginning at 15 mls/hr and increasing 10 mls/hr Q8H as tolerated, until a goal rate of 65 mls/hr is reached, along with 120 mls flushes Q4H or per MD discretion. See RD assessment for details.
[2021-08-03] MEDS: vancomycin 1,000 MG in sodium chloride 0.9% 250 ML 250 MG IV (14:46)
[2021-08-03] MEDS: pantoprazole 40 mg SDV IVP (17:12)
[2021-08-03] MEDS: docusate sodium 10 mg/mL (5ml) Liq 100 MG PO (17:34)
[2021-08-03 17:42] LABS: Glucose Point of Care 127 mg/dL (70-110)
--- NOTE | 2021-08-03 18:11 | PC.NURSE ---
SHift SUmmary: Uneventful shift. Patient rested in bed throughout the day. Was brought to CT for a head CT. CT shows no changes. Family has been updated on this. Code status has been changed (see orders).
[2021-08-03] MEDS: insulin glargine 100 units/1 mL 20 UNIT SUBCUT (21:39)
[2021-08-03 22:38] LABS: Glucose Point of Care 135 mg/dL (70-110)
[2021-08-04] VITALS (106 sets, daily range): BP systolic 122–201; BP diastolic 61–104; PULSE 53–74; RESP 16–20; TEMP 36.3–37.5; O2SAT 95–100; BMI 28.0
[2021-08-04 03:31] LABS: Glucose Point of Care 128 mg/dL (70-110)
[2021-08-04 03:31] LABS: Glucose Point of Care 125 mg/dL (70-110)
[2021-08-04] MEDS: ipratropium-albuterol 3 mL Neb INHALATION ×6 (04:15→23:28)
[2021-08-04 05:30] LABS: Basophils % 0.2 %; Hematocrit 26.3 % (42.0-52.0); Hemoglobin 8.4 g/dL (11.7-16.6); Lymphocytes # 0.9 10^3/uL (0.8-4.8); Lymphocytes % 9.3 %; Mean Corpuscular HGB Conc 31.9 g/dL (30.0-36.0); Mean Corpuscular Hemoglobin 30.8 pg (28.0-34.0); Mean Corpuscular Volume 96.3 fl (80-94); Mean Platelet Volume 11.2 fL (7.4-10.4); Monocytes # 0.5 10^3/uL (0.2-0.9); Monocytes % 5.6 %; Neutrophils # 7.56 10^3/uL (1.8-7.7); Neutrophils % 83.1 %; Nucleated Red Blood Cells % 0 %; Platelet Count 58 10^3/cmm (130-400); Red Blood Count 2.73 10^6/uL (4.1-5.3); Red Cell Distribution Width 17.5 % (12.1-15.1); White Blood Count 9.1 10^3/uL (4.0-10.0)
[2021-08-04] MEDS: piperacillin-tazobactam 3.375 GM in sodium chloride 0.9% (plus) 50 ML IV ×3 (05:43→21:37)
[2021-08-04 05:53] LABS: Alanine Aminotransferase 23 U/L (0-41); Albumin Level 3.3 g/dL (3.5-5.2); Alkaline Phosphatase 78 IU/L (40-130); Anion Gap 16.8 (5-19); Aspartate Amino Transferase 74 U/L (0-40); Blood Urea Nitrogen 64 mg/dL (6-20); Calcium 9.2 mg/dL (8.5-10.5); Carbon Dioxide 18 mmol/L (22-29); Chloride 124 mmol/L (98-107); Globulin 2.8 g/dL (1.3-4.6); Glomerular Filtration Rate 47.9 mL/min (90-130); Glucose 130 mg/dL (65-115); Magnesium 2.3 mg/dL (1.7-2.3); Osmolality Calculated 340 mOsm/kg (285-295); Phosphorus 2.9 mg/dL (2.5-4.5); Potassium 3.8 mmol/L (3.5-5.1); Sodium 155 mmol/L (136-145); Total Bilirubin 1.1 mg/dL (0.15-1.2); Total Protein 6.1 g/dL (6.6-8.7)
[2021-08-04 05:56] LABS: Creatinine Clr Calc Pharmacy 63.9582
--- NOTE | 2021-08-04 07:03 | PM.PN ---
Subjective Subjective: no change in exam. not responsive Medications: Reviewed: Yes Medication Review Details: Current Medications Acetaminophen (Acetaminophen 325 Mg Tablet) 650 mg PO Q4H PRN PRN Reason: Mild Pain or fever >101.5 Last Admin: 07/31/21 23:48 Dose: 650 mg Documented by: Al Hydrox/Mg Hydrox/Simethicone (Nffi-Qlu-Gibtvbvdj-Rush 30 Ml Udc) 30 ml PO Q4H PRN PRN Reason: INDIGESTION Albuterol/Ipratropium (Ipratropium-Albuterol 3 Ml Neb) 3 ml INHALATION Q4H.RESPIRATORY SUDHIR Last Admin: 08/04/21 04:15 Dose: 3 ml Documented by: Artificial Tears (Artificial Tears Op Oint 3.5 Gm) 1 applic EYE-BOTH PRN PRN PRN Reason: DRY EYE(S) Last Admin: 07/31/21 23:48 Dose: 1 applic Documented by: Budesonide (Budesonide 0.5 Mg/2 Ml Neb) 0.5 mg INHALATION BID.RESPIRATORY SUDHIR Last Admin: 08/03/21 20:01 Dose: 0.5 mg Documented by: Dextrose (Dextrose 50% Syringe 50 Ml) 25 ml IVP ONCE PRN; Protocol PRN Reason: hypoglycemia protocol Dextrose (Dextrose 50% Syringe 50 Ml) 50 ml IVP PRN PRN; Protocol PRN Reason: hypoglycemia protocol Docusate Sodium (Docusate Sodium 10 Mg/Ml (5ml) Liq) 100 mg PO BID SUDHIR Last Admin: 08/03/21 17:34 Dose: 100 mg Documented by: Glucagon (Glucagon 1 Mg/Ml Inj 1 Ml) 1 mg IM ONCE PRN; Protocol PRN Reason: Adult Acute Hypoglycemia Prot. Norepinephrine Bitartrate 4 mg (/ Dextrose) 254 mls @ 0 mls/hr IV .Q0M SUDHIR; Protocol Last Titration: 07/31/21 19:30 Dose: 0 mcg/min, 0 mls/hr Documented by: Vasopressin 100 unit/ Sodium (Chloride) 100 mls @ 0 mls/hr IV .Q0M SUDHIR; Protocol Piperacillin Sod/Tazobactam (Sod 3.375 gm/ Sodium Chloride) 50 mls @ 12.5 mls/hr IV Q8H SUDHIR; Protocol Last Admin: 08/04/21 05:43 Dose: 12.5 mls/hr Documented by: Levetiracetam 500 mg/ Sodium (Chloride) 105 mls @ 420 mls/hr IV Q12H [facility] Last Infusion: 08/04/21 00:18 Dose: Infused Documented by: Vancomycin HCl 1,000 mg/ (Sodium Chloride) 250 mls @ 250 mls/hr IV Q24H [facility] Last Infusion: 08/03/21 16:58 Dose: Infused Documented by: Sodium Chloride (Sodium Chloride 0.9%) 500 mls @ 0 mls/hr XX .Q0M [facility] Last Admin: 08/02/21 03:20 Dose: 3 mls/hr Documented by: Insulin Glargine (Insulin Glargine 100 Units/1 Ml) 20 unit SUBCUT BEDTIME [facility] Last Admin: 08/03/21 21:39 Dose: 20 unit Documented by: Insulin Human Lispro (Insulin Lispro 100 Unit/1 Ml) 0 unit SUBCUT WM&BEDTIME [facility]; Protocol Last Admin: 08/03/21 21:48 Dose: Not Given Documented by: Magnesium Hydroxide (Magnesium Hydroxide 30 Ml Udc) 30 ml PO Q4H PRN PRN Reason: Constipation/indigestion Ondansetron HCl (Ondansetron 2 Mg/Ml Sdv 2 Ml) 4 mg IVP Q6H PRN PRN Reason: NAUSEA AND VOMITING Pantoprazole Sodium (Pantoprazole 40 Mg Sdv) 40 mg IVP Q24H [facility] Last Admin: 08/03/21 17:12 Dose: 40 mg Documented by: Vitals/I&O/Wt Last Vital Signs Temp 99.1 F 08/04/21 06:30 Pulse 56 L 08/04/21 06:30 Resp 20 H 08/04/21 06:18 BP 159/78 08/04/21 06:30 Pulse Ox 98 08/04/21 06:30 08/03/21 08/04/21 08/04/21 22:59 06:59 14:59 Intake Total 405 / 1058 496 / 1554 Output Total 250 / 750 1150 / 1900 Balance 155 / 308 -654 / -346 Weight last 48 hrs Weight 91.172 kg Weight 100.244 kg Physical Exam Narrative: intubated, ng tube, not responsive BP elevated heent- nc/at neck supple lungs clear heart reg abd soft, + bs ext minimal edema Urinary Catheter Management: Wooten: Cath Placed During This Visit: yes Reason for Continuing Indwelling Catheter: Accurate Measurement of Urinary Output in Critically Ill Patients Urinary Catheter Date of Insertion: 08/01/21 Urinary Catheter Time of Insertion: 02:20 Data : 08/04/21 04:45 08/04/21 04:45 Micro: Microbiology 07/31/21 15:20 Gram Stain - Final Sputum - Endotracheal Tube Aspirate Sputum Culture - Preliminary Yeast species A&P Assessment and plan (1) DEENA (acute kidney injury): 60 yr old man w/ anoxic brain injury, pna, htn, seizures, cardiac arrest. 1. DEENA-- aTN - cr improving 2. hypernatremia - will repeat urine electrolytes and osmolality. then give desmopressin and repeat use free water and would give feeds 3. htn -improving 4. anoxic brain injury - can cause DI 5. VDRF 6. check vanco trough keep under 19 seen and examined w/ rN- telehealth visit discussed w/ RN and pts time spent 30 minutes Status: Acute Plan see above Attestations Medical Necessity Statement*: per medicine Time Spent in Patient Care: 16 - 35 minutes (>than 50% of time spent in counselling and/or direct pt care on unit). Coding Level of Care Code Acute Senior Science Consultant for [facility] Diagnoses DEENA (acute kidney injury) N17.9
[2021-08-04 07:52] LABS: Glucose Point of Care 122 mg/dL (70-110)
--- NOTE | 2021-08-04 07:53 | PC.NURSE ---
Shift Summary Patient had an uneventful shift-he remains intubated. Pupils remain unreactive. Family at bedside throughout night. Tube feedings infusing through OG tube. Wooten catheter drained 1150 mls of urine and patient had one bowel movement overnight.
[2021-08-04] MEDS: desmopressin 4 mcg/mL INJ SUBCUT (07:56)
--- NOTE | 2021-08-04 07:57 | P.PN_ITS ---
Subjective Subjective: is at bedside this morning. Patient status is unchanged from past 2 days. Vitals/I&O/Wt Last Vital Signs Temp 99.1 F 08/04/21 06:30 Pulse 56 L 08/04/21 06:30 Resp 20 H 08/04/21 06:18 BP 159/78 08/04/21 06:30 Pulse Ox 98 08/04/21 06:30 08/03/21 08/04/21 08/04/21 22:59 06:59 14:59 Intake Total 405 / 1058 496 / 1554 Output Total 250 / 750 1150 / 1900 Balance 155 / 308 -654 / -346 Weight last 48 hrs Weight 201 lb Weight 221 lb Physical Exam Narrative: Remains intubated Urinary Catheter Management: Wooten: Cath Placed During This Visit: yes Reason for Continuing Indwelling Catheter: Accurate Measurement of Urinary Output in Critically Ill Patients Urinary Catheter Date of Insertion: 08/01/21 Urinary Catheter Time of Insertion: 02:20 Data : 08/04/21 04:45 08/04/21 04:45 Micro: Microbiology 07/31/21 15:20 Gram Stain - Final Sputum - Endotracheal Tube Aspirate Sputum Culture - Preliminary Yeast species A&P Assessment and plan (1) Encounter for postoperative care: Notes reviewed Status: Acute Attestations Medical Necessity Statement*: Intubated Coding Level of Care Code Acute Stock [employer] Sawyer for Elisabethg Fwankita Diagnoses Encounter for postoperative care Z48.89
[2021-08-04] MEDS: budesonide 0.5 mg/2 mL Neb INHALATION ×2 (08:03→19:50)
--- NOTE | 2021-08-04 08:28 | PC.SOCIAL ---
IMM not Given IMM not updated. Patient is intubated and family is discussing goals of care. Pt is not expected to d/c within the next 24-48hrs.
[2021-08-04 08:46] LABS: Bilirubin Urine Neg (Negative); Blood Urine 3+ (Negative); Glucose Urine UA Norm (Normal); Ketones Urine Negative (Negative); Leukocyte Esterase Urine Negative (Negative); Nitrate Urine Negative (Negative); Protein Urine Neg (Negative); RBC Urine 0-4 /hpf (0-2); Specific Gravity, Urine 1.005 (1.005-1.030); Squamous Epithelial Cell Urine 0-4 /hpf (0-5); Urine Appearance Clear (CLEAR); Urine Color Yellow (Yellow); Urobilinogen Urine 1 mg/dL (Negative); WBC Urine 0-4 /hpf (0-5); pH Urine 6.5 (5-7)
[2021-08-04 08:47] LABS: Add Urine Culture? No; Potassium, Radom Urine 44 mmol/L; Urine Random Chloride 25 mmol/L; Urine Random Sodium 65 mmol/L
[2021-08-04 09:23] LABS: Charge for UA Resulting for Rev
[2021-08-04] MEDS: docusate sodium 10 mg/mL (5ml) Liq 100 MG PO ×2 (09:27→17:40)
[2021-08-04 09:35] LABS: Add Urine Microscopic? YES; Bilirubin Urine Neg (Negative); Blood Urine 3+ (Negative); Glucose Urine UA Norm (Normal); Ketones Urine Negative (Negative); Leukocyte Esterase Urine Negative (Negative); Nitrate Urine Negative (Negative); Protein Urine 1+ (Negative); Urine Appearance Clear (CLEAR); Urine Color Yellow (Yellow); Urobilinogen Urine Norm (Negative); pH Urine 6 (5-7)
[2021-08-04 09:45] LABS: Potassium, Radom Urine 48 mmol/L; Urine Random Chloride 21 mmol/L; Urine Random Sodium 54 mmol/L
--- NOTE | 2021-08-04 10:15 | PC.CHAP ---
Pastoral Care Encounter/Spiritual Assessment Type of Contact [] Declined electric shovel operator visit [] Patient/Family/Request visit [] Outpatient visit [] Follow-up visit [] Physician referral [] Code/Alert [x] Routine visit [] Staff referral [] Actively dying [x] Patient sleeping [] Family support [] [] Out of room [] Palliative care [] [] Receiving care in room [] Pre-surgical visit [] Trauma [] Long length of stay [x] ICU visit [x] Other: patinet continues on vent... swelling has gone down some Relational/Emotional Strength [] Patient feels connected with others/family/visitors/staff [] Distress [] Loneliness/isolation [] Abandonment Spirituality of Patient [] Person of Tasneem [] Attends Christian of their Tasneem [] Believes in Prayer [] Reads Bible or Samaritan materials [] There are Spiritual issues to be addressed Air Conditioning Specialist Interventions [x] Prayer [] Active listening [] Non-anxious presence [] Spiritual/emotional support [] Crisis/trauma care [] Spiritual counseling [] Bereavement support [] Provided bereavement packet [] Provided Bible/devotional materials [] Provided toy/stuffed animal, coloring book to patient or family member [] Provided Communion [] Anointing/[place] [] Salvation [x] Completed spiritual assessment [] Other: Impact on Illness or Injury [] Angry [] Fearful [] Anxious [] Often cries [] Exhaustion [] Unable to work [] Unable to attend druze [] Unable to walk/stand [] Unable to read [] Unable to drive [] Unable to eat/drink [] Unable to sleep [] Unable to be with family [] Patient intubated [] Other: Summary Time spent with patient
[2021-08-04 11:59] LABS: Alanine Aminotransferase 23 U/L (0-41); Albumin Level 3.1 g/dL (3.5-5.2); Alkaline Phosphatase 76 IU/L (40-130); Anion Gap 14.8 (5-19); Aspartate Amino Transferase 65 U/L (0-40); Blood Urea Nitrogen 63 mg/dL (6-20); Calcium 9.1 mg/dL (8.5-10.5); Carbon Dioxide 18 mmol/L (22-29); Chloride 125 mmol/L (98-107); Globulin 2.9 g/dL (1.3-4.6); Glomerular Filtration Rate 47.9 mL/min (90-130); Glucose 177 mg/dL (65-115); Osmolality Calculated 340 mOsm/kg (285-295); Potassium 3.8 mmol/L (3.5-5.1); Sodium 154 mmol/L (136-145); Total Bilirubin 0.9 mg/dL (0.15-1.2)
[2021-08-04 12:25] LABS: Glucose Point of Care 170 mg/dL (70-110)
[2021-08-04] MEDS: insulin lispro 100 unit/1 mL SUBCUT ×2 (12:35→17:40)
[2021-08-04] MEDS: vancomycin 1,000 MG in sodium chloride 0.9% 250 ML 250 MG IV (14:47)
--- NOTE | 2021-08-04 14:55 | PM.PN ---
Subjective Subjective: Patient was seen this morning, twice, second time with daughter at bedside, does not respond to painful stimuli, pupils nonreactive to light, no corneal reflex, afebrile, normotensive, remains of sedation, 28% FiO2, patient has a son in [place] will be here tonight, family wants to wait until until sedating medications should have worn off before making a decision, I advised that we could have neurology come by and help in the decision making, however we do not have neurology coverage until August 18 Vitals/I&O/Wt Last Vital Signs Temp 97.7 F 08/04/21 13:00 Pulse 65 08/04/21 14:14 Resp 18 08/04/21 13:39 BP 141/73 08/04/21 13:00 Pulse Ox 98 08/04/21 13:39 08/03/21 08/04/21 08/04/21 22:59 06:59 14:59 Intake Total 405 / 1058 496 / 1554 155 / 155 Output Total 250 / 750 1150 / 1900 500 / 500 Balance 155 / 308 -654 / -346 -345 / -345 Weight last 48 hrs Weight 91.172 kg Weight 100.244 kg Physical Exam Const: COMMON NORMALS: no acute distress OTHER: Intubated Off sedation Right femoral line in place Left arterial line in place Endotracheal tube in place Wooten catheter in place Resp: COMMON NORMALS: normal respiratory effort, No retractions, No use of accessory muscles and clear to auscultation bilaterally AUSCULTATION: clear to auscultation bilaterally Cardio: COMMON NORMALS: regular rate, regular rhythm, S1 normal heart sound present and S2 normal heart sound present RATE: regular rate RHYTHM: regular rhythm HEART SOUNDS: S1 normal heart sound present and S2 normal heart sound present GI: COMMON NORMALS: Normal to inspection, nondistended, normoactive bowel sounds present, Soft to palpation and non-tender PALPATION: Yes Soft to palpation Extremity: COMMON NORMALS: no pedal edema Urinary Catheter Management: Wooten: Cath Placed During This Visit: yes Reason for Continuing Indwelling Catheter: Accurate Measurement of Urinary Output in Critically Ill Patients Urinary Catheter Date of Insertion: 08/01/21 Urinary Catheter Time of Insertion: 02:20 Data : 08/04/21 04:45 08/04/21 11:28 Micro: Microbiology 07/31/21 15:20 Gram Stain - Final Sputum - Endotracheal Tube Aspirate Sputum Culture - Preliminary Yeast species A&P Assessment and plan (1) Anoxic brain injury: Without noted mental return of higher brain functions. Irregular respirations. Intermittently reported decorticate posturing. Noted some slow progression to mild sinus bradycardia. As per discussion yesterday consideration of possibility of continued cerebral edema. Follow-up CT head requested. Discussed yesterday consideration of also risk of progressive edema, herniation with his son. He is going to further discuss with family. Similarly we also discussed consideration of whether to pursue CPR in case of cardiac arrest, which he also states will discuss with rest of the family, and they will let us know. As per discussion on 08/02, they understand prognosis is poor. Family would like to give time trial until , allowing additional time for reassessment and additional family members to come to town. So far clinical reassessments, imaging and EEG indicators unfortunately predicted poor likelihood of recovery. Continue off sedation. Tylenol as needed and has been needing some cueing for spiking fevers. Follow-up blood culture, endotracheal aspirate culture. So far without bacterial growth. Few yeast species in sputum culture. Leukocytosis has improved. Continue broadened antibiotics with vancomycin. Likelihood of central fevers. Tylenol. Surface cooling to alleviate fever. Weaned off pressor, today hypotensive, permissive hypertension, with excess caution in treating so as not to compromise cerebral perfusion. Possible autonomic instability. Pressors if needed to maintain blood pressure. Status: Acute (2) Sinus bradycardia: Possibly autonomic dysregulation, however, discussed consideration of possible progressive cerebral edema. Reassessment CT of the head requested. Mild sinus bradycardia. Appears to also be closer to his more usual heart rate on prior encounters. Status: Acute (3) Hypernatremia: Up to 149. Urine output has been robust, possibly after DEENA, which has been improving. Less likely central DI, but consideration, although amount of urine output not suggestive. Requested urine osmolality. Discussed with nephrology. Stopped D5W. He is started on tube feeds with water flushes 200 mL every 6 hours. Status: Acute (4) Pneumonia: Pneumonia with possible aspiration. He is having fevers, likely central, however, continue empiric antibiotics with coverage for pneumonia. Follow-up blood culture, endotracheal aspirate culture. In case of further yeast growth, consider addition of additional antifungal coverage. On chest x-ray noted increased density in the left retrocardiac region with possible left lower lobe consolidation. On minimal FiO2 and PEEP. Status: Acute (5) Cardiac arrest: Continue reassessment of neurologic condition following cardiac arrest as above. Continue airway and ventilatory support. Further discussions of goals of care depending on condition and neurologic recovery. Noted episode of nonsustained VT. Continue telemetry. Status: Acute (6) DEENA (acute kidney injury): Gradually improving. Now robust urine output. Hypernatremia. Likely prerenal, ATN. Continue support blood pressure. Lisinopril on hold. Off pressor. Status: Acute (7) Acute respiratory failure with hypoxia: Continue management of pneumonia as above. Status: Acute (8) Neck swelling: Slightly decreased. Oropharyngeal edema slightly coming down. Consideration of possibility of anaphylactic reaction. Postprocedural swelling. Retropharyngeal/prevertebral hematoma. With severe oropharyngeal swelling, angioedema was considered as well, no history of hereditary angioedema in the family. Acquired angioedema was also a consideration, C4 and C1 esterase functional assay are normal. Would not resume lisinopril. Likely to gradually go down, however, needs continued airway support at this time. Consideration of tracheostomy will likely be needed in case proceeding with longer-term life support. Status: Acute (9) Bicytopenia: Additional RBC transfusion. With good response to RBC transfusion on 07/30. Leukocytosis with absolute neutrophilia and toxic granulation on peripheral smear. Microcytic anemia. Absolute monocytosis. Thrombocytopenia. No blasts or equivalent cells were identified. Does have some splenomegaly history. Coagulation studies have been okay. Follow-up blood count. Status: Acute (10) Seizures: No seizures on EEG. Status: Acute Plan Sudden onset airway obstruction With cardiopulmonary arrest With acute respiratory failure Etiology possibly postoperative edema of tongue, prevertebral hematoma, bronchospasm, laryngeal spasm, anaphylaxis or CHIARA inhibitor use -Status post return of spontaneous circulation -Currently off pressors -Currently intubated, off sedation, 28% FiO2 -No significant mental status, concerns for airway -On tube feeds Anoxic brain injury Head CT 08/03/2021 1.? Progressed findings of diffuse anoxic brain injury as described above. 2.? Diffuse loss of neal-white differentiation progressed compared to previous with evidence of increased intracranial pressure. Progressed narrowing of the lateral ventricles and 3rd ventricle. 3.? Basilar cisterns and 4th ventricle remain patent. No tonsillar herniation. 4.? New patchy areas of low-attenuation change involving the cortex more prominent in the LEFT frontal lobe and LEFT greater than RIGHT parasagittal occipital lobes compatible with hypoperfusion and anoxic brain injury. 5.? Increased edema involving the basal ganglia and lentiform nucleus areas of anoxic brain injury/ischemia. EEG 07/28/2021 IMPRESSION: Abnormal EEG because of profoundly flat background.? There was possibly low voltage slowing in the posterior leads, although the regularity of this activity was suspicious for ICU artifact (IV pump, etc.).? There was no epileptiform activity.? There was no sign of subclinical seizures. -No corneal reflex, no pupillary reflex, does not withdraw from pain, decorticate posturing -Prognosis is poor Plan -Neurochecks -Monitor for cerebral edema, cerebral herniation -Continue to hold sedation -Allow for permissive hypertension -Tylenol for fevers -Monitor vitals closely -Plan -Son will come from [facility] -Family wants to wait until so medication side effects such as fentanyl, Versed should be out of his system before making a final decision Neck swelling Hypernatremia -Continue tube feeds, 50 cc/h free water flushes increased to 200 every 6 hours -Nephrology consulted Sinus bradycardia -Likely autonomic dysfunction DEENA, monitor urine output Neck swelling -ENT consulted Bicytopenia -Monitor blood counts closely - Troponin level elevated: Postcardiac arrest and resuscitation. Echocardiogram with normal ejection fraction, no R WMA. Left lower extremity dusky appearance: Resolved. Palpable BL DP pulses. Discussed also condition monitoring of left lower extremity. No DVT noted on ultrasound. Continue neurovascular checks. Follow-up CK was 1095. Nasopharyngeal blood clots: Clots, small bleed from nasopharynx. After multiple intubation attempts, attempted nasotracheal intubation. Not in DIC. Today clear secretions, negative for halo test. Glucose 20. 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 Hepatitis C: HCV RNA 23,200,000. 7.37 IUs/mL. Attestations Medical Necessity Statement*: Patient requires hospitalization for anoxic brain injury, cardiac arrest, critical care time spent over 45 minutes Coding Level of Care Code Acute Childcare Worker for [facility] Diagnoses Anoxic brain injury G93.1 Sinus bradycardia R00.1 Hypernatremia E87.0 Pneumonia J18.9 Cardiac arrest I46.9 DEENA (acute kidney injury) N17.9 Acute respiratory failure with hypoxia J96.01 Neck swelling R22.1 Bicytopenia D75.89 Seizures R56.9
[2021-08-04] MEDS: pantoprazole 40 mg SDV IVP (16:39)
[2021-08-04 16:41] LABS: Glucose Point of Care 133 mg/dL (70-110)
[2021-08-04 17:38] LABS: Glucose Point of Care 143 mg/dL (70-110)
--- NOTE | 2021-08-04 19:13 | PC.NURSE ---
End of shift note: Overall, uneventful shift. Patient continues to show decorticate posturing in response to pain, pupils remain unreactive at 3mm, no purposeful movement noted. 1000ml of urine from Wooten catheter, patent and draining. 661ml Jevity tube feeding fed, 400ml water flushed. Patient oral care and repositioning performed throughout day. Linens refreshed and smoothed as needed. Cotton placed in both nares due to bleeding, replaced as needed. Patient remained afebrile throughout this shift.
[2021-08-04 19:16] LABS: Alanine Aminotransferase 25 U/L (0-41); Albumin Level 3.3 g/dL (3.5-5.2); Alkaline Phosphatase 83 IU/L (40-130); Anion Gap 15.9 (5-19); Aspartate Amino Transferase 61 U/L (0-40); Blood Urea Nitrogen 61 mg/dL (6-20); Calcium 9.4 mg/dL (8.5-10.5); Carbon Dioxide 19 mmol/L (22-29); Chloride 126 mmol/L (98-107); Globulin 2.5 g/dL (1.3-4.6); Glomerular Filtration Rate 51.9 mL/min (90-130); Glucose 145 mg/dL (65-115); Osmolality Calculated 344 mOsm/kg (285-295); Potassium 3.9 mmol/L (3.5-5.1); Sodium 157 mmol/L (136-145); Total Bilirubin 0.9 mg/dL (0.15-1.2); Total Protein 5.8 g/dL (6.6-8.7)
[2021-08-04] MEDS: insulin glargine 100 units/1 mL 20 UNIT SUBCUT (21:42)
[2021-08-04 21:50] LABS: Glucose Point of Care 139 mg/dL (70-110)
[2021-08-05] VITALS (56 sets, daily range): BP systolic 157–199; BP diastolic 76–102; PULSE 56–77; RESP 14–28; TEMP 36.7–37.5; O2SAT 96–100; BMI 27.1
[2021-08-05 02:46] LABS: Basophils % 0.3 %; Eosinophils % 0.1 %; Hematocrit 27.6 % (42.0-52.0); Hemoglobin 8.6 g/dL (11.7-16.6); Lymphocytes % 10.3 %; Mean Corpuscular HGB Conc 31.2 g/dL (30.0-36.0); Mean Corpuscular Hemoglobin 30.8 pg (28.0-34.0); Mean Corpuscular Volume 98.9 fl (80-94); Mean Platelet Volume 12.6 fL (7.4-10.4); Monocytes # 0.5 10^3/uL (0.2-0.9); Neutrophils # 7.71 10^3/uL (1.8-7.7); Neutrophils % 82.4 %; Nucleated Red Blood Cells % 0 %; Platelet Count 62 10^3/cmm (130-400); Red Blood Count 2.79 10^6/uL (4.1-5.3); Red Cell Distribution Width 17.7 % (12.1-15.1); White Blood Count 9.4 10^3/uL (4.0-10.0)
[2021-08-05 03:11] LABS: Alanine Aminotransferase 27 U/L (0-41); Albumin Level 3.2 g/dL (3.5-5.2); Alkaline Phosphatase 81 IU/L (40-130); Aspartate Amino Transferase 58 U/L (0-40); Blood Urea Nitrogen 58 mg/dL (6-20); Calcium 9.4 mg/dL (8.5-10.5); Carbon Dioxide 19 mmol/L (22-29); Chloride 128 mmol/L (98-107); Globulin 2.6 g/dL (1.3-4.6); Glomerular Filtration Rate 51.9 mL/min (90-130); Glucose 158 mg/dL (65-115); Magnesium 2.1 mg/dL (1.7-2.3); Osmolality Calculated 347 mOsm/kg (285-295); Phosphorus 2.9 mg/dL (2.5-4.5); Sodium 159 mmol/L (136-145); Total Bilirubin 0.9 mg/dL (0.15-1.2); Total Protein 5.8 g/dL (6.6-8.7)
[2021-08-05] MEDS: ipratropium-albuterol 3 mL Neb INHALATION ×3 (04:24→11:29)
--- NOTE | 2021-08-05 05:03 | XR_ITS ---
WS: [id number] XR chest 1V portable 23182 REASON FOR EXAM: increase work of breathing FINDINGS: Endotracheal tube and nasogastric tube remain in position. Compared to 07/30/2021 there appears to be some resolving of the consolidation in the left lower lung. Right lung field remains clear. XR/XR chest 1V portable [id number] IMPRESSION: Resolving pneumonitis and/or atelectasis in the left lower lung.
[2021-08-05] MEDS: piperacillin-tazobactam 3.375 GM in sodium chloride 0.9% (plus) 50 ML IV (05:46)
--- NOTE | 2021-08-05 05:54 | PC.NURSE ---
Shift Summary Patient remains intubated at this time. Tube feedings infusing through OG tube per order. Wooten catheter drained 1000 mls of urine overnight. Frequently turned/repositioned patient with help from staff. Surgical incision noted to right medial neck please see wound assessment for detail. Patient nose bled intermittently throughout the shift. Patient pupils remain unreactive, no purposeful movement noted overnight.
[2021-08-05 06:45] LABS: Glucose Point of Care 139 mg/dL (70-110)
--- NOTE | 2021-08-05 07:09 | P.PN_ITS ---
Subjective Subjective: did overbreathe the vent during the night. currently is not responsive Medications: Reviewed: Yes Medication Review Details: Current Medications Acetaminophen (Acetaminophen 325 Mg Tablet) 650 mg PO Q4H PRN PRN Reason: Mild Pain or fever >101.5 Last Admin: 07/31/21 23:48 Dose: 650 mg Documented by: Al Hydrox/Mg Hydrox/Simethicone (Iqjh-Ppv-Isnnrxznb-Rush 30 Ml Udc) 30 ml PO Q4H PRN PRN Reason: INDIGESTION Albuterol/Ipratropium (Ipratropium-Albuterol 3 Ml Neb) 3 ml INHALATION Q 4H.RESPIRATORY SUDHIR Last Admin: 08/05/21 04:24 Dose: 3 ml Documented by: Artificial Tears (Artificial Tears Op Oint 3.5 Gm) 1 applic EYE-BOTH PRN PRN PRN Reason: DRY EYE(S) Last Admin: 07/31/21 23:48 Dose: 1 applic Documented by: Budesonide (Budesonide 0.5 Mg/2 Ml Neb) 0.5 mg INHALATION BID.RESPIRATORY SUDHIR Last Admin: 08/04/21 19:50 Dose: 0.5 mg Documented by: Dextrose (Dextrose 50% Syringe 50 Ml) 25 ml IVP ONCE PRN; Protocol PRN Reason: hypoglycemia protocol Dextrose (Dextrose 50% Syringe 50 Ml) 50 ml IVP PRN PRN; Protocol PRN Reason: hypoglycemia protocol Docusate Sodium (Docusate Sodium 10 Mg/Ml (5ml) Liq) 100 mg PO BID SUDHIR Last Admin: 08/04/21 17:40 Dose: 100 mg Documented by: Glucagon (Glucagon 1 Mg/Ml Inj 1 Ml) 1 mg IM ONCE PRN; Protocol PRN Reason: Adult Acute Hypoglycemia Prot. Norepinephrine Bitartrate 4 mg (/ Dextrose) 254 mls @ 0 mls/hr IV .Q0M SUDHIR; P rotocol Last Titration: 07/31/21 19:30 Dose: 0 mcg/min, 0 mls/hr Documented by: Vasopressin 100 unit/ Sodium (Chloride) 100 mls @ 0 mls/hr IV .Q0M SUDHIR; Protocol Piperacillin Sod/Tazobactam (Sod 3.375 gm/ Sodium Chloride) 50 mls @ 12.5 mls/hr IV Q8H SUDHIR; Protocol Last Admin: 08/05/21 05:46 Dose: 12.5 mls/hr Documented by: Levetiracetam 500 mg/ Sodium (Chloride) 105 mls @ 420 mls/hr IV Q12H [facility] Last Infusion: 08/04/21 23:41 Dose: Infused Documented by: Vancomycin HCl 1,000 mg/ (Sodium Chloride) 250 mls @ 250 mls/hr IV Q24H [facility] Last Infusion: 08/04/21 17:27 Dose: Infused Documented by: Sodium Chloride (Sodium Chloride 0.9%) 500 mls @ 0 mls/hr XX .Q0M [facility] Last Admin: 08/02/21 03:20 Dose: 3 mls/hr Documented by: Dextrose (D5w) 1,000 mls @ 100 mls/hr IV .Q10H [facility] Insulin Glargine (Insulin Glargine 100 Units/1 Ml) 20 unit SUBCUT BEDTIME [facility] Last Admin: 08/04/21 21:42 Dose: 20 unit Documented by: Insulin Human Lispro (Insulin Lispro 100 Unit/1 Ml) 0 unit SUBCUT WM&BEDTIME [facility]; Protocol Last Admin: 08/04/21 21:47 Dose: Not Given Documented by: Magnesium Hydroxide (Magnesium Hydroxide 30 Ml Udc) 30 ml PO Q4H PRN PRN Reason: Constipation/indigestion Ondansetron HCl (Ondansetron 2 Mg/Ml Sdv 2 Ml) 4 mg IVP Q6H PRN PRN Reason: NAUSEA AND VOMITING Pantoprazole Sodium (Pantoprazole 40 Mg Sdv) 40 mg IVP Q24H [facility] Last Admin: 08/04/21 16:39 Dose: 40 mg Documented by: Vitals/I&O/Wt Last Vital Signs Temp 99.4 F 08/05/21 06:00 Pulse 72 08/05/21 06:00 Resp 28 H 08/05/21 05:57 BP 178/94 08/05/21 06:00 Pulse Ox 96 08/05/21 06:00 08/04/21 08/05/21 08/05/21 22:59 06:59 14:59 Intake Total 1361 / 1516 1062 / 2578 Output Total 500 / 1000 1000 / 2000 Balance 861 / 516 62 / 578 Weight last 48 hrs Weight 88.479 kg Weight 91.172 kg Physical Exam Narrative: intubated, ng tube, not responsive BP elevated heent- nc/at neck supple lungs clear heart reg abd soft, + bs ext minimal edema Urinary Catheter Management: Wooten: Cath Placed During This Visit: yes Reason for Continuing Indwelling Catheter: Accurate Measurement of Urinary Output in Critically Ill Patients Urinary Catheter Date of Insertion: 08/01/21 Urinary Catheter Time of Insertion: 02:20 Data : 08/05/21 01:29 08/05/21 01:29 Micro: Microbiology 07/31/21 15:20 Gram Stain - Final Sputum - Endotracheal Tube Aspirate Sputum Culture - Final Andreia albicans A&P Assessment and plan (1) DEENA (acute kidney injury): 60 yr old man w/ anoxic brain injury, pna, htn, seizures, cardiac arrest. 1. DEENA- ATN - cr improved to 1.4 mg/dl 2. hypernatremia - await repeat urine electrolytes and osmolality. s/p desmopressin yesterday and no change -will give d5w and can use desmopressin if want -cont free water flushes 3. htn -Q if central- add hctz 4. anoxic brain injury - can cause DI 5. VDRF 6. check vanco trough keep under 19 seen and examined w/ rN- telehealth visit discussed w/ RN time spent 25 + minutes Status: Acute Plan see above Attestations Medical Necessity Statement*: anoxic brain injury Time Spent in Patient Care: 16 - 35 minutes (>than 50% of time spent in counselling and/or direct pt care on unit) . Coding Level of Care Code Acute Private Equity Associate for [facility] Diagnoses DEENA (acute kidney injury) N17.9
[2021-08-05] MEDS: budesonide 0.5 mg/2 mL Neb INHALATION (07:55)
[2021-08-05] MEDS: dextrose 5% 1,000 ML 125 ML IV (07:59)
[2021-08-05] MEDS: insulin lispro 100 unit/1 mL SUBCUT (08:09)
[2021-08-05 08:21] LABS: Glucose Point of Care 158 mg/dL (70-110)
--- NOTE | 2021-08-05 08:22 | PC.NURSE ---
250ml fluid bolus administered per Dr. Joy's order.
[2021-08-05] MEDS: docusate sodium 10 mg/mL (5ml) Liq 100 MG PO (09:12)
--- NOTE | 2021-08-05 10:17 | PC.CHAP ---
Pastoral Care Encounter/Spiritual Assessment Type of Contact [] Declined clinical aide visit [] Patient/Family/Request visit [] Outpatient visit [] Follow-up visit [] Physician referral [] Code/Alert [x] Routine visit [] Staff referral [] Actively dying [] Patient sleeping [x] Family support [] [] Out of room [] Palliative care [] [] Receiving care in room [] Pre-surgical visit [] Trauma [] Long length of stay [x] ICU visit [x] Other: removing vent today... prayed with family.. offered to be with family during removal Relational/Emotional Strength [] Patient feels connected with others/family/visitors/staff [] Distress [] Loneliness/isolation [] Abandonment Spirituality of Patient [] Person of Tasneem [] Attends Jain of their Tasneem [] Believes in Prayer [] Reads Bible or Taoism materials [] There are Spiritual issues to be addressed Ride Mechanic Interventions [x] Prayer [x] Active listening [x] Non-anxious presence [x] Spiritual/emotional support [] Crisis/trauma care [] Spiritual counseling [] Bereavement support [] Provided bereavement packet [] Provided Bible/devotional materials [] Provided toy/stuffed animal, coloring book to patient or family member [] Provided Communion [] Anointing/[place] [] Salvation [x] Completed spiritual assessment [] Other: Impact on Illness or Injury [] Angry [] Fearful [] Anxious [] Often cries [] Exhaustion [] Unable to work [] Unable to attend jew [] Unable to walk/stand [] Unable to read [] Unable to drive [] Unable to eat/drink [] Unable to sleep [] Unable to be with family [] Patient intubated [] Other: Summary Time spent with patient
--- NOTE | 2021-08-05 12:37 | PC.NURSE ---
Multiple family members at bedside throughout shift. Sisters and sons of patient. Education regarding keppra and docusate performed. Additional chairs brought into room to accommodate. Bereavement tray ordered and given to family. Family meeting occurred with physicians and nurse manager product design DAVID Johnson. Elizabeth RN reports family decided to move forward with terminal extubation at 1300. Dr. Villegas present in unit. Writing orders for extubation now. Family states they do not want patient to receive ativan during extubation but they are okay with morphine. Nelly aware of family's request. RT Aleshia contacted at 12:38 and updated regarding change in care plan. Offered to contact Mainstreaming Facilitator and family declined. Extubation on track to be performed at 13:00.
[2021-08-05 12:43] LABS: Anion Gap 17.1 (5-19); Blood Urea Nitrogen 53 mg/dL (6-20); Calcium 9.4 mg/dL (8.5-10.5); Carbon Dioxide 20 mmol/L (22-29); Chloride 124 mmol/L (98-107); Glomerular Filtration Rate 51.9 mL/min (90-130); Glucose 146 mg/dL (65-115); Osmolality Calculated 341 mOsm/kg (285-295); Potassium 4.1 mmol/L (3.5-5.1); Sodium 157 mmol/L (136-145)
[2021-08-05] MEDS: morphine 4 mg/mL SDV 1 mL 2 MG IVP ×2 (13:02→13:07)
[2021-08-05 13:21] LABS: Vancomycin Trough 9.5 ug/mL (10-15)
--- NOTE | 2021-08-05 13:22 | PC.NURSE ---
Family at bedside and request to stay in room for extubation. RT Aleshia at bedside to remove ET tube. ET tube removed without incident. Morphine 2mg administered X2 for air hunger. Attempt to auscultate apical pulse for full 60 seconds. No pulse present. Time of no apical pulse present 13:21. Family remains at bedside.
--- NOTE | 2021-08-05 14:30 | PC.NURSE ---
MTS notified of patients time of . This nurse spoke with [facility] coordinator,Anne-Marie who determined this patient is not a candidate for organ donation or for saving site. Written form in chart.
--- NOTE | 2021-08-05 15:07 | PC.NURSE ---
[facility] [place] [id number] . Matthias Samaniego for transport
--- NOTE | 2021-08-05 15:43 | PC.NURSE ---
Body to [facility] by security and Kate Patricia Callahan house supervisor.
--- NOTE | 2021-08-05 15:47 | PM.PN ---
Subjective Subjective: - Patient was seen this morning -Patient's 2 sisters are at bedside -This morning patient does not have a corneal reflex, no pupillary reflex, he had episodes of breathing over the vent overnight, none currently, remains on 28% FiO2, hypertensive, afebrile, good urine output, -Patient does not withdraw from pain, does not respond to his name, hemoglobin 8.6, platelet count 62 -His serum sodium is 157 -I discussed with 2 sisters at bedside, concern for anoxic brain injury, patient's 2 sisters tell me that the family wants to make a decision about comfort care, family meeting set at 1145 -I attended a family meeting at 1145 -[facility] ICU coordinator, Maryellen Tuttle present -Patient's 2 sons present, present, daughter present, 2 sisters present -Patient has 1 son, who elected to not come to meeting, this is his son from [place] -I started off the meeting by asking family members if he had any questions -Patient's family had questions about the cause of patient's acute respiratory failure -I discussed with all parties present that there was concern for airway edema, neck swelling, tongue swelling possibly postsurgical versus angioedema versus allergic reaction, other causes could include bronchospasms, laryngeal spasm, retropharyngeal/paravertebral hematoma -Family wanted the exact timeframe of patient's complaints of shortness of breath -I advised family that what I had heard from nursing staff was he had complaint of shortness of breath while in PACU, had an assessment, had normal vital signs, no loss of airway, no concerns for cyanosis, normal respiratory exam, was transferred to the floors -On the floors, [facility], he had complaints of shortness of breath, but had normal vital signs, was alert and oriented, following commands, did not require oxygen, was on room air, no concerns for cyanosis, no changes in mentation, normal physical exam -Patient then suddenly became suddenly cyanotic with lip, tongue, neck swelling and rapid response was called after nursing assessment, this timeframe was roughly 5 minutes upon arriving on the floor -I discussed our emergency attempts to obtain airway I advised family that it was Dr. Hector from pulmonary, Dr. Dela Cruz from anesthesiology, Dr. Russell from the emergency room that attempted to get an oral airway with unsuccessful attempts, then then emergency attempt at emergency airway, cricothyrotomy. I advised that there was difficulty in obtaining emergency airway, due to neck swelling, airway swelling, tongue swelling a emergency airway was obtained, and oral airway was obtained by Dr. Dela Cruz, so decision was made to place oral airway as there was some delay on obtaining air tube, for cricothyrotomy. Patient had an oral airway placed by Dr. Hector. I advised family members that although I was present during this process, I was not the physician trying to place his emergency airways, I was running patient's cardiac arrest ACLS protocol. And I did not have the specifics on placing cricothyrotomy, placing oral airway, or reason for difficulty. -Patient's family also was concerned on why patient was transferred from PACU to the floors with complaints for shortness of breath -I advised family members that I was not present during this process, however I do believe due diligence was given to the patient down in PACU, with appropriate assessment for his respiratory status, airway. However I do not have the firsthand account of patient's status, how he looked, in PACU -All I know is what has been reported to me by nursing staff in the emergency situation when rapid response was called -I advised family members that when I arrived on rapid response, patient was blue, cyanotic, with neck swelling, tongue swelling, he had a pulse, was in respiratory distress, with respiratory therapy at bedside attempting to bag mask ventilation, my first thought was to get an airway, so I had immediately called anesthesia to place an airway, with Dr. Dela Cruz arriving immediately to place airway -Family wanted my thoughts on patient's anoxic brain injury -I discussed with family that after patient's code, when he was in the ICU, after I had received him from surgery, he did not have any pupillary reflexes, no corneal reflex, no pupillary light reflex, did not withdraw from pain, did not localize pain, and had voiced to family my concerns for significant anoxic brain injury as it was roughly 20 minutes before an airway was established. I advised family that his prognosis is poor, status was critical, and had significant concerns that he has significant anoxic brain injury, and the likelihood of him having a meaningful gravity was fairly unlikely. Patient's family wanted to give him a chance, I was told that he was a fighter, so they wanted us to do everything for him including dialysis if necessary, they wanted to give him a chance. -Thus we started targeted temperature management, that night, with progressive rewarming, and consultation with appropriate specialist, we performed EEG and CT head -Based on findings of EEG and CT head, there is significant concern for an evidence of anoxic brain injury -I would have neurology come by and see patient, and to weigh in, however we do not have neurology coverage, Dr. Hernandez is away until mid August -However as patient continues to have no corneal reflex, no pupillary reflex, has posturing, does not withdraw from pain, does not follow commands, has been off sedation, I think the likelihood of him having a meaningful recovery to his original level of functioning is fairly unlikely. He has suffered anoxic brain injury, and this likely will be his baseline level of functioning. I advised family that he will likely remain ventilator dependent, will require tracheostomy, will likely require PEG tube placement for feeds. However we can give him more time, and continue to monitor his neurologic functioning -He is serum sodium is 159, he is receiving tube feeds, free water flushes, received desmopressin, nephrology is consulted, monitoring serum sodium -He did receive for fentanyl, Versed for sedation, these have been stopped as of 07/30/2021 in the evening, there still could be l lingering sedating effects of these medications, however given patient's profound neurologic findings, CT scan findings, EKG findings I feel less likely that they are playing a role in his current mental status -I advised family members that based on all the information that I have given to him, if Jeet was sitting here this meeting what would he say, what what his thoughts be will with his wishes to be -I heard unanimously from patient's daughter, sisters, , Sons he would not want to remain a vegetable, he would not want to remain on artificial life support, he would want to pass away comfortably, he would not be his wish to remain like this -I in detail discussed comfort care, which would entail terminally extubating him, her goal is to not hasten his but to ease his pain and ease his suffering, I do not know how long he will remain alive after stopping life-sustaining measures, but however long it might be my goals to ease his pain and ease his suffering through medications such as morphine, atropine, his daughter declined Ativan -I gave patient's family multiple opportunities if he had any questions, if there is anything else I can answer, however family did not have any further questions, they voiced understanding -I understood that it this is a difficult situation, and that I cannot imagine what they are going through, however I did everything to the best of my abilities -I again I asked family if they had any questions, any concerns, anything I could answer for them, they voiced consent, all questions answered, there was no remaining questions or concerns -Patient's family tells me that they want to be present during this whole process, during the terminal extubation process, -Plan was to start comfort care at roughly 1 PM -After discussing the risks and benefits of comfort care, all parties voiced understanding, all questions answered, they voiced understanding, agreed to proceed with comfort care -Comfort care was initiated -Time of 1321 Vitals/I&O/Wt Last Vital Signs Temp 98.0 F 08/05/21 11:15 Pulse 69 08/05/21 13:00 Resp 14 08/05/21 13:02 BP 199/100 08/05/21 13:00 Pulse Ox 96 08/05/21 13:02 08/05/21 08/05/21 08/05/21 06:59 14:59 22:59 Intake Total 1062 / 2578 155 / 155 Output Total 1000 / 2000 Balance 62 / 578 155 / 155 Weight last 48 hrs Weight 88.479 kg Weight 91.172 kg Physical Exam Const: COMMON NORMALS: no acute distress OTHER: Intubated -Endotracheal tube in place -Off sedation -Right femoral line in place -Left arterial line in place On exam, no corneal reflex, no pupillary reflex, does not withdraw from pain, decorticate posturing Resp: COMMON NORMALS: normal respiratory effort, No retractions, No use of accessory muscles and clear to auscultation bilaterally AUSCULTATION: clear to auscultation bilaterally Cardio: COMMON NORMALS: regular rate, regular rhythm, S1 normal heart sound present and S2 normal heart sound present RATE: regular rate RHYTHM: regular rhythm HEART SOUNDS: S1 normal heart sound present and S2 normal heart sound present GI: COMMON NORMALS: Normal to inspection, nondistended, normoactive bowel sounds present, Soft to palpation and non-tender PALPATION: Yes Soft to palpation Extremity: COMMON NORMALS: no pedal edema Urinary Catheter Management: Wooten: Cath Placed During This Visit: yes Reason for Continuing Indwelling Catheter: Accurate Measurement of Urinary Output in Critically Ill Patients Urinary Catheter Date of Insertion: 08/01/21 Urinary Catheter Time of Insertion: 02:20 Data : 08/05/21 01:29 08/05/21 12:12 Micro: Microbiology 07/31/21 15:30 Blood Culture - Final Blood NO GROWTH AFTER 5 DAYS 07/31/21 15:20 Gram Stain - Final Sputum - Endotracheal Tube Aspirate Sputum Culture - Final Andreia albicans A&P Assessment and plan Plan Proceeding with comfort care Attestations Medical Necessity Statement*: Patient requires hospitalization proceeding with comfort care, critical care time spent over 1 hour and a half Coding Level of Care Code Acute Production Line Manager for Aishwarya Rodríguez
[2021-08-05 16:17] LABS: Osmolality Urine 632 mOsm/kg (50-1200)
[2021-08-05 16:17] LABS: Osmolality Urine 605 mOsm/kg (50-1200)
[2021-08-05 16:17] LABS: Osmolality Urine 652 mOsm/kg (50-1200)
--- NOTE | 2021-08-07 17:47 | PC.NURSE ---
Addendum entered and electronically signed by Maryellen Tuttle RN 08/07/21 18:13: My note below was from 08/05/2021. Original Note: I was present for the family conference at 11:45 in the [facility] with Dr. Nelly Johnson, Dr. Loredo and his family. I introduced myself and they asked me what I did at the hospital. I noted risk management upon introduction and was immediately asked why risk management was at the meeting. I explained to Mr. Isabel's oldest sister that I had many roles at the hospital including ethics and I was in attendance today to support the family and staff if they had any ethical questions or concerns regarding end-of-life care or comfort measures. As the meeting concluded, the family inquired about having an autopsy performed. The [facility] team told the family we would help them with this request. Dr. Villegas, attending physician gave his permission I was contacted by ICU to assist the family with their autopsy request for MR. Isabel. I went to the ICU room and spoke to the family about this process. I received home information, family contact information and had an autopsy consent signed by the patient?s spouse. I witnessed this process and signed the consent to verify the process. The patient?s older sister asked about the autopsy time frame, results, transportation of body and fluid designer information. I instructed the family (2 sisters and spouse) that [facility] agreed to assume responsibility for the autopsy process. Mr. Santamaria would poultry picker the body from [facility], [facility] home would transport the body to the autopsy facility in [place], this process would take approximately 1 week given the availability of services available per their schedule, post autopsy, Mr. Partida remains would be released to the home of choice and that home would pick the remains up and take them to their facility. The family requested [facility] in [place], [place] and this information was added to the medical record and left with the paperwork needed by Mr. Santamaria. I did inform the family that per Mr. Santamaria, the final report would not be completed for 8-12 weeks. All verbalized understanding of the entire process. I left my business card for each of them and instructed them to call with any questions at any time. I instructed ICU staff to not remove any tubes/lines/etc that were present prior to , contact the lab and to please have security assist in transporting Mr. Isabel's body to the [facility]. ICU staff verbalized understanding of process. Dr. Santi Arenas (Dr. Velasco), Pathologist, was contacted and informed of the autopsy request. He told me he was [place] the [place] (in [place] but there was nothing he needed to do and that the body could be released to Garth Santamaria Director Of Nuclear Medicine DAVID Alvarado.
--- NOTE | 2021-09-16 20:35 | PM.DDS ---
Discharge Providers DDS Date of Admission: 07/28/21 14:35 Date Summary Completed: 10/20/21 Attending Provider at Admission: Martin Loredo DO Time of : 13:21 Attending Provider at Discharge: Anjum Villegas MD Primary Care Provider: Celestina Wolf DO DS Diagnoses Hospital Diagnoses (1) DEENA (acute kidney injury): Reason for Visit Reason for Visit cervical spondylosis, cervical disc degeneration Summary Date and Time of Date of : 08/05/21 Time of : 13:21 Summary Summary: Jeet Isabel is a 60 year old male with a past medical history of hepatitis C, currently on treatment, COPD, chronic thrombocytopenia, history of lymphoma, neck pain, cervical spondylosis, hypertension, anxiety and depression, history of thoracic ascending aortic aneurysm who presented to [facility] for anterior discectomy, by Dr. Loredo.? Patient developed acute sudden postoperative airway obstruction, with acute respiratory failure with hypoxia, with cardiac arrest likely secondary to prevertebral hemorrhage/hematoma from recent surgical procedure, other additional etiologies include bronchospasm, tongue edema, and angioedema. Patient had attempts on placement of emergency cryothyroidotomy, oral airway was eventually placed, ROSC was achieved, taken back to the OR by Dr. Loredo, placed on mechanical ventilation, sedation therapy, Levophed therapy. Monitored in the ICU, had significant evidence of anoxic brain injury, after discussion with family, discussion of goals of care, decision was made to pursue comfort care. Patient was made comfort care time of time of 13:21 on 08/05/2021. Additional Data Advance directives?: No Discharge Plan Discharge Patient Disposition: DS Attestations Time Spent in /Discharge Care*: greater than 30 min Quality - AMI: AMI present?: No Quality - Stroke: CVA present?: No Quality - VTE: VTE present?: No Coding Level of Care Code Acute Restaurant Area Director for Chg Fwd Diagnoses DEENA (acute kidney injury) N17.9
== END 2021-08-05 16:18 | disposition expired | DRG 471 ==
LOC: MEDSURG 14:35 → ICU 16:15
PROVIDERS: Internal Medicine; Internal Medicine Nephrology; Admitting Provider Orthopaedic Surgery; PCP Family Medicine; Visit Provider Family Medicine
PROC: 0RB30ZZ Excision of Cervical Vertebral Disc, Open Approach (ICD-10-PCS; CPT 22551; principal; 2021-07-28 07:00)
PROC: 0RG20A0 Fusion of 2 or more Cervical Vertebral Joints with Interbody Fusion Device, Anterior Approach, Anterior Column, Open Approach (ICD-10-PCS; principal; 2021-07-28 16:20)
DX: M47.22 Other spondylosis with radiculopathy, cervical region (principal); I46.9 Cardiac arrest, cause unspecified; I63.9 Cerebral infarction, unspecified; J69.0 Pneumonitis due to inhalation of food and vomit; N17.0 Acute kidney failure with tubular necrosis; J96.01 Acute respiratory failure with hypoxia; G93.1 Anoxic brain damage, not elsewhere classified; I47.2 Ventricular tachycardia; M96.840 Postprocedural hematoma of a musculoskeletal structure following a musculoskeletal system procedure; T79.A22A Traumatic compartment syndrome of left lower extremity, initial encounter; F41.8 Other specified anxiety disorders; J44.9 Chronic obstructive pulmonary disease, unspecified; I10 Essential (primary) hypertension; I71.6 Thoracoabdominal aortic aneurysm, without rupture; Z87.891 Personal history of nicotine dependence; Z51.5 Encounter for palliative care; R56.9 Unspecified convulsions; R68.0 Hypothermia, not associated with low environmental temperature; I48.91 Unspecified atrial fibrillation; Z85.72 Personal history of non-Hodgkin lymphomas; D69.6 Thrombocytopenia, unspecified; B19.20 Unspecified viral hepatitis C without hepatic coma; R57.0 Cardiogenic shock
CPT/HCPCS: 12345; 36415; 36416; 36430; 36592; 36600; 51702; 70450; 70490; 71045; 72040; 76000; 76770; 80048; 80051; 80053; 80061; 80074; 80202; 80503; 81001; 81003; 82330; 82436; 82533; 82550; 82570; 82575; 82607; 82746; 82803; 82805; 82962; 83036; 83605; 83735; 83880; 83935; 84100; 84133; 84145; 84295; 84300; 84443; 84484; 85025; 85362; 85378; 85384; 85610; 85730; 86140; 86160; 86850; 86900; 86920; 87040; 87070; 87106; 87205; 87522; 87641; 87806; 93005; 93306; 93970; 94002; 94003; 94640; 94799; 96372; C1713; C9113; C9359; J0330; J0690; J1100; J1170; J1815; J1885; J1953; J2060; J2250; J2270; J2370; J2405; J2543; J2597; J2704; J2710; J3010; J3370; J3475; J3490; J7030; J7040; J7050; J7626; P9016; Q3014